=== PATIENT | male | born 1945 | race Caucasian/White ===

== ENCOUNTER → 2018-01-10 06:54 | Outpatient (CLI) | payer MEDICARE, SELFPAY ==
[2018-01-10 08:43] LABS: AST(SGOT) 45 U/L (15-37); Alanine Aminotransfer ALT/SGPT 68 U/L (16-61); Albumin, Serum 3.7 g/dL (3.2-5.0); Alkaline Phosphatase 125 U/L (45-117); Bilirubin, Direct 0.18 mg/dL (0.00-0.30); Cholesterol 152 mg/dL (200); Globulin 4.4 g/dL (2.2-4.2); High Density Lipoprotein 37 mg/dL; Protein, Total 8.1 g/dL (6.4-8.2); Triglycerides 171 mg/dL; Very Low Density Lipoprotein 34 mg/dL (5-40)
== END ==
PROVIDERS: Family Provider Preventive Medicine Occupational Medicine; PCP Preventive Medicine Occupational Medicine; Visit Provider Internal Medicine Cardiovascular Disease
DX: E78.5 Hyperlipidemia, unspecified (principal); Z79.899 Other long term (current) drug therapy
CPT/HCPCS: 36415; 80061; 80076

== ENCOUNTER 2018-06-14 10:11 | Emergency (ER) | payer MEDICARE, SELFPAY ==
[2018-06-14] VITALS (7 sets, daily range): BP systolic 100–110; BP diastolic 69–76; PULSE 70–84; RESP 14–23; TEMP 531.6–989; O2SAT 93–98; BMI 28.8
--- NOTE | 2018-06-14 10:26 | EKG12_ITS ---
Test Reason : SOB Blood Pressure : / mmHG Vent. Rate : 069 BPM Atrial Rate : 069 BPM P-R Int : 180 ms QRS Dur : 112 ms QT Int : 402 ms P-R-T Axes : 012 043 030 degrees QTc Int : 430 ms Normal sinus rhythm Normal ECG Confirmed by JANES GAMBLE, GARRISON ([id number]), assistant film editor SHOSHANA TORRES ([id number]) on 06/16/2018 12:49:08 PM Referred By: KEENA/MECCA Confirmed By:GARRISON MARRERO MD
--- NOTE | 2018-06-14 10:26 | RAD_ITS ---
STUDY: X-RAY CHEST REASON FOR EXAM: Male, 72 years old. 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 There is no dense focal infiltrate or consolidation, no effusion or pneumothorax, no apparent peribronchial cuffing or pulmonary vascular congestion. Normal cardiomediastinal silhouette, omar and pleural margins. No acute osseous or upper abdominal process. RAD/Chest PA and Lateral IMPRESSION: No acute cardiopulmonary process. Electronically Signed: Gunnar Rodriguez, at 11:45 EDT Tel , Service support ,
[2018-06-14] MEDS: Ipratropium/Albuterol Sulfate 3 ML AMPUL.NEB INHALATION (10:31)
[2018-06-14 10:48] LABS: Absolute Lymphocyte Count 2.23 X10^3/ul (0.83-4.51); Absolute Neutrophil Count 2.5 X10^3/uL (2.0-7.7); Basophil# 0.02 X10^3/uL; Basophil% 0.4 % (0-1); Eosinophil# 0.04 X10^3/uL; Eosinophils% 0.8 % (0-5); Hematocrit 42.6 % (40-54); Hemoglobin 14.1 g/dl (13.0-16.5); Lymphocyte # 2.23 X10^3/ul (4.0); Lymphocyte % 43.7 % (19-41); Mean Corp Hgb Conc 33.1 g/gl (32-36); Mean Corpuscular Hgb 34.3 pg (27.0-32.0); Mean Corpuscular Volume 103.6 fL (80-94); Monocyte# 0.33 X10^3/uL; Monocyte% 6.5 % (0-10); Neutrophil # 2.48 X10^3/uL (2.7-7.7); Neutrophil % 48.6 % (47-70); POSITIVE COUNT NO; POSITIVE DIFFERENTIAL NO; POSITIVE MORPHOLOGY NO; Platelet Count 178 K/mm3 (150-450); RBC Distribution Width CV 12.9 % (11.6-14.6); RBC Distribution Width SD 48.6 fl (35.1-43.9); Red Blood Count 4.11 M/mm3 (4.6-6.2); White Blood Count 5.1 K/mm3 (4.4-11.0)
[2018-06-14 11:03] LABS: Anion Gap 7 (5-15); BUN 16 mg/dL (7-18); BUN/Creat Ratio 15.5 RATIO (10-20); Chloride 105 mmol/L (98-107); Creatinine, Serum 1.03 mg/dL (0.70-1.30); EST Glomerular Filtration Rate 76 mL/min (>60); Est Glom Filt Rate - Afr Amer 92 mL/min (>60); Estimated Creatinine Clearance 71.08 ml/min; Glucose 119 mg/dL (74-106); Potassium 4.2 mmol/L (3.5-5.1); Sodium Level 138 mmol/L (136-145)
[2018-06-14] MEDS: Albuterol 2.5 MG/3 ML VIAL.NEB. INHALATION ×2 (11:12→11:42)
--- NOTE | 2018-06-14 13:30 | ED.DCSUM_ITS ---
- ER Visit Summary Date of Service: 06/14/18 Chief Complaint: Shortness of breath, wheezing and productive cough of yellow- green sputum since Friday. History of Present Illness: The patient is a 72 M who presents with respiratory symptoms started Friday. The productive sputum started . He states it is yellow-green. Per old records has history of COPD. He denies prior history. He denies fever, chills night sweats. He denies weight loss or weight gain. He denies any ocular, visual auditory symptoms. He denies rhinorrhea, postnasal drainage or sore throat. Denies any ear pain. He denies chest pain, palpitations or rapid heartbeat. He denies orthopnea or PND. He denies abdominal pain, nausea, vomiting or diarrhea. He denies dysuria, frequency urgency hematuria. Denies myalgias arthralgias. He does complain of weakness. He has no other complaints please read written note. Physical Examination: Vital signs are normal. Is not hypoxic nor is afebrile. Head is atraumatic normocephalic. Pupils are equal round reactive. Extraocular muscles are intact. TMs are pearly white with landmarks noted. Nares patent with no drainage. Posterior pharynx without erythema or exudate. Uvula is midline. There is no dysphonia or dysphasia. Trachea is midline. There is no stridor with auscultation of the neck. Heart is regular without murmur, gallop or rub. He does have rales right lower lobe posteriorly with increased vocal fremitus. There is wheezing bilaterally. The wheezing is more so on the right than left. There is increased x-ray phase. Test Results: Two-view chest x-ray reveals air bronchogram on the right. There is no discrete infiltrate. There is no effusion. Cardiac silhouette and mediastinum are normal. White count is normal. Electro panels normal. EKG was obtained and reveals a sinus rhythm rate of 69 and normal. Emergency Department Course and Treatment: Since patient's port score is less than 90 he will be discharged home with prescription for levofloxacin. He received his first dose in the emergency department. Patient is wheeze free after DuoNeb and albuterol treatment. Since he is wheeze free will not place on prednisone. Treatment Plan: Outpatient antibiotics and follow-up with PCP Disposition: Discharged home in stable and improved condition. Impression: 1. Clinical right lower lobe pneumonia 2. Bronchospasm secondary #1 This note was generated with [employer] dictation software. It may contain incorrect words, spelling, and punctuation that were not noted in review of the chart prior to signing ED Disposition - Plan for ED Patient: Disposition: Home or Assisted Living Chief Complaint: Shortness of Breath Instructions: ED Pneumonia Adult Prescriptions: levoFLOXacin tablet [Levaquin] 500 mg PO DAILY #7 tab Referrals: Keo Contreras DO [Primary Care Provider] - 3-5 Days
[2018-06-14] MEDS: levoFLOXacin 750 MG Tablet PO (13:37)
== END 2018-06-14 13:46 | disposition home or self-care (01) ==
PROVIDERS: Emergency Provider Emergency Medicine; Family Provider Preventive Medicine Occupational Medicine; PCP Preventive Medicine Occupational Medicine
DX: J44.0 Chronic obstructive pulmonary disease with (acute) lower respiratory infection (principal); J18.9 Pneumonia, unspecified organism; J98.01 Acute bronchospasm; I11.0 Hypertensive heart disease with heart failure; I50.9 Heart failure, unspecified; I25.10 Atherosclerotic heart disease of native coronary artery without angina pectoris; N40.0 Benign prostatic hyperplasia without lower urinary tract symptoms; Z79.02 Long term (current) use of antithrombotics/antiplatelets; Z79.82 Long term (current) use of aspirin; Z79.899 Other long term (current) drug therapy; Z87.891 Personal history of nicotine dependence; Z95.5 Presence of coronary angioplasty implant and graft
CPT/HCPCS: 71046; 80048; 84484; 85025; 93005; 94640; 99285; A4216

== ENCOUNTER 2018-09-02 19:25 | Emergency (ER) | payer MEDICARE, SELFPAY ==
[2018-09-02 19:26] VITALS: BP 118/77; PULSE 77; RESP 18; TEMP 37.2; O2SAT 97; BMI 29.5
[2018-09-02 20:10] LABS: Bacteria 0 SEEN /hpf (None Seen); Color, Urine Yellow (Yellow); Glucose, Dipstick Normal (Normal); Ketone-Dipstick Negative (Negative); Leukocyte Esterase-Dipstick 500 /ul (Negative); Mucous, Urine 0 SEEN /hpf (<or=2+); Nitrite-Dipstick Negative (Negative); Occult Blood-Urine 25 /ul (Negative); Protein-Dipstick Negative (Negative); Red Blood Cells-Urine 0 SEEN /hpf (0-5); Urine Bilirubin Dipstick Negative (Negative); Urine Clarity Clear (Clear); Urine Urobilinogen Normal (Normal)
--- NOTE | 2018-09-02 20:10 | CT_ITS ---
STUDY: CT ABDOMEN AND PELVIS WITHOUT CONTRAST REASON FOR EXAM: Male, 73 years old. Left flank pain and dysuria RADIATION DOSAGE (If Supplied By Facility): CTDIvol = ( ) mGy, DLP = ( 891.53 ) mGycm TECHNIQUE: Transaxial images were obtained from the dome of the diaphragm to the symphysis pubis without oral contrast, and without intravenous contrast. Sagittal and coronal images were reconstructed. Individualized dose optimization techniques were used for this CT. COMPARISON: None. FINDINGS: Diffuse interstitial thickening seen at both lung bases.. The visualized portions of the heart are within normal limits. Normal liver. Normal gallbladder and extrahepatic biliary system. Normal spleen. Normal pancreas. Normal bilateral adrenal glands. No evidence for renal obstruction or ureteral calculus. There are bilateral renal cysts Normal visualized stomach. Normal small intestine. Scattered diverticular changes of the colon without evidence for acute diverticulitis . No evidence for acute appendicitis Atherosclerotic changes of the aorta without evidence for aneurysm. Normal inferior vena cava. Normal retroperitoneum. Incompletely distended diffusely thick-walled bladder of uncertain significance but may be consistent with cystitis. Normal abdominal wall. Dorsal spine demonstrates spondylosis. Sclerotic density within the left hip of uncertain etiology most likely bone island however blastic metastasis is not entirely excluded CT/Abdomen/Pelvis without Cont IMPRESSION: No evidence for renal obstruction or ureteral calculus. There are simple cysts within both kidneys Incompletely distended thick-walled bladder which may be consistent with cystitis. However clinical correlation is recommended Scattered diverticular disease of colon without evidence for acute diverticulitis Electronically Signed: Cisco Orourke MD at 20:48 EDT , Service support ,
--- NOTE | 2018-09-02 20:16 | ED.DCSUM_ITS ---
- ER Visit Summary Date of Service: 09/02/18 Chief Complaint: Lower back and abdominal pain History of Present Illness: The patient is a 73 M who presents for bilateral flank, lower back and abdominal pain. Patient states he is 1 year ago he had surgery to remove kidney stones. Since then he has been having episodes of flank and low back pain that radiates around into the bilateral lower abdomen and groin. Pain is worse with standing and movement. Pain is usually brief, but he has had it constant since this morning today. He has not tried any medicine for the pain today. No fever, chest pain, shortness of breath, nausea or vomiting, diarrhea or constipation. Patient has occasional dysuria and frequency. History of kidney stones, coronary artery disease status post stents, and lung disease without a definitive diagnosis. Patient is a long-term smoker. Physical Examination: Vital signs: afebrile, hemodynamically stable, no hypoxia on room air General: well nourished, well developed, in no distress Skin: warm, dry, no rash, no pallor HEENT: normocephalic and atraumatic; PERRL, EOMI, moist mucous membranes Cardiovascular: regular rate and rhythm without murmurs, no peripheral edema, 2+ pulses all distal extremities Respiratory: No increased work of breathing, lungs are clear to auscultation bilaterally, no rales, rhonchi or wheezing Abdominal: Abdomen is soft, tender in the lower abdomen diffusely, positive ventral hernia with abdominal contracture that easily reduces with relaxation of the abdominal wall, no hernias noted in the groin, positive bilateral CVA tenderness and low back tenderness, nontender with normoactive bowel sounds, no guarding or rebound, no masses MSK: Moves all extremities, no deformities, normal strength Neuro: Awake and alert, oriented ?4. No facial droop, sensation and motor function intact and symmetric Test Results: Abnormal Lab Results 09/02/18 09/02/18 09/02/18 20:04 20:16 20:16 WBC 5.4 RBC 4.21 L Hgb 14.7 Hct 43.6 MCV 103.6 H MCH 34.9 H MCHC 33.7 RDW 12.5 RDW Differential 47.3 H Plt Count 183 MPV 10.1 Immature Gran % (Auto) 0.200 Neut % (Auto) 43.2 L Lymph % (Auto) 47.2 H [place] % (Auto) 8.1 Eos % (Auto) 1.1 Baso % (Auto) 0.2 Absolute Neuts (auto) 2.3 Absolute Lymphs (auto) 2.55 Total Counted Not Reportable Differential Comment SCANNED Sodium 137 Potassium 4.0 Chloride 103 Carbon Dioxide 29.0 Anion Gap 5 BUN 12 Creatinine 1.02 Estim Creat Clear Calc 70.75 Est GFR (MDRD) Af Amer 93 Est GFR (MDRD) Non-Af 77 BUN/Creatinine Ratio 11.8 Glucose 84 Calcium 9.1 Urine Color Yellow Urine Clarity Clear Urine pH 7.0 Ur Specific [place] 1.010 Urine Protein Negative Urine Glucose (UA) Normal Urine Ketones Negative Urine Occult Blood 25 H Urine Nitrite Negative Urine Bilirubin Negative Urine Urobilinogen Normal Ur Leukocyte Esterase 500 H Urine RBC 0 SEEN Urine WBC 10-25 SEEN Ur Squamous Epith Cells 0-5 SEEN Urine Bacteria 0 SEEN Urine Mucus 0 SEEN Clinical Impression(s) from Imaging Studies Abdomen/Pelvis CT 09/02/18 20:10 IMPRESSION: No evidence for renal obstruction or ureteral calculus. There are simple cysts within both kidneys Incompletely distended thick-walled bladder which may be consistent with cystitis. However clinical correlation is recommended Scattered diverticular disease of colon without evidence for acute diverticulitis Electronically Signed: Cisco Orourke MD at 20:48 EDT , Service support , Medications Given Discontinued Medications Hydrocodone Bitart/Acetaminophen ([place] 5mg-325mg) 0 tablet PO .TAKE HOME MED SEBASTIAN Last Admin: 09/02/18 23:30 Dose: 4 tablet Ciprofloxacin HCl (Cipro) 500 mg PO X1 ONE Stop: 09/02/18 23:03 Last Admin: 09/02/18 23:17 Dose: 500 mg Morphine Sulfate () 4 mg IV X1 ONE Stop: 09/02/18 20:11 Last Admin: 09/02/18 20:37 Dose: 4 mg Ondansetron HCl (Zofran) 4 mg IV X1 ONE Stop: 09/02/18 20:11 Last Admin: 09/02/18 20:38 Dose: 4 mg Emergency Department Course and Treatment: Patient was given morphine and Zofran as well as IV hydration. Urine and labs were checked. CT flank performed. Labs showed no leukocytosis, no electrolyte or renal derangements, and a urine consistent with infection. CT scan of the abdomen and pelvis showed no stones but did show thickening of the bladder wall consistent with acute cystitis. Urine culture is pending. Patient is clinically well-appearing, afebrile and normotensive. We discussed inpatient versus outpatient management of his pyelonephritis, and he was amenable to outpatient management. Patient was started on ciprofloxacin after reviewing his medications to make sure there were no contraindications to this antibiotic. Patient was also prescribed [place] for severe pain. He was given a home dose pack. First dose of antibiotic in the emergency department. Patient CT also showed a bone island in the left hip, however metastatic lesion could not be ruled out. Thus patient was advised to follow-up with his doctor for further evaluation. Discharged home in improved condition. Treatment Plan: [] Disposition: [] Impression: Acute uncomplicated pyelonephritis This note was generated with [employer] dictation software. It may contain incorrect words, spelling, and punctuation that were not noted in review of the chart prior to signing ED Disposition - Plan for ED Patient: Disposition: Home or Assisted Living Chief Complaint: Flank Pain Instructions: ED UTI Pyelonephritis Male Prescriptions: Hydrocodone Bitart/Apap 5-325 [[place] 5MG-325MG] 1 tab PO Q6H PRN PRN 3 Days #12 tab PRN Reason: Pain Ciprofloxacin [Cipro] 500 mg PO BID #14 tab Referrals: Keo Contreras DO [Primary Care Provider] - 3-5 Days if not improving Additional Instructions: Take the antibiotic as prescribed for the full 7 days, even if you feel better before it is done. Use [id number]-tobidnu pain medication as needed for mild pain and use [place] as needed for severe pain. Follow-up with your doctor in 3 days for another evaluation and make sure that you are improving. If at any point you develop a high fever, worsening back or abdominal pain, worsening urinary symptoms, or any other concerns, return immediately to the emergency department for another evaluation. The scan of your abdomen showed an incidental finding in your left hip bone. It is most likely what is called a bone island, but please follow-up with your doctor for further discussion and evaluation to make sure it is not something more serious. If you have any worsening of your condition or any new concerning symptoms, please return immediately to the emergency department for another evaluation.
[2018-09-02 20:27] LABS: Absolute Lymphocyte Count 2.55 X10^3/ul (0.83-4.51); Absolute Neutrophil Count 2.3 X10^3/uL (2.0-7.7); Basophil# 0.01 X10^3/uL; Basophil% 0.2 % (0-1); Eosinophil# 0.06 X10^3/uL; Eosinophils% 1.1 % (0-5); Hematocrit 43.6 % (40-54); Hemoglobin 14.7 g/dl (13.0-16.5); Lymphocyte # 2.55 X10^3/ul (4.0); Lymphocyte % 47.2 % (19-41); Mean Corp Hgb Conc 33.7 g/gl (32-36); Mean Corpuscular Hgb 34.9 pg (27.0-32.0); Mean Corpuscular Volume 103.6 fL (80-94); Mean Platelet Vol. 10.1 fl (6.2-12.0); Monocyte# 0.44 X10^3/uL; Monocyte% 8.1 % (0-10); Neutrophil # 2.33 X10^3/uL (2.7-7.7); Neutrophil % 43.2 % (47-70); Platelet Count 183 K/mm3 (150-450); RBC Distribution Width CV 12.5 % (11.6-14.6); RBC Distribution Width SD 47.3 fl (35.1-43.9); Red Blood Count 4.21 M/mm3 (4.6-6.2); White Blood Count 5.4 K/mm3 (4.4-11.0)
[2018-09-02 20:29] LABS: White Blood Cells 10-25 SEEN /hpf (0-5)
[2018-09-02 20:30] LABS: Squamous Epithelial Cells - UA 0-5 SEEN /hpf (0-5)
[2018-09-02] MEDS: Morphine 4 MG/ML Syringe IV (20:37)
[2018-09-02] MEDS: Ondansetron 4 MG/2 ML Vial IV (20:38)
[2018-09-02 20:45] LABS: Anion Gap 5 (5-15); BUN 12 mg/dL (7-18); BUN/Creat Ratio 11.8 RATIO (10-20); Calcium,Total 9.1 mg/dL (8.5-10.1); Chloride 103 mmol/L (98-107); Creatinine, Serum 1.02 mg/dL (0.70-1.30); EST Glomerular Filtration Rate 77 mL/min (>60); Est Glom Filt Rate - Afr Amer 93 mL/min (>60); Estimated Creatinine Clearance 70.75 ml/min; Glucose 84 mg/dL (74-106); Sodium Level 137 mmol/L (136-145)
[2018-09-02 20:51] LABS: Differential Indicated SCAN CRITERIA MET; POSITIVE COUNT NO; POSITIVE DIFFERENTIAL NO; POSITIVE MORPHOLOGY YES
[2018-09-02 20:52] LABS: Differential Comment SCANNED
[2018-09-02 22:13] VITALS: BP 115/71; PULSE 67; RESP 16; O2SAT 96
--- NOTE | 2018-09-02 23:05 | ED.DEP ---
ED Disposition - Plan for ED Patient: Disposition: Home or Assisted Living Chief Complaint: Flank Pain Instructions: ED UTI Pyelonephritis Male Prescriptions: Hydrocodone Bitart/Apap 5-325 [[place] 5MG-325MG] 1 tab PO Q6H PRN PRN 3 Days #12 tab PRN Reason: Pain Ciprofloxacin [Cipro] 500 mg PO BID #14 tab Referrals: Keo Contreras DO [Primary Care Provider] - 3-5 Days if not improving Additional Instructions: Take the antibiotic as prescribed for the full 7 days, even if you feel better before it is done. Use [id number]-tqpuhrp pain medication as needed for mild pain and use [place] as needed for severe pain. Follow-up with your doctor in 3 days for another evaluation and make sure that you are improving. If at any point you develop a high fever, worsening back or abdominal pain, worsening urinary symptoms, or any other concerns, return immediately to the emergency department for another evaluation. The scan of your abdomen showed an incidental finding in your left hip bone. It is most likely what is called a bone island, but please follow-up with your doctor for further discussion and evaluation to make sure it is not something more serious. If you have any worsening of your condition or any new concerning symptoms, please return immediately to the emergency department for another evaluation.
--- NOTE | 2018-09-02 23:08 | DCINST.ED_ITS ---
ED Disposition - Plan for ED Patient: Disposition: Home or Assisted Living Chief Complaint: Flank Pain Instructions: ED UTI Pyelonephritis Male Prescriptions: Hydrocodone Bitart/Apap 5-325 [[place] 5MG-325MG] 1 tab PO Q6H PRN PRN 3 Days #12 tab PRN Reason: Pain Ciprofloxacin [Cipro] 500 mg PO BID #14 tab Referrals: Keo Contreras DO [Primary Care Provider] - 3-5 Days if not improving Additional Instructions: Take the antibiotic as prescribed for the full 7 days, even if you feel better before it is done. Use okvn-yla-lslgody pain medication as needed for mild pain and use [place] as needed for severe pain. Follow-up with your doctor in 3 days for another evaluation and make sure that you are improving. If at any point you develop a high fever, worsening back or abdominal pain, worsening urinary symptoms, or any other concerns, return immediately to the emergency department for another evaluation. The scan of your abdomen showed an incidental finding in your left hip bone. It is most likely what is called a bone island, but please follow-up with your doctor for further discussion and evaluation to make sure it is not something more serious. If you have any worsening of your condition or any new concerning symptoms, please return immediately to the emergency department for another evaluation.
[2018-09-02] MEDS: Ciprofloxacin 500 MG Tablet PO (23:17)
[2018-09-02] MEDS: HYDROcodone Bitartrate/Apap 5/325 Tablet PO (23:30)
[2018-09-02 23:32] VITALS: BP 134/78; PULSE 76; RESP 20; O2SAT 97
--- NOTE | 2018-09-02 23:33 | ED.RN ---
THIS NURSE REVIEWED D/C INSTRUCTIONS WITH PT AND FAMILY. PT VERBALIZED UNDERSTANDING OF INSTRUCTIONS. IV D/C. IV CATHETER INTACT. PT TOLERATED WELL. PT DENIES FURTHER NEEDS OR QUESTIONS AT THIS TIME. PT AMBULATES FROM ROOM ON OWN WITHOUT ASSISTANCE FROM STAFF
== END 2018-09-02 23:35 | disposition home or self-care (01) ==
PROVIDERS: Emergency Provider Emergency Medicine; Family Provider Preventive Medicine Occupational Medicine; PCP Preventive Medicine Occupational Medicine
DX: N10 Acute pyelonephritis (principal); N28.1 Cyst of kidney, acquired; I25.10 Atherosclerotic heart disease of native coronary artery without angina pectoris; J98.4 Other disorders of lung; K43.9 Ventral hernia without obstruction or gangrene; I25.2 Old myocardial infarction; F17.200 Nicotine dependence, unspecified, uncomplicated; Z79.02 Long term (current) use of antithrombotics/antiplatelets; Z79.82 Long term (current) use of aspirin; Z79.899 Other long term (current) drug therapy; Z87.442 Personal history of urinary calculi; Z95.5 Presence of coronary angioplasty implant and graft
CPT/HCPCS: 74176; 80048; 81001; 85025; 96374; 96375; 99285; A4216; J2405

== ENCOUNTER → 2018-09-15 16:56 | Outpatient (CLI) | payer MEDICARE, SELFPAY ==
--- NOTE | 2018-09-15 15:30 | CYSPIN_PTH ---
PATIENT: KATHERINE MONK LOC: [facility] U#:[id number] AGE/SX: 80/M ROOM: RE09/15/[address]: Dr. Jeyson Mccarty MD : [id number] BED: DIS: SPEC #: [id number] RECD: 09/16/18 08:14 STATUS: ELVIRA SEE #: [id number] MELISSA: 09/15/18 15:[address]: Jeyson Mccarty DEPT: CYTOLOGY RECD BY: Gunnar Maddox ENTERED: 09/16/18 08:14 SP TYPE: CYSPIN FL OTHR DR: Dr. Keo Contreras, Tissues: Urine Procedures: Pap Stain (control) Special Stain Group II Cytospin Fluid HEADER OPERATION: Not noted PRE-OP DIAGNOSIS: Gross hematuria TISSUE SUBMITTED: Urine for cytology DIAGNOSIS CYTOLOGY Urine for cytology (cytospin): Numerous clusters of atypical urothelial cells noted. See comment. HALEY:elinor 09/17/18 COMMENT Differential diagnosis includes low-grade urothelial neoplasm, infection or calculus. Correlation with clinical findings and appropriate follow up are necessary. Case has been reviewed in consultation with Dr. Mayer who concurs with the above diagnosis. IDC:AM CYTOLOGY STUDY Slides are reviewed. CYTOLOGY GROSS Received is 75 ml of clear yellow fluid labeled with the patient's name and and designated per the requisition as urine. Submitted for cytology preparation. / 09/16/18 TC:5 CPT: 11453
[2018-09-15 17:41] LABS: Cytology, Body Fluid / CSF SEE PATHOLOGY REPORT
== END ==
PROVIDERS: Family Provider Preventive Medicine Occupational Medicine; PCP Preventive Medicine Occupational Medicine; Referring Provider Urology; Visit Provider Urology
DX: R31.0 Gross hematuria (principal)
CPT/HCPCS: 87086; 88108; 88313

== ENCOUNTER → 2018-09-29 08:50 | Outpatient (CLI) | payer MEDICARE, SELFPAY ==
[2018-09-29 10:57] LABS: PSA,Total - Annual Screen 0.39 ng/mL (0.00-4.00)
== END ==
PROVIDERS: Family Provider Preventive Medicine Occupational Medicine; PCP Preventive Medicine Occupational Medicine; Referring Provider Urology; Visit Provider Urology
DX: Z12.5 Encounter for screening for malignant neoplasm of prostate (principal)
CPT/HCPCS: 36415; 84153; G0103

== ENCOUNTER 2018-11-05 20:02 | Inpatient (IN) | payer MEDICARE, SELFPAY ==
[2018-11-05] VITALS (11 sets, daily range): BP systolic 94–132; BP diastolic 54–84; PULSE 80–105; RESP 18–30; TEMP 36.8–37.3; O2SAT 95–97; BMI 29.9; BMI 28.5; BMI 28.6
--- NOTE | 2018-11-05 20:08 | ED.RN ---
RN CALLED FOR EKG, PULLED OLD EKGS FOR
--- NOTE | 2018-11-05 20:15 | RAD_ITS ---
STUDY: X-RAY CHEST REASON FOR EXAM: Male, 73 years old. Chest pain TECHNIQUE: AP portable COMPARISON: June 14, 2018 FINDINGS: There are chronic interstitial changes in the lower lobes slightly greater on the left.. There is no demonstrated pleural abnormality. There is mild prominence of the cardiac silhouette.. Normal mediastinum and omar. Normal visualized pulmonary arteries. Normal visualized aortic arch and descending thoracic aorta. Dorsal spine demonstrates spondylosis. Normal visualized ribs, clavicles, and shoulders. There is no demonstrated abnormality of the visualized soft tissue structures of the upper abdomen. RAD/Chest 1 View (Portable) IMPRESSION: Mild chronic interstitial changes in the lower lobes slightly greater on the left Electronically Signed: Cisco Orourke MD at 21:09 EST , Service support ,
--- NOTE | 2018-11-05 20:15 | EKG12_ITS ---
Test Reason : CP Blood Pressure : / mmHG Vent. Rate : 096 BPM Atrial Rate : 096 BPM P-R Int : 160 ms QRS Dur : 094 ms QT Int : 328 ms P-R-T Axes : 041 073 032 degrees QTc Int : 414 ms Normal sinus rhythm Possible Left atrial enlargement Incomplete right bundle branch block Borderline ECG Confirmed by JANES GAMBLE, GARRISON ([id number]), clinical editor SHOSHANA TORRES ([id number]) on 11/09/2018 2:48:21 PM Referred By: KEENA Confirmed By:GARRISON MARRERO MD
--- NOTE | 2018-11-05 20:18 | ED.DCSUM_ITS ---
- ER Visit Summary Date of Service: 11/05/18 Chief Complaint: [] Harsh cough fever chest pain History of Present Illness: The patient is a 73 M [], history of cardiac stents COPD although the been stable, he indicates for about a week he has had a harsh cough and a fever, nonspecific chest pain. He has had decreased p.o. intake generalized fatigue, he is prone to pneumonia and UTI, indicates had a UTI about 2 months ago no recent UTI symptoms his COPD has also been stable he has 3 stents, he has no history of recent cardiovascular issues DVT or PE Physical Examination: [] 130/70 afebrile pulse ox 96% on room air General, no distress resting comfortably HEENT is generally unremarkable The neck is supple no adenopathy Cardiovascular, regular rate and rhythm Lungs, clear bilateral Abdomen, soft nontender Extremities, no clubbing cyanosis or edema Neurologic, awake alert answering questions appropriately moving all 4 extremities The patient's EKG shows a sinus with nothing acute All the above screening labs therapy The patient's labs are generally unremarkable please see those reports, chest x- ray shows basilar infiltrates left greater than right The patient his daughter we discussed inpatient versus outpatient management patient stated he simply too tired and fatigued to go home he lives alone at home given that we have start him IV antibiotics and we have asked the hospitalist team for further management and admission Test Results: [] Emergency Department Course and Treatment: [] Treatment Plan: [] Disposition admit Impression: [] Left lower lobe pneumonia, exacerbation of COPD, history of CAD This note was generated with [employer] dictation software. It may contain incorrect words, spelling, and punctuation that were not noted in review of the chart prior to signing ED Disposition - Plan for ED Patient: Chief Complaint: Chest Pain Referrals: Keo Contreras DO [Primary Care Provider] -
[2018-11-05] MEDS: Ipratropium/Albuterol Sulfate 3 ML AMPUL.NEB INHALATION ×3 (20:20→23:55)
[2018-11-05] MEDS: morphine 8 MG/ML Syringe IV (20:23)
[2018-11-05] MEDS: Ondansetron 4 MG/2 ML Vial IV (20:23)
[2018-11-05 20:24] LABS: Absolute Lymphocyte Count 1.46 X10^3/ul (0.83-4.51); Absolute Neutrophil Count 7.4 X10^3/uL (2.0-7.7); Basophil# 0.02 X10^3/uL; Basophil% 0.2 % (0-1); Eosinophil# 0.03 X10^3/uL; Eosinophils% 0.3 % (0-5); Hematocrit 39.9 % (40-54); Hemoglobin 13.3 g/dl (13.0-16.5); Lymphocyte # 1.46 X10^3/ul (4.0); Lymphocyte % 15.1 % (19-41); Mean Corp Hgb Conc 33.3 g/gl (32-36); Mean Corpuscular Hgb 34.5 pg (27.0-32.0); Mean Corpuscular Volume 103.4 fL (80-94); Mean Platelet Vol. 9.9 fl (6.2-12.0); Monocyte# 0.75 X10^3/uL; Monocyte% 7.7 % (0-10); Neutrophil # 7.41 X10^3/uL (2.7-7.7); Neutrophil % 76.6 % (47-70); POSITIVE COUNT NO; POSITIVE DIFFERENTIAL NO; POSITIVE MORPHOLOGY NO; Platelet Count 226 K/mm3 (150-450); RBC Distribution Width CV 12.5 % (11.6-14.6); RBC Distribution Width SD 47.2 fl (35.1-43.9); Red Blood Count 3.86 M/mm3 (4.6-6.2); White Blood Count 9.7 K/mm3 (4.4-11.0)
[2018-11-05] MEDS: 0.9% Normal Saline 1,000 ML 150 ML IV (20:24)
[2018-11-05] MEDS: Aspirin 81 MG TAB.CHEW 324 MG PO (20:24)
[2018-11-05 20:50] LABS: BNP,B-Type NATRIURETIC PEPTIDE 40.2 pg/mL (0-100)
[2018-11-05 20:55] LABS: Anion Gap 9 (5-15); BUN 16 mg/dL (7-18); BUN/Creat Ratio 13.1 RATIO (10-20); Calcium,Total 8.7 mg/dL (8.5-10.1); Chloride 101 mmol/L (98-107); Creatinine, Serum 1.22 mg/dL (0.70-1.30); EST Glomerular Filtration Rate 62 mL/min (>60); Est Glom Filt Rate - Afr Amer 75 mL/min (>60); Estimated Creatinine Clearance 57.34 ml/min; Glucose 165 mg/dL (74-106); Sodium Level 135 mmol/L (136-145)
[2018-11-05 21:02] LABS: Bacteria 0 SEEN /hpf (None Seen); Mucous, Urine 0 SEEN /hpf (<or=2+)
[2018-11-05 21:10] LABS: Color, Urine Yellow (Yellow); Glucose, Dipstick Normal (Normal); Ketone-Dipstick Negative (Negative); Leukocyte Esterase-Dipstick 500 /ul (Negative); Nitrite-Dipstick Negative (Negative); Occult Blood-Urine 50 /ul (Negative); Protein-Dipstick 15 mg/dl (Negative); Urine Bilirubin Dipstick Negative (Negative); Urine Clarity Sl. Cloudy (Clear); Urine Urobilinogen Normal (Normal)
[2018-11-05 21:24] LABS: Red Blood Cells-Urine 5-10 SEEN /hpf (0-5); Squamous Epithelial Cells - UA 0-5 SEEN /hpf (0-5); White Blood Cells 10-25 SEEN /hpf (0-5)
[2018-11-05] MEDS: Ceftriaxone 1 GM/50 ML BAG IV (21:41)
[2018-11-05] MEDS: Acetaminophen 500 MG Tablet 1000 MG PO (22:01)
--- NOTE | 2018-11-05 22:15 | PCM.HP.STD ---
Problem List (1) Chest pain Status: Acute (2) Hypercalcemia Status: Resolved (3) Atherosclerotic heart disease of [place] coronary artery without angina pectoris Status: Chronic Qualifiers: (4) Angina pectoris Status: Chronic (5) Abnormal cardiovascular function Status: Chronic (6) Abnormal myocardial perfusion study Status: Chronic (7) senior care use of drug Status: Chronic (8) Hypertension Status: Chronic Qualifiers: (9) Hyperlipidemia Status: Chronic Qualifiers: (10) Coronary artery disease Status: Chronic (11) S/P drug eluting coronary stent placement Status: Chronic (12) History of rheumatic fever Status: Chronic (13) Tobacco use Status: Chronic (14) COPD (chronic obstructive pulmonary disease) Status: Chronic Qualifiers: (15) BPH (benign prostatic hyperplasia) Status: Chronic (16) Unstable angina pectoris Status: Acute (17) S/P PTCA (percutaneous transluminal coronary angioplasty) Status: Chronic Comment: [facility] w/ PCI drug eluting stent to LAD 2009; PTCA mid LAD 12/14 History of Present Illness Date of Admission: 11/05/18 Chief Complaint: Presented to the ED c/o chest pain with radiation down left arm but, also c/o cough and not feeling well for the past week to the ER doctor The patient is a 73 year old M with a past medical history of COPD, BPH, coronary artery disease, history of PCI, hypertension, hyperlipidemia and tobacco dependence who presented to the emergency department at [facility] on 11/05/2018 complaining of substernal chest pain radiating down the left arm that had been present off and on all day. He did not take NTG and it went away if he rubbed his left chest. the pain came on while sitting. Last cath was in January of 2017 and at that time he had an 85% stenosis of a diagonal branch that was too small to intervene. He also told the ER physician that he has had a harsh cough and a fever for approximately 1 week. He has not taken his temperature but he felt hot and then cold once. The sputum has been clear at times and light yellow at other times. He denies nausea, vomiting, abdominal pain, diarrhea. He has had a mild sore throat at onset of the illness. He has no oxygen at home and does not use aerosol treatments. He saw a brick carrier several years ago and has not followed up since then. He uses only an albuterol metered-dose inhaler as needed at home. CXR in the ED shows heavy interstitial markings in both bases that is unchanged from prior XRAYS. Vital signs at presentation to the emergency room were temperature 99.1, pulse rate 95, pressure 132/71, respiratory rate 25 and he was 97% saturated on room air. White blood cell count was 9.7 with 76.6% neutrophils. Hemoglobin was normal and platelets were also normal. Sodium was mildly decreased at 135 but the remaining electrolytes were within normal limits. BUN is 16 with a creatinine of 1.22, up from 0.85 in January 2017. Troponin was normal. Random blood sugar was elevated at 165 and the patient has no documented history of diabetes mellitus. Past Medical History Past Medical History (Chronic Problems): Chronic Problems (Last Reviewed 11/05/18 @ 22:23 by Lola Baez DO) Atherosclerotic heart disease of [place] coronary artery without angina pectoris (Chronic) Angina pectoris (Chronic) Abnormal cardiovascular function (Chronic) Abnormal myocardial perfusion study (Chronic) senior care use of drug (Chronic) Hypertension (Chronic) Hyperlipidemia (Chronic) Coronary artery disease (Chronic) S/P drug eluting coronary stent placement (Chronic) History of rheumatic fever (Chronic) Tobacco use (Chronic) COPD (chronic obstructive pulmonary disease) (Chronic) BPH (benign prostatic hyperplasia) (Chronic) S/P PTCA (percutaneous transluminal coronary angioplasty) (Chronic) [facility] w/ PCI drug eluting stent to LAD 2009; PTCA mid LAD 12/14 Medical History: Medical History (Last Reviewed 11/05/18 @ 22:23 by Lola Baez DO) Hypercalcemia (Chronic) E83.52 Atherosclerotic heart disease of [place] coronary artery without angina pectoris (Chronic) I25.10 Hypertension (Chronic) I10 Hyperlipidemia (Chronic) E78.5 Coronary artery disease (Chronic) I25.10 Allergies No Known Allergies Allergy (Verified 09/02/18 19:26) Home Medications: Ambulatory Orders Medication Instructions Recorded Nitroglycerin [Nitrostat] 0.4 mg SUBLINGUAL Q5M PRN #1 bottle 02/05/17 metoprolol tartrate 25 mg tablet 12.5 mg PO BID #90 tab 07/14/18 Albuterol Sulfate [Ventolin Hfa] 1 - 2 puff INHALATION Q4H PRN PRN 09/02/18 Aspirin E.C. [Ecotrin] 81 mg PO DAILY 09/02/18 Clopidogrel Bisulfate [Clopidogrel] 75 mg PO QDAY 09/02/18 Cranberry Fruit Concentrate [Azo 500 mg PO DAILY 09/02/18 Cranberry] Pravastatin Sodium 80 mg PO QHS 09/02/18 Surgical History: Surgical History (Last Reviewed 11/05/18 @ 22:23 by Lola Baez DO) S/P drug eluting coronary stent placement (Chronic) Z95.5 S/P PTCA (percutaneous transluminal coronary angioplasty) (Chronic) Z98.61 [facility] w/ PCI drug eluting stent to LAD 2009; PTCA mid LAD 12/14 Surgical History: angioplasty, - - Cardiac catheterization, Transurethral ablation w/ history of BPH, T+A. Psychiatric History: No pertinent psych hx Lives: Alone Smoking Status: Current every day smoker Tobacco Use: Cigarettes Alcohol: Rare Drugs: None - *Family History Maternal Family History: Family History (Last Reviewed 11/05/18 @ 22:23 by Lola Baez DO) Father Myocardial infarction CVA (cerebral vascular accident) Brother Diabetes History Items: No pertinent history Paternal Family History: Family History (Last Reviewed 11/05/18 @ 22:23 by Lola Baez DO) Father Myocardial infarction CVA (cerebral vascular accident) Brother Diabetes History Items: Stroke Review of Systems Constitutional: Reports: Chills, Fever. Denies: Weight Change HEENT: Reports: Sore Throat. Denies: Difficulty Swallowing, Head Aches, Sinus Congestion, Sinus Drainage Cardiovascular: Reports: Chest Pain. Denies: Edema, Light Headedness, Orthopnea, Palpitations Respiratory: Reports: Cough, Shortness of Breath, Sputum production. Denies: Hemoptysis Gastrointestinal: Denies: Abdominal Pain, Diarrhea, Nausea, Vomiting Genitourinary: Denies: Dysuria Musculoskeletal: Denies: Joint Pain, Joint Tenderness Skin: Denies: Jaundice, Rash, Wounds Neurological: Denies: Numbness, Tingling, Focal weakness Psychiatric: Denies: Anxiety, Depression, Homicidal Ideations, Suicidal Ideations Hematologic/ Lymphatic: Denies: Easy Bruising, Easy Bleeding, Hx of blood clot VTE Information - Inpt Only VTE Present on Admission: No VTE Mechan Device Prophylaxis: SCD's VTE Pharm Prophylaxis ordered?: Yes Patient Problems: Active and Suspected Problems (Last Reviewed 11/05/18 @ 22:23 by Lola Baez DO) Chest pain (Acute) - Physical Exam General: Alert, Oriented x3, Cooperative HEENT: Atraumatic, PERRLA, EOMI, Normocephalic Oral: Moist Mucosa, - - halitosis Neck: Supple, No JVD, Negative Carotid Bruits Lungs: Clear to auscultation, No rhonchi, No wheeze, No rales, - - decreased inspiratory breath sounds. No accessory muscle use, not tachypneic. No conversational dyspnea. Cardiovascular: Regular rate, Regular Rhythm, Normal S1, Normal S2, No murmurs, No rub noted, No Gallop Abdomen: Bowel Sounds Present, Soft, Non Tender Extremities: No edema, Capillary Refill Less than 3 Seconds, Clubbing, Peripheral Pulses Normal Skin: No rashes, No breakdown Musculoskeletal: No Tenderness to Palpation of Joints or Extremities Neurological: Cranial nerves II-XII grossly intact, Neuro grossly intact Psych/Mental Status: Normal Affect, Appropriate Vital Signs Temp Pulse Resp BP Pulse Ox 99.1 F 105 H 20 H 123/75 H 95 11/05/18 20:05 11/05/18 21:34 11/05/18 21:34 11/05/18 21:34 11/05/18 21:34 Oxygen Flow Rate (L/min) 2 Oxygen Delivery Method Nasal Cannula Weight: 208 lb 12.444 oz Body Mass Index (BMI) 29.9 Laboratory Tests Past 24 Hrs 11/05/18 11/05/18 11/05/18 20:11 20:11 20:11 WBC 9.7 RBC 3.86 L Hgb 13.3 Hct 39.9 L MCV 103.4 H MCH 34.5 H MCHC 33.3 RDW 12.5 RDW Differential 47.2 H Plt Count 226 MPV 9.9 Immature Gran % (Auto) 0.100 Neut % (Auto) 76.6 H Lymph % (Auto) 15.1 L [place] % (Auto) 7.7 Eos % (Auto) 0.3 Baso % (Auto) 0.2 Absolute Neuts (auto) 7.4 Absolute Lymphs (auto) 1.46 Total Counted Not Reportable Sodium 135 L Potassium 4.0 Chloride 101 Carbon Dioxide 25.0 Anion Gap 9 BUN 16 Creatinine 1.22 Estim Creat Clear Calc 57.34 Est GFR (MDRD) Af Amer 75 Est GFR (MDRD) Non-Af 62 BUN/Creatinine Ratio 13.1 Glucose 165 H Calcium 8.7 Troponin I < 0.015 B-Natriuretic Peptide 40.2 Urine Color Urine Clarity Urine pH Ur Specific [place] Urine Protein Urine Glucose (UA) Urine Ketones Urine Occult Blood Urine Nitrite Urine Bilirubin Urine Urobilinogen Ur Leukocyte Esterase Urine RBC Urine WBC Ur Squamous Epith Cells Urine Bacteria Urine Mucus 11/05/18 20:50 WBC RBC Hgb Hct MCV MCH MCHC RDW RDW Differential Plt Count MPV Immature Gran % (Auto) Neut % (Auto) Lymph % (Auto) [place] % (Auto) Eos % (Auto) Baso % (Auto) Absolute Neuts (auto) Absolute Lymphs (auto) Total Counted Sodium Potassium Chloride Carbon Dioxide Anion Gap BUN Creatinine Estim Creat Clear Calc Est GFR (MDRD) Af Amer Est GFR (MDRD) Non-Af BUN/Creatinine Ratio Glucose Calcium Troponin I B-Natriuretic Peptide Urine Color Yellow Urine Clarity Sl. Cloudy Urine pH 6.0 Ur Specific [place] 1.020 Urine Protein 15 H Urine Glucose (UA) Normal Urine Ketones Negative Urine Occult Blood 50 H Urine Nitrite Negative Urine Bilirubin Negative Urine Urobilinogen Normal Ur Leukocyte Esterase 500 H Urine RBC 5-10 SEEN Urine WBC 10-25 SEEN Ur Squamous Epith Cells 0-5 SEEN Urine Bacteria 0 SEEN Urine Mucus 0 SEEN Assessment/Plan All Active Problems (Last Reviewed 11/05/18 @ 22:23 by Lola Baez DO) Chest pain (Acute) Unstable angina pectoris (Acute) Hypercalcemia (Resolved) Impressions 1. Atypical Chest pain - doubt cardiac. CE's X2 negative. 2. acute exacerbation COPD with no evidence focal infiltrates on the CXR - suspect he may have had a viral URI initially and this lead to an exacerbation of COPD 3. COPD 4. Tobacco dependence 5. CAD with hx of PTCA 6. persistent pyuria - etiology? culture negative at the last admission and he is asymptomatic 7. HTN 8. HLD 9. BPH 10. Hyperglycemia with no hx of DM 11. Macrocytosis Admit to a monitored bed on PCU ASA 81 mg PO daily SL NTG 0.4 mg PRN chest pain Serial Cardiac Enzymes Stat EKG PRN CP Chest XRAY chest pain is very atypical and the serial cardiac enzymes so far negative.......will hold off on a stress test and treat for exacerbation of COPD DVT prophylaxis ordered CXR - chronic interstitial changes - unchanged from last CXR with no new focal infiltrates observed Sputum for GM stain C&S Influenza swab Respiratory panel Legionella and Streptococcal antigens in the urine - negative Around the clock aerosol treatments and Q 2H ALbuterol aerosols for wheezing/SOB Mucinex Incentive spirometry Ambulatory pulse ox prior to DC Smoking cessation counselling given Consult with pulmonary requested by the patient's dtr - will consult Dr. Donahue Code Visit Inpatient E&M: 73428 Init Hosp L2
--- NOTE | 2018-11-05 22:23 | HP.PCM_ITS ---
Problem List (1) Chest pain Status: Acute (2) Hypercalcemia Status: Resolved (3) Atherosclerotic heart disease of [place] coronary artery without angina pectoris Status: Chronic Qualifiers: (4) Angina pectoris Status: Chronic (5) Abnormal cardiovascular function Status: Chronic (6) Abnormal myocardial perfusion study Status: Chronic (7) alf use of drug Status: Chronic (8) Hypertension Status: Chronic Qualifiers: (9) Hyperlipidemia Status: Chronic Qualifiers: (10) Coronary artery disease Status: Chronic (11) S/P drug eluting coronary stent placement Status: Chronic (12) History of rheumatic fever Status: Chronic (13) Tobacco use Status: Chronic (14) COPD (chronic obstructive pulmonary disease) Status: Chronic Qualifiers: (15) BPH (benign prostatic hyperplasia) Status: Chronic (16) Unstable angina pectoris Status: Acute (17) S/P PTCA (percutaneous transluminal coronary angioplasty) Status: Chronic Comment: [facility] w/ PCI drug eluting stent to LAD 2009; PTCA mid LAD 12/14 History of Present Illness Date of Admission: 11/05/18 Chief Complaint: Presented to the ED c/o chest pain with radiation down left arm but, also c/o cough and not feeling well for the past week to the ER doctor The patient is a 73 year old M with a past medical history of COPD, BPH, coronary artery disease, history of PCI, hypertension, hyperlipidemia and tobacco dependence who presented to the emergency department at [facility] on 11/05/2018 complaining of substernal chest pain radiating down the left arm that had been present off and on all day. He did not take NTG and it went away if he rubbed his left chest. the pain came on while sitting. Last cath was in January of 2017 and at that time he had an 85% stenosis of a diagonal branch that was too small to intervene. He also told the ER physician that he has had a harsh cough and a fever for approximately 1 week. He has not taken his temperature but he felt hot and then cold once. The sputum has been clear at times and light yellow at other times. He denies nausea, vomiting, abdominal pain, diarrhea. He has had a mild sore throat at onset of the illness. He has no oxygen at home and does not use aerosol treatments. He saw a language tutor several years ago and has not followed up since then. He uses only an albuterol metered-dose inhaler as needed at home. CXR in the ED shows heavy interstitial markings in both bases that is unchanged from prior XRAYS. Vital signs at presentation to the emergency room were temperature 99.1, pulse rate 95, pressure 132/71, respiratory rate 25 and he was 97% saturated on room air. White blood cell count was 9.7 with 76.6% neutrophils. Hemoglobin was normal and platelets were also normal. Sodium was mildly decreased at 135 but the remaining electrolytes were within normal limits. BUN is 16 with a creatinine of 1.22, up from 0.85 in January 2017. Troponin was normal. Random blood sugar was elevated at 165 and the patient has no documented history of diabetes mellitus. Past Medical History Past Medical History (Chronic Problems): Chronic Problems (Last Reviewed 11/05/18 @ 22:23 by Lola Baez DO) Atherosclerotic heart disease of [place] coronary artery without angina pectoris (Chronic) Angina pectoris (Chronic) Abnormal cardiovascular function (Chronic) Abnormal myocardial perfusion study (Chronic) alf use of drug (Chronic) Hypertension (Chronic) Hyperlipidemia (Chronic) Coronary artery disease (Chronic) S/P drug eluting coronary stent placement (Chronic) History of rheumatic fever (Chronic) Tobacco use (Chronic) COPD (chronic obstructive pulmonary disease) (Chronic) BPH (benign prostatic hyperplasia) (Chronic) S/P PTCA (percutaneous transluminal coronary angioplasty) (Chronic) [facility] w/ PCI drug eluting stent to LAD 2009; PTCA mid LAD 12/14 Medical History: Medical History (Last Reviewed 11/05/18 @ 22:23 by Lola Baez DO) Hypercalcemia (Chronic) E83.52 Atherosclerotic heart disease of [place] coronary artery without angina pectoris (Chronic) I25.10 Hypertension (Chronic) I10 Hyperlipidemia (Chronic) E78.5 Coronary artery disease (Chronic) I25.10 Allergies No Known Allergies Allergy (Verified 09/02/18 19:26) Home Medications: Ambulatory Orders Medication Instructions Recorded Nitroglycerin [Nitrostat] 0.4 mg SUBLINGUAL Q5M PRN #1 bottle 02/05/17 metoprolol tartrate 25 mg tablet 12.5 mg PO BID #90 tab 07/14/18 Albuterol Sulfate [Ventolin Hfa] 1 - 2 puff INHALATION Q4H PRN PRN 09/02/18 Aspirin E.C. [Ecotrin] 81 mg PO DAILY 09/02/18 Clopidogrel Bisulfate [Clopidogrel] 75 mg PO QDAY 09/02/18 Cranberry Fruit Concentrate [Azo 500 mg PO DAILY 09/02/18 Cranberry] Pravastatin Sodium 80 mg PO QHS 09/02/18 Surgical History: Surgical History (Last Reviewed 11/05/18 @ 22:23 by Lola Baez DO) S/P drug eluting coronary stent placement (Chronic) Z95.5 S/P PTCA (percutaneous transluminal coronary angioplasty) (Chronic) Z98.61 [facility] w/ PCI drug eluting stent to LAD 2009; PTCA mid LAD 12/14 Surgical History: angioplasty, - - Cardiac catheterization, Transurethral ablation w/ history of BPH, T+A. Psychiatric History: No pertinent psych hx Lives: Alone Smoking Status: Current every day smoker Tobacco Use: Cigarettes Alcohol: Rare Drugs: None - *Family History Maternal Family History: Family History (Last Reviewed 11/05/18 @ 22:23 by Lola Baez DO) Father Myocardial infarction CVA (cerebral vascular accident) Brother Diabetes History Items: No pertinent history Paternal Family History: Family History (Last Reviewed 11/05/18 @ 22:23 by Lola Baez DO) Father Myocardial infarction CVA (cerebral vascular accident) Brother Diabetes History Items: Stroke Review of Systems Constitutional: Reports: Chills, Fever. Denies: Weight Change HEENT: Reports: Sore Throat. Denies: Difficulty Swallowing, Head Aches, Sinus Congestion, Sinus Drainage Cardiovascular: Reports: Chest Pain. Denies: Edema, Light Headedness, Orthopnea, Palpitations Respiratory: Reports: Cough, Shortness of Breath, Sputum production. Denies: Hemoptysis Gastrointestinal: Denies: Abdominal Pain, Diarrhea, Nausea, Vomiting Genitourinary: Denies: Dysuria Musculoskeletal: Denies: Joint Pain, Joint Tenderness Skin: Denies: Jaundice, Rash, Wounds Neurological: Denies: Numbness, Tingling, Focal weakness Psychiatric: Denies: Anxiety, Depression, Homicidal Ideations, Suicidal Ideations Hematologic/ Lymphatic: Denies: Easy Bruising, Easy Bleeding, Hx of blood clot VTE Information - Inpt Only VTE Present on Admission: No VTE Mechan Device Prophylaxis: SCD's VTE Pharm Prophylaxis ordered?: Yes Patient Problems: Active and Suspected Problems (Last Reviewed 11/05/18 @ 22:23 by Lola Baez DO) Chest pain (Acute) - Physical Exam General: Alert, Oriented x3, Cooperative HEENT: Atraumatic, PERRLA, EOMI, Normocephalic Oral: Moist Mucosa, - - halitosis Neck: Supple, No JVD, Negative Carotid Bruits Lungs: Clear to auscultation, No rhonchi, No wheeze, No rales, - - decreased inspiratory breath sounds. No accessory muscle use, not tachypneic. No conversational dyspnea. Cardiovascular: Regular rate, Regular Rhythm, Normal S1, Normal S2, No murmurs, No rub noted, No Gallop Abdomen: Bowel Sounds Present, Soft, Non Tender Extremities: No edema, Capillary Refill Less than 3 Seconds, Clubbing, Peripheral Pulses Normal Skin: No rashes, No breakdown Musculoskeletal: No Tenderness to Palpation of Joints or Extremities Neurological: Cranial nerves II-XII grossly intact, Neuro grossly intact Psych/Mental Status: Normal Affect, Appropriate Vital Signs Temp Pulse Resp BP Pulse Ox 99.1 F 105 H 20 H 123/75 H 95 11/05/18 20:05 11/05/18 21:34 11/05/18 21:34 11/05/18 21:34 11/05/18 21:34 Oxygen Flow Rate (L/min) 2 Oxygen Delivery Method Nasal Cannula Weight: 208 lb 12.444 oz Body Mass Index (BMI) 29.9 Laboratory Tests Past 24 Hrs 11/05/18 11/05/18 11/05/18 20:11 20:11 20:11 WBC 9.7 RBC 3.86 L Hgb 13.3 Hct 39.9 L MCV 103.4 H MCH 34.5 H MCHC 33.3 RDW 12.5 RDW Differential 47.2 H Plt Count 226 MPV 9.9 Immature Gran % (Auto) 0.100 Neut % (Auto) 76.6 H Lymph % (Auto) 15.1 L [place] % (Auto) 7.7 Eos % (Auto) 0.3 Baso % (Auto) 0.2 Absolute Neuts (auto) 7.4 Absolute Lymphs (auto) 1.46 Total Counted Not Reportable Sodium 135 L Potassium 4.0 Chloride 101 Carbon Dioxide 25.0 Anion Gap 9 BUN 16 Creatinine 1.22 Estim Creat Clear Calc 57.34 Est GFR (MDRD) Af Amer 75 Est GFR (MDRD) Non-Af 62 BUN/Creatinine Ratio 13.1 Glucose 165 H Calcium 8.7 Troponin I < 0.015 B-Natriuretic Peptide 40.2 Urine Color Urine Clarity Urine pH Ur Specific [place] Urine Protein Urine Glucose (UA) Urine Ketones Urine Occult Blood Urine Nitrite Urine Bilirubin Urine Urobilinogen Ur Leukocyte Esterase Urine RBC Urine WBC Ur Squamous Epith Cells Urine Bacteria Urine Mucus 11/05/18 20:50 WBC RBC Hgb Hct MCV MCH MCHC RDW RDW Differential Plt Count MPV Immature Gran % (Auto) Neut % (Auto) Lymph % (Auto) [place] % (Auto) Eos % (Auto) Baso % (Auto) Absolute Neuts (auto) Absolute Lymphs (auto) Total Counted Sodium Potassium Chloride Carbon Dioxide Anion Gap BUN Creatinine Estim Creat Clear Calc Est GFR (MDRD) Af Amer Est GFR (MDRD) Non-Af BUN/Creatinine Ratio Glucose Calcium Troponin I B-Natriuretic Peptide Urine Color Yellow Urine Clarity Sl. Cloudy Urine pH 6.0 Ur Specific [place] 1.020 Urine Protein 15 H Urine Glucose (UA) Normal Urine Ketones Negative Urine Occult Blood 50 H Urine Nitrite Negative Urine Bilirubin Negative Urine Urobilinogen Normal Ur Leukocyte Esterase 500 H Urine RBC 5-10 SEEN Urine WBC 10-25 SEEN Ur Squamous Epith Cells 0-5 SEEN Urine Bacteria 0 SEEN Urine Mucus 0 SEEN Assessment/Plan All Active Problems (Last Reviewed 11/05/18 @ 22:23 by Lola Baez DO) Chest pain (Acute) Unstable angina pectoris (Acute) Hypercalcemia (Resolved) Impressions 1. Atypical Chest pain - doubt cardiac. CE's X2 negative. 2. acute exacerbation COPD with no evidence focal infiltrates on the CXR - suspect he may have had a viral URI initially and this lead to an exacerbation of COPD 3. COPD 4. Tobacco dependence 5. CAD with hx of PTCA 6. persistent pyuria - etiology? culture negative at the last admission and he is asymptomatic 7. HTN 8. HLD 9. BPH 10. Hyperglycemia with no hx of DM 11. Macrocytosis Admit to a monitored bed on PCU ASA 81 mg PO daily SL NTG 0.4 mg PRN chest pain Serial Cardiac Enzymes Stat EKG PRN CP Chest XRAY chest pain is very atypical and the serial cardiac enzymes so far negative.......will hold off on a stress test and treat for exacerbation of COPD DVT prophylaxis ordered CXR - chronic interstitial changes - unchanged from last CXR with no new focal infiltrates observed Sputum for GM stain C&S Influenza swab Respiratory panel Legionella and Streptococcal antigens in the urine - negative Around the clock aerosol treatments and Q 2H ALbuterol aerosols for wheezing/SOB Mucinex Incentive spirometry Ambulatory pulse ox prior to DC Smoking cessation counselling given Consult with pulmonary requested by the patient's dtr - will consult Dr. Donahue Code Visit Inpatient E&M: [id number] Init Hosp L2
--- NOTE | 2018-11-05 23:20 | EKG12_ITS ---
Test Reason : CP ADMIT Blood Pressure : / mmHG Vent. Rate : 083 BPM Atrial Rate : 083 BPM P-R Int : 168 ms QRS Dur : 096 ms QT Int : 372 ms P-R-T Axes : 041 049 016 degrees QTc Int : 437 ms Normal sinus rhythm Incomplete right bundle branch block Borderline ECG When compared with ECG of 14-JUN-2018 10:21, No significant change was found Confirmed by JANES GAMBLE, GARRISON ([id number]), order editor SHOSHANA TORRES ([id number] on 11/09/2018 2:54:31 PM Referred By: DR QUEEN Confirmed By:GARRISON MARRERO MD
[2018-11-05] MEDS: Metoprolol Tartrate 25 MG Tablet 12.5 MG PO (23:39)
[2018-11-05] MEDS: Pravastatin 80 MG Tablet PO (23:39)
[2018-11-06] VITALS (18 sets, daily range): BP systolic 92–110; BP diastolic 55–61; PULSE 60–93; RESP 16–21; TEMP 36.5–37; O2SAT 92–97
[2018-11-06 00:11] LABS: Vitamin B12 768 pg/mL (211-911)
[2018-11-06 00:15] LABS: Thyroid Stim Hormone (TSH) 1.37 uIU/mL (0.358-3.74)
[2018-11-06 03:04] LABS: Cholesterol 128 mg/dL (200); High Density Lipoprotein 33 mg/dL; Triglycerides 101 mg/dL; Very Low Density Lipoprotein 20 mg/dL (5-40)
[2018-11-06] MEDS: 0.9% Normal Saline 1,000 ML 75 ML IV ×2 (04:32→17:39)
[2018-11-06] MEDS: levoFLOXacin 500 MG Tablet PO (05:25)
--- NOTE | 2018-11-06 05:55 | EKG12_ITS ---
Test Reason : AM EKG Blood Pressure : / mmHG Vent. Rate : 059 BPM Atrial Rate : 059 BPM P-R Int : 190 ms QRS Dur : 098 ms QT Int : 396 ms P-R-T Axes : 038 044 031 degrees QTc Int : 392 ms Sinus bradycardia Low voltage QRS Borderline ECG When compared with ECG of 05-NOV-2018 23:31, MANUAL COMPARISON REQUIRED, DATA IS UNCONFIRMED Confirmed by JANES GAMBLE, GARRISON ([id number]), editor map SHOSHANA TORRES ([id number] on 11/09/2018 2:53:58 PM Referred By: DR QUEEN Confirmed By:GARRISON MARRERO MD
[2018-11-06] MEDS: Ipratropium/Albuterol Sulfate 3 ML AMPUL.NEB INHALATION ×4 (07:03→19:36)
[2018-11-06 07:32] LABS: Hemoglobin A1c 6.3 % (4.2-6.3)
--- NOTE | 2018-11-06 07:33 | PCM.CONS.GEN ---
Reason for Consult Date of Consultation: 11/06/18 Reason for Consultation: COPD exacerbation/establish care History of Present Illness: The patient is a 73-year-old male, with a history as outlined below, who presented to the emergency department on November 05 with complaints of a cough and fever, along with atypical chest pain. The patient reports a smoking history of 1.5 packs/day since the age of 15. However, he states that he quit smoking approximately 7 days ago. 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 Additionally, he has never undergone formal pulmonary function testing. He is currently only utilizing an albuterol rescue inhaler on an outpatient basis, but does report that it leads to symptom improvement with its use. On average, as he is utilizing the aforementioned medication 2 times per day. He reports the presence of shortness of breath with exertion, along with a chronic productive cough. The patient's cough is currently unchanged from what it is at its baseline. On presentation to the emergency department, the patient was noted to be afebrile and hemodynamically stable. He was maintaining appropriate oxygen saturations on room air. Initial laboratory evaluation revealed no evidence of a leukocytosis. Chemistry profile was largely unrevealing. Troponin and BNP were negative. Plain film chest x-ray revealed chronic findings of basilar interstitial changes, without an acute cardiopulmonary process. The patient received aerosol treatments and antibiotics. He was subsequently admitted to the progressive care unit. 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) Angina pectoris (Chronic) Abnormal cardiovascular function (Chronic) Abnormal myocardial perfusion study (Chronic) halfway use of drug (Chronic) Hypertension (Chronic) Hyperlipidemia (Chronic) Coronary artery disease (Chronic) S/P drug eluting coronary stent placement (Chronic) History of rheumatic fever (Chronic) Tobacco use (Chronic) COPD (chronic obstructive pulmonary disease) (Chronic) BPH (benign prostatic hyperplasia) (Chronic) S/P PTCA (percutaneous transluminal coronary angioplasty) (Chronic) [facility] w/ PCI drug eluting stent to LAD 2009; PTCA mid LAD 12/14 Medical History: Medical History (Last Reviewed 11/05/18 @ 22:23 by Lola Baez DO) 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 [Ecotrin] 81 mg PO DAILY 09/02/18 Clopidogrel Bisulfate [Clopidogrel] 75 mg PO QDAY 09/02/18 Cranberry Fruit Concentrate [Azo 500 mg PO DAILY 09/02/18 Cranberry] Pravastatin Sodium 80 mg PO QHS 09/02/18 Surgical History: Surgical History (Last Reviewed 11/05/18 @ 22:23 by Lola Baez DO) S/P drug eluting coronary stent placement (Chronic) Z95.5 S/P PTCA (percutaneous transluminal coronary angioplasty) (Chronic) Z98.61 [facility] w/ PCI drug eluting stent to LAD 2009; PTCA mid LAD 12/14 Surgical History: angioplasty, - - Cardiac catheterization, Transurethral ablation w/ history of BPH, T+A. Psychiatric History: No pertinent psych hx Lives: Alone Smoking Status: Current every day smoker Tobacco Use: Cigarettes Alcohol: Rare Drugs: None - *Family History Maternal Family History: Family History (Last Reviewed 11/05/18 @ 22:23 by Lola Baez DO) Father Myocardial infarction CVA (cerebral vascular accident) Brother Diabetes History Items: No pertinent history Paternal Family History: Family History (Last Reviewed 11/05/18 @ 22:23 by Lola Baez DO) Father Myocardial infarction CVA (cerebral vascular accident) Brother Diabetes History Items: Stroke Review of Systems Constitutional: Denies: Chills, Fever Eyes: Denies: Blurred vision, Double vision HEENT: Denies: Head Aches, Sinus Congestion, Sinus Drainage Cardiovascular: Reports: Chest Pain Respiratory: Reports: Cough, Shortness of Breath, Sputum production Gastrointestinal: Denies: Abdominal Pain, Nausea, Vomiting Genitourinary: Denies: Dysuria Musculoskeletal: Denies: Joint Pain, Joint Tenderness Skin: Denies: Rash, Wounds Neurological: Denies: Numbness, Tingling, Focal weakness Psychiatric: Denies: Anxiety, Depression, Homicidal Ideations, Suicidal Ideations Hematologic/ Lymphatic: Denies: Easy Bruising, Easy Bleeding Patient Problems: Active and Suspected Problems (Last Reviewed 11/05/18 @ 22:23 by Lola Baez DO) Chest pain (Acute) Objective: The patient's most recent lab work, culture data and imaging studies have all been personally reviewed. Expectorated sputum culture is pending. Respiratory viral panel was positive for the presence of rhinovirus. Strep and urine Legionella antigens were both negative. Blood cultures are currently pending. - Physical Exam General: Alert, Oriented x3, Cooperative, No apparent distress HEENT: Atraumatic, PERRLA, Normocephalic Oral: No Gingival or Mucosal Lesions/ Ulcerations Neck: Supple, No Nodes, Trachea Midline Lungs: No rhonchi, No wheeze, No rales, Diminished, - - Speaking in complete sentences. Cardiovascular: Regular rate, Regular Rhythm, Normal S1, Normal S2, No murmurs Abdomen: Bowel Sounds Present, Soft, Non Tender Extremities: No cyanosis, No edema, Clubbing Skin: No rashes, No breakdown Musculoskeletal: No Tenderness to Palpation of Joints or Extremities Lymphatic: No Cervical, Supraclavicular, or Inguinal Adenopathy Neurological: Cranial nerves II-XII grossly intact, Neuro grossly intact Psych/Mental Status: Alert and oriented to time, place, person, mood and affect Vital Signs Temp Pulse Resp BP Pulse Ox 36.5 C L 61 18 96/59 L 97 11/06/18 05:21 11/06/18 05:21 11/06/18 05:21 11/06/18 05:21 11/06/18 05:21 Oxygen Flow Rate (L/min) 2 Oxygen Delivery Method Room Air Weight: 204 lb 12.951 oz Body Mass Index (BMI) 28.5 Intake and Output for Last 24 Hours 11/04/18 11/05/18 11/06/18 23:59 23:59 23:59 Intake Total 417 / 417 623 / 623 Output Total 750 / 750 Balance 417 / 417 -127 / -127 Microbiology Past 72 Hours 11/05/18 20:50 Legionella Antigen - Final Urine, Clean Catch 11/05/18 20:50 Streptococcus pneumoniae Antigen (M - Final Urine, Clean Catch Laboratory Tests Past 24 Hrs 11/05/18 11/05/18 11/05/18 20:11 20:11 20:11 WBC 9.7 RBC 3.86 L Hgb 13.3 Hct 39.9 L MCV 103.4 H MCH 34.5 H MCHC 33.3 RDW 12.5 RDW Differential 47.2 H Plt Count 226 MPV 9.9 Immature Gran % (Auto) 0.100 Neut % (Auto) 76.6 H Lymph % (Auto) 15.1 L Marshall % (Auto) 7.7 Eos % (Auto) 0.3 Baso % (Auto) 0.2 Absolute Neuts (auto) 7.4 Absolute Lymphs (auto) 1.46 Total Counted Not Reportable Sodium 135 L Potassium 4.0 Chloride 101 Carbon Dioxide 25.0 Anion Gap 9 BUN 16 Creatinine 1.22 Estim Creat Clear Calc 57.34 Est GFR (MDRD) Af Amer 75 Est GFR (MDRD) Non-Af 62 BUN/Creatinine Ratio 13.1 Glucose 165 H Hemoglobin A1c Calcium 8.7 Troponin I < 0.015 B-Natriuretic Peptide 40.2 Triglycerides Cholesterol LDL Cholesterol VLDL Cholesterol HDL Cholesterol Vitamin B12 Folate TSH Urine Color Urine Clarity Urine pH Ur Specific [place] Urine Protein Urine Glucose (UA) Urine Ketones Urine Occult Blood Urine Nitrite Urine Bilirubin Urine Urobilinogen Ur Leukocyte Esterase Urine RBC Urine WBC Ur Squamous Epith Cells Urine Bacteria Urine Mucus 11/05/18 11/05/18 11/05/18 20:50 23:27 23:27 WBC RBC Hgb Hct MCV MCH MCHC RDW RDW Differential Plt Count MPV Immature Gran % (Auto) Neut % (Auto) Lymph % (Auto) Marshall % (Auto) Eos % (Auto) Baso % (Auto) Absolute Neuts (auto) Absolute Lymphs (auto) Total Counted Sodium Potassium Chloride Carbon Dioxide Anion Gap BUN Creatinine Estim Creat Clear Calc Est GFR (MDRD) Af Amer Est GFR (MDRD) Non-Af BUN/Creatinine Ratio Glucose Hemoglobin A1c Calcium Troponin I B-Natriuretic Peptide Triglycerides Cholesterol LDL Cholesterol VLDL Cholesterol HDL Cholesterol Vitamin B12 768 Folate 19.30 TSH 1.37 Urine Color Yellow Urine Clarity Sl. Cloudy Urine pH 6.0 Ur Specific [place] 1.020 Urine Protein 15 H Urine Glucose (UA) Normal Urine Ketones Negative Urine Occult Blood 50 H Urine Nitrite Negative Urine Bilirubin Negative Urine Urobilinogen Normal Ur Leukocyte Esterase 500 H Urine RBC 5-10 SEEN Urine WBC 10-25 SEEN Ur Squamous Epith Cells 0-5 SEEN Urine Bacteria 0 SEEN Urine Mucus 0 SEEN 11/05/18 11/06/18 11/06/18 23:27 02:20 02:20 WBC RBC Hgb Hct MCV MCH MCHC RDW RDW Differential Plt Count MPV Immature Gran % (Auto) Neut % (Auto) Lymph % (Auto) Marshall % (Auto) Eos % (Auto) Baso % (Auto) Absolute Neuts (auto) Absolute Lymphs (auto) Total Counted Sodium Potassium Chloride Carbon Dioxide Anion Gap BUN Creatinine Estim Creat Clear Calc Est GFR (MDRD) Af Amer Est GFR (MDRD) Non-Af BUN/Creatinine Ratio Glucose Hemoglobin A1c Calcium Troponin I < 0.015 < 0.015 B-Natriuretic Peptide Triglycerides 101 Cholesterol 128 LDL Cholesterol 75 VLDL Cholesterol 20 HDL Cholesterol 33 L Vitamin B12 Folate TSH Urine Color Urine Clarity Urine pH Ur Specific [place] Urine Protein Urine Glucose (UA) Urine Ketones Urine Occult Blood Urine Nitrite Urine Bilirubin Urine Urobilinogen Ur Leukocyte Esterase Urine RBC Urine WBC Ur Squamous Epith Cells Urine Bacteria Urine Mucus 11/06/18 02:20 WBC RBC Hgb Hct MCV MCH MCHC RDW RDW Differential Plt Count MPV Immature Gran % (Auto) Neut % (Auto) Lymph % (Auto) Marshall % (Auto) Eos % (Auto) Baso % (Auto) Absolute Neuts (auto) Absolute Lymphs (auto) Total Counted Sodium Potassium Chloride Carbon Dioxide Anion Gap BUN Creatinine Estim Creat Clear Calc Est GFR (MDRD) Af Amer Est GFR (MDRD) Non-Af BUN/Creatinine Ratio Glucose Hemoglobin A1c 6.3 Calcium Troponin I B-Natriuretic Peptide Triglycerides Cholesterol LDL Cholesterol VLDL Cholesterol HDL Cholesterol Vitamin B12 Folate TSH Urine Color Urine Clarity Urine pH Ur Specific [place] Urine Protein Urine Glucose (UA) Urine Ketones Urine Occult Blood Urine Nitrite Urine Bilirubin Urine Urobilinogen Ur Leukocyte Esterase Urine RBC Urine WBC Ur Squamous Epith Cells Urine Bacteria Urine Mucus Clinical Impression(s) from Imaging Studies Chest X-Ray 11/05/18 20:15 IMPRESSION: Mild chronic interstitial changes in the lower lobes slightly greater on the left Electronically Signed: Cisco Orourke MD at 21:09 EST , Service support , Assessment/Plan All Active Problems (Last Reviewed 11/05/18 @ 22:23 by Lola Baez DO) Chest pain (Acute) Unstable angina pectoris (Acute) Hypercalcemia (Resolved) RECOMMENDATIONS: 1. Discontinue antibiotics. 2. Continue scheduled bronchodilators. 3. Start prednisone 40 mg daily times 5 days. 4. Perform walking oximetry study prior to consideration for discharge from the hospital. 5. Smoking cessation is strongly advised. 6. The patient is to follow-up in the pulmonary medicine clinic within 2 weeks of his discharge from the hospital. Outpatient PFTs and optimization of his baseline inhaler regimen can be undertaken at that time. IMPRESSIONS: 1. Chronic cough and shortness of breath May be related to undiagnosed and undertreated COPD. The patient is without a fever or elevated white blood cell count. In addition, his chest imaging did not reveal an acute cardiopulmonary process. Therefore, I do not feel that antibiotics are warranted. He does have evidence of a rhinovirus upper respiratory infection, which may have precipitated the worsening in his breathing quality. At this time, I would recommend scheduled aerosol treatments. I am also going to place the patient on 40 mg of prednisone daily for 5 days. He is currently maintaining appropriate oxygen saturations on room air at rest. Would plan to perform a walking oximetry study prior to consideration for discharge from the hospital. The patient needs to follow-up in the pulmonary medicine clinic upon discharge, so that baseline pulmonary function testing can be obtained and a baseline inhaler regimen initiated. 2. Atypical chest pain/history of coronary artery disease Does not appear to be cardiac in nature given negative troponins. However, the patient does have a history of coronary disease for which he is status post PCI. Will defer additional workup to hospitalist. 3. Prolonged tobacco dependence with questionable remission The patient reports a history of 1.5 packs/day since the age of 15. He does report that he quit smoking approximately 7 days ago. However, I am not entirely convinced that he has quit smoking. Smoking cessation is strongly advised. Continue nicotine replacement therapy. This note was generated with [employer]so[employer] software. It may contain incorrect words, spelling, and punctuation that were not noted in checking the note before signing. Code Visit Inpatient E&M: 97144 Init Hosp L3
--- NOTE | 2018-11-06 07:38 | CON.PCM_ITS ---
Reason for Consult Date of Consultation: 11/06/18 Reason for Consultation: COPD exacerbation/establish care History of Present Illness: The patient is a 73-year-old male, with a history as outlined below, who presented to the emergency department on November 05 with complaints of a cough and fever, along with atypical chest pain. The patient reports a smoking history of 1.5 packs/day since the age of 15. However, he states that he quit smoking approximately 7 days ago. He has never been followed by a application development team lead previously. Additionally, he has never undergone formal pulmonary function testing. He is currently only utilizing an albuterol rescue inhaler on an outpatient basis, but does report that it leads to symptom improvement with its use. On average, as he is utilizing the aforementioned medication 2 times per day. He reports the presence of shortness of breath with exertion, along with a chronic productive cough. The patient's cough is currently unchanged from what it is at its baseline. On presentation to the emergency department, the patient was noted to be afeb rile and hemodynamically stable. He was maintaining appropriate oxygen saturations on room air. Initial laboratory evaluation revealed no evidence of a leukocytosis. Chemistry profile was largely unrevealing. Troponin and BNP were negative. Plain film chest x-ray revealed chronic findings of basilar interstitial changes, without an acute cardiopulmonary process. The patient received aerosol treatments and antibiotics. He was subsequently admitted to the progressive care unit. 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) Hypertension (Chronic) Hyperlipidemia (Chronic) Coronary artery disease (Chronic) S/P drug eluting coronary stent placement (Chronic) History of rheumatic fever (Chronic) Tobacco use (Chronic) COPD (chronic obstructive pulmonary disease) (Chronic) BPH (benign prostatic hyperplasia) (Chronic) S/P PTCA (percutaneous transluminal coronary angioplasty) (Chronic) [facility] w/ PCI drug eluting stent to LAD 2009; PTCA mid LAD 12/14 Medical History: Medical History (Last Reviewed 11/05/18 @ 22:23 by Lola Baez DO) Atherosclerotic heart disease of [place] coronary artery without angina pectoris (Chronic) I25.10 Hypertension (Chronic) I10 Hyperlipidemia (Chronic) E78.5 Coronary artery disease (Chronic) I25.10 Hypercalcemia (Resolved) E83.52 Allergies No Known Allergies Allergy (Verified 09/02/18 19:26) Home Medications: Ambulatory Orders Medication Instructions Recorded Nitroglycerin [Nitrostat] 0.4 mg SUBLINGUAL Q5M PRN #1 bottle 02/05/17 metoprolol tartrate 25 mg tablet 12.5 mg PO BID #90 tab 07/14/18 Albuterol Sulfate [Ventolin Hfa] 1 - 2 puff INHALATION Q4H PRN PRN 09/02/18 Aspirin E.C. [Ecotrin] 81 mg PO DAILY 09/02/18 Clopidogrel Bisulfate [Clopidogrel] 75 mg PO QDAY 09/02/18 Cranberry Fruit Concentrate [Azo 500 mg PO DAILY 09/02/18 Cranberry] Pravastatin Sodium 80 mg PO QHS 09/02/18 Surgical History: Surgical History (Last Reviewed 11/05/18 @ 22:23 by Lola Baez DO) S/P drug eluting coronary stent placement (Chronic) Z95.5 S/P PTCA (percutaneous transluminal coronary angioplasty) (Chronic) Z98.61 [facility] w/ PCI drug eluting stent to LAD 2009; PTCA mid LAD 12/14 Surgical History: angioplasty, - - Cardiac catheterization, Transurethral ablation w/ history of BPH, T+A. Psychiatric History: No pertinent psych hx Lives: Alone Smoking Status: Current every day smoker Tobacco Use: Cigarettes Alcohol: Rare Drugs: None - *Family History Maternal Family History: Family History (Last Reviewed 11/05/18 @ 22:23 by Lola Baez DO) Father Myocardial infarction CVA (cerebral vascular accident) Brother Diabetes History Items: No pertinent history Paternal Family History: Family History (Last Reviewed 11/05/18 @ 22:23 by Lola Baez DO) Father Myocardial infarction CVA (cerebral vascular accident) Brother Diabetes History Items: Stroke Review of Systems Constitutional: Denies: Chills, Fever Eyes: Denies: Blurred vision, Double vision HEENT: Denies: Head Aches, Sinus Congestion, Sinus Drainage Cardiovascular: Reports: Chest Pain Respiratory: Reports: Cough, Shortness of Breath, Sputum production Gastrointestinal: Denies: Abdominal Pain, Nausea, Vomiting Genitourinary: Denies: Dysuria Musculoskeletal: Denies: Joint Pain, Joint Tenderness Skin: Denies: Rash, Wounds Neurological: Denies: Numbness, Tingling, Focal weakness Psychiatric: Denies: Anxiety, Depression, Homicidal Ideations, Suicidal Ideations Hematologic/ Lymphatic: Denies: Easy Bruising, Easy Bleeding Patient Problems: Active and Suspected Problems (Last Reviewed 11/05/18 @ 22:23 by Lola Baez DO) Chest pain (Acute) Objective: The patient's most recent lab work, culture data and imaging studies have all been personally reviewed. Expectorated sputum culture is pending. Respiratory viral panel was positive for the presence of rhinovirus. Strep and urine Legionella antigens were both negative. Blood cultures are currently pending. - Physical Exam General: Alert, Oriented x3, Cooperative, No apparent distress HEENT: Atraumatic, PERRLA, Normocephalic Oral: No Gingival or Mucosal Lesions/ Ulcerations Neck: Supple, No Nodes, Trachea Midline Lungs: No rhonchi, No wheeze, No rales, Diminished, - - Speaking in complete sentences. Cardiovascular: Regular rate, Regular Rhythm, Normal S1, Normal S2, No murmurs Abdomen: Bowel Sounds Present, Soft, Non Tender Extremities: No cyanosis, No edema, Clubbing Skin: No rashes, No breakdown Musculoskeletal: No Tenderness to Palpation of Joints or Extremities Lymphatic: No Cervical, Supraclavicular, or Inguinal Adenopathy Neurological: Cranial nerves II-XII grossly intact, Neuro grossly intact Psych/Mental Status: Alert and oriented to time, place, person, mood and affect Vital Signs Temp Pulse Resp BP Pulse Ox 36.5 C L 61 18 96/59 L 97 11/06/18 05:21 11/06/18 05:21 11/06/18 05:21 11/06/18 05:21 11/06/18 05:21 Oxygen Flow Rate (L/min) 2 Oxygen Delivery Method Room Air Weight: 204 lb 12.951 oz Body Mass Index (BMI) 28.5 Intake and Output for Last 24 Hours 11/04/18 11/05/18 11/06/18 23:59 23:59 23:59 Intake Total 417 / 417 623 / 623 Output Total 750 / 750 Balance 417 / 417 -127 / -127 Microbiology Past 72 Hours 11/05/18 20:50 Legionella Antigen - Final Urine, Clean Catch 11/05/18 20:50 Streptococcus pneumoniae Antigen (M - Final Urine, Clean Catch Laboratory Tests Past 24 Hrs 11/05/18 11/05/18 11/05/18 20:11 20:11 20:11 WBC 9.7 RBC 3.86 L Hgb 13.3 Hct 39.9 L MCV 103.4 H MCH 34.5 H MCHC 33.3 RDW 12.5 RDW Differential 47.2 H Plt Count 226 MPV 9.9 Immature Gran % (Auto) 0.100 Neut % (Auto) 76.6 H Lymph % (Auto) 15.1 L [place] % (Auto) 7.7 Eos % (Auto) 0.3 Baso % (Auto) 0.2 Absolute Neuts (auto) 7.4 Absolute Lymphs (auto) 1.46 Total Counted Not Reportable Sodium 135 L Potassium 4.0 Chloride 101 Carbon Dioxide 25.0 Anion Gap 9 BUN 16 Creatinine 1.22 Estim Creat Clear Calc 57.34 Est GFR (MDRD) Af Amer 75 Est GFR (MDRD) Non-Af 62 BUN/Creatinine Ratio 13.1 Glucose 165 H Hemoglobin A1c Calcium 8.7 Troponin I < 0.015 B-Natriuretic Peptide 40.2 Triglycerides Cholesterol LDL Cholesterol VLDL Cholesterol HDL Cholesterol Vitamin B12 Folate TSH Urine Color Urine Clarity Urine pH Ur Specific [place] Urine Protein Urine Glucose (UA) Urine Ketones Urine Occult Blood Urine Nitrite Urine Bilirubin Urine Urobilinogen Ur Leukocyte Esterase Urine RBC Urine WBC Ur Squamous Epith Cells Urine Bacteria Urine Mucus 11/05/18 11/05/18 11/05/18 20:50 23:27 23:27 WBC RBC Hgb Hct MCV MCH MCHC RDW RDW Differential Plt Count MPV Immature Gran % (Auto) Neut % (Auto) Lymph % (Auto) [place] % (Auto) Eos % (Auto) Baso % (Auto) Absolute Neuts (auto) Absolute Lymphs (auto) Total Counted Sodium Potassium Chloride Carbon Dioxide Anion Gap BUN Creatinine Estim Creat Clear Calc Est GFR (MDRD) Af Amer Est GFR (MDRD) Non-Af BUN/Creatinine Ratio Glucose Hemoglobin A1c Calcium Troponin I B-Natriuretic Peptide Triglycerides Cholesterol LDL Cholesterol VLDL Cholesterol HDL Cholesterol Vitamin B12 768 Folate 19.30 TSH 1.37 Urine Color Yellow Urine Clarity Sl. Cloudy Urine pH 6.0 Ur Specific [place] 1.020 Urine Protein 15 H Urine Glucose (UA) Normal Urine Ketones Negative Urine Occult Blood 50 H Urine Nitrite Negative Urine Bilirubin Negative Urine Urobilinogen Normal Ur Leukocyte Esterase 500 H Urine RBC 5-10 SEEN Urine WBC 10-25 SEEN Ur Squamous Epith Cells 0-5 SEEN Urine Bacteria 0 SEEN Urine Mucus 0 SEEN 11/05/18 11/06/18 11/06/18 23:27 02:20 02:20 WBC RBC Hgb Hct MCV MCH MCHC RDW RDW Differential Plt Count MPV Immature Gran % (Auto) Neut % (Auto) Lymph % (Auto) [place] % (Auto) Eos % (Auto) Baso % (Auto) Absolute Neuts (auto) Absolute Lymphs (auto) Total Counted Sodium Potassium Chloride Carbon Dioxide Anion Gap BUN Creatinine Estim Creat Clear Calc Est GFR (MDRD) Af Amer Est GFR (MDRD) Non-Af BUN/Creatinine Ratio Glucose Hemoglobin A1c Calcium Troponin I < 0.015 < 0.015 B-Natriuretic Peptide Triglycerides 101 Cholesterol 128 LDL Cholesterol 75 VLDL Cholesterol 20 HDL Cholesterol 33 L Vitamin B12 Folate TSH Urine Color Urine Clarity Urine pH Ur Specific [place] Urine Protein Urine Glucose (UA) Urine Ketones Urine Occult Blood Urine Nitrite Urine Bilirubin Urine Urobilinogen Ur Leukocyte Esterase Urine RBC Urine WBC Ur Squamous Epith Cells Urine Bacteria Urine Mucus 11/06/18 02:20 WBC RBC Hgb Hct MCV MCH MCHC RDW RDW Differential Plt Count MPV Immature Gran % (Auto) Neut % (Auto) Lymph % (Auto) [place] % (Auto) Eos % (Auto) Baso % (Auto) Absolute Neuts (auto) Absolute Lymphs (auto) Total Counted Sodium Potassium Chloride Carbon Dioxide Anion Gap BUN Creatinine Estim Creat Clear Calc Est GFR (MDRD) Af Amer Est GFR (MDRD) Non-Af BUN/Creatinine Ratio Glucose Hemoglobin A1c 6.3 Calcium Troponin I B-Natriuretic Peptide Triglycerides Cholesterol LDL Cholesterol VLDL Cholesterol HDL Cholesterol Vitamin B12 Folate TSH Urine Color Urine Clarity Urine pH Ur Specific [place] Urine Protein Urine Glucose (UA) Urine Ketones Urine Occult Blood Urine Nitrite Urine Bilirubin Urine Urobilinogen Ur Leukocyte Esterase Urine RBC Urine WBC Ur Squamous Epith Cells Urine Bacteria Urine Mucus Clinical Impression(s) from Imaging Studies Chest X-Ray 11/05/18 20:15 IMPRESSION: Mild chronic interstitial changes in the lower lobes slightly greater on the left Electronically Signed: Cisco Orourke MD at 21:09 EST , Service support , Assessment/Plan All Active Problems (Last Reviewed 11/05/18 @ 22:23 by Lola Baez DO) Chest pain (Acute) Unstable angina pectoris (Acute) Hypercalcemia (Resolved) RECOMMENDATIONS: 1. Discontinue antibiotics. 2. Continue scheduled bronchodilators. 3. Start prednisone 40 mg daily times 5 days. 4. Perform walking oximetry study prior to consideration for discharge from the hospital. 5. Smoking cessation is strongly advised. 6. The patient is to follow-up in the pulmonary medicine clinic within 2 weeks of his discharge from the hospital. Outpatient PFTs and optimization of his baseline inhaler regimen can be undertaken at that time. IMPRESSIONS: 1. Chronic cough and shortness of breath May be related to undiagnosed and undertreated COPD. The patient is without a fever or elevated white blood cell count. In addition, his chest imaging did not reveal an acute cardiopulmonary process. Therefore, I do not feel that antibiotics are warranted. He does have evidence of a rhinovirus upper respiratory infection, which may have precipitated the worsening in his breathing quality. At this time, I would recommend scheduled aerosol treatments. I am also going to place the patient on 40 mg of prednisone daily for 5 days. He is currently maintaining appropriate oxygen saturations on room air at rest. Would plan to perform a walking oximetry study prior to consideration for discharge from the hospital. The patient needs to follow-up in the pulmonary medicine clinic upon discharge, so that baseline pulmonary function testing can be obtained and a baseline inhaler regimen initiated. 2. Atypical chest pain/history of coronary artery disease Does not appear to be cardiac in nature given negative troponins. However, the patient does have a history of coronary disease for which he is status post PCI. Will defer additional workup to hospitalist. 3. Prolonged tobacco dependence with questionable remission The patient reports a history of 1.5 packs/day since the age of 15. He does report that he quit smoking approximately 7 days ago. However, I am not entirely convinced that he has quit smoking. Smoking cessation is strongly advised. Continue nicotine replacement therapy. This note was generated with [employer] software. It may contain incorrect words, spelling, and punctuation that were not noted in checking the note before signing. Code Visit Inpatient E&M: 69557 Init Hosp L3
[2018-11-06] MEDS: Aspirin E.C. 81 MG Tablet PO (10:38)
[2018-11-06] MEDS: Metoprolol Tartrate 25 MG Tablet 12.5 MG PO ×2 (10:38→21:21)
[2018-11-06] MEDS: guaiFENesin 1,200 MG Tablet 1200 MG PO ×2 (10:39→21:21)
[2018-11-06] MEDS: Clopidogrel Bisulfate 75 MG Tablet PO (10:40)
[2018-11-06] MEDS: Enoxaparin 40 MG/0.4 ML Syringe SC (10:41)
[2018-11-06] MEDS: predniSONE 20 MG Tablet 40 MG PO (12:53)
--- NOTE | 2018-11-06 13:32 | CASEMGMT ---
DANIEL SWANSON assessment: Face to Face with patient for initial transition planning/care coordination assessment. DANIEL SWANSON introduced self and role at [facility], pt voices understanding and consents to assessment at this time. Pt is sitting up in bed in no distress at this time. Pt is A/Ox4 at this time and answers all questions appropriately at this time. Pt's family is at bedside during assessment. Care providers, pharmacy, and demographics verified at this time. PCP: Diane Specialists: Ayla, cardio Preferred Pharmacy: [facility] Insurance: [facility] Prescription Benefit: [facility] Living Will/HPOA: Pt states does not have LW/HPOA but is interested in info at this time. Referral to Berenice BALDWIN, voices understanding. LNOK: Suzanna Linares, daughter; Nacho/Lynette Guzman, son/daughter in law Living Arrangements: Pt states lives alone in mobile home with a couple steps in and states no concerns at home at this time. Transportation: Pt states drives self and states no transportation concerns at this time. DME/HHC: Pt states has a cane/crutches but does not use and states no need for any further DME at this time. Pt states no hx of HHC or SNF in the past. Pt states no concerns with going home at time of discharge. Pt is retired. Pt states quit smoking 5 days ago and does not drink ETOH. Pt states no further concerns/needs at this time. CM to follow for any further discharge planning/needs. Advised pt to ask for CM if any further questions/concerns/needs arise, voices understanding. Plan[place] DANIEL SWANSON
--- NOTE | 2018-11-06 15:07 | CASEMGMT ---
RN SKY said patient would like information on advance directives. SW spoke with patient and told him about the documents. SW told him if he would like to complete the documents just to ask for SW and we can also do it as an outpatient. Iris JAVIER MSW
--- NOTE | 2018-11-06 15:29 | PN_ITS ---
Patient Problems: Active and Suspected Problems (Last Reviewed 11/05/18 @ 22:23 by Lola Baez DO) Chest pain (Acute) Subjective: Patient is short of breath along with acute on chronic symptoms of cough. Further said is not able to bring up phlegm and feels like mucus stuck in the chest. Patient is cigarette smoker 1.5 packs/day since age of 15 and claims has quit about 7 days ago he also had bilateral pleuritic chest pain mainly on deep breathing and coughing. Vitals/I&O's: Vital Signs Temp Pulse Resp BP Pulse Ox 98.3 F 76 18 97/55 L 92 11/06/18 14:50 11/06/18 14:50 11/06/18 14:50 11/06/18 14:50 11/06/18 14:50 Oxygen Flow Rate (L/min) 2 Oxygen Delivery Method Nasal Cannula Weight: 204 lb 12.951 oz Body Mass Index (BMI) 28.5 Intake and Output for Last 24 Hours 11/04/18 11/05/18 11/06/18 23:59 23:59 23:59 Intake Total 417 / 417 1790 / 1790 Output Total 1225 / 1225 Balance 417 / 417 565 / 565 General: Alert, Oriented x3, Cooperative HEENT: Atraumatic, PERRLA, EOMI, Normocephalic Neck: Supple, No JVD, Negative Carotid Bruits Lungs: Diminished - Air entry diminished., Rhonchi, Short of Breath, - - Egophony present Cardiovascular: Regular rate, Regular Rhythm, Normal S1, Normal S2, No murmurs Abdomen: Bowel Sounds Present, Soft, Non Tender, Non-Distended Extremities: Capillary Refill Less than 3 Seconds, Edema Skin: No rashes, No breakdown Musculoskeletal: No Tenderness to Palpation of Joints or Extremities, Arthritic Changes, Muscle Wasting Neurological: Cranial nerves II-XII grossly intact, Deep Tendon Reflexes 2+/4 and Symmetrical, Neuro grossly intact Psych/Mental Status: Normal Affect, Appropriate Microbiology Past 72 Hours 11/06/18 05:10 Sputum, Expectorated/Coughed Gram Stain - Final 11/05/18 23:27 Mucosa - Nose Respiratory Panel (PCR) - Final Rhinovirus 11/05/18 20:50 Urine, Clean Catch Legionella Antigen - Final 11/05/18 20:50 Urine, Clean Catch Streptococcus pneumoniae Antigen (M - Final Laboratory Results 11/05/18 20:11: WBC 9.7, RBC 3.86 L, Hgb 13.3, Hct 39.9 L, MCV 103.4 H, MCH 34.5 H, MCHC 33.3, RDW 12.5, RDW Differential 47.2 H, Plt Count 226, MPV 9.9, Immature Gran % (Auto) 0.100, Neut % (Auto) 76.6 H, Lymph % (Auto) 15.1 L, [place] % (Auto) 7.7, Eos % (Auto) 0.3, Baso % (Auto) 0.2, Absolute Neuts (auto) 7.4, Absolute Lymphs (auto) 1.46, Total Counted Not Reportable 11/05/18 20:11: Sodium 135 L, Potassium 4.0, Chloride 101, Carbon Dioxide 25.0, Anion Gap 9, BUN 16, Creatinine 1.22, Estim Creat Clear Calc 57.34, Est GFR (MDRD) Af Amer 75, Est GFR (MDRD) Non-Af 62, BUN/Creatinine Ratio 13.1, Glucose 165 H, Calcium 8.7, Troponin I < 0.015 11/05/18 20:11: B-Natriuretic Peptide 40.2 11/05/18 20:50: Urine Color Yellow, Urine Clarity Sl. Cloudy, Urine pH 6.0, Ur Specific [place] 1.020, Urine Protein 15 H, Urine Glucose (UA) Normal, Urine Ketones Negative, Urine Occult Blood 50 H, Urine Nitrite Negative, Urine Bilirubin Negative, Urine Urobilinogen Normal, Ur Leukocyte Esterase 500 H, Urine RBC 5-10 SEEN, Urine WBC 10-25 SEEN, Ur Squamous Epith Cells 0-5 SEEN, Urine Bacteria 0 SEEN, Urine Mucus 0 SEEN 11/05/18 23:27: Vitamin B12 768 11/05/18 23:27: Folate 19.30, TSH 1.37 11/05/18 23:27: Troponin I < 0.015 11/06/18 02:20: Triglycerides 101, Cholesterol 128, LDL Cholesterol 75, VLDL Cholesterol 20, HDL Cholesterol 33 L 11/06/18 02:20: Troponin I < 0.015 11/06/18 02:20: Hemoglobin A1c 6.3 Current Medications Albuterol/Ipratropium (Duoneb) 3 ml INHALATION Q4HWA.RT [facility] Last Admin: 11/06/18 15:00 Dose: 3 ml Aspirin (Ecotrin) 81 mg PO DAILY [facility] Last Admin: 11/06/18 10:38 Dose: 81 mg Clopidogrel Bisulfate (Plavix) 75 mg PO DAILY [facility] Last Admin: 11/06/18 10:40 Dose: 75 mg Enoxaparin Sodium (Lovenox) 40 mg SC DAILY@1000 [facility] Last Admin: 11/06/18 10:41 Dose: 40 mg Guaifenesin (Mucinex) 1,200 mg PO BID [facility] Last Admin: 11/06/18 10:39 Dose: 1,200 mg Sodium Chloride () 1,000 mls @ 75 mls/hr IV .[id number] [facility] Last Admin: 11/06/18 04:32 Dose: 75 mls/hr Magnesium Hydroxide (Milk Of Magnesia) 30 ml PO DAILY PRN PRN Reason: Constipation Metoprolol Tartrate (Lopressor (Beta Venkatesh)) 12.5 mg PO BID [facility] Last Admin: 11/06/18 10:38 Dose: 12.5 mg Nicotine (Nicoderm Cq (Pbkc)) 14 mg TRANSDERM. DAILY [facility] Last Admin: 11/06/18 10:41 Dose: 14 mg Nitroglycerin (Nitrostat) 0.4 mg SUBLINGUAL Q5M PRN PRN Reason: Chest Pain Nutritional Formula (Lactose Free) (Ensure Enlive) 120 ml PO 4X/DAY [facility] Last Admin: 11/06/18 12:59 Dose: Not Given Pravastatin Sodium (Pravachol) 80 mg PO QHS [facility] Last Admin: 11/05/18 23:39 Dose: 80 mg Prednisone () 40 mg PO DAILY@0800 [facility] Sodium Chloride () 5 - 15 ml IV UD PRN PRN Reason: SALINE FLUSH Medical Necessity - Tobacco Use Smoking Status: Current every day smoker Tobacco Use: Cigarettes Assessment/Plan All Active Problems (Last Reviewed 11/05/18 @ 22:23 by Lola Baez DO) Chest pain (Acute) Unstable angina pectoris (Acute) Hypercalcemia (Resolved) The patient is a 73 year old M with a past medical history of COPD, BPH, coronary artery disease, history of PCI, hypertension, hyperlipidemia and tobacco dependence who was admitted in PCU from ER with shortness of breath, chronic cough bilateral pleuritic chest pain without radiation. Patient serial troponins were negative. He had mild numbing sensation in the left hand. Patient has chronic cough but it got worse for last 1 week. 1. COPD exacerbation: Patient was encouraged to maintain smoking cessation. On bronchodilator, prednisone, Mucinex, incentive spirometry and chest physiotherapy on nicotine patch. Patient was seen by electrical line mechanic. Chest x- ray does not show acute infiltrate. Respiratory panel is positive for rhinovirus. urinary antigens are negative. Initial Gram stain of the sputum shows 2+ gram-positive cocci and rods. No fever. No indication for antibiotic. Antibiotic discontinued. 2. Atypical chest pain, pleuritic in nature: Serial troponin enzymes are negative. Patient has history of coronary artery disease status post PCI. Continue baseline cardiac medications aspirin, Plavix, metoprolol and pravastatin. 3. Hypertension, dyslipidemia, BPH 4. Hyperglycemia suggestive of prediabetes: A1c 6.3. Glucose 165 in BMP 5. Pyuria in urine: UA shows WBC 10-25 cells, RBC 5-10 cells no bacteria, negative nitrite. Patient does not have lower urinary tract symptoms. Previous urine culture was negative. Continue Rocephin until urine culture is negative. Patient had ceftriaxone on 11/05 and Levaquin on 11/06. DVT prophylaxis: Lovenox Microbiology Past 72 Hours 11/06/18 05:10 Sputum, Expectorated/Coughed Gram Stain - Final 11/05/18 23:27 Mucosa - Nose Respiratory Panel (PCR) - Final Rhinovirus 11/05/18 20:50 Urine, Clean Catch Legionella Antigen - Final 11/05/18 20:50 Urine, Clean Catch Streptococcus pneumoniae Antigen (M - Final Laboratory Results 11/05/18 20:11: WBC 9.7, RBC 3.86 L, Hgb 13.3, Hct 39.9 L, MCV 103.4 H, MCH 34.5 H, MCHC 33.3, RDW 12.5, RDW Differential 47.2 H, Plt Count 226, MPV 9.9, Im mature Gran % (Auto) 0.100, Neut % (Auto) 76.6 H, Lymph % (Auto) 15.1 L, [place] % (Auto) 7.7, Eos % (Auto) 0.3, Baso % (Auto) 0.2, Absolute Neuts (auto) 7.4, Absolute Lymphs (auto) 1.46, Total Counted Not Reportable 11/05/18 20:11: Sodium 135 L, Potassium 4.0, Chloride 101, Carbon Dioxide 25.0, Anion Gap 9, BUN 16, Creatinine 1.22, Estim Creat Clear Calc 57.34, Est GFR (MDRD) Af Amer 75, Est GFR (MDRD) Non-Af 62, BUN/Creatinine Ratio 13.1, Glucose 165 H, Calcium 8.7, Troponin I < 0.015 11/05/18 20:11: B-Natriuretic Peptide 40.2 11/05/18 20:50: Urine Color Yellow, Urine Clarity Sl. Cloudy, Urine pH 6.0, Ur Specific [place] 1.020, Urine Protein 15 H, Urine Glucose (UA) Normal, Urine Ketones Negative, Urine Occult Blood 50 H, Urine Nitrite Negative, Urine Bilirubin Negative, Urine Urobilinogen Normal, Ur Leukocyte Esterase 500 H, Urine RBC 5-10 SEEN, Urine WBC 10-25 SEEN, Ur Squamous Epith Cells 0-5 SEEN, Urine Bacteria 0 SEEN, Urine Mucus 0 SEEN 11/05/18 23:27: Vitamin B12 768 11/05/18 23:27: Folate 19.30, TSH 1.37 11/05/18 23:27: Troponin I < 0.015 11/06/18 02:20: Triglycerides 101, Cholesterol 128, LDL Cholesterol 75, VLDL Cholesterol 20, HDL Cholesterol 33 L 11/06/18 02:20: Troponin I < 0.015 11/06/18 02:20: Hemoglobin A1c 6.3 Clinical Impression(s) from Imaging Studies Chest X-Ray 11/05/18 20:15 IMPRESSION: Mild chronic interstitial changes in the lower lobes slightly greater on the left Active Medications Albuterol/Ipratropium (Duoneb) 3 ml INHALATION Q4HWA.RT [facility] Last Admin: 11/06/18 15:00 Dose: 3 ml Aspirin (Ecotrin) 81 mg PO DAILY [facility] Last Admin: 11/06/18 10:38 Dose: 81 mg Clopidogrel Bisulfate (Plavix) 75 mg PO DAILY [facility] Last Admin: 11/06/18 10:40 Dose: 75 mg Enoxaparin Sodium (Lovenox) 40 mg SC DAILY@1000 [facility] Last Admin: 11/06/18 10:41 Dose: 40 mg Guaifenesin (Mucinex) 1,200 mg PO BID [facility] Last Admin: 11/06/18 10:39 Dose: 1,200 mg Sodium Chloride () 1,000 mls @ 75 mls/hr IV .[id number] [facility] Last Admin: 11/06/18 04:32 Dose: 75 mls/hr Magnesium Hydroxide (Milk Of Magnesia) 30 ml PO DAILY PRN PRN Reason: Constipation Metoprolol Tartrate (Lopressor (Beta Venkatesh)) 12.5 mg PO BID [facility] Last Admin: 11/06/18 10:38 Dose: 12.5 mg Nicotine (Nicoderm Cq (Pbkc)) 14 mg TRANSDERM. DAILY [facility] Last Admin: 11/06/18 10:41 Dose: 14 mg Nitroglycerin (Nitrostat) 0.4 mg SUBLINGUAL Q5M PRN PRN Reason: Chest Pain Nutritional Formula (Lactose Free) (Ensure Enlive) 120 ml PO 4X/DAY [facility] Last Admin: 11/06/18 12:59 Dose: Not Given Pravastatin Sodium (Pravachol) 80 mg PO QHS [facility] Last Admin: 11/05/18 23:39 Dose: 80 mg Prednisone () 40 mg PO DAILY@0800 [facility] Sodium Chloride () 5 - 15 ml IV UD PRN PRN Reason: SALINE FLUSH Code Visit Inpatient E&M: 30424 Subs Hosp L3
[2018-11-06] MEDS: Pravastatin 80 MG Tablet PO (21:21)
[2018-11-06] MEDS: Magnesium Hydroxide 30 ML UDC PO (21:27)
[2018-11-07] VITALS (18 sets, daily range): BP systolic 97–117; BP diastolic 58–79; PULSE 59–90; RESP 16–22; TEMP 36.2–37.1; O2SAT 94–98
[2018-11-07] MEDS: 0.9% Normal Saline 1,000 ML 75 ML IV ×2 (06:33→20:20)
[2018-11-07] MEDS: Ipratropium/Albuterol Sulfate 3 ML AMPUL.NEB INHALATION ×4 (07:47→19:19)
--- NOTE | 2018-11-07 07:58 | PCM.PROGNOTE ---
Patient Problems: Active and Suspected Problems (Last Reviewed 11/05/18 @ 22:23 by Lola Baez DO) Chest pain (Acute) Subjective: The patient was seen and examined at the bedside this morning. Events from the last 24 hours have been reviewed. The patient is currently afebrile, hemodynamically stable and maintaining appropriate oxygen saturations on 2 L/min via nasal cannula. He does report some interval improvement in his breathing quality since yesterday. He states that he is agreeable to following up in the pulmonary medicine clinic following discharge. Objective: The patient's most recent lab work, culture data and imaging studies have all been personally reviewed. The patient's respiratory viral panel was positive for rhinovirus. Sputum Gram stain revealed 2+ gram-positive cocci and 2+ gram-positive rods. - Physical Exam General: Alert, Oriented x3, Cooperative, No apparent distress HEENT: Atraumatic, PERRLA, Normocephalic Oral: No Gingival or Mucosal Lesions/ Ulcerations Neck: Supple, No Nodes, Trachea Midline Lungs: No rhonchi, No wheeze, No rales, Diminished Cardiovascular: Regular rate, Regular Rhythm, Normal S1, Normal S2, No murmurs Abdomen: Bowel Sounds Present, Soft, Non Tender, Non-Distended Extremities: No cyanosis, No edema, Clubbing Skin: No breakdown Musculoskeletal: No Tenderness to Palpation of Joints or Extremities, No Muscle Wasting Lymphatic: No Cervical, Supraclavicular, or Inguinal Adenopathy Neurological: Cranial nerves II-XII grossly intact, Neuro grossly intact Psych/Mental Status: Alert and oriented to time, place, person, mood and affect Vital Signs Temp Pulse Resp BP Pulse Ox 36.4 C L 69 20 H 114/66 97 11/07/18 04:50 11/07/18 07:22 11/07/18 04:50 11/07/18 04:50 11/07/18 04:50 Oxygen Flow Rate (L/min) 2 Oxygen Delivery Method Nasal Cannula Weight: 204 lb 12.951 oz Body Mass Index (BMI) 28.5 Intake and Output for Last 24 Hours 11/05/18 11/06/18 11/07/18 23:59 23:59 23:59 Intake Total 417 / 417 2865 / 2865 1281 / 1281 Output Total 1675 / 1675 1475 / 1475 Balance 417 / 417 1190 / 1190 -194 / -194 Microbiology Past 72 Hours 11/06/18 05:10 Gram Stain - Final Sputum, Expectorated/Coughed 11/05/18 23:27 Respiratory Panel (PCR) - Final Mucosa - Nose Rhinovirus 11/05/18 20:50 Legionella Antigen - Final Urine, Clean Catch 11/05/18 20:50 Streptococcus pneumoniae Antigen (M - Final Urine, Clean Catch Labs (Last 48 Hours) 11/05/18 11/05/18 11/05/18 20:11 20:11 20:11 WBC 9.7 RBC 3.86 L Hgb 13.3 Hct 39.9 L MCV 103.4 H MCH 34.5 H MCHC 33.3 RDW 12.5 RDW Differential 47.2 H Plt Count 226 MPV 9.9 Immature Gran % (Auto) 0.100 Neut % (Auto) 76.6 H Lymph % (Auto) 15.1 L [place] % (Auto) 7.7 Eos % (Auto) 0.3 Baso % (Auto) 0.2 Absolute Neuts (auto) 7.4 Absolute Lymphs (auto) 1.46 Total Counted Not Reportable Sodium 135 L Potassium 4.0 Chloride 101 Carbon Dioxide 25.0 Anion Gap 9 BUN 16 Creatinine 1.22 Estim Creat Clear Calc 57.34 Est GFR (MDRD) Af Amer 75 Est GFR (MDRD) Non-Af 62 BUN/Creatinine Ratio 13.1 Glucose 165 H Hemoglobin A1c Calcium 8.7 Troponin I < 0.015 B-Natriuretic Peptide 40.2 Triglycerides Cholesterol LDL Cholesterol VLDL Cholesterol HDL Cholesterol Vitamin B12 Folate TSH Urine Color Urine Clarity Urine pH Ur Specific [place] Urine Protein Urine Glucose (UA) Urine Ketones Urine Occult Blood Urine Nitrite Urine Bilirubin Urine Urobilinogen Ur Leukocyte Esterase Urine RBC Urine WBC Ur Squamous Epith Cells Urine Bacteria Urine Mucus 11/05/18 11/05/18 11/05/18 20:50 23:27 23:27 WBC RBC Hgb Hct MCV MCH MCHC RDW RDW Differential Plt Count MPV Immature Gran % (Auto) Neut % (Auto) Lymph % (Auto) [place] % (Auto) Eos % (Auto) Baso % (Auto) Absolute Neuts (auto) Absolute Lymphs (auto) Total Counted Sodium Potassium Chloride Carbon Dioxide Anion Gap BUN Creatinine Estim Creat Clear Calc Est GFR (MDRD) Af Amer Est GFR (MDRD) Non-Af BUN/Creatinine Ratio Glucose Hemoglobin A1c Calcium Troponin I B-Natriuretic Peptide Triglycerides Cholesterol LDL Cholesterol VLDL Cholesterol HDL Cholesterol Vitamin B12 768 Folate 19.30 TSH 1.37 Urine Color Yellow Urine Clarity Sl. Cloudy Urine pH 6.0 Ur Specific [place] 1.020 Urine Protein 15 H Urine Glucose (UA) Normal Urine Ketones Negative Urine Occult Blood 50 H Urine Nitrite Negative Urine Bilirubin Negative Urine Urobilinogen Normal Ur Leukocyte Esterase 500 H Urine RBC 5-10 SEEN Urine WBC 10-25 SEEN Ur Squamous Epith Cells 0-5 SEEN Urine Bacteria 0 SEEN Urine Mucus 0 SEEN 11/05/18 11/06/18 11/06/18 23:27 02:20 02:20 WBC RBC Hgb Hct MCV MCH MCHC RDW RDW Differential Plt Count MPV Immature Gran % (Auto) Neut % (Auto) Lymph % (Auto) [place] % (Auto) Eos % (Auto) Baso % (Auto) Absolute Neuts (auto) Absolute Lymphs (auto) Total Counted Sodium Potassium Chloride Carbon Dioxide Anion Gap BUN Creatinine Estim Creat Clear Calc Est GFR (MDRD) Af Amer Est GFR (MDRD) Non-Af BUN/Creatinine Ratio Glucose Hemoglobin A1c Calcium Troponin I < 0.015 < 0.015 B-Natriuretic Peptide Triglycerides 101 Cholesterol 128 LDL Cholesterol 75 VLDL Cholesterol 20 HDL Cholesterol 33 L Vitamin B12 Folate TSH Urine Color Urine Clarity Urine pH Ur Specific [place] Urine Protein Urine Glucose (UA) Urine Ketones Urine Occult Blood Urine Nitrite Urine Bilirubin Urine Urobilinogen Ur Leukocyte Esterase Urine RBC Urine WBC Ur Squamous Epith Cells Urine Bacteria Urine Mucus 11/06/18 02:20 WBC RBC Hgb Hct MCV MCH MCHC RDW RDW Differential Plt Count MPV Immature Gran % (Auto) Neut % (Auto) Lymph % (Auto) [place] % (Auto) Eos % (Auto) Baso % (Auto) Absolute Neuts (auto) Absolute Lymphs (auto) Total Counted Sodium Potassium Chloride Carbon Dioxide Anion Gap BUN Creatinine Estim Creat Clear Calc Est GFR (MDRD) Af Amer Est GFR (MDRD) Non-Af BUN/Creatinine Ratio Glucose Hemoglobin A1c 6.3 Calcium Troponin I B-Natriuretic Peptide Triglycerides Cholesterol LDL Cholesterol VLDL Cholesterol HDL Cholesterol Vitamin B12 Folate TSH Urine Color Urine Clarity Urine pH Ur Specific [place] Urine Protein Urine Glucose (UA) Urine Ketones Urine Occult Blood Urine Nitrite Urine Bilirubin Urine Urobilinogen Ur Leukocyte Esterase Urine RBC Urine WBC Ur Squamous Epith Cells Urine Bacteria Urine Mucus Microbiology 11/06/18 05:10 Sputum, Expectorated/Coughed Gram Stain - Final 11/05/18 23:27 Mucosa - Nose Respiratory Panel (PCR) - Final Rhinovirus 11/05/18 20:50 Urine, Clean Catch Legionella Antigen - Final 11/05/18 20:50 Urine, Clean Catch Streptococcus pneumoniae Antigen (M - Final Clinical Impression(s) from Imaging Studies Chest X-Ray 11/05/18 20:15 IMPRESSION: Mild chronic interstitial changes in the lower lobes slightly greater on the left Electronically Signed: Cisco Orourke MD at 21:09 EST , Service support , Medical Necessity - Tobacco Use Smoking Status: Current every day smoker Tobacco Use: Cigarettes Assessment/Plan All Active Problems (Last Reviewed 11/05/18 @ 22:23 by Lola Baez DO) Chest pain (Acute) Unstable angina pectoris (Acute) Hypercalcemia (Resolved) RECOMMENDATIONS: 1. Discontinue antibiotics. 2. Continue scheduled bronchodilators. 3. Continue prednisone 40 mg daily x 5 days. 4. Perform walking oximetry study prior to consideration for discharge from the hospital. 5. Smoking cessation is strongly advised. 6. The patient is to follow-up in the pulmonary medicine clinic within 2 weeks of his discharge from the hospital. Outpatient PFTs and optimization of his baseline inhaler regimen can be undertaken at that time. IMPRESSIONS: 1. Chronic cough and shortness of breath May be related to undiagnosed and undertreated COPD. The patient is without a fever or elevated white blood cell count. In addition, his chest imaging did not reveal an acute cardiopulmonary process. Therefore, I do not feel that antibiotics are warranted. He does have evidence of a rhinovirus upper respiratory infection, which may have precipitated the worsening in his breathing quality. At this time, I would recommend scheduled aerosol treatments. I am also going to place the patient on 40 mg of prednisone daily for 5 days. Would plan to perform a walking oximetry study prior to consideration for discharge from the hospital. The patient needs to follow-up in the pulmonary medicine clinic upon discharge, so that baseline pulmonary function testing can be obtained and a baseline inhaler regimen initiated. 2. Atypical chest pain/history of coronary artery disease Does not appear to be cardiac in nature given negative troponins. However, the patient does have a history of coronary disease for which he is status post PCI. Will defer additional workup to hospitalist. 3. Prolonged tobacco dependence with questionable remission The patient reports a history of 1.5 packs/day since the age of 15. He does report that he quit smoking approximately 7 days ago. However, I am not entirely convinced that he has quit smoking. Smoking cessation is strongly advised. Continue nicotine replacement therapy. This note was generated with [employer] dictation software. It may contain incorrect words, spelling, and punctuation that were not noted in checking the note before signing. Code Visit Inpatient E&M: 94274 Subs Hosp L2
[2018-11-07] MEDS: Enoxaparin 40 MG/0.4 ML Syringe SC (09:51)
[2018-11-07] MEDS: Metoprolol Tartrate 25 MG Tablet 12.5 MG PO ×2 (09:52→21:32)
[2018-11-07] MEDS: guaiFENesin 1,200 MG Tablet 1200 MG PO ×2 (09:52→21:32)
[2018-11-07] MEDS: Aspirin E.C. 81 MG Tablet PO (09:52)
[2018-11-07] MEDS: predniSONE 20 MG Tablet 40 MG PO (09:52)
[2018-11-07] MEDS: Clopidogrel Bisulfate 75 MG Tablet PO (09:52)
[2018-11-07] MEDS: Ceftriaxone 1 GM/50 ML BAG IV (09:53)
--- NOTE | 2018-11-07 14:24 | PCM.PN.HOSP ---
Patient Problems: Active and Suspected Problems (Last Reviewed 11/05/18 @ 22:23 by Lola Baez DO) Chest pain (Acute) Subjective: Patient shortness of breath is better. Pulse ox 95% on 2 L of oxygen. Patient is able to cough and bring up sputum. No chest pain Vitals/I&O's: Vital Signs Temp Pulse Resp BP Pulse Ox 98.7 F 87 20 H 102/59 L 94 11/07/18 10:45 11/07/18 11:51 11/07/18 11:10 11/07/18 10:45 11/07/18 10:45 Oxygen Flow Rate (L/min) 2 Oxygen Delivery Method Nasal Cannula Weight: 204 lb 12.951 oz Body Mass Index (BMI) 28.5 Intake and Output for Last 24 Hours 11/05/18 11/06/18 11/07/18 23:59 23:59 23:59 Intake Total 417 / 417 2865 / 2865 1915 / 1915 Output Total 1675 / 1675 1475 / 1475 Balance 417 / 417 1190 / 1190 440 / 440 General: Alert, Oriented x3, Cooperative HEENT: Atraumatic, PERRLA, EOMI, Normocephalic Neck: Supple, No JVD, Negative Carotid Bruits Lungs: Diminished - Air entry diminished bilaterally, Rhonchi, Wheezes Cardiovascular: Regular rate, Regular Rhythm, Normal S1, Normal S2, No murmurs Abdomen: Bowel Sounds Present, Soft, Non Tender, Non-Distended Extremities: No edema, Capillary Refill Less than 3 Seconds Skin: No rashes, No breakdown Musculoskeletal: No Tenderness to Palpation of Joints or Extremities Neurological: Cranial nerves II-XII grossly intact Psych/Mental Status: Normal Affect, Appropriate Microbiology Past 72 Hours 11/06/18 05:10 Sputum, Expectorated/Coughed Gram Stain - Final 11/06/18 05:10 Sputum, Expectorated/Coughed Respiratory Culture - Preliminary Appears to be normal respiratory ana. Further studies to follow. 11/05/18 23:27 Mucosa - Nose Respiratory Panel (PCR) - Final Rhinovirus 11/05/18 20:50 Urine, Clean Catch Legionella Antigen - Final 11/05/18 20:50 Urine, Clean Catch Streptococcus pneumoniae Antigen (M - Final Current Medications Albuterol/Ipratropium (Duoneb) 3 ml INHALATION Q4HWA.RT [facility] Last Admin: 11/07/18 11:10 Dose: 3 ml Aspirin (Ecotrin) 81 mg PO DAILY [facility] Last Admin: 11/07/18 09:52 Dose: 81 mg Clopidogrel Bisulfate (Plavix) 75 mg PO DAILY [facility] Last Admin: 11/07/18 09:52 Dose: 75 mg Enoxaparin Sodium (Lovenox) 40 mg SC DAILY@1000 [facility] Last Admin: 11/07/18 09:51 Dose: 40 mg Guaifenesin (Mucinex) 1,200 mg PO BID [facility] Last Admin: 11/07/18 09:52 Dose: 1,200 mg Sodium Chloride () 1,000 mls @ 75 mls/hr IV .[id number] [facility] Last Admin: 11/07/18 06:33 Dose: 75 mls/hr Ceftriaxone Sodium (Rocephin) 1 gm in 50 mls @ 100 mls/hr IV Q24 [facility] Last Admin: 11/07/18 09:53 Dose: 100 mls/hr Magnesium Hydroxide (Milk Of Magnesia) 30 ml PO DAILY PRN PRN Reason: Constipation Last Admin: 11/06/18 21:27 Dose: 30 ml Metoprolol Tartrate (Lopressor (Beta Venkatesh)) 12.5 mg PO BID [facility] Last Admin: 11/07/18 09:52 Dose: 12.5 mg Nicotine (Nicoderm Cq (Pbkc)) 14 mg TRANSDERM. DAILY [facility] Last Admin: 11/07/18 09:52 Dose: 14 mg Nitroglycerin (Nitrostat) 0.4 mg SUBLINGUAL Q5M PRN PRN Reason: Chest Pain Nutritional Formula (Lactose Free) (Ensure Enlive) 120 ml PO 4X/DAY [facility] Last Admin: 11/07/18 12:45 Dose: Not Given Pravastatin Sodium (Pravachol) 80 mg PO QHS [facility] Last Admin: 11/06/18 21:21 Dose: 80 mg Prednisone () 40 mg PO DAILY@0800 [facility] Last Admin: 11/07/18 09:52 Dose: 40 mg Sodium Chloride () 5 - 15 ml IV UD PRN PRN Reason: SALINE FLUSH Medical Necessity - Tobacco Use Smoking Status: Current every day smoker Tobacco Use: Cigarettes Assessment/Plan All Active Problems (Last Reviewed 11/05/18 @ 22:23 by Lola Baez DO) Chest pain (Acute) Unstable angina pectoris (Acute) Hypercalcemia (Resolved) The patient is a 73 year old M with a past medical history of COPD, BPH, coronary artery disease, history of PCI, hypertension, hyperlipidemia and tobacco dependence who was admitted in PCU from ER with shortness of breath, chronic cough bilateral pleuritic chest pain without radiation. Patient serial troponins were negative. He had mild numbing sensation in the left hand. Patient has chronic cough but it got worse for last 1 week. 1. COPD exacerbation: Patient was encouraged to maintain smoking cessation. On bronchodilator, prednisone, Mucinex, incentive spirometry and chest physiotherapy on nicotine patch. Patient was seen by glove parts inspector. Chest x-ray does not show acute infiltrate. Respiratory panel is positive for rhinovirus. urinary antigens are negative. Initial Gram stain of the sputum shows 2+ gram-positive cocci and rods. No fever. No indication for antibiotic. Antibiotic discontinued. 2. Atypical chest pain, pleuritic in nature: Serial troponin enzymes are negative. Patient has history of coronary artery disease status post PCI. Continue baseline cardiac medications aspirin, Plavix, metoprolol and pravastatin. 3. Hypertension, dyslipidemia, BPH 4. Hyperglycemia suggestive of prediabetes: A1c 6.3. Glucose 165 in BMP 5. Pyuria in urine: UA shows WBC 10-25 cells, RBC 5-10 cells no bacteria, negative nitrite. Patient does not have lower urinary tract symptoms. Previous urine culture was negative. Continue Rocephin until urine culture is negative. Patient had ceftriaxone on 11/05 and Levaquin on 11/06. Ceftriaxone continued. DVT prophylaxis: Lovenox Microbiology Past 72 Hours 11/06/18 05:10 Sputum, Expectorated/Coughed Gram Stain - Final 11/06/18 05:10 Sputum, Expectorated/Coughed Respiratory Culture - Preliminary Appears to be normal respiratory ana. Further studies to follow. 11/05/18 23:27 Mucosa - Nose Respiratory Panel (PCR) - Final Rhinovirus 11/05/18 20:50 Urine, Clean Catch Legionella Antigen - Final 11/05/18 20:50 Urine, Clean Catch Streptococcus pneumoniae Antigen (M - Final Laboratory Results 11/05/18 20:11: WBC 9.7, RBC 3.86 L, Hgb 13.3, Hct 39.9 L, MCV 103.4 H, MCH 34.5 H, MCHC 33.3, RDW 12.5, RDW Differential 47.2 H, Plt Count 226, MPV 9.9, Immature Gran % (Auto) 0.100, Neut % (Auto) 76.6 H, Lymph % (Auto) 15.1 L, [place] % (Auto) 7.7, Eos % (Auto) 0.3, Baso % (Auto) 0.2, Absolute Neuts (auto) 7.4, Absolute Lymphs (auto) 1.46, Total Counted Not Reportable 11/05/18 20:11: Sodium 135 L, Potassium 4.0, Chloride 101, Carbon Dioxide 25.0, Anion Gap 9, BUN 16, Creatinine 1.22, Estim Creat Clear Calc 57.34, Est GFR (MDRD) Af Amer 75, Est GFR (MDRD) Non-Af 62, BUN/Creatinine Ratio 13.1, Glucose 165 H, Calcium 8.7, Troponin I < 0.015 11/05/18 20:11: B-Natriuretic Peptide 40.2 11/05/18 20:50: Urine Color Yellow, Urine Clarity Sl. Cloudy, Urine pH 6.0, Ur Specific [place] 1.020, Urine Protein 15 H, Urine Glucose (UA) Normal, Urine Ketones Negative, Urine Occult Blood 50 H, Urine Nitrite Negative, Urine Bilirubin Negative, Urine Urobilinogen Normal, Ur Leukocyte Esterase 500 H, Urine RBC 5-10 SEEN, Urine WBC 10-25 SEEN, Ur Squamous Epith Cells 0-5 SEEN, Urine Bacteria 0 SEEN, Urine Mucus 0 SEEN 11/05/18 23:27: Vitamin B12 768 11/05/18 23:27: Folate 19.30, TSH 1.37 11/05/18 23:27: Troponin I < 0.015 11/06/18 02:20: Triglycerides 101, Cholesterol 128, LDL Cholesterol 75, VLDL Cholesterol 20, HDL Cholesterol 33 L 11/06/18 02:20: Troponin I < 0.015 11/06/18 02:20: Hemoglobin A1c 6.3 Clinical Impression(s) from Imaging Studies Chest X-Ray 11/05/18 20:15 IMPRESSION: Mild chronic interstitial changes in the lower lobes slightly greater on the left Active Medications Albuterol/Ipratropium (Duoneb) 3 ml INHALATION Q4HWA.RT [facility] Last Admin: 11/06/18 15:00 Dose: 3 ml Aspirin (Ecotrin) 81 mg PO DAILY [facility] Last Admin: 11/06/18 10:38 Dose: 81 mg Clopidogrel Bisulfate (Plavix) 75 mg PO DAILY [facility] Last Admin: 11/06/18 10:40 Dose: 75 mg Enoxaparin Sodium (Lovenox) 40 mg SC DAILY@1000 [facility] Last Admin: 11/06/18 10:41 Dose: 40 mg Guaifenesin (Mucinex) 1,200 mg PO BID [facility] Last Admin: 11/06/18 10:39 Dose: 1,200 mg Sodium Chloride () 1,000 mls @ 75 mls/hr IV .[id number] [facility] Last Admin: 11/06/18 04:32 Dose: 75 mls/hr Magnesium Hydroxide (Milk Of Magnesia) 30 ml PO DAILY PRN PRN Reason: Constipation Metoprolol Tartrate (Lopressor (Beta Venkatesh)) 12.5 mg PO BID [facility] Last Admin: 11/06/18 10:38 Dose: 12.5 mg Nicotine (Nicoderm Cq (Pbkc)) 14 mg TRANSDERM. DAILY [facility] Last Admin: 11/06/18 10:41 Dose: 14 mg Nitroglycerin (Nitrostat) 0.4 mg SUBLINGUAL Q5M PRN PRN Reason: Chest Pain Nutritional Formula (Lactose Free) (Ensure Enlive) 120 ml PO 4X/DAY [facility] Last Admin: 11/06/18 12:59 Dose: Not Given Pravastatin Sodium (Pravachol) 80 mg PO QHS [facility] Last Admin: 11/05/18 23:39 Dose: 80 mg Prednisone () 40 mg PO DAILY@0800 [facility] Sodium Chloride () 5 - 15 ml IV UD PRN PRN Reason: SALINE FLUSH Code Visit Inpatient E&M: 03411 Subs Hosp L3
--- NOTE | 2018-11-07 14:28 | PN_ITS ---
Patient Problems: Active and Suspected Problems (Last Reviewed 11/05/18 @ 22:23 by Lola Baez DO) Chest pain (Acute) Subjective: Patient shortness of breath is better. Pulse ox 95% on 2 L of oxygen. Patient is able to cough and bring up sputum. No chest pain Vitals/I&O's: Vital Signs Temp Pulse Resp BP Pulse Ox 98.7 F 87 20 H 102/59 L 94 11/07/18 10:45 11/07/18 11:51 11/07/18 11:10 11/07/18 10:45 11/07/18 10:45 Oxygen Flow Rate (L/min) 2 Oxygen Delivery Method Nasal Cannula Weight: 204 lb 12.951 oz Body Mass Index (BMI) 28.5 Intake and Output for Last 24 Hours 11/05/18 11/06/18 11/07/18 23:59 23:59 23:59 Intake Total 417 / 417 2865 / 2865 1915 / 1915 Output Total 1675 / 1675 1475 / 1475 Balance 417 / 417 1190 / 1190 440 / 440 General: Alert, Oriented x3, Cooperative HEENT: Atraumatic, PERRLA, EOMI, Normocephalic Neck: Supple, No JVD, Negative Carotid Bruits Lungs: Diminished - Air entry diminished bilaterally, Rhonchi, Wheezes Cardiovascular: Regular rate, Regular Rhythm, Normal S1, Normal S2, No murmurs Abdomen: Bowel Sounds Present, Soft, Non Tender, Non-Distended Extremities: No edema, Capillary Refill Less than 3 Seconds Skin: No rashes, No breakdown Musculoskeletal: No Tenderness to Palpation of Joints or Extremities Neurological: Cranial nerves II-XII grossly intact Psych/Mental Status: Normal Affect, Appropriate Microbiology Past 72 Hours 11/06/18 05:10 Sputum, Expectorated/Coughed Gram Stain - Final 11/06/18 05:10 Sputum, Expectorated/Coughed Respiratory Culture - Preliminary Appears to be normal respiratory ana. Further studies to follow. 11/05/18 23:27 Mucosa - Nose Respiratory Panel (PCR) - Final Rhinovirus 11/05/18 20:50 Urine, Clean Catch Legionella Antigen - Final 11/05/18 20:50 Urine, Clean Catch Streptococcus pneumoniae Antigen (M - Final Current Medications Albuterol/Ipratropium (Duoneb) 3 ml INHALATION Q4HWA.RT [facility] Last Admin: 11/07/18 11:10 Dose: 3 ml Aspirin (Ecotrin) 81 mg PO DAILY [facility] Last Admin: 11/07/18 09:52 Dose: 81 mg Clopidogrel Bisulfate (Plavix) 75 mg PO DAILY [facility] Last Admin: 11/07/18 09:52 Dose: 75 mg Enoxaparin Sodium (Lovenox) 40 mg SC DAILY@1000 [facility] Last Admin: 11/07/18 09:51 Dose: 40 mg Guaifenesin (Mucinex) 1,200 mg PO BID [facility] Last Admin: 11/07/18 09:52 Dose: 1,200 mg Sodium Chloride () 1,000 mls @ 75 mls/hr IV .[id number] [facility] Last Admin: 11/07/18 06:33 Dose: 75 mls/hr Ceftriaxone Sodium (Rocephin) 1 gm in 50 mls @ 100 mls/hr IV Q24 [facility] Last Admin: 11/07/18 09:53 Dose: 100 mls/hr Magnesium Hydroxide (Milk Of Magnesia) 30 ml PO DAILY PRN PRN Reason: Constipation Last Admin: 11/06/18 21:27 Dose: 30 ml Metoprolol Tartrate (Lopressor (Beta Venkatesh)) 12.5 mg PO BID [facility] Last Admin: 11/07/18 09:52 Dose: 12.5 mg Nicotine (Nicoderm Cq (Pbkc)) 14 mg TRANSDERM. DAILY [facility] Last Admin: 11/07/18 09:52 Dose: 14 mg Nitroglycerin (Nitrostat) 0.4 mg SUBLINGUAL Q5M PRN PRN Reason: Chest Pain Nutritional Formula (Lactose Free) (Ensure Enlive) 120 ml PO 4X/DAY [facility] Last Admin: 11/07/18 12:45 Dose: Not Given Pravastatin Sodium (Pravachol) 80 mg PO QHS [facility] Last Admin: 11/06/18 21:21 Dose: 80 mg Prednisone () 40 mg PO DAILY@0800 [facility] Last Admin: 11/07/18 09:52 Dose: 40 mg Sodium Chloride () 5 - 15 ml IV UD PRN PRN Reason: SALINE FLUSH Medical Necessity - Tobacco Use Smoking Status: Current every day smoker Tobacco Use: Cigarettes Assessment/Plan All Active Problems (Last Reviewed 11/05/18 @ 22:23 by Lola Baez DO) Chest pain (Acute) Unstable angina pectoris (Acute) Hypercalcemia (Resolved) The patient is a 73 year old M with a past medical history of COPD, BPH, coronary artery disease, history of PCI, hypertension, hyperlipidemia and tobacco dependence who was admitted in PCU from ER with shortness of breath, chronic cough bilateral pleuritic chest pain without radiation. Patient serial troponins were negative. He had mild numbing sensation in the left hand. Patient has chronic cough but it got worse for last 1 week. 1. COPD exacerbation: Patient was encouraged to maintain smoking cessation. On bronchodilator, prednisone, Mucinex, incentive spirometry and chest physiotherapy on nicotine patch. Patient was seen by trumpet player. Chest x- ray does not show acute infiltrate. Respiratory panel is positive for rhinovirus. urinary antigens are negative. Initial Gram stain of the sputum shows 2+ gram-positive cocci and rods. No fever. No indication for antibiotic. Antibiotic discontinued. 2. Atypical chest pain, pleuritic in nature: Serial troponin enzymes are negative. Patient has history of coronary artery disease status post PCI. Continue baseline cardiac medications aspirin, Plavix, metoprolol and pravastatin. 3. Hypertension, dyslipidemia, BPH 4. Hyperglycemia suggestive of prediabetes: A1c 6.3. Glucose 165 in BMP 5. Pyuria in urine: UA shows WBC 10-25 cells, RBC 5-10 cells no bacteria, negative nitrite. Patient does not have lower urinary tract symptoms. Previous urine culture was negative. Continue Rocephin until urine culture is negative. Patient had ceftriaxone on 11/05 and Levaquin on 11/06. Ceftriaxone continued. DVT prophylaxis: Lovenox Microbiology Past 72 Hours 11/06/18 05:10 Sputum, Expectorated/Coughed Gram Stain - Final 11/06/18 05:10 Sputum, Expectorated/Coughed Respiratory Culture - Preliminary Appears to be normal respiratory ana. Further studies to follow. 11/05/18 23:27 Mucosa - Nose Respiratory Panel (PCR) - Final Rhinovirus 11/05/18 20:50 Urine, Clean Catch Legionella Antigen - Final 11/05/18 20:50 Urine, Clean Catch Streptococcus pneumoniae Antigen (M - Final Laboratory Results 11/05/18 20:11: WBC 9.7, RBC 3.86 L, Hgb 13.3, Hct 39.9 L, MCV 103.4 H, MCH 34.5 H, MCHC 33.3, RDW 12.5, RDW Differential 47.2 H, Plt Count 226, MPV 9.9, [place] Gran % (Auto) 0.100, Neut % (Auto) 76.6 H, Lymph % (Auto) 15.1 L, [place] % (Auto) 7.7, Eos % (Auto) 0.3, Baso % (Auto) 0.2, Absolute Neuts (auto) 7.4, Absolute Lymphs (auto) 1.46, Total Counted Not Reportable 11/05/18 20:11: Sodium 135 L, Potassium 4.0, Chloride 101, Carbon Dioxide 25.0, Anion Gap 9, BUN 16, Creatinine 1.22, Estim Creat Clear Calc 57.34, Est GFR (MDRD) Af Amer 75, Est GFR (MDRD) Non-Af 62, BUN/Creatinine Ratio 13.1, Glucose 165 H, Calcium 8.7, Troponin I < 0.015 11/05/18 20:11: B-Natriuretic Peptide 40.2 11/05/18 20:50: Urine Color Yellow, Urine Clarity Sl. Cloudy, Urine pH 6.0, Ur Specific [place] 1.020, Urine Protein 15 H, Urine Glucose (UA) Normal, Urine Ketones Negative, Urine Occult Blood 50 H, Urine Nitrite Negative, Urine Bilirubin Negative, Urine Urobilinogen Normal, Ur Leukocyte Esterase 500 H, Urine RBC 5-10 SEEN, Urine WBC 10-25 SEEN, Ur Squamous Epith Cells 0-5 SEEN, Urine Bacteria 0 SEEN, Urine Mucus 0 SEEN 11/05/18 23:27: Vitamin B12 768 11/05/18 23:27: Folate 19.30, TSH 1.37 11/05/18 23:27: Troponin I < 0.015 11/06/18 02:20: Triglycerides 101, Cholesterol 128, LDL Cholesterol 75, VLDL Cholesterol 20, HDL Cholesterol 33 L 11/06/18 02:20: Troponin I < 0.015 11/06/18 02:20: Hemoglobin A1c 6.3 Clinical Impression(s) from Imaging Studies Chest X-Ray 11/05/18 20:15 IMPRESSION: Mild chronic interstitial changes in the lower lobes slightly greater on the left Active Medications Albuterol/Ipratropium (Duoneb) 3 ml INHALATION Q4HWA.RT [facility] Last Admin: 11/06/18 15:00 Dose: 3 ml Aspirin (Ecotrin) 81 mg PO DAILY [facility] Last Admin: 11/06/18 10:38 Dose: 81 mg Clopidogrel Bisulfate (Plavix) 75 mg PO DAILY [facility] Last Admin: 11/06/18 10:40 Dose: 75 mg Enoxaparin Sodium (Lovenox) 40 mg SC DAILY@1000 [facility] Last Admin: 11/06/18 10:41 Dose: 40 mg Guaifenesin (Mucinex) 1,200 mg PO BID [facility] Last Admin: 11/06/18 10:39 Dose: 1,200 mg Sodium Chloride () 1,000 mls @ 75 mls/hr IV .[id number] [facility] Last Admin: 11/06/18 04:32 Dose: 75 mls/hr Magnesium Hydroxide (Milk Of Magnesia) 30 ml PO DAILY PRN PRN Reason: Constipation Metoprolol Tartrate (Lopressor (Beta Venkatesh)) 12.5 mg PO BID [facility] Last Admin: 11/06/18 10:38 Dose: 12.5 mg Nicotine (Nicoderm Cq (Pbkc)) 14 mg TRANSDERM. DAILY [facility] Last Admin: 11/06/18 10:41 Dose: 14 mg Nitroglycerin (Nitrostat) 0.4 mg SUBLINGUAL Q5M PRN PRN Reason: Chest Pain Nutritional Formula (Lactose Free) (Ensure Enlive) 120 ml PO 4X/DAY [facility] Last Admin: 11/06/18 12:59 Dose: Not Given Pravastatin Sodium (Pravachol) 80 mg PO QHS [facility] Last Admin: 11/05/18 23:39 Dose: 80 mg Prednisone () 40 mg PO DAILY@0800 [facility] Sodium Chloride () 5 - 15 ml IV UD PRN PRN Reason: SALINE FLUSH Code Visit Inpatient E&M: 97674 Subs Hosp L3
[2018-11-07] MEDS: Pravastatin 80 MG Tablet PO (21:33)
[2018-11-08] VITALS (12 sets, daily range): BP systolic 103–132; BP diastolic 59–76; PULSE 67–93; RESP 16–20; TEMP 35.6–36.9; O2SAT 93–96
[2018-11-08 06:26] LABS: Anion Gap 8 (5-15); BUN 16 mg/dL (7-18); BUN/Creat Ratio 20.9 RATIO (10-20); Calcium,Total 8.6 mg/dL (8.5-10.1); Chloride 108 mmol/L (98-107); Creatinine, Serum 0.76 mg/dL (0.70-1.30); EST Glomerular Filtration Rate 107 mL/min (>60); Est Glom Filt Rate - Afr Amer 129 mL/min (>60); Estimated Creatinine Clearance 72.16 ml/min; Glucose 93 mg/dL (74-106); Potassium 3.9 mmol/L (3.5-5.1); Sodium Level 141 mmol/L (136-145)
[2018-11-08] MEDS: Ipratropium/Albuterol Sulfate 3 ML AMPUL.NEB INHALATION ×2 (07:21→10:45)
[2018-11-08] MEDS: Aspirin E.C. 81 MG Tablet PO (09:08)
[2018-11-08] MEDS: predniSONE 20 MG Tablet 40 MG PO (09:08)
[2018-11-08] MEDS: Metoprolol Tartrate 25 MG Tablet 12.5 MG PO (09:09)
[2018-11-08] MEDS: guaiFENesin 1,200 MG Tablet 1200 MG PO (09:10)
[2018-11-08] MEDS: Clopidogrel Bisulfate 75 MG Tablet PO (09:10)
[2018-11-08] MEDS: Enoxaparin 40 MG/0.4 ML Syringe SC (09:10)
[2018-11-08] MEDS: Ceftriaxone 1 GM/50 ML BAG IV (09:11)
--- NOTE | 2018-11-08 10:04 | DCINST_ITS ---
- Discharge Diagnoses Current Active Problems: Current Active and Chronic Problems (Last Reviewed 11/05/18 @ 22:23 by oLla Baez DO) Chest pain (Acute) You will use the following diet at home:: Cardiac Your food should be the consistency of: Regular Discharge Activity: Return to Normal Activity Weight Bearing Status: Weight bearing as tolerated Call your doctor if you observe: Fever of 101 or Higher, Shortness of breath, Dizziness, Fainting spells, Swelling in the ankles, Chest pain, Increased palpitations (irregular heartbeat), Uncontrolled pain Instructions: Discharge Instructions: COPD Allergies/Adverse Reactions: Allergies No Known Allergies Allergy (Verified 09/02/18 19:26) Medications to take at Discharge Nitroglycerin [Nitrostat] 0.4 mg SUBLINGUAL Q5M PRN #1 bottle 02/05/17 metoprolol tartrate 25 mg tablet 12.5 mg PO BID #90 tab 07/14/18 Albuterol Sulfate [Ventolin Hfa] 1 - 2 puff INHALATION Q4H PRN PRN 09/02/18 Aspirin E.C. [Ecotrin] 81 mg PO DAILY 09/02/18 Clopidogrel Bisulfate [Clopidogrel] 75 mg PO QDAY 09/02/18 Cranberry Fruit Concentrate [Azo Cranberry] 500 mg PO DAILY 09/02/18 Pravastatin Sodium 80 mg PO QHS 09/02/18 predniSONE tablet 10 mg PO DAILY #30 tab 11/08/18 The following prescriptions were given: predniSONE tablet 10 mg PO DAILY #30 tab Primary Care Physician: Keo Contreras DO [Primary Care Provider] - Please follow up with your Primary Care Physician in: 1 week. Test Results: Test results from this visit will be discussed in further detail at your follow- up appointment, if applicable.
--- NOTE | 2018-11-08 11:48 | PCM.DC.SUM ---
Discharge Date and Diagnosis - Problem List Patient Problems: Active and Suspected Problems (Last Reviewed 11/05/18 @ 22:23 by Lola Baez DO) Chest pain (Acute) Date of Admission: 11/05/18 Date of Discharge: 11/08/18 - Primary Discharge Diagnosis Active and Suspected Problems (Last Reviewed 11/05/18 @ 22:23 by Lloa Baez DO) #1 acute COPD exacerbation. #2 asymptomatic pyuria. #3 atypical chest pain, ACS ruled out. - Secondary Discharge Diagnosis Chronic Problems (Last Reviewed 11/05/18 @ 22:23 by Lola Baez DO) Atherosclerotic heart disease of [place] coronary artery without angina pectoris (Chronic) Angina pectoris (Chronic) Abnormal cardiovascular function (Chronic) Abnormal myocardial perfusion study (Chronic) alf use of drug (Chronic) Hypertension (Chronic) Hyperlipidemia (Chronic) Coronary artery disease (Chronic) S/P drug eluting coronary stent placement (Chronic) History of rheumatic fever (Chronic) Tobacco use (Chronic) COPD (chronic obstructive pulmonary disease) (Chronic) BPH (benign prostatic hyperplasia) (Chronic) S/P PTCA (percutaneous transluminal coronary angioplasty) (Chronic) [facility] w/ PCI drug eluting stent to LAD 2009; PTCA mid LAD 12/14 Hospital Course and Treatment Imaging Results: Clinical Impression(s) from Imaging Studies Chest X-Ray 11/05/18 20:15 IMPRESSION: Mild chronic interstitial changes in the lower lobes slightly greater on the left Electronically Signed: Cisco Orourke MD at 21:09 EST , Service support , Dr. Donahue, pulmonology. Operations: None Procedures: None Summary of Care Provided: Patient seen and examined on the day of discharge and appeared to be stable to be discharged home. He stated that his breathing is better. He complains of dry cough without sputum production. Walking pulse oximeter performed and his pulse ox came down to 93% on room air with ambulation and he denies any worsening shortness of breath upon ambulation. The patient is a 73 year old M presented to the ED because of atypical chest pain with worsening shortness of breath and cough and was found to have acute COPD exacerbation treated by rhinovirus. Regarding his atypical chest pain, his EKG revealed no evidence of ischemic changes. His troponin was negative x3. Chest x-ray showed no acute findings. This atypical chest pain attributed to probable musculoskeletal pain. Patient was treated for acute COPD exacerbation with IV steroids and IV antibiotics as well as bronchodilators. Pneumonia ruled out. His pneumococcal and Legionella antigen were negative. Sputum culture revealed mixed normal respiratory ana. Respiratory panel for viruses was positive for rhinovirus. His blood culture showed no growth in 48 hours. His routine blood work was unremarkable. Urinalysis revealed cloudy urine, negative for nitrite, there was 10-25 WBCs and 0 bacteria seen. Patient was treated empirically with IV Rocephin. Urine culture revealed no growth. Patient remain asymptomatic and he remained afebrile throughout admission. With above-mentioned treatment, patient improved, shortness of breath and cough improved. On the day of discharge, walking pulse oximeter performed and his pulse ox was 92% on room air with ambulation and he did not, complaining of worsening shortness of breath. He did not qualify for home oxygen. Patient discharged home in a stable medical condition, no antibiotic given upon discharge because he received 4 days of IV Rocephin, discharged on tapering course of prednisone, continueD on his chronic home medications without any changes, recommended follow-up with PCP in 1 week and follow-up with pulmonology in 2 weeks. Patient Problems: Active and Suspected Problems (Last Reviewed 11/05/18 @ 22:23 by Lola Baez DO) Chest pain (Acute) - Physical Exam General: Alert, Oriented x3, Cooperative, No apparent distress HEENT: Atraumatic, PERRLA, EOMI, Normocephalic Oral: Moist Mucosa, No Gingival or Mucosal Lesions/ Ulcerations Neck: Supple, No JVD, Negative Carotid Bruits, Trachea Midline, Thyroid Normal Size and Texture Lungs: Clear to auscultation, No rhonchi, No wheeze, No rales, Diminished Cardiovascular: Regular rate, Regular Rhythm, Normal S1, Normal S2, PMI Normal Abdomen: Bowel Sounds Present, Soft, Non Tender, Non-Distended, No Hepato-splenomegaly Extremities: No clubbing, No cyanosis, No edema Skin: No rashes, No breakdown Lymphatic: No Cervical, Supraclavicular, or Inguinal Adenopathy Neurological: Cranial nerves II-XII grossly intact, Neuro grossly intact Psych/Mental Status: Normal Affect, Appropriate Vital Signs Temp Pulse Resp BP Pulse Ox 98.4 F 93 18 103/59 L 95 11/08/18 08:44 11/08/18 10:45 11/08/18 10:45 11/08/18 08:44 11/08/18 09:15 Oxygen Flow Rate (L/min) 1 Oxygen Delivery Method Room Air Weight: 204 lb 12.951 oz Body Mass Index (BMI) 28.5 Intake and Output for Last 24 Hours 11/06/18 11/07/18 11/08/18 23:59 23:59 23:59 Intake Total 2865 / 2865 3309.3 / 3309.3 513 / 513 Output Total 1675 / 1675 1475 / 1475 1400 / 1400 Balance 1190 / 1190 1834.3 / 1834.3 -887 / -887 Microbiology Past 72 Hours 11/05/18 23:18 Blood Culture - Preliminary Blood Culture (Wb) - Left Hand No growth in 48 hours. 11/05/18 23:27 Blood Culture - Preliminary Blood Culture (Wb) - Right Hand No growth in 48 hours. 11/05/18 20:50 Urine Culture - Preliminary Urine, Clean Catch Culture exhibits no growth. 11/06/18 05:10 Gram Stain - Final Sputum, Expectorated/Coughed Respiratory Culture - Final 11/05/18 23:27 Respiratory Panel (PCR) - Final Mucosa - Nose Rhinovirus 11/05/18 20:50 Legionella Antigen - Final Urine, Clean Catch 11/05/18 20:50 Streptococcus pneumoniae Antigen (M - Final Urine, Clean Catch Laboratory Tests Past 24 Hrs 11/08/18 05:25 Sodium 141 Potassium 3.9 Chloride 108 H Carbon Dioxide 25.0 Anion Gap 8 BUN 16 Creatinine 0.76 Estim Creat Clear Calc 72.16 Est GFR (MDRD) Af Amer 129 Est GFR (MDRD) Non-Af 107 BUN/Creatinine Ratio 20.9 H Glucose 93 Calcium 8.6 Discharge Activity: Return to Normal Activity Weight Bearing Status: Weight bearing as tolerated Call your doctor if you observe: Fever of 101 or Higher, Shortness of breath, Dizziness, Fainting spells, Swelling in the ankles, Chest pain, Increased palpitations (irregular heartbeat), Uncontrolled pain Home Medications: Medications to take at Discharge Nitroglycerin [Nitrostat] 0.4 mg SUBLINGUAL Q5M PRN #1 bottle 02/05/17 metoprolol tartrate 25 mg tablet 12.5 mg PO BID #90 tab 07/14/18 Albuterol Sulfate [Ventolin Hfa] 1 - 2 puff INHALATION Q4H PRN PRN 09/02/18 Aspirin E.C. [Ecotrin] 81 mg PO DAILY 09/02/18 Clopidogrel Bisulfate [Clopidogrel] 75 mg PO QDAY 09/02/18 Cranberry Fruit Concentrate [Azo Cranberry] 500 mg PO DAILY 09/02/18 Pravastatin Sodium 80 mg PO QHS 09/02/18 predniSONE tablet 10 mg PO DAILY #30 tab 11/08/18 Following Prescrptions Were Given to Patient: predniSONE tablet 10 mg PO DAILY #30 tab Primary Care Physician: Keo Contreras DO [Primary Care Provider] - Please follow up with your Primary Care Physician in: 1 week. Patient Instructions: Discharge Instructions: COPD Disposition: Home Minutes spent on discharge:: 32 Patient Condition:: Stable Medical Necessity - Tobacco Use Smoking Status: Current every day smoker Tobacco Use: Cigarettes Meaningful Use Info Meaningful Use Diagnoses (Choose all that apply): None applicable Code Visit Inpatient E&M: 99319 Disch Hosp
--- NOTE | 2018-11-08 11:53 | DS.PCM_ITS ---
Discharge Date and Diagnosis - Problem List Patient Problems: Active and Suspected Problems (Last Reviewed 11/05/18 @ 22:23 by Lola Baez DO) Chest pain (Acute) Date of Admission: 11/05/18 Date of Discharge: 11/08/18 - Primary Discharge Diagnosis Active and Suspected Problems (Last Reviewed 11/05/18 @ 22:23 by Lola Baez DO) #1 acute COPD exacerbation. #2 asymptomatic pyuria. #3 atypical chest pain, ACS ruled out. - Secondary Discharge Diagnosis Chronic Problems (Last Reviewed 11/05/18 @ 22:23 by Lola Baez DO) Atherosclerotic heart disease of [place] coronary artery without angina pectoris (Chronic) Angina pectoris (Chronic) Abnormal cardiovascular function (Chronic) Abnormal myocardial perfusion study (Chronic) [facility] use of drug (Chronic) Hypertension (Chronic) Hyperlipidemia (Chronic) Coronary artery disease (Chronic) S/P drug eluting coronary stent placement (Chronic) History of rheumatic fever (Chronic) Tobacco use (Chronic) COPD (chronic obstructive pulmonary disease) (Chronic) BPH (benign prostatic hyperplasia) (Chronic) S/P PTCA (percutaneous transluminal coronary angioplasty) (Chronic) [facility] w/ PCI drug eluting stent to LAD 2009; PTCA mid LAD 12/14 Hospital Course and Treatment Imaging Results: Clinical Impression(s) from Imaging Studies Chest X-Ray 11/05/18 20:15 IMPRESSION: Mild chronic interstitial changes in the lower lobes slightly greater on the left Electronically Signed: Cisco Orourke MD at 21:09 EST , Service support , Dr. Donahue, pulmonology. Operations: None Procedures: None Summary of Care Provided: Patient seen and examined on the day of discharge and appeared to be stable to be discharged home. He stated that his breathing is better. He complains of dry cough without sputum production. Walking pulse oximeter performed and his pulse ox came down to 93% on room air with ambulation and he denies any worsening shortness of breath upon ambulation. The patient is a 73 year old M presented to the ED because of atypical chest pain with worsening shortness of breath and cough and was found to have acute COPD exacerbation treated by rhinovirus. Regarding his atypical chest pain, his EKG revealed no evidence of ischemic changes. His troponin was negative x3. Chest x-ray showed no acute findings. This atypical chest pain attributed to probable musculoskeletal pain. Patient was treated for acute COPD exacerbation with IV steroids and IV antibiotics as well as bronchodilators. Pneumonia ruled out. His pneumococcal and Legionella antigen were negative. Sputum culture revealed mixed normal respiratory ana. Respiratory panel for viruses was positive for rhinovirus. His blood culture showed no growth in 48 hours. His routine blood work was unremarkable. Urinalysis revealed cloudy urine, negative for nitrite, there was 10-25 WBCs and 0 bacteria seen. Patient was treated empirically with IV Rocephin. Urine culture revealed no growth. Patient remain asymptomatic and he remained afebrile throughout admission. With above- mentioned treatment, patient improved, shortness of breath and cough improved. On the day of discharge, walking pulse oximeter performed and his pulse ox was 92% on room air with ambulation and he did not, complaining of worsening shortness of breath. He did not qualify for home oxygen. Patient discharged home in a stable medical condition, no antibiotic given upon discharge because he received 4 days of IV Rocephin, discharged on tapering course of prednisone, continueD on his chronic home medications without any changes, recommended follow-up with PCP in 1 week and follow-up with pulmonology in 2 weeks. Patient Problems: Active and Suspected Problems (Last Reviewed 11/05/18 @ 22:23 by Lola mcneal DO) Chest pain (Acute) - Physical Exam General: Alert, Oriented x3, Cooperative, No apparent distress HEENT: Atraumatic, PERRLA, EOMI, Normocephalic Oral: Moist Mucosa, No Gingival or Mucosal Lesions/ Ulcerations Neck: Supple, No JVD, Negative Carotid Bruits, Trachea Midline, Thyroid Normal Size and Texture Lungs: Clear to auscultation, No rhonchi, No wheeze, No rales, Diminished Cardiovascular: Regular rate, Regular Rhythm, Normal S1, Normal S2, PMI Normal Abdomen: Bowel Sounds Present, Soft, Non Tender, Non-Distended, No Hepato- splenomegaly Extremities: No clubbing, No cyanosis, No edema Skin: No rashes, No breakdown Lymphatic: No Cervical, Supraclavicular, or Inguinal Adenopathy Neurological: Cranial nerves II-XII grossly intact, Neuro grossly intact Psych/Mental Status: Normal Affect, Appropriate Vital Signs Temp Pulse Resp BP Pulse Ox 98.4 F 93 18 103/59 L 95 11/08/18 08:44 11/08/18 10:45 11/08/18 10:45 11/08/18 08:44 11/08/18 09:15 Oxygen Flow Rate (L/min) 1 Oxygen Delivery Method Room Air Weight: 204 lb 12.951 oz Body Mass Index (BMI) 28.5 Intake and Output for Last 24 Hours 11/06/18 11/07/18 11/08/18 23:59 23:59 23:59 Intake Total 2865 / 2865 3309.3 / 3309.3 513 / 513 Output Total 1675 / 1675 1475 / 1475 1400 / 1400 Balance 1190 / 1190 1834.3 / 1834.3 -887 / -887 Microbiology Past 72 Hours 11/05/18 23:18 Blood Culture - Preliminary Blood Culture (Wb) - Left Hand No growth in 48 hours. 11/05/18 23:27 Blood Culture - Preliminary Blood Culture (Wb) - Right Hand No growth in 48 hours. 11/05/18 20:50 Urine Culture - Preliminary Urine, Clean Catch Culture exhibits no growth. 11/06/18 05:10 Gram Stain - Final Sputum, Expectorated/Coughed Respiratory Culture - Final 11/05/18 23:27 Respiratory Panel (PCR) - Final Mucosa - Nose Rhinovirus 11/05/18 20:50 Legionella Antigen - Final Urine, Clean Catch 11/05/18 20:50 Streptococcus pneumoniae Antigen (M - Final Urine, Clean Catch Laboratory Tests Past 24 Hrs 11/08/18 05:25 Sodium 141 Potassium 3.9 Chloride 108 H Carbon Dioxide 25.0 Anion Gap 8 BUN 16 Creatinine 0.76 Estim Creat Clear Calc 72.16 Est GFR (MDRD) Af Amer 129 Est GFR (MDRD) Non-Af 107 BUN/Creatinine Ratio 20.9 H Glucose 93 Calcium 8.6 Discharge Activity: Return to Normal Activity Weight Bearing Status: Weight bearing as tolerated Call your doctor if you observe: Fever of 101 or Higher, Shortness of breath, Dizziness, Fainting spells, Swelling in the ankles, Chest pain, Increased palpitations (irregular heartbeat), Uncontrolled pain Home Medications: Medications to take at Discharge Nitroglycerin [Nitrostat] 0.4 mg SUBLINGUAL Q5M PRN #1 bottle 02/05/17 metoprolol tartrate 25 mg tablet 12.5 mg PO BID #90 tab 07/14/18 Albuterol Sulfate [Ventolin Hfa] 1 - 2 puff INHALATION Q4H PRN PRN 09/02/18 Aspirin E.C. [Ecotrin] 81 mg PO DAILY 09/02/18 Clopidogrel Bisulfate [Clopidogrel] 75 mg PO QDAY 09/02/18 Cranberry Fruit Concentrate [Azo Cranberry] 500 mg PO DAILY 09/02/18 Pravastatin Sodium 80 mg PO QHS 09/02/18 predniSONE tablet 10 mg PO DAILY #30 tab 11/08/18 Following Prescrptions Were Given to Patient: predniSONE tablet 10 mg PO DAILY #30 tab Primary Care Physician: Keo Contreras DO [Primary Care Provider] - Please follow up with your Primary Care Physician in: 1 week. Patient Instructions: Discharge Instructions: COPD Disposition: Home Minutes spent on discharge:: 32 Patient Condition:: Stable Medical Necessity - Tobacco Use Smoking Status: Current every day smoker Tobacco Use: Cigarettes Meaningful Use Info Meaningful Use Diagnoses (Choose all that apply): None applicable Code Visit Inpatient E&M: 85929 Disch Hosp
--- NOTE | 2018-11-09 16:05 | CASEMGMT ---
DANIEL SWANSON Discharge F/U Phone Call LACE: 13 Strata: 4 Discharge date: 11/08/18 Call date: 11/09/18 Call time: 1605 Duration: 2 minutes Admission dx: Unstable angina Pt states 'I guess I am doing ok' since discharge. Pt states no questions regarding discharge instructions or medications at this time. Pt states has f/u appt's scheduled and plans on keeping those. Pt states no suggestions for [facility] at this time. Pt voices no further questions/concerns/needs at this time. [place] DANIEL SWANSON
== END 2018-11-08 12:38 | disposition home or self-care (01) | DRG 192 ==
LOC: ED 20:35 → PCU 21:56
PROVIDERS: Internal Medicine; Admitting Provider Internal Medicine; Emergency Provider Emergency Medicine; Family Provider Preventive Medicine Occupational Medicine; PCP Preventive Medicine Occupational Medicine; Visit Provider Hospitalist
DX: J44.1 Chronic obstructive pulmonary disease with (acute) exacerbation (principal); R07.89 Other chest pain; I25.10 Atherosclerotic heart disease of native coronary artery without angina pectoris; E78.5 Hyperlipidemia, unspecified; I10 Essential (primary) hypertension; J06.9 Acute upper respiratory infection, unspecified; N40.0 Benign prostatic hyperplasia without lower urinary tract symptoms; B97.89 Other viral agents as the cause of diseases classified elsewhere; F17.210 Nicotine dependence, cigarettes, uncomplicated; Z87.440 Personal history of urinary (tract) infections; Z60.2 Problems related to living alone; Z95.5 Presence of coronary angioplasty implant and graft; Z79.02 Long term (current) use of antithrombotics/antiplatelets; Z79.899 Other long term (current) drug therapy; Z79.82 Long term (current) use of aspirin
CPT/HCPCS: 36415; 71045; 80048; 80061; 81001; 82607; 82746; 83036; 83880; 84443; 84484; 85025; 87040; 87070; 87086; 87205; 87449; 87633; 93005; 94640; 97110; 97116; 97161; 97165; 97802; 99283; J7030; A4216; J2405

== ENCOUNTER → 2018-11-30 14:49 | Outpatient (CLI) | payer MEDICARE, SELFPAY ==
[2018-11-20 09:58] VITALS: BMI 28.4
--- NOTE | 2018-11-30 14:51 | CT_ITS ---
STUDY: LOW DOSE CT LUNG CANCER SCREENING REASON FOR EXAM: Male, 73 years old. 56 pack year smoking history. RADIATION DOSAGE (If Supplied By Facility): CTDIvol = ( 2.55 ) mGy, DLP = ( 81.69 ) mGycm TECHNIQUE: No contrast was administered. Low dose technique was utilized (average mAS-38 and kVp 120). 1.25 mm axial source images with a slice interval of 1.25-mm were reconstructed in lung windows. 2.5 mm axial source images with a slice interval of 2.5-mm were reconstructed in lung windows. 5.0 mm axial source images with a slice interval of 5.0-mm were reconstructed in soft tissue windows. Nodule measured using lung windows on PACS and/or independent workstation with automated measurement of minimum and maximum diameter. Nodule measurement reported as average diameter rounded to the nearest whole number. Growth is defined as an increase ins size of greater than 1.5 mm. COMPARISON: Chest, November 05, 2018. NODULES: Total lung nodules (excluding granulomas): 0 Emphysema: There is emphysematous changes with diffuse subpleural pulmonary fibrosis most marked in right middle lobe and the lung bases. Endobronchial lesion: No Aorta: There is minimal atherosclerotic changes of the thoracic aorta. Coronary arteries: There are coronary artery calcifications. Heart: Heart is normal in size. Pulmonary artery: Normal Mediastinal nodes: There is subcentimeter mediastinal lymph nodes. Other chest and abdominal findings: There are degenerative changes of the thoracic spine. CT/Low Dose CT Lung Screening IMPRESSION: 1. Emphysematous changes of the lungs without mass or infiltrate. 2. Atherosclerotic changes of coronary artery disease and thoracic aorta. Lung-RADS category 1 - Continue annual screening with LDCT in 12 months. IMPORTANT NOTES FOR USE: ACR Lung-RADS Version 1.0 Assessment Categories Release Date: March 28, 2014 Category: Coded 0-4 bases on nodule(s) with highest degree of suspicion. Negative screen is defined as categories 1 and 2; a positive screen is defined as categories 3 and 4. Category 3 and 4A nodules that are unchanged on interval CT should be coded as category 2, and individuals returned to screening in 12 months. Category 4X: Category 3 or 4 nodules with additional imaging findings that increase the suspicion of lung cancer, such as spiculation, GGN that doubles in size in 1 year, enlarged lymph notes, etc. Category Modifiers: S (significant finding unrelated to lung cancer) and C (prior history of treated lung cancer) may be added to the 0-4 Lung-RADS Electronically Signed: Rj Godinez DO at 23:18 EST Tel [phone], Service support ,
== END ==
PROVIDERS: Family Provider Preventive Medicine Occupational Medicine; PCP Preventive Medicine Occupational Medicine; Referring Provider Nurse Practitioner Acute Care; Visit Provider Nurse Practitioner Acute Care
DX: Z87.891 Personal history of nicotine dependence (principal)
CPT/HCPCS: G0297

== ENCOUNTER → 2018-12-15 08:58 | Outpatient (CLI) | payer MEDICARE, SELFPAY ==
[2018-11-20 09:58] VITALS: BMI 28.4
--- NOTE | 2018-12-15 14:13 | PFT ---
INTRODUCTION: The patient is a 73-year-old male that presents for pulmonary function studies secondary to a diagnosis of COPD. Respiratory therapy reports good patient effort. Bronchodilators were used during testing. INTERPRETATION: Forced expiration spirometry demonstrates the presence of a mild large airways obstructive ventilatory defect. There was no significant response to aerosolized bronchodilators. Spirograms are of good quality do not plateau indicating slow emptying of the lungs. Body plethysmography was performed and reveals a decreased TLC to 4.7 L, 70% of predicted, indicative of a mild restrictive ventilatory defect. The remainder of the lung volumes are symmetrically reduced. Diffusing capacity by single breath CO is mildly reduced at 64% of predicted. IMPRESSION: These pulmonary function studies demonstrate the presence of an irreversible mild mixed ventilatory defect with a symmetric reduction in diffusing capacity. There are no previous pulmonary function studies available for comparison.
== END ==
PROVIDERS: Family Provider Preventive Medicine Occupational Medicine; PCP Preventive Medicine Occupational Medicine; Referring Provider Nurse Practitioner Acute Care; Visit Provider Nurse Practitioner Acute Care
DX: J44.9 Chronic obstructive pulmonary disease, unspecified (principal)
CPT/HCPCS: 94060; 94726; 94729

== ENCOUNTER → 2018-12-16 08:42 | Outpatient (CLI) | payer MEDICARE, SELFPAY ==
[2018-11-20 09:58] VITALS: BMI 28.4
[2018-12-16 08:50] VITALS: PULSE 102; PULSE 104; PULSE 107; PULSE 110; PULSE 111; PULSE 113; PULSE 84; PULSE 85; O2SAT 93; O2SAT 94; O2SAT 95; O2SAT 96; O2SAT 97; O2SAT 98
--- NOTE | 2018-12-17 09:46 | WT_ITS ---
PSN 6 Minute Walk Test - 6 Minute Walk Test 6 Minute Walk Test: 6 Minute Walk Test PSN:6-Minute Walk Test Start: 12/16/18 09:23 Freq: Status: Active Protocol: [id number] Document 12/16/18 08:50 [facility] (Rec: 12/16/18 09:26 [facility] [id number]) 6 Minute Walk Test Date Performed 12/16/18 Time Performed 08:50 Height 5 ft 11 in Weight: 202 lb Weight in Pounds 202.[address]: Tiffanie Michelle Assistive device used: None Pre-test Oxygen Delivery Method Room Air Pulse Ox (%) 98 Pulse Rate (60-100 beats/min) 84 Dyspnea Tiffany Scale (0-10) 0 Exertion Tiffany Scale (6-20) 6 1st minute Oxygen Delivery Method Room Air Pulse Ox (%) 97 Pulse Rate (60-100 beats/min) 102 H Number of Rests Taken 0 2nd minute Oxygen Delivery Method Room Air Pulse Ox (%) 94 Pulse Rate (60-100 beats/min) 107 H Number of Rests Taken 0 3rd minute Oxygen Delivery Method Room Air Pulse Ox (%) 96 Pulse Rate (60-100 beats/min) 111 H Number of Rests Taken 0 4th minute Oxygen Delivery Method Room Air Pulse Ox (%) 95 Pulse Rate (60-100 beats/min) 104 H Number of Rests Taken 0 5th minute Oxygen Delivery Method Room Air Pulse Ox (%) 98 Pulse Rate (60-100 beats/min) 110 H Number of Rests Taken 0 6th minute Oxygen Delivery Method Room Air Pulse Ox (%) 93 Pulse Rate (60-100 beats/min) 113 H Number of Rests Taken 0 Post-test Oxygen Delivery Method Room Air Pulse Ox (%) 97 Pulse Rate (60-100 beats/min) 85 Dyspnea Tiffany Scale (0-10) 1 Exertion Tiffany Scale (6-20) 12 Full Laps Walked 20 Partial Lap, Number of Tiles Walked 32 Total Distance Walked (ft) 1212 - Interpretation Interpretation: The patient ambulated 1212 feet over the course of 6 minutes beginning on room air without assistive devices or breaks. Pretesting oxygen saturation was noted to be 98% on room air. With ambulation, the [place] oxygen saturation was 93%. The patient did develop physiologic tachycardia with exertion. This testing indicates the presence of a significant exertional oxygen desaturation. - Recommendations Recommendations: There is no indication for the use of supplemental oxygen at this time. However, close interval follow-up is recommended, given the degree of oxygen desaturation noted during this study.
--- OUTSIDE RECORDS SUMMARY | 2019-02-19 23:27 | XMS RPT_ITS ---
:1945 Author Organization [facility] Support Name Relationship Address Phone R Unavailable Unavailable Unavailable RABIA, YOLANDE Unavailable [address] + [place] [address] SHELLHORN, BILL/KRYSTLE Unavailable [address] + [place] [address] R Unavailable Unavailable Unavailable RABIA, YOLANDE Unavailable [address] + [place] [address] SHELLHORN, BILL/KRYSTLE Unavailable [address] + [place] [address] R Unavailable Unavailable Unavailable RABIA, YOLANDE Unavailable [address] + [place] [address] SHELLHORN, BILL/KRYSTLE Unavailable [address] + [place] [address] R Unavailable Unavailable Unavailable RABIA, YOLANDE Unavailable [address] + [place] [address] SHELLHORN, BILL/KRYSTLE Unavailable [address] + [place] [address] R Unavailable Unavailable Unavailable RABIA, YOLANDE Unavailable [address] + [place] [address] SHELLHORN, BILL/KRYSTLE Unavailable [address] + [place] [address] R Unavailable Unavailable Unavailable RABIA, YOLANDE Unavailable [address] + [place] [address] SHELLHORN, BILL/KRYSTLE Unavailable [address] + [place] [address] R Unavailable Unavailable Unavailable RABIA, YOLANDE Unavailable [address] + [place] [address] SHELLHORN, BILL/KRYSTLE Unavailable [address] + [place] [address] R Unavailable Unavailable Unavailable RABIA, YOLANDE Unavailable [address] + [place] [address] SHELLHORN, BILL/KRYSTLE Unavailable [address] + [place] [address] R Unavailable Unavailable Unavailable RABIA, YOLANDE Unavailable [address] + [place] [address] SHELLHORN, BILL/KRYSTLE Unavailable [address] + [place] [address] R Unavailable Unavailable Unavailable RABIA, YOLANDE Unavailable [address] + [place] [address] SHELLHORN, BILL/KRYSTLE Unavailable [address] + [place] [address] R Unavailable Unavailable Unavailable RABIA, YOLANDE Unavailable [address] + [place] [address] SHELLHORN, BILL/KRYSTLE Unavailable [address] + [place] [address] R Unavailable Unavailable Unavailable RABIA, YOLANDE Unavailable [address] + [place] [address] SHELLHORN, BILL/KRYSTLE Unavailable [address] + [place] [address] R Unavailable Unavailable Unavailable RABIA, YOLANDE Unavailable [address] + [place] [address] SHELLHORN, BILL/KRYSTLE Unavailable [address] + [place] [address] R Unavailable Unavailable Unavailable RABIA, YOLANDE Unavailable [address] + [place] [address] SHELLHORN, BILL/KRYSTLE Unavailable [address] + [place] [address] DECLINED Unavailable Unavailable Unavailable DECLINED Unavailable Unavailable Unavailable R Unavailable Unavailable Unavailable RABIA, YOLANDE Unavailable [address] + [place] [address] SHELLHORN, BILL/KRYSTLE Unavailable [address] + [place] [address] R Unavailable Unavailable Unavailable RABIA, YOLANDE Unavailable [address] + [place] [address] R Unavailable Unavailable Unavailable RABIA, YOLANDE Unavailable [address] + [place] [address] R Unavailable Unavailable Unavailable RABIA, YOLANDE Unavailable [address] + [place] [address] R Unavailable Unavailable Unavailable RABIA, YOLANDE Unavailable [address] [phone] [place] [address] R Unavailable Unavailable Unavailable RABIA, MERRITT Unavailable [address] [phone] [place] [address] R Unavailable Unavailable Unavailable RABIA, MERRITT Unavailable [address] [phone] [place] [address] Care Team Providers Name Role Phone COLUMBA ALBERT Attending Unavailable NADEGE, LORENA Primary Care Unavailable Tiffanie Michelle Attending Unavailable Nadege Lorena Referring Unavailable Tiffanie Michelle Attending Unavailable Tiffanie Michelle Referring Unavailable Nadege, Lorena Primary Care Unavailable Tiffanie Michelle Attending Unavailable Tiffanie Michelle Referring Unavailable Nadege, Lorena Primary Care Unavailable Tiffanie Michelle Attending Unavailable Miguel Angel Tiffanie Referring Unavailable Nadege, Lorena Primary Care Unavailable Alon Reyez Attending Unavailable Niharika Queen Referring Unavailable Mansoor Donahue D.O. Attending Unavailable Tiffanie Michelle Referring Unavailable Karl Aguila Attending Unavailable Karl Aguila Referring Unavailable Nadege Lorena Primary Care Unavailable Terrie Padilla Attending Unavailable Emilee Alarcon Attending Unavailable Nadege Lorena Referring Unavailable [facility] Primary Care Unavailable [facility] Primary Care Unavailable Elmer Saldivar Attending Unavailable [facility] Primary Care Unavailable Daphne Verma Attending Unavailable BibianaJeyson Attending Unavailable Bibiana, Jeyson Baltazar Referring Unavailable Nadege, Lorena Primary Care Unavailable Bibiana, Jeyson Baltazar Attending Unavailable Bibiana, Ham Referring Unavailable Nadege, Lorena Primary Care Unavailable Barry HaleO. Attending Unavailable Michelle, Tiffanie Referring Unavailable [facility] Primary Care Unavailable Sementi, Niharika Admitting Unavailable González Hale.O. Consulting Unavailable Ashelfah, Ghasem Attending Unavailable Sementi, Niharika Admitting Unavailable Sementi, Niharika Attending Unavailable [facility] Primary Care Unavailable Sementi, Niharika Consulting Unavailable Sementi, Niharika Admitting Unavailable González Hale.O. Attending Unavailable [facility] Primary Care Unavailable González Hale.O. Consulting Unavailable David, Michel Consulting Unavailable Sementi, Niharika Admitting Unavailable David, Michel Attending Unavailable [facility] Primary Care Unavailable González Hale.O. Consulting Unavailable David, Michel Consulting Unavailable Sementi, Niharika Admitting Unavailable González Hale.O. Attending Unavailable [facility] Primary Care Unavailable González Hale.O. Consulting Unavailable David, Michel Consulting Unavailable Sementi, Niharika Admitting Unavailable David, Michel Attending Unavailable [facility] Primary Care Unavailable González Hale.O. Consulting Unavailable David, Michel Consulting Unavailable Sementi, Niharika Admitting Unavailable Ashelfah, Ghasem Attending Unavailable [facility] Primary Care Unavailable González Hale.O. Consulting Unavailable Ashelfah, Ghasem Consulting Unavailable PROBLEMS PROBLEMS DATE TYPE CONDITION / CODE ATTENDING STATUS SOURCE 12/25/2018 Unknown J44.9 - Chronic Mansoor Donahue, Active [place] obstructive pulmonary D.O. Community disease, unspecified Hospital / J44.9(ICD-10) Repository 11/20/2018 Unknown F17.200 - Nicotine Miguel Angel, Active [place] dependence, Tiffanie [facility] unspecified, Hospital uncomplicated / Repository F17.200(ICD-10) 11/20/2018 Unknown Z72.0 - Tobacco use / Michelle Michelle Z72.0(ICD-10) [facility] Repository 12/09/2018 Unknown R00.1 - Bradycardia, Dereje, Alon Active [place] unspecified / Community R00.1(ICD-10) Hospital Repository 12/09/2018 Unknown R07.89 - Other chest Dereje, Alon Active [facility] pain / R07.89(ICD-10) [facility] Hospital Repository 12/09/2018 Unknown I25.10 - Dereje, Crescent Active [facility] Atherosclerotic heart Community disease of [facility] coronary artery Repository without angina pectoris / I25.10(ICD-10) 12/09/2018 Unknown I10 - Essential Dereje, Alon Active [place] (primary) Community hypertension / Hospital I10(ICD-10) Repository 09/29/2018 Unknown Z12.5 - Encounter for Jeyson Mccarty Active [place] screening for [facility] malignant neoplasm of [facility] prostate / Repository Z12.5(ICD-10) 09/02/2018 Unknown N12 - BayronRasheeda gautama Active [facility] Tubulo-interstitial Community nephritis, not Hospital specified as acute or Repository chronic / N12(ICD-10) 09/02/2018 Unknown R10.9 - Unspecified BayronDaphne gautam Active [facility] abdominal pain / Community R10.9(ICD-10) Hospital Repository 01/10/2018 Unknown Z79.899 - Other long MoodispaKarl blaek Active [facility] term (current) drug Community therapy / Hospital Z79.899(ICD-10) Repository 01/10/2018 Unknown E78.5 - MoodispaKarl blake Active [place] Hyperlipidemia, Community unspecified / Hospital E78.5(ICD-10) Repository PROCEDURES PROCEDURES No Procedure Records FoundRESULTS RESULTS 6 MINUTE WALK TEST Observed: 12/17/2018 Status: F Source: [place] 9:46 AM [facility] HOSPITAL REPOSITORY [facility] Pulmonary Services/Neurology [address] [place] [address] MR#: [id number] Acct: [id number] Name: COLLINS MONK Rep #: [id number] : 1945 73 From: Mansoor Donahue DO Referring Dr: Tiffanie Michelle [employer] BUSINESS ANALYST Date: Ordering Dr: Sex: M C Location: PSN PSN 6 Minute Walk Test - 6 Minute Walk Test 6 Minute Walk Test: 6 Minute Walk Test PSN:6-Minute Walk Test Start: 12/16/18 09:23 Freq: Status: Active Protocol: RESP.6MINW Document 12/16/18 08:50 [facility] (Rec: 12/16/18 09:26 [facility] [id number]) 6 Minute Walk Test Date Performed 12/16/18 Time Performed 08:50 Height 5 ft 11 in Weight: 202 lb Weight in Pounds 202.[address]: Tiffanie Michelle Assistive device used: None Pre-test Oxygen Delivery Method Room Air Pulse Ox (%) 98 Pulse Rate (60-100 beats/min) 84 Dyspnea Tiffany Scale (0-10) 0 Exertion Tiffany Scale (6-20) 6 1st minute Oxygen Delivery Method Room Air Pulse Ox (%) 97 Pulse Rate (60-100 beats/min) 102 H Number of Rests Taken 0 2nd minute Oxygen Delivery Method Room Air Pulse Ox (%) 94 Pulse Rate (60-100 beats/min) 107 H Number of Rests Taken 0 3rd minute Oxygen Delivery Method Room Air Pulse Ox (%) 96 Pulse Rate (60-100 beats/min) 111 H Number of Rests Taken 0 4th minute Oxygen Delivery Method Room Air Pulse Ox (%) 95 Pulse Rate (60-100 beats/min) 104 H Number of Rests Taken 0 5th minute Oxygen Delivery Method Room Air Pulse Ox (%) 98 Pulse Rate (60-100 beats/min) 110 H Number of Rests Taken 0 6th minute Oxygen Delivery Method Room Air Pulse Ox (%) 93 Pulse Rate (60-100 beats/min) 113 H Number of Rests Taken 0 Post-test Oxygen Delivery Method Room Air Pulse Ox (%) 97 Pulse Rate (60-100 beats/min) 85 Dyspnea Tiffany Scale (0-10) 1 Exertion Tiffany Scale (6-20) 12 Full Laps Walked 20 Partial Lap, Number of Tiles Walked 32 Total Distance Walked (ft) 1212 - Interpretation Interpretation: The patient ambulated 1212 feet over the course of 6 minutes beginning on room air without assistive devices or breaks. Pretesting oxygen saturation was noted to be 98% on room air. With ambulation, the bismark oxygen saturation was 93%. The patient did develop physiologic tachycardia with exertion. This testing indicates the presence of a significant exertional oxygen desaturation. - Recommendations Recommendations: There is no indication for the use of supplemental oxygen at this time. However, close interval follow-up is recommended, given the degree of oxygen desaturation noted during this study. 12/17/18 0946 <Electronically signed by Mansoor Donahue DO> Date Mansoor Donahue DO CC: Date Dictated: 12/17/18944 Date Transcribed: 12/17/18944 Rn Maternity: Mansoor Donahue DO Signed PULMONARY FUNCTION Observed: 12/15/2018 Status: F Source: [place] TEST 2:16 PM [facility] REPOSITORY [facility] Pulmonary Services/Neurology [address] [place] [address] MR#: [id number] Acct: [id number] Name: COLLINS MONK Carole Rep #: [id number] : 1945 73 From: Mansoor Donahue DO Referring Dr: Tiffanie Michelle [employer] BUSINESS ANALYST Status: REG CLI Ordering Dr: Date: Location: [facility] Sex: M C INTRODUCTION: The patient is a 73-year-old male that presents for pulmonary function studies secondary to a diagnosis of COPD. Respiratory therapy reports good patient effort. Bronchodilators were used during testing. INTERPRETATION: Forced expiration spirometry demonstrates the presence of a mild large airways obstructive ventilatory defect. There was no significant response to aerosolized bronchodilators. Spirograms are of good quality do not plateau indicating slow emptying of the lungs. Body plethysmography was performed and reveals a decreased TLC to 4.7 L, 70% of predicted, indicative of a mild restrictive ventilatory defect. The remainder of the lung volumes are symmetrically reduced. Diffusing capacity by single breath CO is mildly reduced at 64% of predicted. IMPRESSION: These pulmonary function studies demonstrate the presence of an irreversible mild mixed ventilatory defect with a symmetric reduction in diffusing capacity. There are no previous pulmonary function studies available for comparison. 12/15/18 1416 <Electronically signed by Mnasoor Donahue DO> Date Mansoor Donahue DO CC: Tiffanie Contreras DO Date Dictated: 12/15/181412 Date Transcribed: 12/15/181412 Rn Maternity: TAWNYA Signed LOW DOSE CT LUNG Observed: 11/30/2018 Status: F Source: [place] SCREENING 2:52 PM [facility] REPOSITORY [facility] Imaging Services [address] [place] [address] Lung Screening MR#: [id number] Acct: [id number] Name: COLLINS MONK Rep #: [id number] : 1945 M 73 From: Rj Godinez DO PCP: Lorena Contreras DO Status: REG CLI Study: Low Dose CT Lung Screening Date of Exam: 11/30/18 Exam# [id number] Ordering Dr: Tiffanie Michelle NP-Michael STUDY: LOW DOSE CT LUNG CANCER SCREENING REASON FOR EXAM: Male, 73 years old. 56 pack year smoking history. RADIATION DOSAGE (If Supplied By Facility): CTDIvol = ( 2.55 ) mGy, DLP = ( 81.69 ) mGycm TECHNIQUE: No contrast was administered. Low dose technique was utilized (average mAS-38 and kVp 120). 1.25 mm axial source images with a slice interval of 1.25- mm were reconstructed in lung windows. 2.5 mm axial source images with a slice interval of 2.5-mm were reconstructed in lung windows. 5.0 mm axial source images with a slice interval of 5.0-mm were reconstructed in soft tissue windows. Nodule measured using lung windows on PACS and/or independent workstation with automated measurement of minimum and maximum diameter. Nodule measurement reported as average diameter rounded to the nearest whole number. Growth is defined as an increase ins size of greater than 1.5 mm. COMPARISON: Chest, November 05, 2018. NODULES: Total lung nodules (excluding granulomas): 0 Emphysema: There is emphysematous changes with diffuse subpleural pulmonary fibrosis most marked in right middle lobe and the lung bases. Endobronchial lesion: No Aorta: There is minimal atherosclerotic changes of the thoracic aorta. Coronary arteries: There are coronary artery calcifications. Heart: Heart is normal in size. Pulmonary artery: Normal Mediastinal nodes: There is subcentimeter mediastinal lymph nodes. Other chest and abdominal findings: There are degenerative changes of the thoracic spine. CT/Low Dose CT Lung Screening IMPRESSION: 1. Emphysematous changes of the lungs without mass or infiltrate. 2. Atherosclerotic changes of coronary artery disease and thoracic aorta. Lung-RADS category 1 - Continue annual screening with LDCT in 12 months. IMPORTANT NOTES FOR USE: ACR Lung-RADS Version 1.0 Assessment Categories Release Date: March 28, 2014 Category: Coded 0-4 bases on nodule(s) with highest degree of suspicion. Negative screen is defined as categories 1 and 2; a positive screen is defined as categories 3 and 4. Category 3 and 4A nodules that are unchanged on interval CT should be coded as category 2, and individuals returned to screening in 12 months. Category 4X: Category 3 or 4 nodules with additional imaging findings that increase the suspicion of lung cancer, such as spiculation, GGN that doubles in size in 1 year, enlarged lymph notes, etc. Category Modifiers: S (significant finding unrelated to lung cancer) and C (prior history of treated lung cancer) may be added to the 0-4 Lung-RADS Electronically Signed: Rj Godinez DO at 23:18 EST Tel [phone], Service support , CC: Tiffanie Michelle; Lorena Contreras DO Rn Maternity: Signed PULMONARY VISIT REPORT Observed: 11/20/2018 Status: F Source: [place] 10:53 AM [facility] REPOSITORY [facility] Pulmonary Medicine of [address] [place] [address] OFFICE VISIT Date of Service: 11/20/18 MR#: [id number] Acct: [id number] Name: MARVINSANGEETATeresoCOLLINS Carole Rep #: [id number] : 1945 Provider: Tiffanie Michelle Age/Sex: 73/M Location[place] [facility] [place] Status: Signed Assessment AND Plan 1. Chronic obstructive pulmonary disease, unspecified COPD type J44.9 Plan Stable. He does not appear to be in a continued exacerbation. No repeat in antibiotic's or prednisone today. No change in maintenance medications until PFTs can be obtained to both clarify and quantify COPD. Lengthy discussion about COPD and medications that may be indicated once test results are available for review. Follow-up with Dr. Donahue in 6 weeks, at which time they can review test results and determine appropriate maintenance medications. Orders Orders: 2. Tobacco use Z72.0 Plan A 12 minute, face to face discussion occurred with the patient regarding smoking cessation. Risks of continued tobacco abuse was covered such as heart disease, stroke, cancer, and emphysema, among others. The many health benefits quitting, was discussed and the patient was educated on the fact that smokers lose an average of 10 minutes of life for every cigarette smoked. We discussed the pathophysiology of smoking addiction and its dual addictive components of nicotine addiction and psychological addiction. Nicotine replacement was discussed. We also talked about medications that may be helpful such as Bupropion (Wellbutrin) or Varenicline (Chantix). Advise was also offered on preoccupying the mind during trigger times with activities such as chewing gum, sucking on hard candy or utilizing their hands with an activity such as drawing. Currently the patient is smoking <1 ppd. At this time, COLLINS elects to quit cold turkey. We will continue to monitor the tobacco abuse and encourage cessation. You may call the [employer] hotline 7-658-KQLCNOW. People who use this line are THREE times more likely to remain smoke free. Orders Orders: Plan Detail Other Orders Orders: Follow Up 6 Weeks (DMB) [facility] Hospital FU: Chief Complaint: Shortness of breath HPI Comments Details: This is a 73 year old M, currently under the care of Lorena Contreras DO, here to follow up after a recent hospitalization at [facility], from November 05 - November 08, 2018 for acute exacerbation of COPD. The hospital stay was non-complicated. 18 pages of hospital documentation was reviewed, and found to be significant for chest x-ray completed on November 05 showing mild chronic interstitial changes in the lower lobes slightly greater on the left, urine negative for Legionella, urine negative for Streptococcus, sputum culture negative, blood cultures negative positive for rhinovirus. Upon discharge, the patient completed a 12 day course of prednisone. That he presents to the office ambulatory and currently on room air. He continues to experience shortness of breath and fatigue. He also reports a decrease in appetite. He has a cough that is productive of white sputum, denies any hemoptysis. He has occasional wheezing and chest tightness. He denies any chest pain or palpitations. He denies any fever, chills or body aches. He is using his albuterol rescue inhaler 3-4 times daily. Intake Vital Signs11/20/18 Height 5 ft 11 in 11/20/18 Weight: 204 lb 11/20/18 Body Mass Index (BMI) 28.4 Intake Visit Reasons: Hospital FU Accompanied by: Allergies No Known Allergies Allergy (Verified 11/20/18 07:57) Medications Nitroglycerin [Nitrostat] 0.4 mg SUBLINGUAL Q5M PRN #1 bottle 02/05/17 [Rx Confirmed 11/20/18] metoprolol tartrate 25 mg tablet 12.5 mg PO BID #90 tab 07/14/18 [Rx Confirmed 11/20/18] Albuterol Sulfate [Ventolin Hfa] 1 - 2 puff INHALATION Q4H PRN PRN 09/02/18 [History Confirmed 11/20/18] Aspirin E.C. [Ecotrin] 81 mg PO DAILY 09/02/18 [History Confirmed 11/20/18] Clopidogrel Bisulfate [Clopidogrel] 75 mg PO QDAY 09/02/18 [History Confirmed 11/20/18] Cranberry Fruit Concentrate [Azo Cranberry] 500 mg PO DAILY 09/02/18 [History Confirmed 11/20/18] Pravastatin Sodium 80 mg PO QHS 09/02/18 [History Confirmed 11/20/18] [facility] Medical History Atherosclerotic heart disease of [place] coronary artery without angina pectoris (Chronic) Hypertension (Chronic) Hyperlipidemia (Chronic) Coronary artery disease (Chronic) Hypercalcemia (Resolved) Surgical History S/P drug eluting coronary stent placement (Chronic) S/P PTCA (percutaneous transluminal coronary angioplasty) (Chronic) Family History Father Myocardial infarction CVA (cerebral vascular accident) Brother Diabetes Social History Smoking Status: Current every day smoker alcohol intake: never substance use type: does not use caffeine: Yes Type: coffee Number of servings: 5 what type of physical activity do you participate in: none seatbelt use: always do you feel safe at home: Yes Review of Systems Const CONSTITUTIONAL: Positive fatigue; negative anorexia, body ache, chills, daytime sleepiness, fever(s), night sweats, oral thrush, stops breathing during sleep, weight loss, sleeping in chair, weight loss, weight gain, frequent colds, seasonal allergies, other, headache(s) or orthopnea EETM Ear Nose Throat Mouth: Positive hearing normal and dry mouth in morning; negative hard of hearing, hoarseness, change in vision, itchy eyes, eye pain, swallowing Difficulty, ear pain, nose bleed, headache(s), mouth pain, nasal congestion, nasal discharge, post nasal drip, sinus pain, sinus pressure, sore throat or other Cardio Cardiovascular: Negative chest pain, chest pain at rest, chest pain with activity, irregular heart rhythm, edema, shortness of breath when lying down, palpitations, murmur or other Resp Respiratory: Positive as per HPI, shortness of breath, cough cough: Positive productive color: Positive thick and white and chest tightness; negative pain with cough, wheezing, chest congestion, pain on inspiration, inhalers, increase use of rescue inhalers, snoring, apnea or other Gastro Gastrointestional: Positive change in appetite; negative bloody stools, difficulty swallowing, reflux, hematemesis, melena stool, loose stool, constipation or other Genitourinary: Positive nocturia (2-3X/night ); negative blood in urine, pain with urination or other Musc Musculoskeletal: Negative body pain, back pain, neck pain or other Skin/Breast Skin/Breast: Negative dry skin, itching, rash, unusual bruising, breast lump or other Neuro Neurological: Negative restless legs, confusion, weakness or other Psych Psychocological: Positive abnormal sleep pattern; negative anxiety, thoughts of hurting self/others, hopelessness or other Lymph Lymphatic: Negative easy bleeding, easy bruising, swollen lymph nodes or other Exam Const Constitutional: Positive conversant, cooperative, in no acute respiratory distress, healthy appearing, well developed, well nourished and good hygiene Head Head: Positive normocephalic and atraumatic; negative cyanosis of lips/distal nose Eyes Eye: Positive clear conjunctiva; negative nystagmus or scleral abnormality Ears Ear: Positive hearing normal and external ears normal; negative hard of hearing Nose Nose: Positive external nose normal and no nasal discharge; negative epistaxis Mouth Mouth: Positive oral mucosae normal, no lesions, dentures and crowded posterior oropharynx; negative post nasal drip, malodorous breath or oral thrush present Mallampati Score: III: Mallampati Score Neck Neck: Positive normal visual inspection, full ROM and trachea midline; negative lymphadenopathy, JVD or tender Chest Wall Chest: Positive symmetric chest movement and increased A/P diameter Resp lung sounds: Positive clear to auscultation, diminished, normal respiratory effort and prolonged expiratory time; negative wheezes, rhonchi, rales, dullness to percussion or wheeze present on forced exhalation Cardio Cardiac: Positive regular rate, regular rhythm, S1 normal and S2 normal; negative murmur GI GI: Positive normal to inspection; negative distended Genitourinary: Positive deferred Musc Musculoskeletal: Positive steady gait and ROM normal; negative kyphosis or scoliosis Skin Pulmonary Skin Exam: Positive intact; negative rash Pulses Pulse: Yes pulses normal x4 extremities Extremities Extremities: Yes capillary refill normal, Yes clubbing, No cyanosis, No edema Neuro Neurologic: Yes conversant, Yes normal concentration, Yes understands questions, Yes no focal neuro deficits, Yes cooperative, Yes normal cognition, Yes normal coordination, No tremor Lymph Lymphatic: No lymphadenopathy, No tenderness, No cervical adenopathy Psych Appearance: Positive grossly normal, eye contact and well kempt Mental Status: Positive mental status grossly normal Mood: Positive congruent mood Affect: Positive normal affect Office Procedures Smoking Cessation Time Spent greater than 10 minutes: Yes Coding Level of Care Code Off vis,est,level 4 Diagnoses Chronic obstructive pulmonary disease, unspecified COPD type J44.9 COPD type: unspecified COPD Tobacco use Z72.0 Additional Codes Time Spent - greater than 10 minutes: Yes (35635) 11/20/18 1053 <Electronically signed by Tiffanie MARINELLI> Date Tiffanie MARINELLI Cosigner Signature: Date (if applicable) CC: Lorena Contreras DO 12 LEAD ELECTROCARDIOGRAM Observed: 11/09/2018 Status: F Source: [place] 2:55 PM [facility] HOSPITAL REPOSITORY [facility] Cardiovascular Services [address] [place] [address] 12 Lead EKG 11/05/18 2331 MR#: [id number] Acct: [id number] Name: COLLINS MONK Rep #: [id number] : 1945 73 From: Alon Reyez MD Attending Dr: Torri Wetzel Status: DIS IN Ordering Dr: Lola Queen DO Date: 11/05/18 Location: [facility] Sex: M C Admitted: 11/05/18 Test Reason : CP ADMIT Blood Pressure : / mmHG Vent. Rate : 083 BPM Atrial Rate : 083 BPM P-R Int : 168 ms QRS Dur : 096 ms QT Int : 372 ms P-R-T Axes : 041 049 016 degrees QTc Int : 437 ms Normal sinus rhythm Incomplete right bundle branch block Borderline ECG When compared with ECG of 14-JUN-2018 10:21, No significant change was found Confirmed by ALON REYEZ MD ([id number]), video editor SHOSHANA TORRES ([id number]) on 11/09/2018 2:54:31 PM Referred By: DR QUEEN Confirmed By:ALON REYEZ MD 11/09/18 1454 Date Alon Reyez MD CC: Niharika Queen; Torri Wetzel; Lorena Contreras DO Signed 12 LEAD ELECTROCARDIOGRAM Observed: 11/09/2018 Status: F Source: [place] 2:54 PM [facility] HOSPITAL REPOSITORY [facility] Cardiovascular Services [address] [facility] [address] 12 Lead EKG 11/06/18 0538 MR#: [id number] Acct: [id number] Name: COLLINS MONK Rep #: [id number] : 1945 73 From: Alon Reyez MD Attending Dr: Torri Wetzel Status: DIS IN Ordering Dr: Lola Queen DO Date: 11/06/18 Location: [facility] Sex: M C Admitted: 11/05/18 Test Reason : AM EKG Blood Pressure : / mmHG Vent. Rate : 059 BPM Atrial Rate : 059 BPM P-R Int : 190 ms QRS Dur : 098 ms QT Int : 396 ms P-R-T Axes : 038 044 031 degrees QTc Int : 392 ms Sinus bradycardia Low voltage QRS Borderline ECG When compared with ECG of 05-NOV-2018 23:31, MANUAL COMPARISON REQUIRED, DATA IS UNCONFIRMED Confirmed by DEREJE GAMBLE, ALON ([id number]), video editor SHOSHANA TORRES ([id number]) on 11/09/2018 2:53:58 PM Referred By: DR QUEEN Confirmed By:ALON REYEZ MD 11/09/18 1454 Date Alon Reyez MD CC: Niharika Queen; Torri Wetzel; Lorena Contreras DO Signed 12 LEAD ELECTROCARDIOGRAM Observed: 11/09/2018 Status: F Source: [place] 2:48 PM [facility] REPOSITORY [facility] Cardiovascular Services [address] [place] [address] 12 Lead EKG 11/05/182008 MR#: [id number] Acct: [id number] Name: COLLINS MONK Rep #: [id number] : 1945 73 From: Alon Reyez MD Attending Dr: Torri Wetzel Status: DIS IN Ordering Dr: Marcial Mir MD Date: 11/05/18 Location: [facility] Sex: M C Admitted: 11/05/18 Test Reason : CP Blood Pressure : / mmHG Vent. Rate : 096 BPM Atrial Rate : 096 BPM P-R Int : 160 ms QRS Dur : 094 ms QT Int : 328 ms P-R-T Axes : 041 073 032 degrees QTc Int : 414 ms Normal sinus rhythm Possible Left atrial enlargement Incomplete right bundle branch block Borderline ECG Confirmed by ALON REYEZ MD ([id number]), video editor SHOSHANA TORRES ([id number]) on 11/09/2018 2:48:21 PM Referred By: KEENA Confirmed By:ALON REYEZ MD 11/09/18 1448 Date Alon Reyez MD CC: MD Paris Mir; Torri Wetzel; Lorena Contreras DO Signed DISCHARGE SUMMARY Observed: 11/08/2018 Status: F Source: [place] 11:54 AM [facility] REPOSITORY [facility] Medical Records Department [address] [place] [address] Discharge Summary 11/08/18 1148 MR#: [id number] Acct: [id number] Name: COLLINS MONK Rep #: [id number] : 1945 73 From: Torri Wetzel MD PCP: Lorena Contreras DO Status: ADM IN Y Location: [place] [address] Discharge Date and Diagnosis - Problem List Patient Problems: Active and Suspected Problems (Last Reviewed 11/05/18 @ 22:23 by Lola Queen DO) Chest pain (Acute) Date of Admission: 11/05/18 Date of Discharge: 11/08/18 - Primary Discharge Diagnosis Active and Suspected Problems (Last Reviewed 11/05/18 @ 22:23 by Lola Queen DO) #1 acute COPD exacerbation. #2 asymptomatic pyuria. #3 atypical chest pain, ACS ruled out. 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) Hypertension (Chronic) Hyperlipidemia (Chronic) Coronary artery disease (Chronic) S/P drug eluting coronary stent placement (Chronic) History of rheumatic fever (Chronic) Tobacco use (Chronic) COPD (chronic obstructive pulmonary disease) (Chronic) BPH (benign prostatic hyperplasia) (Chronic) S/P PTCA (percutaneous transluminal coronary angioplasty) (Chronic) [facility] w/ PCI drug eluting stent to LAD 2009; PTCA mid LAD 12/14 Hospital Course and Treatment Imaging Results: Clinical Impression(s) from Imaging Studies Chest X-Ray 11/05/18 20:15 IMPRESSION: Mild chronic interstitial changes in the lower lobes slightly greater on the left Electronically Signed: Cisco Orourke MD at 21:09 EST , Service support , Dr. Donahue, pulmonology. Operations: None Procedures: None Summary of Care Provided: Patient seen and examined on the day of discharge and appeared to be stable to be discharged home. He stated that his breathing is better. He complains of dry cough without sputum production. Walking pulse oximeter performed and his pulse ox came down to 93% on room air with ambulation and he denies any worsening shortness of breath upon ambulation. The patient is a 73 year old M presented to the ED because of atypical chest pain with worsening shortness of breath and cough and was found to have acute COPD exacerbation treated by rhinovirus. Regarding his atypical chest pain, his EKG revealed no evidence of ischemic changes. His troponin was negative x3. Chest x-ray showed no acute findings. This atypical chest pain attributed to probable musculoskeletal pain. Patient was treated for acute COPD exacerbation with IV steroids and IV antibiotics as well as bronchodilators. Pneumonia ruled out. His pneumococcal and Legionella antigen were negative. Sputum culture revealed mixed normal respiratory ana. Respiratory panel for viruses was positive for rhinovirus. His blood culture showed no growth in 48 hours. His routine blood work was unremarkable. Urinalysis revealed cloudy urine, negative for nitrite, there was 10-25 WBCs and 0 bacteria seen. Patient was treated empirically with IV Rocephin. Urine culture revealed no growth. Patient remain asymptomatic and he remained afebrile throughout admission. With above-mentioned treatment, patient improved, shortness of breath and cough improved. On the day of discharge, walking pulse oximeter performed and his pulse ox was 92% on room air with ambulation and he did not, complaining of worsening shortness of breath. He did not qualify for home oxygen. Patient discharged home in a stable medical condition, no antibiotic given upon discharge because he received 4 days of IV Rocephin, discharged on tapering course of prednisone, continueD on his chronic home medications without any changes, recommended follow-up with PCP in 1 week and follow-up with pulmonology in 2 weeks. Patient Problems: Active and Suspected Problems (Last Reviewed 11/05/18 @ 22:23 by Lola Queen DO) Chest pain (Acute) - Physical Exam General: Alert, Oriented x3, Cooperative, No apparent distress HEENT: Atraumatic, PERRLA, EOMI, Normocephalic Oral: Moist Mucosa, No Gingival or Mucosal Lesions/ Ulcerations Neck: Supple, No JVD, Negative Carotid Bruits, Trachea Midline, Thyroid Normal Size and Texture Lungs: Clear to auscultation, No rhonchi, No wheeze, No rales, Diminished Cardiovascular: Regular rate, Regular Rhythm, Normal S1, Normal S2, PMI Normal Abdomen: Bowel Sounds Present, Soft, Non Tender, Non-Distended, No Hepato-splenomegaly Extremities: No clubbing, No cyanosis, No edema Skin: No rashes, No breakdown Lymphatic: No Cervical, Supraclavicular, or Inguinal Adenopathy Neurological: Cranial nerves II-XII grossly intact, Neuro grossly intact Psych/Mental Status: Normal Affect, Appropriate Vital Signs Temp Pulse Resp BP Pulse Ox 98.4 F 93 18 103/59 L 95 11/08/18 08:44 11/08/18 10:45 11/08/18 10:45 11/08/18 08:44 11/08/18 09:15 Oxygen Flow Rate (L/min) 1 Oxygen Delivery Method Room Air Weight: 204 lb 12.951 oz Body Mass Index (BMI) 28.5 Intake and Output for Last 24 Hours Microbiology Past 72 Hours 11/05/18 23:18 Blood Culture - Preliminary Laboratory Tests Past 24 Hrs Sodium 141 Potassium 3.9 Chloride 108 H Carbon Dioxide 25.0 Discharge Activity: Return to Normal Activity Weight Bearing Status: Weight bearing as tolerated Call your doctor if you observe: Fever of 101 or Higher, Shortness of breath, Dizziness, Fainting spells, Swelling in the ankles, Chest pain, Increased palpitations (irregular heartbeat), Uncontrolled pain Home Medications: Medications to take at Discharge Nitroglycerin [Nitrostat] 0.4 mg SUBLINGUAL Q5M PRN #1 bottle 02/05/17 metoprolol tartrate 25 mg tablet 12.5 mg PO BID #90 tab 07/14/18 Albuterol Sulfate [Ventolin Hfa] 1 - 2 puff INHALATION Q4H PRN PRN 09/02/18 Aspirin E.C. [Ecotrin] 81 mg PO DAILY 09/02/18 Clopidogrel Bisulfate [Clopidogrel] 75 mg PO QDAY 09/02/18 Cranberry Fruit Concentrate [Azo Cranberry] 500 mg PO DAILY 09/02/18 Pravastatin Sodium 80 mg PO QHS 09/02/18 predniSONE tablet 10 mg PO DAILY #30 tab 11/08/18 Following Prescrptions Were Given to Patient: predniSONE tablet 10 mg PO DAILY #30 tab Primary Care Physician: Lorena Contreras DO [Primary Care Provider] - Please follow up with your Primary Care Physician in: 1 week. Patient Instructions: Discharge Instructions: COPD Disposition: Home Minutes spent on discharge:: 32 Patient Condition:: Stable Medical Necessity - Tobacco Use Smoking Status: Current every day smoker Tobacco Use: Cigarettes Meaningful Use Info Meaningful Use Diagnoses (Choose all that apply): None applicable Code Visit Inpatient E AND M: 44905 Disch Hosp 11/08/18 1154 <Electronically signed by Torri Wetzel MD> Date Torri Wetzel MD Cosigner Signature (if applicable): Date CC: Mansoor Donahue D.O.; Torri Wetzel; Lorena Contreras DO Signed DISCHARGE INSTRUCTION Observed: 11/08/2018 Status: F Source: [place] 10:04 AM [facility] REPOSITORY [facility] Medical Records Department [address] [place] [address] Instructions for Home/Discharge Instructions 11/08/18 1003 MR#: [id number] Acct: [id number] Name: COLLINS MONK Rep #: [id number] : 1945 73 From: Torri Wetzel MD PCP: Lorena Contreras DO Status: ADM IN - Discharge Diagnoses Current Active Problems: Current Active and Chronic Problems (Last Reviewed 11/05/18 @ 22:23 by Lola Queen DO) Chest pain (Acute) You will use the following diet at home:: Cardiac Your food should be the consistency of: Regular Discharge Activity: Return to Normal Activity Weight Bearing Status: Weight bearing as tolerated Call your doctor if you observe: Fever of 101 or Higher, Shortness of breath, Dizziness, Fainting spells, Swelling in the ankles, Chest pain, Increased palpitations (irregular heartbeat), Uncontrolled pain Instructions: Discharge Instructions: COPD Allergies/Adverse Reactions: Allergies No Known Allergies Allergy (Verified 09/02/18 19:26) Medications to take at Discharge Nitroglycerin [Nitrostat] 0.4 mg SUBLINGUAL Q5M PRN #1 bottle 02/05/17 metoprolol tartrate 25 mg tablet 12.5 mg PO BID #90 tab 07/14/18 Albuterol Sulfate [Ventolin Hfa] 1 - 2 puff INHALATION Q4H PRN PRN 09/02/18 Aspirin E.C. [Ecotrin] 81 mg PO DAILY 09/02/18 Clopidogrel Bisulfate [Clopidogrel] 75 mg PO QDAY 09/02/18 Cranberry Fruit Concentrate [Azo Cranberry] 500 mg PO DAILY 09/02/18 Pravastatin Sodium 80 mg PO QHS 09/02/18 predniSONE tablet 10 mg PO DAILY #30 tab 11/08/18 The following prescriptions were given: predniSONE tablet 10 mg PO DAILY #30 tab Primary Care Physician: Lorena Contreras DO [Primary Care Provider] - Please follow up with your Primary Care Physician in: 1 week. Test Results: Test results from this visit will be discussed in further detail at your follow-up appointment, if applicable. 11/08/18 1004 <Electronically signed by Torri Wetzel MD> Date Torri Wetzel MD CC: Mansoor Donahue D.O.; Lorena Contreras DO BASIC METABOLIC Collected: 11/08/2018 Status: F Source: [place] PROFILE (BMP) 5:25 AM [facility] REPOSITORY TYPE CODE TESTS RESULT OUT OF RANGE REFERENCE UNITS LAB L501.0100 74-106 mg/dL Normal GLU 93 Result Comment: Please note revised GLUCOSE reference range effective 2018. LAB L501.1000 7-18 mg/dL Normal BUN 16 LAB L501.1100 0.70-1.30 mg/dL Normal CREAT,SERUM 0.76 Result Comment: The validity of the calculated GFR AND GFRAA in patients over 70 years has not been determined. Clinical correlation is essential. LAB L501.1110 >60 mL/min Normal EST GFR 107 Result Comment: Non- GFR Calc LAB L501.1115 >60 mL/min Normal EST GFR - AA 129 Result Comment: GFR Calc LAB L501.1255 ml/min Normal Estimated CRCL 72.16 LAB L501.1300 10-20 RATIO High BUN/CRE 20.9 LAB L501.2200 8.5-10 mg/dL Normal .1 CA 8.6 LAB L501.5300 136-14 mmol/L Normal 5 NA 141 LAB L501.5600 3.5-5. mmol/L Normal 1 K 3.9 LAB L501.5900 98-107 mmol/L High CL 108 LAB L501.6100 21.0-3 mmol/L Normal 2.0 CO2 25.0 LAB L501.6200 5-15 Normal GAP 8 Performed By: #### L500.2500 #### [facility] [address] [place], [address] CONSULTATION Observed: 11/06/2018 Status: F Source: [place] 10:47 AM [facility] REPOSITORY [facility] Medical Records Department [address] [place] [address] Consultation 11/06/18 0733 MR#: [id number] Acct: [id number] Name: COLLINS MONK Rep #: [id number] : 1945 73 From: Mansoor Donahue DO PCP: Lorena Contreras DO Status: ADM IN Y Location: [place] [id number] Reason for Consult Date of Consultation: 11/06/18 Reason for Consultation: COPD exacerbation/establish care History of Present Illness: The patient is a 73-year-old male, with a history as outlined below, who presented to the emergency department on November 05 with complaints of a cough and fever, along with atypical chest pain. The patient reports a smoking history of 1.5 packs/day since the age of 15. However, he states that he quit smoking approximately 7 days ago. 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 Additionally, he has never undergone formal pulmonary function testing. He is currently only utilizing an albuterol rescue inhaler on an outpatient basis, but does report that it leads to symptom improvement with its use. On average, as he is utilizing the aforementioned medication 2 times per day. He reports the presence of shortness of breath with exertion, along with a chronic productive cough. The patient's cough is currently unchanged from what it is at its baseline. On presentation to the emergency department, the patient was noted to be afebrile and hemodynamically stable. He was maintaining appropriate oxygen saturations on room air. Initial laboratory evaluation revealed no evidence of a leukocytosis. Chemistry profile was largely unrevealing. Troponin and BNP were negative. Plain film chest x-ray revealed chronic findings of basilar interstitial changes, without an acute cardiopulmonary process. The patient received aerosol treatments and antibiotics. He was subsequently admitted to the progressive care unit. 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) Hypertension (Chronic) Hyperlipidemia (Chronic) Coronary artery disease (Chronic) S/P drug eluting coronary stent placement (Chronic) History of rheumatic fever (Chronic) Tobacco use (Chronic) COPD (chronic obstructive pulmonary disease) (Chronic) BPH (benign prostatic hyperplasia) (Chronic) S/P PTCA (percutaneous transluminal coronary angioplasty) (Chronic) [facility] w/ PCI drug eluting stent to LAD 2009; PTCA mid LAD 12/14 Medical History: Medical History (Last Reviewed 11/05/18 @ 22:23 by Lola Queen DO) Atherosclerotic heart disease of [place] coronary artery without angina pectoris (Chronic) I25.10 Hypertension (Chronic) I10 Hyperlipidemia (Chronic) E78.5 Coronary artery disease (Chronic) I25.10 Hypercalcemia (Resolved) E83.52 Allergies No Known Allergies Allergy (Verified 09/02/18 19:26) Home Medications: Ambulatory Orders Medication Instructions Recorded Nitroglycerin [Nitrostat] 0.4 mg SUBLINGUAL Q5M PRN #1 bottle 02/05/17 Surgical History: Surgical History (Last Reviewed 11/05/18 @ 22:23 by Lola Queen DO) S/P drug eluting coronary stent placement (Chronic) Z95.5 S/P PTCA (percutaneous transluminal coronary angioplasty) (Chronic) Z98.61 [facility] w/ PCI drug eluting stent to LAD 2009; PTCA mid LAD 12/14 Surgical History: angioplasty, - - Cardiac catheterization, Transurethral ablation w/ history of BPH, T+A. Psychiatric History: No pertinent psych hx Lives: Alone Smoking Status: Current every day smoker Tobacco Use: Cigarettes Alcohol: Rare Drugs: None - *Family History Maternal Family History: Family History (Last Reviewed 11/05/18 @ 22:23 by Lola Queen DO) Father Myocardial infarction CVA (cerebral vascular accident) Brother Diabetes History Items: No pertinent history Paternal Family History: Family History (Last Reviewed 11/05/18 @ 22:23 by Lola Queen DO) Father Myocardial infarction CVA (cerebral vascular accident) Brother Diabetes History Items: Stroke Review of Systems Constitutional: Denies: Chills, Fever Eyes: Denies: Blurred vision, Double vision HEENT: Denies: Head Aches, Sinus Congestion, Sinus Drainage Cardiovascular: Reports: Chest Pain Respiratory: Reports: Cough, Shortness of Breath, Sputum production Gastrointestinal: Denies: Abdominal Pain, Nausea, Vomiting Genitourinary: Denies: Dysuria Musculoskeletal: Denies: Joint Pain, Joint Tenderness Skin: Denies: Rash, Wounds Neurological: Denies: Numbness, Tingling, Focal weakness Psychiatric: Denies: Anxiety, Depression, Homicidal Ideations, Suicidal Ideations Hematologic/ Lymphatic: Denies: Easy Bruising, Easy Bleeding Patient Problems: Active and Suspected Problems (Last Reviewed 11/05/18 @ 22:23 by Lola Queen DO) Chest pain (Acute) Objective: The patient's most recent lab work, culture data and imaging studies have all been personally reviewed. Expectorated sputum culture is pending. Respiratory viral panel was positive for the presence of rhinovirus. Strep and urine Legionella antigens were both negative. Blood cultures are currently pending. - Physical Exam General: Alert, Oriented x3, Cooperative, No apparent distress HEENT: Atraumatic, PERRLA, Normocephalic Oral: No Gingival or Mucosal Lesions/ Ulcerations Neck: Supple, No Nodes, Trachea Midline Lungs: No rhonchi, No wheeze, No rales, Diminished, - - Speaking in complete sentences. Cardiovascular: Regular rate, Regular Rhythm, Normal S1, Normal S2, No murmurs Abdomen: Bowel Sounds Present, Soft, Non Tender Extremities: No cyanosis, No edema, Clubbing Skin: No rashes, No breakdown Musculoskeletal: No Tenderness to Palpation of Joints or Extremities Lymphatic: No Cervical, Supraclavicular, or Inguinal Adenopathy Neurological: Cranial nerves II-XII grossly intact, Neuro grossly intact Psych/Mental Status: Alert and oriented to time, place, person, mood and affect Vital Signs Temp Pulse Resp BP Pulse Ox 36.5 C L 61 18 96/59 L 97 11/06/18 05:21 11/06/18 05:21 11/06/18 05:21 11/06/18 05:21 11/06/18 05:21 Oxygen Flow Rate (L/min) 2 Oxygen Delivery Method Room Air Weight: 204 lb 12.951 oz Body Mass Index (BMI) 28.5 Intake and Output for Last 24 Hours Intake Total 417 / 417 623 / 623 Output Total 750 / 750 Balance 417 / 417 -127 / -127 Microbiology Past 72 Hours 11/05/18 20:50 Legionella Antigen - Final Urine, Clean Catch 11/05/18 20:50 Streptococcus pneumoniae Antigen (M - Final Urine, Clean Catch Laboratory Tests Past 24 Hrs WBC 9.7 RBC 3.86 L Hgb 13.3 Hct 39.9 L MCV 103.4 H MCH 34.5 H WBC RBC Hgb Hct MCV WBC RBC Hgb Hct MCV MCH MCHC RDW RDW Differential Plt Count MPV Immature Gran % (Auto) Clinical Impression(s) from Imaging Studies Chest X-Ray 11/05/18 20:15 IMPRESSION: Mild chronic interstitial changes in the lower lobes slightly greater on the left Electronically Signed: Cisco Orourke MD at 21:09 EST , Service support , Assessment/Plan All Active Problems (Last Reviewed 11/05/18 @ 22:23 by Lola Queen DO) Chest pain (Acute) Unstable angina pectoris (Acute) Hypercalcemia (Resolved) RECOMMENDATIONS: 1. Discontinue antibiotics. 2. Continue scheduled bronchodilators. 3. Start prednisone 40 mg daily times 5 days. 4. Perform walking oximetry study prior to consideration for discharge from the hospital. 5. Smoking cessation is strongly advised. 6. The patient is to follow-up in the pulmonary medicine clinic within 2 weeks of his discharge from the hospital. Outpatient PFTs and optimization of his baseline inhaler regimen can be undertaken at that time. IMPRESSIONS: 1. Chronic cough and shortness of breath May be related to undiagnosed and undertreated COPD. The patient is without a fever or elevated white blood cell count. In addition, his chest imaging did not reveal an acute cardiopulmonary process. Therefore, I do not feel that antibiotics are warranted. He does have evidence of a rhinovirus upper respiratory infection, which may have precipitated the worsening in his breathing quality. At this time, I would recommend scheduled aerosol treatments. I am also going to place the patient on 40 mg of prednisone daily for 5 days. He is currently maintaining appropriate oxygen saturations on room air at rest. Would plan to perform a walking oximetry study prior to consideration for discharge from the hospital. The patient needs to follow-up in the pulmonary medicine clinic upon discharge, so that baseline pulmonary function testing can be obtained and a baseline inhaler regimen initiated. 2. Atypical chest pain/history of coronary artery disease Does not appear to be cardiac in nature given negative troponins. However, the patient does have a history of coronary disease for which he is status post PCI. Will defer additional workup to hospitalist. 3. Prolonged tobacco dependence with questionable remission The patient reports a history of 1.5 packs/day since the age of 15. He does report that he quit smoking approximately 7 days ago. However, I am not entirely convinced that he has quit smoking. Smoking cessation is strongly advised. Continue nicotine replacement therapy. This note was generated with LYCEEMation software. It may contain incorrect words, spelling, and punctuation that were not noted in checking the note before signing. Code Visit Inpatient E AND M: [id number] Init Hosp L3 11/06/18 1047 <Electronically signed by Mansoor Donahue DO> Date Mansoor Donahue DO Cosigner Signature (if applicable): Date CC: Mansoor Donahue D.O.; Lorena Contreras DO Signed HISTORY AND PHYSICAL Observed: 11/06/2018 Status: F Source: [place] EXAM 6:36 AM [facility] REPOSITORY [facility] Medical Records Department [address] [place] [id number] History and Physical 11/05/18 3755 MR#: [id number] Acct: [id number] Name: COLLINS MONK Rep #: [id number] : 1945 73 From: Lola Queen DO PCP: Lorena Contreras DO Status: ADM IN Y Location: [place] [address] Problem List (1) Chest pain Status: Acute (2) Hypercalcemia Status: Resolved (3) Atherosclerotic heart disease of [place] coronary artery without angina pectoris Status: Chronic Qualifiers: (4) Angina pectoris Status: Chronic (5) Abnormal cardiovascular function Status: Chronic (6) Abnormal myocardial perfusion study Status: Chronic (7) 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: Chronic (8) Hypertension Status: Chronic Qualifiers: (9) Hyperlipidemia Status: Chronic Qualifiers: (10) Coronary artery disease Status: Chronic (11) S/P drug eluting coronary stent placement Status: Chronic (12) History of rheumatic fever Status: Chronic (13) Tobacco use Status: Chronic (14) COPD (chronic obstructive pulmonary disease) Status: Chronic Qualifiers: (15) BPH (benign prostatic hyperplasia) Status: Chronic (16) Unstable angina pectoris Status: Acute (17) S/P PTCA (percutaneous transluminal coronary angioplasty) Status: Chronic Comment: [facility] w/ PCI drug eluting stent to LAD 2009; PTCA mid LAD 12/14 History of Present Illness Date of Admission: 11/05/18 Chief Complaint: Presented to the ED c/o chest pain with radiation down left arm but, also c/o cough and not feeling well for the past week to the ER doctor The patient is a 73 year old M with a past medical history of COPD, BPH, coronary artery disease, history of PCI, hypertension, hyperlipidemia and tobacco dependence who presented to the emergency department at [facility] on 11/05/2018 complaining of substernal chest pain radiating down the left arm that had been present off and on all day. He did not take NTG and it went away if he rubbed his left chest. the pain came on while sitting. Last cath was in January of 2017 and at that time he had an 85% stenosis of a diagonal branch that was too small to intervene. He also told the ER physician that he has had a harsh cough and a fever for approximately 1 week. He has not taken his temperature but he felt hot and then cold once. The sputum has been clear at times and light yellow at other times. He denies nausea, vomiting, abdominal pain, diarrhea. He has had a mild sore throat at onset of the illness. He has no oxygen at home and does not use aerosol treatments. He saw a asphalt coater several years ago and has not followed up since then. He uses only an albuterol metered-dose inhaler as needed at home. CXR in the ED shows heavy interstitial markings in both bases that is unchanged from prior XRAYS. Vital signs at presentation to the emergency room were temperature 99.1, pulse rate 95, pressure 132/71, respiratory rate 25 and he was 97% saturated on room air. White blood cell count was 9.7 with 76.6% neutrophils. Hemoglobin was normal and platelets were also normal. Sodium was mildly decreased at 135 but the remaining electrolytes were within normal limits. BUN is 16 with a creatinine of 1.22, up from 0.85 in January 2017. Troponin was normal. Random blood sugar was elevated at 165 and the patient has no documented history of diabetes mellitus. Past Medical History Past Medical History (Chronic Problems): Chronic Problems (Last Reviewed 11/05/18 @ 22:23 by Lola Queen DO) Atherosclerotic heart disease of [place] coronary artery without angina pectoris (Chronic) Angina pectoris (Chronic) Abnormal cardiovascular function (Chronic) Abnormal myocardial perfusion study (Chronic) longterm use of drug (Chronic) Hypertension (Chronic) Hyperlipidemia (Chronic) Coronary artery disease (Chronic) S/P drug eluting coronary stent placement (Chronic) History of rheumatic fever (Chronic) Tobacco use (Chronic) COPD (chronic obstructive pulmonary disease) (Chronic) BPH (benign prostatic hyperplasia) (Chronic) S/P PTCA (percutaneous transluminal coronary angioplasty) (Chronic) [facility] w/ PCI drug eluting stent to LAD 2009; PTCA mid LAD 12/14 Medical History: Medical History (Last Reviewed 11/05/18 @ 22:23 by Lola Queen DO) Hypercalcemia (Chronic) E83.52 Atherosclerotic heart disease of [place] coronary artery without angina pectoris (Chronic) I25.10 Hypertension (Chronic) I10 Hyperlipidemia (Chronic) E78.5 Coronary artery disease (Chronic) I25.10 Allergies No Known Allergies Allergy (Verified 09/02/18 19:26) Home Medications: Ambulatory Orders Medication Instructions Recorded Nitroglycerin [Nitrostat] 0.4 mg SUBLINGUAL Q5M PRN #1 bottle 02/05/17 Surgical History: Surgical History (Last Reviewed 11/05/18 @ 22:23 by Lola Queen DO) S/P drug eluting coronary stent placement (Chronic) Z95.5 S/P PTCA (percutaneous transluminal coronary angioplasty) (Chronic) Z98.61 [facility] w/ PCI drug eluting stent to LAD 2009; PTCA mid LAD 12/14 Surgical History: angioplasty, - - Cardiac catheterization, Transurethral ablation w/ history of BPH, T+A. Psychiatric History: No pertinent psych hx Lives: Alone Smoking Status: Current every day smoker Tobacco Use: Cigarettes Alcohol: Rare Drugs: None - *Family History Maternal Family History: Family History (Last Reviewed 11/05/18 @ 22:23 by Lola Queen DO) Father Myocardial infarction CVA (cerebral vascular accident) Brother Diabetes History Items: No pertinent history Paternal Family History: Family History (Last Reviewed 11/05/18 @ 22:23 by Lola Queen DO) Father Myocardial infarction CVA (cerebral vascular accident) Brother Diabetes History Items: Stroke Review of Systems Constitutional: Reports: Chills, Fever. Denies: Weight Change HEENT: Reports: Sore Throat. Denies: Difficulty Swallowing, Head Aches, Sinus Congestion, Sinus Drainage Cardiovascular: Reports: Chest Pain. Denies: Edema, Light Headedness, Orthopnea, Palpitations Respiratory: Reports: Cough, Shortness of Breath, Sputum production. Denies: Hemoptysis Gastrointestinal: Denies: Abdominal Pain, Diarrhea, Nausea, Vomiting Genitourinary: Denies: Dysuria Musculoskeletal: Denies: Joint Pain, Joint Tenderness Skin: Denies: Jaundice, Rash, Wounds Neurological: Denies: Numbness, Tingling, Focal weakness Psychiatric: Denies: Anxiety, Depression, Homicidal Ideations, Suicidal Ideations Hematologic/ Lymphatic: Denies: Easy Bruising, Easy Bleeding, Hx of blood clot VTE Information - Inpt Only VTE Present on Admission: No VTE Mechan Device Prophylaxis: SCD's VTE Pharm Prophylaxis ordered?: Yes Patient Problems: Active and Suspected Problems (Last Reviewed 11/05/18 @ 22:23 by Lola Queen DO) Chest pain (Acute) - Physical Exam General: Alert, Oriented x3, Cooperative HEENT: Atraumatic, PERRLA, EOMI, Normocephalic Oral: Moist Mucosa, - - halitosis Neck: Supple, No JVD, Negative Carotid Bruits Lungs: Clear to auscultation, No rhonchi, No wheeze, No rales, - - decreased inspiratory breath sounds. No accessory muscle use, not tachypneic. No conversational dyspnea. Cardiovascular: Regular rate, Regular Rhythm, Normal S1, Normal S2, No murmurs, No rub noted, No Gallop Abdomen: Bowel Sounds Present, Soft, Non Tender Extremities: No edema, Capillary Refill Less than 3 Seconds, Clubbing, Peripheral Pulses Normal Skin: No rashes, No breakdown Musculoskeletal: No Tenderness to Palpation of Joints or Extremities Neurological: Cranial nerves II-XII grossly intact, Neuro grossly intact Psych/Mental Status: Normal Affect, Appropriate Vital Signs Temp Pulse Resp BP Pulse Ox 99.1 F 105 H 20 H 123/75 H 95 11/05/18 20:05 11/05/18 21:34 11/05/18 21:34 11/05/18 21:34 11/05/18 21:34 Oxygen Flow Rate (L/min) 2 Oxygen Delivery Method Nasal Cannula Weight: 208 lb 12.444 oz Body Mass Index (BMI) 29.9 Laboratory Tests Past 24 Hrs WBC 9.7 RBC 3.86 L Hgb 13.3 Hct 39.9 L MCV 103.4 H MCH 34.5 H MCHC 33.3 RDW 12.5 RDW Differential 47.2 H WBC RBC Hgb Hct MCV MCH MCHC RDW RDW Differential Plt Count MPV Immature Gran % (Auto) Neut % (Auto) Lymph % (Auto) [facility] % (Auto) Assessment/Plan All Active Problems (Last Reviewed 11/05/18 @ 22:23 by Lola Queen DO) Chest pain (Acute) Unstable angina pectoris (Acute) Hypercalcemia (Resolved) Impressions 1. Atypical Chest pain - doubt cardiac. CE's X2 negative. 2. acute exacerbation COPD with no evidence focal infiltrates on the CXR - suspect he may have had a viral URI initially and this lead to an exacerbation of COPD 3. COPD 4. Tobacco dependence 5. CAD with hx of PTCA 6. persistent pyuria - etiology? culture negative at the last admission and he is asymptomatic 7. HTN 8. HLD 9. BPH 10. Hyperglycemia with no hx of DM 11. Macrocytosis Admit to a monitored bed on PCU ASA 81 mg PO daily SL NTG 0.4 mg PRN chest pain Serial Cardiac Enzymes Stat EKG PRN CP Chest XRAY chest pain is very atypical and the serial cardiac enzymes so far negative.......will hold off on a stress test and treat for exacerbation of COPD DVT prophylaxis ordered CXR - chronic interstitial changes - unchanged from last CXR with no new focal infiltrates observed Sputum for GM stain C AND S Influenza swab Respiratory panel Legionella and Streptococcal antigens in the urine - negative Around the clock aerosol treatments and Q 2H ALbuterol aerosols for wheezing/SOB Mucinex Incentive spirometry Ambulatory pulse ox prior to DC Smoking cessation counselling given Consult with pulmonary requested by the patient's dtr - will consult Dr. Donahue Code Visit Inpatient E AND M: [id number] Init Hosp L2 11/06/18 0636 <Electronically signed by Lola Queen DO> Date M C. Sementi DO Cosigner Signature: Date (if applicable) CC: Niharika Eugenefannie; Lorena Contreras DO Signed Observed: 11/06/2018 Status: F Source: [place] CULTURE, SPUTUM 5:10 AM [facility] REPOSITORY Gram Stain Acceptable Specimen? Yes (<25 Epithelial cells per/lpf) Gram Stain 2+ Gram positive cocci 2+ Gram positive rods Rare Epithelial cells Resp. Culture Mixed normal respiratory ana. No Haemophilus, Streptococcus pneumoniae, beta-hemolytic Streptococcus or Staphylococcus aureus isolated. Performed By: #### M100.0800 #### [facility] [address] [place], [place], [address] LIPID PROFILE Collected: 11/06/2018 Status: F Source: GOLIAD 2:20 AM [facility] REPOSITORY TYPE CODE TESTS RESULT OUT OF RANGE REFERENCE UNITS LAB L501.4900 200 mg/dL Normal CHOL 128 Result Comment: <200 mg/dL Desirable 200-240 mg/dL Borderline >240 mg/dL High Risk LAB L501.5000 mg/dL Normal TRIG 101 Result Comment: The drugs N-Acetylcysteine and Metamizole may falsely depress this assay. Serum Triglycerides Reference Interval Normal <150 mg/dL Borderline high 150 - 199 mg/dL High 200 - 499 mg/dL Very High > or = 500 mg/dL LAB L501.6400 mg/dL Low HDL 33 Result Comment: The drugs N-Acetylcysteine and Metamizole may falsely depress this assay. Reference Range HDL <40 mg/dL Low HDL Cholesterol HDL >or= 60 mg/dL High HDL Cholesterol LAB L501.6500 0-130 mg/dL Normal LDL 75 LAB L501.6600 5-40 mg/dL Normal VLDL 20 Performed By: #### L500.4100 #### [facility] [address] [place], [address] TROPONIN-I Collected: 11/06/2018 Status: F Source: [place] 2:20 AM [facility] REPOSITORY Order Comment: 'TROP' Serial specimen #1, #2 or #3: 3 TYPE CODE TESTS RESULT OUT OF RANGE REFERENCE UNITS LAB L501.4010 <0.045 ng/mL Normal < 0.015 TROPONIN-I Result Comment: TROPONIN-I EXPECTED VALUES <0.045 Negative 0.045 - 0.590 Consistent with Cardiac Damage > OR = 0.600 Critical Value Not every elevated troponin is indicative of AK. These values should be used with clinical judgement in examining the patient's clinical picture for diagnosis. To establish a diagnosis of AK versus myocardial injury, there must be a demonstrated rise and/or fall in the troponin values, in addition to ischemic symptoms, EKG changes, new regional wall motion abnormality, and/or angiographical evidence. PLEASE NOTE: REFERENCE RANGES EDITED 18 Performed By: #### L501.4010 #### [facility] [address] [place], [address] HEMOGLOBIN A1C Collected: 11/06/2018 Status: F Source: GOLIAD 2:20 AM [facility] REPOSITORY TYPE CODE TESTS RESULT OUT OF RANGE REFERENCE UNITS LAB L501.9985 4.2-6.3 % Normal HGB A1C 6.3 Performed By: #### L501.9985 #### [facility] [address] [place], [address] VITAMIN B12 Collected: 11/05/2018 Status: F Source: SONIA 11:27 PM [facility] REPOSITORY TYPE CODE TESTS RESULT OUT OF RANGE REFERENCE UNITS LAB L503.0105 211-911 pg/mL Normal Vitamin B12 768 Performed By: #### L503.0105 #### [facility] [address] [place], [address] TROPONIN-I Collected: 11/05/2018 Status: F Source: GOLIAD 11:27 PM [facility] REPOSITORY Order Comment: 'TROP' Serial specimen #1, #2 or #3: 2 TYPE CODE TESTS RESULT OUT OF RANGE REFERENCE UNITS LAB L501.4010 <0.045 ng/mL Normal < 0.015 TROPONIN-I Result Comment: TROPONIN-I EXPECTED VALUES <0.045 Negative 0.045 - 0.590 Consistent with Cardiac Damage > OR = 0.600 Critical Value Not every elevated troponin is indicative of AK. These values should be used with clinical judgement in examining the patient's clinical picture for diagnosis. To establish a diagnosis of AK versus myocardial injury, there must be a demonstrated rise and/or fall in the troponin values, in addition to ischemic symptoms, EKG changes, new regional wall motion abnormality, and/or angiographical evidence. PLEASE NOTE: REFERENCE RANGES EDITED 18 Performed By: #### L501.4010 #### [facility] [address], [address] THYROID STIM HORMONE Collected: 11/05/2018 Status: F Source: SONIA (TSH) 11:27 PM [facility] REPOSITORY TYPE CODE TESTS RESULT OUT OF RANGE REFERENCE UNITS LAB L501.9520 0.358-3.74 uIU/mL Normal TSH 1.37 Performed By: #### L501.9520, L506.0250 #### [facility] [address] [place], [address] FOLATES, (FOLIC ACID) Collected: 11/05/2018 Status: F Source: SONIA 11:27 PM [facility] REPOSITORY TYPE CODE TESTS RESULT OUT OF RANGE REFERENCE UNITS LAB L506.0250 3.1-55.4 ng/mL Normal FOLATES 19.30 Performed By: #### L501.9520, L506.0250 #### [facility] [address] [place], [address] Observed: 11/05/2018 Status: F Source: GOLIAD RESPIRATORY PANEL 11:27 PM [facility] MOLECULAR REPOSITORY Order Date: 11/05/18 Has pt arrived? Y RP PANEL Normal Reference Range = Not Detected RESULTS CALLED TO DANIEL HOUSTON 11/06/18 0953 Pam Haywood. REPORT READ BACK BY SAME. Copy of report sent to Infection Control Printer [id number] 11/06/18 Daysi ARRIETA. ADENOVIRUS Not Detected HUMAN METAPHNEUMO Not Detected INFLUENZA A Not Detected INFLUENZA A (SUBTYPE H1) Not Detected INFLUENZA A (SUBTYPE H3) Not Detected INFLUENZA B Not Detected PARAINFLUENZA 1 Not Detected PARAINFLUENZA 2 Not Detected PARAINFLUENZA 3 Not Detected PARAINFLUENZA 4 Not Detected RHINOVIRUS Positive for RHINOVIRUS by NAAT technology RSV A Not Detected RSV B Not Detected NAAT METHOD Testing was performed using nucleic acid amplification ORGANISM 1: RHINOVIRUS Performed By: #### M100.638 #### [facility] [address] [place], [address] Observed: 11/05/2018 Status: F Source: GOLI[place] CULTURE, BLOOD (WB) 11:27 PM [facility] REPOSITORY Has pt arrived? Y BC No growth in 5 days. Performed By: #### M200.1000 #### [facility] [address] [place], [address] EMERGENCY DEPARTMENT Observed: 11/05/2018 Status: F Source: GOLIAD SUMMARY 11:25 PM [facility] REPOSITORY [facility] Medical Records Department [address] [place] [address] [place] [address] Emergency Department Summary 11/05/182015 MR#: [id number] Acct: [id number] Name: COLLINS MONK Rep #: [id number] : 1945 73 From: Marcial Mir MD PCP: Lorena Contreras DO Status: ADM IN - ER Visit Summary Date of Service: 11/05/18 Chief Complaint: [] Harsh cough fever chest pain History of Present Illness: The patient is a 73 M [], history of cardiac stents COPD although the been stable, he indicates for about a week he has had a harsh cough and a fever, nonspecific chest pain. He has had decreased p.o. intake generalized fatigue, he is prone to pneumonia and UTI, indicates had a UTI about 2 months ago no recent UTI symptoms his COPD has also been stable he has 3 stents, he has no history of recent cardiovascular issues DVT or PE Physical Examination: [] 130/70 afebrile pulse ox 96% on room air General, no distress resting comfortably HEENT is generally unremarkable The neck is supple no adenopathy Cardiovascular, regular rate and rhythm Lungs, clear bilateral Abdomen, soft nontender Extremities, no clubbing cyanosis or edema Neurologic, awake alert answering questions appropriately moving all 4 extremities The patient's EKG shows a sinus with nothing acute All the above screening labs therapy The patient's labs are generally unremarkable please see those reports, chest x-ray shows basilar infiltrates left greater than right The patient his daughter we discussed inpatient versus outpatient management patient stated he simply too tired and fatigued to go home he lives alone at home given that we have start him IV antibiotics and we have asked the hospitalist team for further management and admission Test Results: [] Emergency Department Course and Treatment: [] Treatment Plan: [] Disposition admit Impression: [] Left lower lobe pneumonia, exacerbation of COPD, history of CAD This note was generated with LYCEEMation software. It may contain incorrect words, spelling, and punctuation that were not noted in review of the chart prior to signing ED Disposition - Plan for ED Patient: Chief Complaint: Chest Pain Referrals: Lorena Contreras DO [Primary Care Provider] - What to do if you have Problems For any increased pain, shortness of breath, bleeding, nausea or vomiting, chest pain, or any unexpected problems, contact your Primary Care Provider. Call [facility] ([phone]) or report to the closest Emergency Room. Call 911 if necessary. 11/05/18 2325 <Electronically signed by Marcial Mir MD> Date Marcial Mir MD Cosigner Signature (If Indicated): Date CC: Lorena Contreras DO Observed: 11/05/2018 Status: F Source: SON[place] CULTURE, BLOOD (WB) 11:18 PM [facility] REPOSITORY Has pt arrived? Y BC No growth in 5 days. Performed By: #### M200.1000 #### [facility] [address] [place], [address] URINALYSIS, COMPLETE Collected: 11/05/2018 Status: F Source: SONIA 8:50 PM [facility] REPOSITORY Order Comment: How was Urine Obtained? CLEAN CATCH TYPE CODE TESTS RESULT OUT OF RANGE REFERENCE UNITS LAB L400.3000 Yellow COLOR Normal Yellow LAB L400.3050 Clear Normal CLARITY Sl. Cloudy LAB L400.3200 Normal mg/dl Normal GLUCOSE, UR Normal LAB L400.3300 Negative mg/dL Normal BILIRUBIN URINE Negative LAB L400.3400 Negative mg/dl Normal KETONE UR Negative LAB L400.3465 1.002-1.030 Normal SP.GR. DIPSTX 1.020 LAB L400.3550 5.0 - 8.0 pH UR Normal 6.0 LAB L400.3600 Negative mg/dl High PROT 15 DIPSTX LAB L400.3700 Normal mg/dl Normal UROBILI Normal LAB L400.3750 Negative Normal NITRITE UR Negative LAB L400.3780 Negative /ul High 50 OCCULT BLOOD-UR LAB L400.3800 Negative /ul High LEUK ESTERASE 500 LAB L400.4050 0-5 /hpf WBC Normal 10-25 SEEN LAB L400.4100 0-5 /hpf Normal RBC-UA 5-10 SEEN LAB L400.4150 0-5 /hpf SQUAM Normal EPI 0-5 SEEN LAB L400.4300 None Seen /hpf 0 Normal BACTERIA SEEN LAB L400.4350 <or=2+ /hpf 0 Normal MUCUS, URINE SEEN Performed By: #### L400.0001 #### [facility] [address] [place], [place], [address] Observed: 11/05/2018 Status: F Source: GOLIAD LEGIONELLA ANTIGEN 8:50 PM [facility] URINE REPOSITORY Legionella, UR Legionella Antigen result interpretation: Negative Presumptive negative for Legionella pneumophila serogroup 1 antigen in urine, suggesting no recent or current infection. Legionella Ag, Urine Negative (See interpretation below) Performed By: #### M300.4500 #### [facility] [address] [place], [address] STREP Observed: 11/05/2018 Status: F Source: [place] PNEUMONIAE ANTIG(UR,CSF) 8:50 PM [facility] REPOSITORY S pneumo Ag URINE INTERPRETATION Negative Urine Presumptive negative for pneumococcal pneumonia, suggesting no current or recent pneumococcal infection. Infection due to S pneumoniae cannot be ruled out since the antigen present in the sample may be below the detection limit of the test. Strep pneumo Test Negative URINE (See interpretation below) Performed By: #### M300.4600 #### [facility] [address] [place], [address] Observed: 11/05/2018 Status: F Source: SONIA CULTURE, URINE 8:50 PM [facility] REPOSITORY Comments: If possible on previous U/A sample of 11/05 Urine Culture Culture exhibits no growth. Performed By: #### M100.0650 #### [facility] [address] [place], [address] CHEST 1 VIEW Observed: 11/05/2018 Status: F Source: SONIA (PORTABLE) 8:16 PM [facility] REPOSITORY [facility] Imaging Services [address] [place] [address] Chest 1 View (Portable) MR#: [id number] Acct: [id number] Name: COLLINS MONK Rep #: [id number] : 1945 M 73 From: Cisco Orourke MD PCP: Lorena Contreras DO Status: REG ER Study: Chest 1 View (Portable) Date of Exam: 11/05/18 Exam# [id number] Ordering Dr: Marcial Mir MD STUDY: X-RAY CHEST REASON FOR EXAM: Male, 73 years old. Chest pain TECHNIQUE: AP portable COMPARISON: June 14, 2018 FINDINGS: There are chronic interstitial changes in the lower lobes slightly greater on the left.. There is no demonstrated pleural abnormality. There is mild prominence of the cardiac silhouette.. Normal mediastinum and omar. Normal visualized pulmonary arteries. Normal visualized aortic arch and descending thoracic aorta. Dorsal spine demonstrates spondylosis. Normal visualized ribs, clavicles, and shoulders. There is no demonstrated abnormality of the visualized soft tissue structures of the upper abdomen. RAD/Chest 1 View (Portable) IMPRESSION: Mild chronic interstitial changes in the lower lobes slightly greater on the left Electronically Signed: Cisco Orourke MD at 21:09 EST , Service support , CC: MD Paris Mir; Lorena Contreras DO Rn Maternity: Signed CBC W/DIFF, AUTOMATED Collected: 11/05/2018 Status: F Source: GOLIAD 8:11 PM [facility] REPOSITORY TYPE CODE TESTS RESULT OUT OF RANGE REFERENCE UNITS LAB L100.1000 4.4-11.0 K/mm3 Normal WBC 9.7 LAB L100.1200 4.6-6.2 M/mm3 Low RBC 3.86 LAB L100.1300 13.0-16.5 g/dl Normal HGB 13.3 LAB L100.1400 40-54 % Low HCT 39.9 LAB L100.1500 80-94 fL High MCV 103.4 LAB L100.1600 27.0-32.0 pg High MCH 34.5 LAB L100.1700 32-36 g/gl Normal MCHC 33.3 LAB L100.1810 11.6-14.6 % Normal RDW CV 12.5 LAB L100.1820 35.1-43.9 fl High RDW SD 47.2 LAB L100.1900 150-450 K/mm3 Normal PLT 226 LAB L100.2000 6.2-12.0 fl Normal MPV 9.9 LAB L100.2100 47-70 % High NEUT% 76.6 LAB L100.2200 19-41 % Low LY% 15.1 LAB L100.2300 0-10 % Normal MONO% 7.7 LAB L100.2400 0-5 % Normal EO% 0.3 LAB L100.2500 0-1 % Normal BASO% 0.2 LAB L100.2550 0.0-0.9 % Normal IM GRAN % 0.100 Result Comment: IG% - Immature Granulocytes (promyelocytes, myelocytes and metamyelocytes) > 1% indicates that a LEFT SHIFT is Present. LAB L100.2620 2.0-7.7 X10 3/uL Normal Absolute Neut 7.4 LAB L100.2720 0.83-4.51 X10 3/ul Normal Absolute Lymph 1.46 Performed By: #### L100.0100 #### [facility] [address] [place], [address] BNP,B-TYPE NATRIURETIC Collected: 11/05/2018 Status: F Source: SONIA PEPTIDE 8:11 PM [facility] REPOSITORY TYPE CODE TESTS RESULT OUT OF RANGE REFERENCE UNITS LAB L503.6620 0-100 pg/mL Normal B-TYPE 40.2 SHEA PEP Performed By: #### L503.6620 #### [facility] [address] [place], [address] BASIC METABOLIC Collected: 11/05/2018 Status: F Source: SONIA PROFILE (BMP) 8:11 PM [facility] REPOSITORY TYPE CODE TESTS RESULT OUT OF RANGE REFERENCE UNITS LAB L501.0100 74-106 mg/dL High GLU 165 Result Comment: Fasting Glucose result greater than or equal to 126 mg/dL suggests DIABETES MELLITUS per A.D.A. criteria. Please note revised GLUCOSE reference range effective 2018. LAB L501.1000 7-18 mg/dL Normal BUN 16 LAB L501.1100 0.70-1.30 mg/dL Normal CREAT,SERUM 1.22 Result Comment: The validity of the calculated GFR AND GFRAA in patients over 70 years has not been determined. Clinical correlation is essential. LAB L501.1110 >60 mL/min Normal EST GFR 62 Result Comment: Non- GFR Calc LAB L501.1115 >60 mL/min Normal EST GFR - AA 75 Result Comment: GFR Calc LAB L501.1255 ml/min Normal Estimated CRCL 57.34 LAB L501.1300 10-20 RATIO Normal BUN/CRE 13.1 LAB L501.2200 8.5-10 mg/dL Normal .1 CA 8.7 LAB L501.5300 136-14 mmol/L Low 5 NA 135 LAB L501.5600 3.5-5. mmol/L Normal 1 K 4.0 LAB L501.5900 98-107 mmol/L Normal CL 101 LAB L501.6100 21.0-3 mmol/L Normal 2.0 CO2 25.0 LAB L501.6200 5-15 Normal GAP 9 Performed By: #### L500.2500, L501.4010 #### [facility] [address] [place], [address] TROPONIN-I Collected: 11/05/2018 Status: F Source: SONIA 8:11 PM [facility] REPOSITORY TYPE CODE TESTS RESULT OUT OF RANGE REFERENCE UNITS LAB L501.4010 <0.045 ng/mL Normal < 0.015 TROPONIN-I Result Comment: TROPONIN-I EXPECTED VALUES <0.045 Negative 0.045 - 0.590 Consistent with Cardiac Damage > OR = 0.600 Critical Value Not every elevated troponin is indicative of AK. These values should be used with clinical judgement in examining the patient's clinical picture for diagnosis. To establish a diagnosis of AK versus myocardial injury, there must be a demonstrated rise and/or fall in the troponin values, in addition to ischemic symptoms, EKG changes, new regional wall motion abnormality, and/or angiographical evidence. PLEASE NOTE: REFERENCE RANGES EDITED 18 Performed By: #### L500.2500, L501.4010 #### [facility] [address] [place], [address] XR HIP MINIMUM 2 Observed: 10/08/2018 Status: F Source: [employer] VIEWS LEFT 8:02 AM [facility] REPOSITORY ORIGINAL XR HIP MINIMUM 2 VIEWS LEFT CLINICAL STATEMENT: pain. COMPARISON: X-ray pelvis 10/23/2007 FINDINGS: There is no acute fracture or dislocation. Minimal spurring is seen of the femoral head and superior acetabulum. A sclerotic lesion in the intertrochanteric region may relate to an enchondroma or bone infarct, it appears unchanged from 2006. IMPRESSION: Mild degenerative changes. Interpreted By: Nita Rios MD Preliminary Report By: Nita Rios MD Electronically Signed By: Nita Rios MD Dictated Date: 10/08/2018 9:06:30 AM Prelim Date: 10/08/2018 9:06:30 AM Sign Date: 10/08/2018 9:12:15 AM PSA,TOTAL - ANNUAL Collected: 09/29/2018 Status: F Source: SONIA SCREEN 8:54 AM [facility] REPOSITORY TYPE CODE TESTS RESULT OUT OF RANGE REFERENCE UNITS LAB L501.9910 0.00-4.00 ng/mL Normal PSA,TOT 0.39 SCREEN Result Comment: This test was performed using the TPSA assay method for the [employer] system. Values obtained with different assay methods cannot be used interchangably. When changing PSA assays in the course of monitoring a patient, additional sequential testing should be carried out to confirm baseline values. Performed By: #### L501.9910 #### [facility] [address] [place], [place], [address] Observed: 09/15/2018 Status: F Source: SONIA CULTURE, URINE 3:30 PM [facility] REPOSITORY Urine Culture Culture exhibits no growth. Performed By: #### M100.0650 #### [facility] [address] [place], [place], [address] CYTOSPIN ON FLUID Observed: 09/15/2018 Status: F Source: SONIA 3:30 PM [facility] REPOSITORY Patient: COLLINS MONK : 1945 (73/M) Acct Num: [id number] Phys: Bibiana GAMBLE,Ham Unit Num: [id number] Loc: LABSPEC Specimen: [id number] Received: 09/16/18813 Spec Type: CYSPIN FL TISSUES 1 TISSUES: Urine COMMENT Differential diagnosis includes low-grade urothelial neoplasm, infection or calculus. Correlation with clinical findings and appropriate follow up are necessary. Case has been reviewed in consultation with Dr. Mayer who concurs with the above diagnosis. IDC:AM CYTOLOGY GROSS Received is 75 ml of clear yellow fluid labeled with the patient's name and and designated per the requisition as urine. Submitted for cytology preparation. / 09/16/18 TC:5 CPT: 81159 CYTOLOGY STUDY Slides are reviewed. DIAGNOSIS CYTOLOGY Urine for cytology (cytospin): Numerous clusters of atypical urothelial cells noted. See comment. SJ:elinor 09/17/18 HEADER OPERATION: Not noted PRE-OP DIAGNOSIS: Gross hematuria TISSUE SUBMITTED: Urine for cytology Signed Hugo Singleton 09/17/18 <signature on file> Performed By: #### PCYSPIN #### [facility] [address] [place], [address] CYTOLOGY, BODY FLUID / Collected: 09/15/2018 Status: F Source: SONIA CSF 3:30 PM [facility] REPOSITORY Order Comment: Specimen Source: URINE TYPE CODE TESTS RESULT OUT OF RANGE REFERENCE UNITS LAB L350.1000 SEE Normal PATHOLOGY CYTOLOGY,BF REPORT /CSF Result Comment: Specimen submitted to Anatomical Pathology Department for testing. Performed By: #### L350.1000 #### [facility] [address] [place], [address] EMERGENCY DEPARTMENT Observed: 09/03/2018 Status: F Source: SONIA SUMMARY 12:12 AM [facility] REPOSITORY [facility] Medical Records Department [address] [place] [address] Emergency Department Summary 09/02/182014 MR#: [id number] Acct: [id number] Name: COLLINS MONK Rep #: [id number] : 1945 73 From: Daphne Verma MD PCP: Lorena Contreras DO Status: DEP ER - ER Visit Summary Date of Service: 09/02/18 Chief Complaint: Lower back and abdominal pain History of Present Illness: The patient is a 73 M who presents for bilateral flank, lower back and abdominal pain. Patient states he is 1 year ago he had surgery to remove kidney stones. Since then he has been having episodes of flank and low back pain that radiates around into the bilateral lower abdomen and groin. Pain is worse with standing and movement. Pain is usually brief, but he has had it constant since this morning today. He has not tried any medicine for the pain today. No fever, chest pain, shortness of breath, nausea or vomiting, diarrhea or constipation. Patient has occasional dysuria and frequency. History of kidney stones, coronary artery disease status post stents, and lung disease without a definitive diagnosis. Patient is a long-term smoker. Physical Examination: Vital signs: afebrile, hemodynamically stable, no hypoxia on room air General: well nourished, well developed, in no distress Skin: warm, dry, no rash, no pallor HEENT: normocephalic and atraumatic; PERRL, EOMI, moist mucous membranes Cardiovascular: regular rate and rhythm without murmurs, no peripheral edema, 2+ pulses all distal extremities Respiratory: No increased work of breathing, lungs are clear to auscultation bilaterally, no rales, rhonchi or wheezing Abdominal: Abdomen is soft, tender in the lower abdomen diffusely, positive ventral hernia with abdominal contracture that easily reduces with relaxation of the abdominal wall, no hernias noted in the groin, positive bilateral CVA tenderness and low back tenderness, nontender with normoactive bowel sounds, no guarding or rebound, no masses MSK: Moves all extremities, no deformities, normal strength Neuro: Awake and alert, oriented 4. No facial droop, sensation and motor function intact and symmetric Test Results: Abnormal Lab Results WBC 5.4 RBC 4.21 L Clinical Impression(s) from Imaging Studies Abdomen/Pelvis CT 09/02/18 20:10 IMPRESSION: No evidence for renal obstruction or ureteral calculus. There are simple cysts within both kidneys Incompletely distended thick-walled bladder which may be consistent with cystitis. However clinical correlation is recommended Scattered diverticular disease of colon without evidence for acute diverticulitis Electronically Signed: Cisco Orourke MD at 20:48 EDT , Service support , Medications Given Discontinued Medications Hydrocodone Bitart/Acetaminophen ([place] 5mg-325mg) 0 tablet PO .TAKE HOME MED SEBASTIAN Last Admin: 09/02/18 23:30 Dose: 4 tablet Ciprofloxacin HCl (Cipro) 500 mg PO X1 ONE Stop: 09/02/18 23:03 Last Admin: 09/02/18 23:17 Dose: 500 mg Morphine Sulfate () 4 mg IV X1 ONE Stop: 09/02/18 20:11 Last Admin: 09/02/18 20:37 Dose: 4 mg Ondansetron HCl (Zofran) 4 mg IV X1 ONE Stop: 09/02/18 20:11 Last Admin: 09/02/18 20:38 Dose: 4 mg Emergency Department Course and Treatment: Patient was given morphine and Zofran as well as IV hydration. Urine and labs were checked. CT flank performed. Labs showed no leukocytosis, no electrolyte or renal derangements, and a urine consistent with infection. CT scan of the abdomen and pelvis showed no stones but did show thickening of the bladder wall consistent with acute cystitis. Urine culture is pending. Patient is clinically well-appearing, afebrile and normotensive. We discussed inpatient versus outpatient management of his pyelonephritis, and he was amenable to outpatient management. Patient was started on ciprofloxacin after reviewing his medications to make sure there were no contraindications to this antibiotic. Patient was also prescribed [place] for severe pain. He was given a home dose pack. First dose of antibiotic in the emergency department. Patient CT also showed a bone island in the left hip, however metastatic lesion could not be ruled out. Thus patient was advised to follow-up with his doctor for further evaluation. Discharged home in improved condition. Treatment Plan: [] Disposition: [] Impression: Acute uncomplicated pyelonephritis This note was generated with [employer] dictation software. It may contain incorrect words, spelling, and punctuation that were not noted in review of the chart prior to signing ED Disposition - Plan for ED Patient: Disposition: Home or Assisted Living Chief Complaint: Flank Pain Instructions: ED UTI Pyelonephritis Male Prescriptions: Hydrocodone Bitart/Apap 5-325 [[place] 5MG-325MG] 1 tab PO Q6H PRN PRN 3 Days #12 tab PRN Reason: Pain Ciprofloxacin [Cipro] 500 mg PO BID #14 tab Referrals: Lorena Contreras DO [Primary Care Provider] - 3-5 Days if not improving Additional Instructions: Take the antibiotic as prescribed for the full 7 days, even if you feel better before it is done. Use [id number] pain medication as needed for mild pain and use [place] as needed for severe pain. Follow-up with your doctor in 3 days for another evaluation and make sure that you are improving. If at any point you develop a high fever, worsening back or abdominal pain, worsening urinary symptoms, or any other concerns, return immediately to the emergency department for another evaluation. The scan of your abdomen showed an incidental finding in your left hip bone. It is most likely what is called a bone island, but please follow-up with your doctor for further discussion and evaluation to make sure it is not something more serious. If you have any worsening of your condition or any new concerning symptoms, please return immediately to the emergency department for another evaluation. What to do if you have Problems For any increased pain, shortness of breath, bleeding, nausea or vomiting, chest pain, or any unexpected problems, contact your Primary Care Provider. Call [employer] Registry ([phone]) or report to the closest Emergency Room. Call 911 if necessary. 09/03/18 0012 <Electronically signed by Daphne Verma MD> Date Daphne Verma MD Cosigner Signature (If Indicated): Date CC: Lorena Contreras DO DISCHARGE INSTRUCTION Observed: 09/02/2018 Status: F Source: GOLIAD 11:25 PM [facility] REPOSITORY [facility] Medical Records Department [address] [place] [address] Discharge Instruction 09/02/18 2305 MR#: [id number] Acct: [id number] Name: LACHOCOLLINS Carole Rep #: [id number] : 1945 73 From: Daphne Verma MD PCP: Lorena Contreras DO Status: REG ER ED Disposition - Plan for ED Patient: Disposition: Home or Assisted Living Chief Complaint: Flank Pain Instructions: ED UTI Pyelonephritis Male Prescriptions: Hydrocodone Bitart/Apap 5-325 [[place] 5MG-325MG] 1 tab PO Q6H PRN PRN 3 Days #12 tab PRN Reason: Pain Ciprofloxacin [Cipro] 500 mg PO BID #14 tab Referrals: Lorena Contreras DO [Primary Care Provider] - 3-5 Days if not improving Additional Instructions: Take the antibiotic as prescribed for the full 7 days, even if you feel better before it is done. Use [id number] pain medication as needed for mild pain and use [place] as needed for severe pain. Follow-up with your doctor in 3 days for another evaluation and make sure that you are improving. If at any point you develop a high fever, worsening back or abdominal pain, worsening urinary symptoms, or any other concerns, return immediately to the emergency department for another evaluation. The scan of your abdomen showed an incidental finding in your left hip bone. It is most likely what is called a bone island, but please follow-up with your doctor for further discussion and evaluation to make sure it is not something more serious. If you have any worsening of your condition or any new concerning symptoms, please return immediately to the emergency department for another evaluation. What to do if you have Problems For any increased pain, shortness of breath, bleeding, nausea or vomiting, chest pain, or any unexpected problems, contact your Primary Care Provider. Call [facility] ([phone]) or report to the closest Emergency Room. Call 911 if necessary. 09/02/18 8856 <Electronically signed by Daphne Verma MD> Date Daphne Verma MD Cosigner Signature (If Indicated): Date CC: Lorena Contreras DO BASIC METABOLIC Collected: 09/02/2018 Status: F Source: SONIA PROFILE (BMP) 8:16 PM [facility] REPOSITORY TYPE CODE TESTS RESULT OUT OF RANGE REFERENCE UNITS LAB L501.0100 74-106 mg/dL Normal GLU 84 Result Comment: Please note revised GLUCOSE reference range effective 2018. LAB L501.1000 7-18 mg/dL Normal BUN 12 LAB L501.1100 0.70-1.30 mg/dL Normal CREAT,SERUM 1.02 Result Comment: The validity of the calculated GFR AND GFRAA in patients over 70 years has not been determined. Clinical correlation is essential. LAB L501.1110 >60 mL/min Normal EST GFR 77 Result Comment: Non- GFR Calc LAB L501.1115 >60 mL/min Normal EST GFR - AA 93 Result Comment: GFR Calc LAB L501.1255 ml/min Normal Estimated CRCL 70.75 LAB L501.1300 10-20 RATIO Normal BUN/CRE 11.8 LAB L501.2200 8.5-10 mg/dL Normal .1 CA 9.1 LAB L501.5300 136-14 mmol/L Normal 5 NA 137 LAB L501.5600 3.5-5. mmol/L Normal 1 K 4.0 LAB L501.5900 98-107 mmol/L Normal CL 103 LAB L501.6100 21.0-3 mmol/L Normal 2.0 CO2 29.0 LAB L501.6200 5-15 Normal GAP 5 Performed By: #### L500.2500 #### [facility] [address] [place], [address] CBC W/DIFF, AUTOMATED Collected: 09/02/2018 Status: F Source: SONIA 8:16 PM [facility] REPOSITORY TYPE CODE TESTS RESULT OUT OF RANGE REFERENCE UNITS LAB L100.1000 4.4-11.0 K/mm3 Normal WBC 5.4 LAB L100.1200 4.6-6.2 M/mm3 Low RBC 4.21 LAB L100.1300 13.0-16.5 g/dl Normal HGB 14.7 LAB L100.1400 40-54 % Normal HCT 43.6 LAB L100.1500 80-94 fL High MCV 103.6 LAB L100.1600 27.0-32.0 pg High MCH 34.9 LAB L100.1700 32-36 g/gl Normal MCHC 33.7 LAB L100.1810 11.6-14.6 % Normal RDW CV 12.5 LAB L100.1820 35.1-43.9 fl High RDW SD 47.3 LAB L100.1900 150-450 K/mm3 Normal PLT 183 LAB L100.2000 6.2-12.0 fl Normal MPV 10.1 LAB L100.2100 47-70 % Low NEUT% 43.2 LAB L100.2200 19-41 % High LY% 47.2 LAB L100.2300 0-10 % Normal MONO% 8.1 LAB L100.2400 0-5 % Normal EO% 1.1 LAB L100.2500 0-1 % Normal BASO% 0.2 LAB L100.2550 0.0-0.9 % Normal IM GRAN % 0.200 Result Comment: IG% - Immature Granulocytes (promyelocytes, myelocytes and metamyelocytes) > 1% indicates that a LEFT SHIFT is Present. LAB L100.2620 2.0-7.7 X10 3/uL Normal Absolute Neut 2.3 LAB L100.2720 0.83-4.51 X10 3/ul Normal Absolute Lymph 2.55 LAB L100.4500 Normal SMEAR COMMENT SCANNED Performed By: #### L100.0100 #### [facility] [address] [place], [address] ABDOMEN/PELVIS WITHOUT Observed: 09/02/2018 Status: F Source: SONIA CONT 8:11 PM [facility] REPOSITORY [facility] Imaging Services [address] [place] [address] Abdomen/Pelvis without Cont MR#: [id number] Acct: [id number] Name: COLLINS MONK Rep #: [id number] : 1945 M 73 From: Cisco Orourke MD PCP: Lorena Contreras DO Status: REG ER Study: Abdomen/Pelvis without Cont Date of Exam: 09/02/18 Exam# [id number] Ordering Dr: Daphne Verma MD STUDY: CT ABDOMEN AND PELVIS WITHOUT CONTRAST REASON FOR EXAM: Male, 73 years old. Left flank pain and dysuria RADIATION DOSAGE (If Supplied By Facility): CTDIvol = ( ) mGy, DLP = ( 891.53 ) mGycm TECHNIQUE: Transaxial images were obtained from the dome of the diaphragm to the symphysis pubis without oral contrast, and without intravenous contrast. Sagittal and coronal images were reconstructed. Individualized dose optimization techniques were used for this CT. COMPARISON: None. FINDINGS: Diffuse interstitial thickening seen at both lung bases.. The visualized portions of the heart are within normal limits. Normal liver. Normal gallbladder and extrahepatic biliary system. Normal spleen. Normal pancreas. Normal bilateral adrenal glands. No evidence for renal obstruction or ureteral calculus. There are bilateral renal cysts Normal visualized stomach. Normal small intestine. Scattered diverticular changes of the colon without evidence for acute diverticulitis . No evidence for acute appendicitis Atherosclerotic changes of the aorta without evidence for aneurysm. Normal inferior vena cava. Normal retroperitoneum. Incompletely distended diffusely thick-walled bladder of uncertain significance but may be consistent with cystitis. Normal abdominal wall. Dorsal spine demonstrates spondylosis. Sclerotic density within the left hip of uncertain etiology most likely bone island however blastic metastasis is not entirely excluded CT/Abdomen/Pelvis without Cont IMPRESSION: No evidence for renal obstruction or ureteral calculus. There are simple cysts within both kidneys Incompletely distended thick-walled bladder which may be consistent with cystitis. However clinical correlation is recommended Scattered diverticular disease of colon without evidence for acute diverticulitis Electronically Signed: Cisco Orourke MD at 20:48 EDT , Service support , CC: Daphne Verma MD; Lorena Contreras DO Rn Maternity: Signed URINALYSIS, COMPLETE Collected: 09/02/2018 Status: F Source: GOLIAD 8:04 PM [facility] REPOSITORY Order Comment: Order Date: 09/02/18 How was Urine Obtained? 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 DIPSTX 1.010 LAB L400.3550 5.0 - 8.0 pH UR Normal 7.0 LAB L400.3600 Negative mg/dl PROT Normal DIPSTX Negative LAB L400.3700 Normal mg/dl Normal UROBILI Normal LAB L400.3750 Negative Normal NITRITE UR Negative LAB L400.3780 Negative /ul High 25 OCCULT BLOOD-UR LAB L400.3800 Negative /ul High LEUK ESTERASE 500 LAB L400.4050 0-5 /hpf WBC Normal 10-25 SEEN LAB L400.4100 0-5 /hpf 0 Normal RBC-UA SEEN LAB L400.4150 0-5 /hpf SQUAM Normal EPI 0-5 SEEN LAB L400.4300 None Seen /hpf 0 Normal BACTERIA SEEN LAB L400.4350 <or=2+ /hpf 0 Normal MUCUS, URINE SEEN Performed By: #### L400.0001 #### [facility] [address] [place], [address] 12 LEAD ELECTROCARDIOGRAM Observed: 06/16/2018 Status: F Source: GOLIAD 12:49 PM [facility] REPOSITORY [facility] Cardiovascular Services [address] [place] [address] 12 Lead EKG 06/14/18 1021 MR#: [id number] Acct: [id number] Name: COLLINS MONK Rep #: [id number] : 1945 72 From: Alon Reyez MD Attending Dr: Status: DEP ER Ordering Dr: Elmer Saldivar MD Date: 06/14/18 Location: ED Sex: M C Admitted: Test Reason : SOB Blood Pressure : / mmHG Vent. Rate : 069 BPM Atrial Rate : 069 BPM P-R Int : 180 ms QRS Dur : 112 ms QT Int : 402 ms P-R-T Axes : 012 043 030 degrees QTc Int : 430 ms Normal sinus rhythm Normal ECG Confirmed by ALON REYEZ MD ([id number]), video editor SHOSHANA TORRES ([id number]) on 06/16/2018 12:49:08 PM Referred By: KEENA/MECCA Confirmed By:ALON REYEZ MD 06/16/18 1249 Date Alon Reyez MD CC: Lorena Contreras DO; Elmer Saldivar MD Signed EMERGENCY DEPARTMENT Observed: 06/14/2018 Status: F Source: GOLIAD SUMMARY 1:30 PM [facility] REPOSITORY [facility] Medical Records Department [address] [place] [address] Emergency Department Summary 06/14/18 1325 MR#: [id number] Acct: [id number] Name: HERBERTHDANIELCOLLINS Carole Rep #: [id number] : 1945 72 From: Elmer Saldivar MD PCP: Lorena Contreras DO Status: REG ER - ER Visit Summary Date of Service: 06/14/18 Chief Complaint: Shortness of breath, wheezing and productive cough of yellow-green sputum since Friday. History of Present Illness: The patient is a 72 M who presents with respiratory symptoms started Friday. The productive sputum started . He states it is yellow-green. Per old records has history of COPD. He denies prior history. He denies fever, chills night sweats. He denies weight loss or weight gain. He denies any ocular, visual auditory symptoms. He denies rhinorrhea, postnasal drainage or sore throat. Denies any ear pain. He denies chest pain, palpitations or rapid heartbeat. He denies orthopnea or PND. He denies abdominal pain, nausea, vomiting or diarrhea. He denies dysuria, frequency urgency hematuria. Denies myalgias arthralgias. He does complain of weakness. He has no other complaints please read written note. Physical Examination: Vital signs are normal. Is not hypoxic nor is afebrile. Head is atraumatic normocephalic. Pupils are equal round reactive. Extraocular muscles are intact. TMs are pearly white with landmarks noted. Nares patent with no drainage. Posterior pharynx without erythema or exudate. Uvula is midline. There is no dysphonia or dysphasia. Trachea is midline. There is no stridor with auscultation of the neck. Heart is regular without murmur, gallop or rub. He does have rales right lower lobe posteriorly with increased vocal fremitus. There is wheezing bilaterally. The wheezing is more so on the right than left. There is increased x-ray phase. Test Results: Two-view chest x-ray reveals air bronchogram on the right. There is no discrete infiltrate. There is no effusion. Cardiac silhouette and mediastinum are normal. White count is normal. Electro panels normal. EKG was obtained and reveals a sinus rhythm rate of 69 and normal. Emergency Department Course and Treatment: Since patient's port score is less than 90 he will be discharged home with prescription for levofloxacin. He received his first dose in the emergency department. Patient is wheeze free after DuoNeb and albuterol treatment. Since he is wheeze free will not place on prednisone. Treatment Plan: Outpatient antibiotics and follow-up with PCP Disposition: Discharged home in stable and improved condition. Impression: 1. Clinical right lower lobe pneumonia 2. Bronchospasm secondary #1 This note was generated with Dragon dictation software. It may contain incorrect words, spelling, and punctuation that were not noted in review of the chart prior to signing ED Disposition - Plan for ED Patient: Disposition: Home or Assisted Living Chief Complaint: Shortness of Breath Instructions: ED Pneumonia Adult Prescriptions: levoFLOXacin tablet [Levaquin] 500 mg PO DAILY #7 tab Referrals: Lorena Contreras DO [Primary Care Provider] - 3-5 Days What to do if you have Problems For any increased pain, shortness of breath, bleeding, nausea or vomiting, chest pain, or any unexpected problems, contact your Primary Care Provider. Call [facility] ([phone]) or report to the closest Emergency Room. Call 911 if necessary. 06/14/18 1330 <Electronically signed by Elmer Saldivar MD> Date Elmer Saldivar MD Cosigner Signature (If Indicated): Date CC: Lorena Contreras DO CBC W/DIFF, AUTOMATED Collected: 06/14/2018 Status: F Source: SONIA 10:36 AM [facility] REPOSITORY TYPE CODE TESTS RESULT OUT OF RANGE REFERENCE UNITS LAB L100.1000 4.4-11.0 K/mm3 Normal WBC 5.1 LAB L100.1200 4.6-6.2 M/mm3 Low RBC 4.11 LAB L100.1300 13.0-16.5 g/dl Normal HGB 14.1 LAB L100.1400 40-54 % Normal HCT 42.6 LAB L100.1500 80-94 fL High MCV 103.6 LAB L100.1600 27.0-32.0 pg High MCH 34.3 LAB L100.1700 32-36 g/gl Normal MCHC 33.1 LAB L100.1810 11.6-14.6 % Normal RDW CV 12.9 LAB L100.1820 35.1-43.9 fl High RDW SD 48.6 LAB L100.1900 150-450 K/mm3 Normal PLT 178 LAB L100.2000 6.2-12.0 fl Normal MPV 10.0 LAB L100.2100 47-70 % Normal NEUT% 48.6 LAB L100.2200 19-41 % High LY% 43.7 LAB L100.2300 0-10 % Normal MONO% 6.5 LAB L100.2400 0-5 % Normal EO% 0.8 LAB L100.2500 0-1 % Normal BASO% 0.4 LAB L100.2550 0.0-0.9 % Normal IM GRAN % 0.000 Result Comment: IG% - Immature Granulocytes (promyelocytes, myelocytes and metamyelocytes) > 1% indicates that a LEFT SHIFT is Present. LAB L100.2620 2.0-7.7 X10 3/uL Normal Absolute Neut 2.5 LAB L100.2720 0.83-4.51 X10 3/ul Normal Absolute Lymph 2.23 Performed By: #### L100.0100 #### [facility] [address] [place], [address] BASIC METABOLIC Collected: 06/14/2018 Status: F Source: GOLIAD PROFILE ([facility]) 10:36 AM [facility] REPOSITORY TYPE CODE TESTS RESULT OUT OF RANGE REFERENCE UNITS LAB L501.0100 74-106 mg/dL High GLU 119 Result Comment: Fasting Glucose result from 100 to 125 mg/dL suggests IMPAIRED HOMEOSTASIS per A.D.A. criteria. Please note revised GLUCOSE reference range effective 2018. LAB L501.1000 7-18 mg/dL Normal BUN 16 LAB L501.1100 0.70-1.30 mg/dL Normal CREAT,SERUM 1.03 Result Comment: The validity of the calculated GFR AND GFRAA in patients over 70 years has not been determined. Clinical correlation is essential. LAB L501.1110 >60 mL/min Normal EST GFR 76 Result Comment: Non- GFR Calc LAB L501.1115 >60 mL/min Normal EST GFR - AA 92 Result Comment: GFR Calc LAB L501.1255 ml/min Normal Estimated CRCL 71.08 LAB L501.1300 10-20 RATIO Normal BUN/CRE 15.5 LAB L501.2200 8.5-10 mg/dL Normal .1 CA 9.0 LAB L501.5300 136-14 mmol/L Normal 5 NA 138 LAB L501.5600 3.5-5. mmol/L Normal 1 K 4.2 LAB L501.5900 98-107 mmol/L Normal CL 105 LAB L501.6100 21.0-3 mmol/L Normal 2.0 CO2 26.0 LAB L501.6200 5-15 Normal GAP 7 Performed By: #### L500.2500, L501.4010 #### [facility] [address] [place], [address] TROPONIN-I Collected: 06/14/2018 Status: F Source: GOLIAD 10:36 AM [facility] REPOSITORY TYPE CODE TESTS RESULT OUT OF RANGE REFERENCE UNITS LAB L501.4010 <0.045 ng/mL Normal < 0.015 TROPONIN-I Result Comment: TROPONIN-I EXPECTED VALUES <0.045 Negative 0.045 - 0.590 Consistent with Cardiac Damage > OR = 0.600 Critical Value Not every elevated troponin is indicative of AK. These values should be used with clinical judgement in examining the patient's clinical picture for diagnosis. To establish a diagnosis of AK versus myocardial injury, there must be a demonstrated rise and/or fall in the troponin values, in addition to ischemic symptoms, EKG changes, new regional wall motion abnormality, and/or angiographical evidence. PLEASE NOTE: REFERENCE RANGES EDITED 18 Performed By: #### L500.2500, L501.4010 #### [facility] [address] [place], [address] CHEST PA AND LATERAL Observed: 06/14/2018 Status: F Source: GOLIAD 10:27 AM [facility] REPOSITORY [facility] [address] [place] [address] Chest PA and Lateral MR#: [id number] Acct: [id number] Name: COLLINS MONK Carole Rep #: [id number] : 1945 M 72 From: Gunnar Rodriguez MD PCP: Lorena Contreras DO Status: REG ER Study: Chest PA and Lateral Date of Exam: 06/14/18 Exam# [id number] Ordering Dr: Elmer Saldivar MD STUDY: X-RAY CHEST REASON FOR EXAM: Male, 72 years old. 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 There is no dense focal infiltrate or consolidation, no effusion or pneumothorax, no apparent peribronchial cuffing or pulmonary vascular congestion. Normal cardiomediastinal silhouette, omar and pleural margins. No acute osseous or upper abdominal process. RAD/Chest PA and Lateral IMPRESSION: No acute cardiopulmonary process. Electronically Signed: Gunnar Rodriguez, at 11:45 EDT Tel , Service support , CC: Lorena Contreras DO; Elmer Saldivar MD Rn Maternity: Signed CARDIOLOGY VISIT Observed: 02/25/2018 Status: F Source: GOLIAD REPORT 12:14 PM [facility] REPOSITORY [facility] [address] [place] [address] OFFICE VISIT Date of Service: 02/25/18 MR#: [id number] Acct: [id number] Name: COLLINS MONK Rep #: [id number] : 1945 Provider: Emilee Alarcon Age/Sex: 72/M Location: [facility] Status: Signed HPI HPI Details: COLLINS MONK, is a 72 M who presents to the office today for a cardiovascular follow-up. He has a history of coronary artery disease with stenting to his LAD in 2009 and 2013, hypertension and hyperlipidemia. From a cardiac standpoint, patient is doing well. He does not have any chest discomfort/heaviness/tightness. His exercise tolerance is stable for his age. He does not have any worsening symptoms of shortness of breath. He denies any PND. He does not have any orthopnea. He does not have any symptoms of congestive heart failure. He does not have any palpitations that he is aware of. He does occasionally have positional lightheadedness. He does not have any near-syncope or syncope. He does not have any lower extremity edema. He does not have any symptoms of claudication. Intake Vital Signs02/25/18 Height 5 ft 11 in 02/25/18 Weight: 216 lb 02/25/18 Body Mass Index (BMI) 30.1 02/25/18 Blood Pressure 110/78 02/25/18 Blood Pressure Location Lt brachial Intake Visit Reasons: 6 M FU Contract Mail Carrier Required: No Accompanied by: None Is patient in pain?: No Allergies No Known Allergies Allergy (Verified 02/25/18 11:09) Medications Aspirin [Ecotrin] 81 mg PO DAILY 12/20/13 [History Confirmed 02/25/18] Metoprolol Tartrate [Lopressor (beta hollie)] 12.5 mg PO BID #60 tab 04/19/14 [Rx Confirmed 02/25/18] Nitroglycerin [Nitrostat] 0.4 mg SUBLINGUAL Q5M PRN #1 bottle 02/05/17 [Rx Confirmed 02/25/18] clopidogrel 75 mg tablet 75 mg PO QDAY tab 02/23/18 [History Confirmed 02/25/18] pravastatin 80 mg tablet 80 mg PO QHS #90 tab 02/25/18 [Rx Confirmed 02/25/18] Ejection fraction %: 60 to 64 PFSH Medical History Hypercalcemia (Chronic) Atherosclerotic heart disease of [place] coronary artery without angina pectoris (Chronic) Hypertension (Chronic) Hyperlipidemia (Chronic) Coronary artery disease (Chronic) S/P drug eluting coronary stent placement (Chronic) Surgical History S/P PTCA (percutaneous transluminal coronary angioplasty) (Chronic) Family History Father Myocardial infarction CVA (cerebral vascular accident) Brother Diabetes Social History Smoking Status: Current some day smoker alcohol intake: never substance use type: does not use caffeine: Yes Type: coffee Number of servings: 5 what type of physical activity do you participate in: none seatbelt use: always do you feel safe at home: Yes ROS Const Const: Negative for weakness, fatigue, fever(s) or headache(s) Eyes Eyes: Negative for blind spots, loss of peripheral vision or transient loss of vision ENT ENT: Negative for headache(s), dizziness, tinnitus or Nosebleed/epistaxis Cardio Chest Pain: No Palpitations: No Edema: None Muscle aches with walking: None Resp Respiratory: Negative for SOB with activity, SOB at rest, SOB orthopnea\SOB lying down or Cough GI GI: Negative nausea, vomiting, heartburn or vomiting blood/hematemesis : Negative for hematuria Musc Musc: Negative for muscle aches/ myalgia Neuro Neuro: Positive for lightheadedness and orthostatic symptoms; negative for weakness, headache(s), dizziness, near syncope or syncope Jerome Hematologic/Lymphatic: Negative for easy bleeding Endo Endo: Negative for fatigue Cardiology Exam Const Appearance: cooperative, no acute distress and well developed Orientation: alert, awake and oriented x3 Head Head: normocephalic and atraumatic Mouth: moist mucous membranes Eyes General: appearance normal, both eyes and all related structures Conjunctivae: conjunctivae normal Pupils: PERRL EOM: EOM intact bilaterally Neck Neck: normal visual inspection, no lymphadenopathy and no JVD Carotids: Negative bruit Neck Mass: Negative Neck mass Chest Chest inspection: normal inspection of the chest and symmetric chest movement Auscultation: Bilateral: Clear to Auscultation Cardio Palpation: normal PMI Rate: regular rate Rhythm: regular rhythm Heart sounds: S1 normal and S2 normal; negative rub, gallop or murmur GI GI: normal to inspection, soft, no hepatosplenomegaly and bowel sounds present; negative tender Neuro General: alert, awake, oriented x3, CN's II-XI intact bilaterally and moves all extremities Extremities Pulses: Normal: Right Posterior Tibial Pulse, Left Posterior Tibial Pulse, Right Radial Pulse, Left Radial Pulse Lower Extremity Edema: None: Bilateral Psych Psychological: normal affect Supplemental Info Heart catheterization in January 2017 demonstrated normal LV function with an ejection fraction of 60%. LAD proximal calcification, proximal to mid stent patent with minimal luminal irregularities. Diagonal branch #1 small caliber with proximal to mid 85% hazy eccentric appearing stenosis followed by diffuse 25% appearing stenosis followed by the bifurcation which is 2 bifurcating branches. It was felt that this was too small of areas to be stented. Circumflex large dominant with minimal luminal irregularities. Intermediate ramus moderate sized long vessel with proximal minimal luminal irregularities. RCA small nondominant angiographically normal vessel. Assessment AND Plan 1. Atherosclerosis of diomede coronary artery of [place] heart without angina pectoris I25.10 Plan - CHRIS Becerril Stable, from a cardiac standpoint patient does not have any symptoms of angina. We recommend that they continue with current aggressive medical management and risk factor modification. 2. Pure hypercholesterolemia E78.00; E78.0 Plan - CHRIS Becerril Recent lipid profile demonstrates total cholesterol 152, HDL 37, LDL 81. Will continue with current medical management. We will continue to monitor through routine labs Plan Detail Other Medications Changed: Additional Comments - CHRIS Becerril The above patient was discussed with Dr. Reyez in Dr. Aguila's absence, he agrees with plan of care. Thank you for allowing us to participate in patient's plan of care, if you have any questions please do not hesitate to call. This note was generated using a voice recognition system and there may be incorrect words, spelling or punctuation errors that were not noted when reviewing the office note prior to saving. Follow Up 9 Months (PFM) Coding Level of Care Code Off vis,est,level 3 Diagnoses Atherosclerosis of diomede coronary artery of [place] heart without angina pectoris I25.10 [place] vs. transplanted heart: [place] heart Pure hypercholesterolemia E78.00; E78.0 Hyperlipidemia type: pure hypercholesterolemia Coding Level of Care Code Off vis,est,level 3 Diagnoses Atherosclerosis of [place] coronary artery of [place] heart without angina pectoris I25.10 [place] vs. transplanted heart: [place] heart Pure hypercholesterolemia E78.00; E78.0 Hyperlipidemia type: pure hypercholesterolemia 02/25/18 1204 <Electronically signed by Emilee PEREZ> Date Emilee PEREZ 02/25/18 1214<Electronically signed by Alon Reyez MD> Cosigner Signature: Date (if applicable) Alon Reyez MD CC: Lorena Contreras DO LIVER PROFILE Collected: 01/10/2018 Status: F Source: GOLIAD 7:00 AM [facility] REPOSITORY Order Comment: Order Date: 07/10/17 Order Info: 0788-1 - *Hepatic Function Panel Order Info: [id number] - *Lipid Profile CC PCP Comments: 12 hours fasting, may have water. TYPE CODE TESTS RESULT OUT OF RANGE REFERENCE UNITS LAB L501.1500 6.4-8.2 g/dL Normal T PROT 8.1 LAB L501.1800 3.2-5.0 g/dL Normal ALB 3.7 LAB L501.1950 2.2-4.2 g/dL High GLOB 4.4 LAB L501.4100 15-37 U/L High AST 45 LAB L501.4305 45-117 U/L High ALK P 125 LAB L501.4405 16-61 U/L High ALT 68 Result Comment: Please note revised ALT reference range effective 2017. LAB L501.4600 0.20-1.00 mg/dL Normal T BILI 1.00 LAB L501.4700 0.00-0.30 mg/dL Normal D BILI 0.18 Performed By: #### L500.3400 #### [facility] [address] [place], [place], [address] LIPID PROFILE Collected: 01/10/2018 Status: F Source: GOLIAD 7:00 AM [facility] REPOSITORY Order Comment: Order Date: 07/10/17 Order Info: 0788-1 - *Hepatic Function Panel Order Info: [id number] - *Lipid Profile CC PCP Comments: 12 hours fasting, may have water. TYPE CODE TESTS RESULT OUT OF RANGE REFERENCE UNITS LAB L501.4900 200 mg/dL Normal CHOL 152 Result Comment: <200 mg/dL Desirable 200-240 mg/dL Borderline >240 mg/dL High Risk LAB L501.5000 mg/dL Normal TRIG 171 Result Comment: The drugs N-Acetylcysteine and Metamizole may falsely depress this assay. Serum Triglycerides Reference Interval Normal <150 mg/dL Borderline high 150 - 199 mg/dL High 200 - 499 mg/dL Very High > or = 500 mg/dL LAB L501.6400 mg/dL Low HDL 37 Result Comment: The drugs N-Acetylcysteine and Metamizole may falsely depress this assay. Reference Range HDL <40 mg/dL Low HDL Cholesterol HDL >or= 60 mg/dL High HDL Cholesterol LAB L501.6500 0-130 mg/dL Normal LDL 81 LAB L501.6600 5-40 mg/dL Normal VLDL 34 Performed By: #### L500.4100 #### [facility] [address] [place], [address] ALLERGIES ALLERGIES DATE TYPE / CODE NAME / CODE REACTION SEVERITY SOURCE 11/20/2018 Drug No Known Unknown [facility] Allergy/4160 Allergies/F00 Hospital 46207(SNOMED 0878991(RXNOR Repository CT) M) ENCOUNTERS ENCOUNTERS ADMIT/DISCHARGE ACCOUNT NUMBER ADMITTING ENCOUNTER LOCATION SOURCE CLASS 12/17/2018 [id number] Ambulatory [facility]: [facility] Repository 12/16/2018 [id number] Ambulatory [facility] ding:PSN Repository 12/15/2018 [id number] Ambulatory [facility] ding:PSN Repository 12/15/2018 [id number] Ambulatory BMSBuilding: [facility] Repository 11/30/2018 [id number] Ambulatory [facility] ding:CT Repository 11/20/2018/11/20/20 [id number] Ambulatory BMSBuilding: [place] 18 BMS.[facility] Repository 11/05/2018 [id number] Ambulatory BMSBuilding: [facility] Repository 11/05/2018/11/08/20 [id number] Sementi, Inpatient [facility] 18 Niharika [facility] ding:PCURoom Repository : TAN824Gmi: 1 11/05/2018 [id number] Sementi, Ambulatory BMSBuilding: [place] Niharika BMS.[facility] Repository 11/05/2018 [id number] Sementi, Ambulatory BMSBuilding: [place] Niharika BMS.CF.[facility] Repository 11/05/2018 [id number] Sementi, Ambulatory BMSBuilding: [place] Niharika BMS.[facility] Repository 11/05/2018 [id number] Sementi, Ambulatory BMSBuilding: [place] Niharika BMS.CF.[facility] Repository 11/05/2018 [id number] Sementi, Ambulatory BMSBuilding: [place] Niharika BMS.[facility] Repository 11/05/2018 [id number] Sementi, Ambulatory BMSBuilding: [place] Niharika BMS.[facility] Repository 10/08/2018/10/08/20 [id number] Ambulatory [address] ding:[facility] Foundation Repository 09/29/2018 [id number] Ambulatory [facility] ding:LAB Repository 09/15/2018 [id number] Ambulatory [facility] ding:LABSPEC Repository 09/02/2018/09/02/20 [id number] Emergency [address] ding:ED Repository 06/14/2018/06/14/20 [id number] Emergency [address] ding:ED Repository 02/25/2018/02/26/20 [id number] Ambulatory BMSBuilding: [place] 18 BMS.[facility] Repository 02/25/2018 [id number] Ambulatory BMSBuilding: [place] BMS.[facility] Repository 01/10/2018 [id number] Ambulatory [facility] ding:LAB Repository PAYERS PAYERS ENCOUNTER GUARANTOR PAYER SUBSCRIBER SOURCE 12/17/2018 COLLINS L Primary COLLINS L [place] [id number] Insurance:HUMANA DANISH SHELLHORNDOB: Community [address] MEDICAREPolicy [id number] Number: Repository [address], [place] [id number] [id number]: 330) Date:0655-57-31GZ [phone] ([facility] [place], [place] [address]KR: 12/17/2018 Secondary NOT GIVENUNK [place] Insurance:SELF PAY [facility] Number: Effective Repository Date:2018-12-17 12/16/2018 COLLINS L Primary COLLINS L [place] [id number] Insurance:HUMANA Solaiemes SHELLHORNDOB: Community [address] MEDICAREPolicy [id number] Hospital LOT4PO BOX Number: Repository [place], [place] [id number] [address]Gkl: (330) Date:0383-66-58HK [phone] () [address] [place] [address]WP: 12/16/2018 Secondary NOT GIVENUNK [place] Insurance:SELF PAY [facility] Number: Effective Repository Date:2018-11-20 12/15/2018 COLLINS L Primary COLLINS L [place] [id number] Insurance:HUMANA GOLD SHELLHORNDOB: Community [address] MEDICAREPolicy [id number] Number: Repository [place] [id number] [address]Bvm: (330) Date:6970-51-32YT [phone] () [address] [place], [place] [id number]: 12/15/2018 Secondary NOT GIVENUNK [place] Insurance:SELF PAY [facility] Number: Effective Repository Date:2018-11-20 12/15/2018 COLLINS L Primary COLLINS L [place] [id number] Insurance:HUMANA GOLD SHELLHORNDOB: Community [address] MEDICAREPolicy [id number] Number: [place] [id number]: (330) Date:5559-68-28WM [phone] () [address] [place] [address]WP: 12/15/2018 Secondary NOT GIVENUNK [place] Insurance:SELF PAY [facility] Number: Effective Repository Date:2018-12-15 11/30/2018 COLLINS L Primary COLLINS L [place] [address] Insurance:HUMANA GOLD SHELLHORNDOB: [facility] [id number] [address] MEDICAREPolicy [id number] [id number], Number: Repository [place] [address]Moa: [id number] Date:2068-26-35ZS BOX () [address] [place] [phone]: 11/30/2018 Secondary NOT GIVENUNK [place] Insurance:SELF PAY [facility] Number: Effective Repository Date:2018-11-27 11/20/2018 COLLINS L Primary COLLINS L [place] [address] Insurance:HUMANA GOLD SHELLHORNDOB: [facility] [place] MEDICAREPolicy [id number] Hospital [address]Pzw: (330) Number: Repository [phone] () [id number] Date:1265-12-68YT [address] [place] [phone]: 11/20/2018 Secondary NOT GIVENUNK [place] Insurance:SELF PAY [facility] Number: Effective Repository Date:2018-11-12 11/05/2018 COLLINS L Primary COLLINS L [place] [id number] Insurance:HUMANA GOLD SHELLHORNDOB: Community [address] MEDICAREPolicy [id number] Number: Repository [address], [place] [id number]: (330) Date:8465-72-20TD [phone] () [address] [place] [address]WP: 11/05/2018 Secondary NOT GIVENUNK [place] Insurance:SELF PAY [facility] Number: Effective Repository Date:2018-11-05 11/05/2018 COLLINS L Primary COLLINS L [place] [address] Insurance:HUMANA GOLD SHELLHORNDOB: [facility] [place] MEDICAREPolicy [id number] Hospital [address]Omy: (330) Number: Repository [phone] () [id number] Date:9438-55-90IY [address] [place] [phone]: 11/05/2018 Secondary NOT GIVENUNK [place] Insurance:SELF PAY [facility] Number: Effective Repository Date:2018-11-05 11/05/2018 COLLINS L Primary COLLINS L [place] [address] Insurance:HUMANA GOLD SHELLHORNDOB: Community [place] MEDICAREPolicy [id number] [facility] [address]Ujy: (330) Number: Repository [phone] () [id number] Date:8356-82-99PI [place] [address]WP: 11/05/2018 Secondary NOT GIVENUNK [place] Insurance:SELF PAY [facility] Number: Effective Repository Date:2018-11-05 11/05/2018 COLLINS L Primary COLLINS L [place] [address] Insurance:HUMANA GOLD SHELLHORNDOB: Community [place] MEDICAREPolicy [id number] Hospital [address]Fjv: (330) Number: Repository [phone] () [id number] Date:1321-75-16[place] [address]WP: 11/05/2018 Secondary NOT GIVENUNK [place] Insurance:SELF PAY [facility] Number: Effective Repository Date:2018-11-05 11/05/2018 COLLINS L Primary COLLINS L [place] [address] Insurance:HUMANA GOLD SHELLHORNDOB: [place] MEDICAREPolicy [id number] Hospital [address]Jwa: (330) Number: Repository [phone] () [id number] Date:2725-81-73GQ [place] [phone]: 11/05/2018 Secondary NOT GIVENUNK [place] Insurance:SELF PAY [facility] Number: Effective Repository Date:2018-11-05 11/05/2018 COLLINS L Primary COLLINS L [place] [address] Insurance:HUMANA GOLD SHELLHORNDOB: Community [place] MEDICAREPolicy [id number] Hospital [address]Eyw: (330) Number: Repository [phone] () [id number] Date:0621-43-19DU [address] [place] [phone]: 11/05/2018 Secondary NOT GIVENUNK [place] Insurance:SELF PAY [facility] Number: Effective Repository Date:2018-11-05 11/05/2018 COLLINS L Primary COLLINS L [place] [address] Insurance:HUMANA GOLD SHELLHORNDOB: [facility] [place] MEDICAREPolicy [id number] Hospital [address]Cjl: (330) Number: Repository [phone] () [id number] Date:5044-21-67QX[address] [address]PP: 11/05/2018 Secondary NOT GIVENUNK [place] Insurance:SELF PAY [facility] Number: Effective Repository Date:2018-11-05 11/05/2018 COLLINS L Primary COLLINS L [place] [address] Insurance:HUMANA GOLD SHELLHORNDOB: [facility] [place] MEDICAREPolicy [id number] Hospital [address]Ary: (330) Number: Repository [phone] () [id number] Date:5140-17-14XU[address] [phone]: 11/05/2018 Secondary NOT GIVENUNK [place] Insurance:SELF PAY [facility] Number: Effective Repository Date:2018-11-05 10/08/2018 [facility]INS L [facility] Insurance:HUMANA SHELLHORNDOB: [facility] 1945 [address] INSCOPolicy Number: [id number] O Repository [place], [place] [id number] [address] [place] [address]Ugd: (330) Date:2018-10-08 [place] [address]Hmi: [phone] (HP)Tel: [phone] Name:NPO Box ()Tel: [phone]) (WP) [address] [place] [address] [phone] () [address]: 09/29/2018 COLLINS L Primary COLLINS L [place] [address] [address] Insurance:HUMANA GOLD [place]: [place] MEDICAREPolicy [id number] [address]Bwo: (330) Number: Repository [phone] () [id number] Date:[id number] [address] [address]DK: 09/29/2018 Secondary NOT GIVENUNK [place] Insurance:SELF PAY [facility] Number: Effective Repository Date:2018-09-29 09/15/2018 COLLINS L Primary COLLINS L [place] [address] [address] Insurance:HUMANA GOLD [place]: [place] [address] MEDICAREPolicy [id number] Hospital [address]Ltt: (330) Number: Repository [phone] () [id number] Date:7568-34-38KN [address] [address]LB: 09/15/2018 Secondary [place] GIVENUNK [place] Insurance:SELF PAY [facility] Number: Effective Repository Date:2018-09-15 09/02/2018 COLLINS L Primary COLLINS L [place] [address] Insurance:HUMANA GOLD [place]: [place] [address] MEDICAREPolicy [id number] Hospital [address]Chq: (330) Number: Repository [phone] () [id number] Date:7924-10-74XF [address] [address]RV: 09/02/2018 Secondary NOT GIVENUNK [place] Insurance:SELF PAY [facility] Number: Effective Repository Date:2018-09-02 06/14/2018 COLLINS L Primary COLLINS L [place] [address] Insurance:HUMANA GOLD [place]: [place] [address] MEDICAREPolicy [id number] Hospital [address]Amd: (330) Number: Repository [phone] () [id number] Date:5697-82-21[place] [address]WP: 06/14/2018 Secondary NOT GIVENUNK [place] Insurance:SELF PAY [facility] Number: Effective Repository Date:2018-06-14 02/25/2018 COLLINS L Primary COLLINS L [place] [address] Insurance:HUMANA GOLD SHELLHORNDOB: [facility] [address] MEDICAREPolicy [id number] Hospital [address]Nmj: (330) Number: Repository [phone] () [id number] Date:5095-03-47MH [address]WP: 02/25/2018 Secondary [place] GIVENUNK [place] Insurance:SELF PAY [facility] Number: Effective Repository Date:2017-11-10 02/25/2018 Collins L Primary Collins L [place] [address] Insurance:HUMANA GOLD [place]OB: [place] [address] MEDICAREPolicy [id number] [address]Jbu: (330) Number: Repository [phone] () [id number] Date:9700-15-28CL [place] [id number]: 02/25/2018 Secondary NOT GIVENUNK [place] Insurance:SELF PAY [facility] Number: Effective Repository Date:2018-02-25 01/10/2018 Collins L Primary Collins L [place] [address] Insurance:HUMANA GOLD ShellhornDOB: [facility] [address] MEDICAREPolicy [id number] Hospital [address]Fpw: (330) Number: Repository [phone] () [id number] Date:9086-21-01NL [place] [id number]: 01/10/2018 Secondary NOT GIVENUNK [place] Insurance:SELF PAY [facility] Effective Repository Date:2018-01-10
== END ==
PROVIDERS: Family Provider Preventive Medicine Occupational Medicine; PCP Preventive Medicine Occupational Medicine; Referring Provider Nurse Practitioner Acute Care; Visit Provider Nurse Practitioner Acute Care
DX: J44.9 Chronic obstructive pulmonary disease, unspecified (principal)
CPT/HCPCS: 94618

== ENCOUNTER → 2019-01-25 07:22 | Outpatient (CLI) | payer MEDICARE, SELFPAY ==
[2019-01-05 10:12] VITALS: BMI 29.0
--- NOTE | 2019-01-25 07:24 | ECHOD_ITS ---
Reason For Study: Dyspnea/SOB Procedure This was a 2D Doppler, Color Flow transthoracic echocardiogram. The exam was of adequate technical quality. Exam performed in department. Left Ventricle Normal LV size. Apical false tendon noted. Left ventricular systolic function is normal. The estimated ejection fraction is 65 %. No evidence for diastolic dysfunction. Right Ventricle Normal RV size. Normal systolic function. Atria Normal left atrium. Normal right atrium. No doppler evidence for ASD. Mitral Valve There is no mitral annular calcification. Normal mitral valve. Trivial mitral valve insufficiency. Tricuspid Valve Normal tricuspid valve. Trivial tricuspid valve insufficiency. Right ventricular systolic pressure estimated to be 22 mmHg. Aortic Valve Trisinus/trileaflet aortic valve. Mild diffuse aortic valve thickening. Mild focal aortic valve calcification. Aortic sclerosis, no stenosis. Pulmonic Valve The pulmonic valve is not well visualized. Trivial pulmonic valve insufficiency. Great Vessels Normal sized aortic root. Pericardium/Pleural No pericardial effusion. MMode/2D Measurements & Calculations LVIDd: 3.7 cm IVSd: 0.99 cm Ao root diam: 3.8 cm LVIDs: 2.0 cm LVPWd: 0.87 cm LA dimension: 3.4 cm FS: 44.9 % LAV(MOD-bp): 38.4 ml LA A4 area: 16.3 cm2 RA A4 area: 16.3 cm2 LAV(MOD-bp) Indexed: 17.7 ml/m2 LAV(MOD-sp2): 32.7 ml LAV(MOD-sp4): 40.7 ml Time Measurements MV dec time: 0.30 sec Doppler Measurements & Calculations MV E max xavier: 72.3 cm/sec Lat Peak E' Xavier: 9.3 cm/sec Med Peak E' Xavier: 6.0 cm/sec MV A max xavier: 90.1 cm/sec E/E' lat: 7.8 E/E' med: 12.0 MV E/A: 0.80 MV V2 max: 90.6 cm/sec MV P1/2t max xavier: 79.4 cm/sec Ao V2 max: 104.9 cm/sec MV max P.3 mmHg MV P1/2t: 135.3 msec Ao max P.4 mmHg MV V2 mean: 55.1 cm/sec MV dec slope: 171.9 cm/sec2 Ao V2 mean: 63.3 cm/sec MV mean P.4 mmHg MVA(P1/2t): 1.6 cm2 Ao mean P.9 mmHg MV V2 VTI: 27.7 cm Ao V2 VTI: 19.1 cm LV V1 max: 95.9 cm/sec PA V2 max: 90.6 cm/sec TR max xavier: 216.8 cm/sec LV V1 max P.7 mmHg TR max P.8 mmHg LV V1 mean P.8 mmHg LV V1 mean: 61.7 cm/sec LV V1 VTI: 19.7 cm Interpretation Summary Left ventricular systolic function is normal. The estimated ejection fraction is 65 %. Apical false tendon noted. Trivial mitral valve insufficiency. Trivial tricuspid valve insufficiency. Aortic sclerosis, no stenosis. Trivial pulmonic valve insufficiency. Right ventricular systolic pressure estimated to be 22 mmHg. No evidence for diastolic dysfunction. Ordering Physician: Balaji Nichols Referring Physician: Balaji Nichols Performed By: Fernando Estevez RCS
== END ==
PROVIDERS: Family Provider Preventive Medicine Occupational Medicine; PCP Preventive Medicine Occupational Medicine; Referring Provider Nurse Practitioner Family; Visit Provider Nurse Practitioner Family
DX: R06.09 Other forms of dyspnea (principal); I25.10 Atherosclerotic heart disease of native coronary artery without angina pectoris; I10 Essential (primary) hypertension; E78.5 Hyperlipidemia, unspecified; Z72.0 Tobacco use; Z98.61 Coronary angioplasty status
CPT/HCPCS: 93306

== ENCOUNTER → 2019-05-08 06:59 | Outpatient (CLI) | payer MEDICARE, SELFPAY ==
[2019-04-02 08:59] VITALS: BMI 29.0
[2019-05-08 08:42] LABS: AST(SGOT) 33 U/L (15-37); Alanine Aminotransfer ALT/SGPT 51 U/L (16-61); Albumin, Serum 3.8 g/dL (3.2-5.0); Alkaline Phosphatase 127 U/L (45-117); Bilirubin, Direct 0.12 mg/dL (0.00-0.30); Cholesterol 164 mg/dL (200); Globulin 4.3 g/dL (2.2-4.2); High Density Lipoprotein 37 mg/dL; Protein, Total 8.1 g/dL (6.4-8.2); Triglycerides 179 mg/dL; Very Low Density Lipoprotein 36 mg/dL (5-40)
== END ==
PROVIDERS: Family Provider Preventive Medicine Occupational Medicine; PCP Preventive Medicine Occupational Medicine; Referring Provider Nurse Practitioner Family; Visit Provider Nurse Practitioner Family
DX: E78.5 Hyperlipidemia, unspecified (principal); Z79.899 Other long term (current) drug therapy
CPT/HCPCS: 36415; 80061; 80076

== ENCOUNTER → 2019-12-04 07:27 | Outpatient (CLI) | payer MEDICARE, SELFPAY ==
[2019-04-02 08:59] VITALS: BMI 29.0
[2019-12-04 08:35] LABS: AST(SGOT) 37 U/L (15-37); Alanine Aminotransfer ALT/SGPT 52 U/L (16-61); Albumin, Serum 3.6 g/dL (3.2-5.0); Alkaline Phosphatase 105 U/L (45-117); Bilirubin, Direct 0.21 mg/dL (0.00-0.30); Cholesterol 162 mg/dL (200); High Density Lipoprotein 44 mg/dL; PSA,Total - Annual Screen 0.37 ng/mL (0.00-4.00); Protein, Total 7.6 g/dL (6.4-8.2); Triglycerides 152 mg/dL; Very Low Density Lipoprotein 30 mg/dL (5-40)
== END ==
PROVIDERS: Internal Medicine Cardiovascular Disease; Family Provider Preventive Medicine Occupational Medicine; PCP Preventive Medicine Occupational Medicine; Referring Provider Urology; Visit Provider Urology
DX: E78.5 Hyperlipidemia, unspecified (principal); N40.1 Benign prostatic hyperplasia with lower urinary tract symptoms
CPT/HCPCS: 80061; 80076; 84153; G0103

== ENCOUNTER 2020-01-17 17:55 | Emergency (ER) | payer MEDICARE, SELFPAY ==
[2020-01-03 08:35] VITALS: BMI 28.7
[2020-01-17 17:56] VITALS: BP 127/64; PULSE 102; RESP 18; TEMP 36.6; O2SAT 96; BMI 29.2
[2020-01-17 18:27] VITALS: TEMP 36.6
--- NOTE | 2020-01-17 18:38 | ED.VIS.GEN ---
History of Present Illness Chief Complaint: Rash Informant: Patient, Family Onset: Weeks - 2 weeks Context: Gradual Onset Current Severity: Moderate Maximum Severity: Moderate Narrative: Patient presents with a 2-week history of rash. He has dry patches scattered diffusely over his body. He states it started out as raised blisters that then broke open. It is now dry and scaly. He describes a slight burning sensation. Rashes scattered over the extremities as well as the trunk. It is not distributed in a single dermatomal distribution. Patient was previously seen at the hospital in [place]. He was given Claritin to help with itching and Keflex to prevent secondary infection. - Past Medical History (1) Borderline diabetes Status: Chronic (2) Essential hypertension Status: Chronic (3) Presence of stent in coronary artery Status: Chronic Comment: [facility] w/ PCI/JUANY to mid LAD 09/19/10; PCI/JUANY mid LAD 12/21/13 (4) Atherosclerotic heart disease of [place] coronary artery without angina pectoris Status: Chronic (5) Hyperlipidemia Status: Chronic (6) COPD (chronic obstructive pulmonary disease) Status: Chronic Past Medical History - Allergies and Home Meds Allergies/Adverse Reactions: Allergies No Known Allergies Allergy (Verified 01/17/20 17:58) Primary Care Physician: Betsey Garcia [NON-STAFF] - Keo Contreras DO [Primary Care Provider] - Rogers Brand MD [STAFF PHYSICIAN] - Surgical History: angioplasty, - - Cardiac catheterization, Transurethral ablation w/ history of BPH, T+A. Lives: Spouse/ Significant Other Smoking Status: Never smoker - Family History Maternal Family History: Family History (Last Reviewed 01/04/20 @ 07:23 by Pam Will) Father Myocardial infarction CVA (cerebral vascular accident) Brother Diabetes Family History: Reports: No pertinent history Paternal Family History: Family History (Last Reviewed 01/04/20 @ 07:23 by Pam Will) Father Myocardial infarction CVA (cerebral vascular accident) Brother Diabetes Family History: Reports: Stroke Review of Systems General: Denies: Chills, Fever Eyes: Denies: Visual changes - bilaterally ENT: Denies: Bilateral ear pain Cardiovascular: Denies: Chest pain Respiratory: Denies: Dyspnea, Cough Gastrointestinal: Denies: Abdominal pain, Vomiting Skin: Reports: Rash. Denies: Wounds Neurological: Denies: Headache Allergy: Denies: Uticaria, Swelling of the mouth, Swelling of the tongue Physical Exam Vital Signs/Narrative: Vital Signs Temp Pulse Resp BP Pulse Ox 01/17/20 18:27 97.9 F 01/17/20 17:56 97.9 F 102 H 18 127/64 H 96 Inital Vital Signs reviewed: Yes General: Well nourished, Well developed Head: Normocephalic ENT: Moist mucous membranes Neck: Supple Cardiovascular: Regular rate, Regular rhythm Respiratory: No distress, CTA bilaterally Abdomen: Soft, Nontender Skin: - - Scattered areas of erythematous scaly rash over the trunk as well as extremities. No open lesions at this time. No sign of secondary infection. Neurological: Alert, Oriented x3 Psychological: Normal affect Diagnostic/Tx/Re-eval - Medical Decision Making Patient denies any new exposures prior to onset of the rash. Rash almost appears to be eczema-like. In light of this he will be treated with parenteral steroids as he has multiple different areas of his body involved. He is given information for follow-up with dermatology as well. ED Disposition - Plan for ED Patient: Disposition: Home or Assisted Living Diagnosis: Rash Instructions: DERMATITIS, Non-Specific Prescriptions: Prednisone 10 mg PO UD #33 tab Prescription Printed Referrals: Keo Contreras DO [Primary Care Provider] - Rogers Brand MD [STAFF PHYSICIAN] - Betsey Garcia [NON-STAFF] -
[2020-01-17] MEDS: predniSONE 20 MG Tablet 60 MG PO (19:10)
== END 2020-01-17 19:12 | disposition home or self-care (01) ==
LOC: ED 18:44
PROVIDERS: Emergency Provider Emergency Medicine; PCP Preventive Medicine Occupational Medicine
DX: R21 Rash and other nonspecific skin eruption (principal); I25.10 Atherosclerotic heart disease of native coronary artery without angina pectoris; J44.9 Chronic obstructive pulmonary disease, unspecified; I10 Essential (primary) hypertension; E78.5 Hyperlipidemia, unspecified; R73.03 Prediabetes; Z79.02 Long term (current) use of antithrombotics/antiplatelets; Z79.82 Long term (current) use of aspirin; Z79.899 Other long term (current) drug therapy; Z95.5 Presence of coronary angioplasty implant and graft
CPT/HCPCS: 99283

== ENCOUNTER 2020-05-26 17:51 | Emergency (ER) | payer MEDICARE, SELFPAY ==
[2020-01-24 08:31] VITALS: BMI 28.3
[2020-05-26 17:52] VITALS: BP 137/88; PULSE 78; RESP 16; TEMP 36.8; O2SAT 95; BMI 29.8
[2020-05-26 18:14] VITALS: O2SAT 95
--- NOTE | 2020-05-26 18:26 | CT_ITS ---
STUDY: CT CERVICAL SPINE WITHOUT CONTRAST REASON FOR EXAM: Male, 74 years old. Trauma RADIATION DOSAGE (If Supplied By Facility): CTDIvol = ( 19.64 ) mGy, DLP = ( 393.07 ) mGycm TECHNIQUE: High resolution transaxial imaging was performed without contrast material. Sagittal and coronal images were reconstructed. Individualized dose optimization techniques were used for this CT. COMPARISON: None FINDINGS: Craniocervical junction and cervical spine are intact and aligned. Mineralization is decreased. Paraspinous soft tissues are normal. Spinal canal is patent at all levels. CT/Spine Cervical without Contras IMPRESSION: 1. No acute osseous injury. 2. Osteoporosis. Endocrinology referral is advised. Electronically Signed: Sly Samson, at 19:27 EDT Tel , Service support ,
--- NOTE | 2020-05-26 18:26 | CT_ITS ---
STUDY: CT BRAIN WITHOUT CONTRAST REASON FOR EXAM: Male, 74 years old. Trauma RADIATION DOSAGE (If Supplied By Facility): CTDIvol = ( 44.99 ) mGy, DLP = ( 829.85 ) mGycm TECHNIQUE: Transaxial CT imaging of the brain was performed without administration of intravenous contrast material. Individualized dose optimization techniques were used for this CT. COMPARISON: 02 September 2015 FINDINGS: There is no acute intracranial hemorrhage, extra parenchymal fluid collections, hydrocephalus or herniation. There is stable remote ischemic change in the left anterior external capsule and carter white matter. The skull is intact. Appearance is stable since 2014. CT/Brain/Head without Contrast IMPRESSION: 1. No acute findings, no acute intracranial trauma. 2. Remote left carter white matter ischemia. Electronically Signed: Sly Samson, at 19:14 EDT Tel , Service support ,
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
[2020-05-26 20:06] VITALS: BP 125/86; PULSE 76; RESP 18; O2SAT 97
[2020-05-26] MEDS: Ibuprofen 600 MG Tablet PO (20:24)
--- NOTE | 2020-05-26 20:27 | ED.RN ---
C-COLLAR REMOVED, PATIENT REMOVED FROM BACK BOARD PER DR. SANCHEZ'S REQUEST.
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
[2020-05-26 21:31] VITALS: BP 125/75; PULSE 71; RESP 16; O2SAT 97
== END 2020-05-26 21:31 | disposition home or self-care (01) ==
PROVIDERS: Emergency Provider Emergency Medicine; PCP Preventive Medicine Occupational Medicine
DX: S39.012A Strain of muscle, fascia and tendon of lower back, initial encounter (principal); S16.1XXA Strain of muscle, fascia and tendon at neck level, initial encounter; S09.90XA Unspecified injury of head, initial encounter; V49.40XA Driver injured in collision with unspecified motor vehicles in traffic accident, initial encounter; Y93.9 Activity, unspecified; Y92.9 Unspecified place or not applicable; Y99.9 Unspecified external cause status; I25.10 Atherosclerotic heart disease of native coronary artery without angina pectoris; E11.9 Type 2 diabetes mellitus without complications; I10 Essential (primary) hypertension; Z95.5 Presence of coronary angioplasty implant and graft; Z79.84 Long term (current) use of oral hypoglycemic drugs; Z79.02 Long term (current) use of antithrombotics/antiplatelets; Z79.82 Long term (current) use of aspirin; Z79.899 Other long term (current) drug therapy
CPT/HCPCS: 70450; 72100; 72125; 72170; 99285

== ENCOUNTER → 2020-07-08 07:20 | Outpatient (CLI) | payer MEDICARE, SELFPAY ==
[2020-07-08 08:35] LABS: AST(SGOT) 42 U/L (15-37); Alanine Aminotransfer ALT/SGPT 59 U/L (16-61); Albumin, Serum 3.7 g/dL (3.2-5.0); Alkaline Phosphatase 130 U/L (45-117); Bilirubin, Direct 0.22 mg/dL (0.00-0.30); Cholesterol 159 mg/dL (200); Globulin 4.4 g/dL (2.2-4.2); High Density Lipoprotein 40 mg/dL; Protein, Total 8.1 g/dL (6.4-8.2); Triglycerides 146 mg/dL; Very Low Density Lipoprotein 29 mg/dL (5-40)
== END ==
PROVIDERS: PCP Preventive Medicine Occupational Medicine; Referring Provider Internal Medicine Cardiovascular Disease; Visit Provider Internal Medicine Cardiovascular Disease
DX: E78.00 Pure hypercholesterolemia, unspecified (principal)
CPT/HCPCS: 36415; 80061; 80076

== ENCOUNTER → 2020-07-28 06:05 | Outpatient (CLI) | payer MEDICARE, SELFPAY ==
[2020-07-10 08:37] VITALS: BMI 29.2
--- NOTE | 2020-07-28 08:40 | STRESSREP_ITS ---
Stress Test Report Date: 07-28-2020 Procedure: Pharmacologic stress nuclear imaging study Indications: Chest pain; CAD; PCI Consent: Per the patient Procedure: The patient underwent pharmacologic (Regadenoson) evaluation with a peak heart rate of 96 beats per minute (64 %predicted maximal heart rate) and a peak blood pressure of 118/70 mmHg. The baseline ECG demonstrated sinus rhythm; right IVCD pattern. The peak pharmacologic ECG demonstrated no obvious ECG changes. [There were no cardiac dysrhythmias pretest, during pharmacologic infusion, or recovery]. [There was no complaint of chest discomfort during pharmacologic infusion or recovery]. The examination was discontinued secondary to completion of protocol. Impression: 1. Pharmacologic (Regadenoson) evaluation 2. Peak pharmacologic ECG with no obvious ECG changes. 3. [There were no cardiac dysrhythmias pretest, during pharmacologic infusion, or recovery]. 4. Nuclear images pending Myocardial perfusion imaging study: Technique: The patient was injected with 14.2 millicuries of technetium 99m Cardiolite and subsequently rest SPECT Cardiolite nuclear imaging was obtained in the horizontal long, vertical long, and short axis views. The patient underwent pharmacologic (Regadenoson) evaluation with a peak heart rate of 96 beats per minute (64 % percent predicted maximal heart rate) and a peak blood pressure of 118/70 mmHg. The patient was injected with 44.8 millicuries of technetium 99m Cardiolite and subsequently stress SPECT Cardiolite nuclear imaging was obtained in the horizontal long, vertical long, and short axis views. A gated Cardiolite study at peak stress was obtained. Interpretation: Rest and stress SPECT Cardiolite nuclear imaging status post realignment and normalization correction the appearance at rest of relative uniform tracer uptake. Status post stress there is an area of diminished tracer uptake in portions of the mid towards distal inferior segments. [There is end systolic thickening and brightening]. [The gated Cardiolite study demonstrates myocardial thickening and inward wall motion]. The reported LVEF is 82 %. Impression: 1. Rest and stress SPECT Cardiolite nuclear imaging demonstrate myocardial perfusion changes concerning for an area of stress-induced myocardial ischemia in portions of the mid to distal inferior segments. 2. The gated Cardiolite study reports an LVEF of 82 %. This note was generated with [employer] software. It may contain incorrect words, spelling, and punctuation that were not noted in checking the note before signing.
== END ==
PROVIDERS: PCP Preventive Medicine Occupational Medicine; Referring Provider Nurse Practitioner Family; Visit Provider Nurse Practitioner Family
DX: R07.9 Chest pain, unspecified (principal); I25.10 Atherosclerotic heart disease of native coronary artery without angina pectoris; Z95.5 Presence of coronary angioplasty implant and graft; I10 Essential (primary) hypertension; E78.5 Hyperlipidemia, unspecified
CPT/HCPCS: 78452; 93017; A9500; A4216; J2785

== ENCOUNTER 2020-08-15 07:26 | Day surgery (SDC) | payer MEDICARE, SELFPAY ==
[2020-07-10 08:37] VITALS: BMI 29.2
--- NOTE | 2020-08-05 07:27 | RAD_ITS ---
STUDY: X-RAY CHEST REASON FOR EXAM: Male, 74 years old. CAD, abn stress test, chest pain TECHNIQUE: PA and lateral views of the chest. COMPARISON: 11/05/2018 FINDINGS: There are interstitial fibrotic changes of the lung bases, worse since the prior study. There is no demonstrated pleural abnormality. Normal size heart. Normal mediastinum and omar. Normal visualized pulmonary arteries. Normal visualized aortic arch and descending thoracic aorta. There is demineralization of the osseous structures. Normal visualized ribs, clavicles, and shoulders. There is no demonstrated abnormality of the visualized soft tissue structures of the upper abdomen. RAD/Chest PA and Lateral IMPRESSION: Worsening bibasilar dominant interstitial fibrosis. No airspace consolidation. Electronically Signed: Danis Corey MD ([place]) at 15:27 EDT , Service support ,
[2020-08-05 08:25] LABS: Hematocrit 40.4 % (40-54); Hemoglobin 13.2 g/dL (13.0-16.5); Mean Corp Hgb Conc 32.7 g/dL (32-36); Mean Corpuscular Hgb 34.5 pg (27.0-32.0); Mean Corpuscular Volume 105.5 fL (80-94); Mean Platelet Vol. 10.6 fl (6.2-12.0); Platelet Count 222 K/mm3 (150-450); RBC Distribution Width CV 12.6 % (11.6-14.6); RBC Distribution Width SD 49.6 fl (35.1-43.9); Red Blood Count 3.83 M/mm3 (4.6-6.2); White Blood Count 4.9 K/mm3 (4.4-11.0)
[2020-08-05 08:31] LABS: Anion Gap 5 (5-15); BUN 17 mg/dL (7-18); BUN/Creat Ratio 16.3 RATIO (10-20); Calcium,Total 9.1 mg/dL (8.5-10.1); Chloride 105 mmol/L (98-107); Creatinine, Serum 1.04 mg/dL (0.70-1.30); EST Glomerular Filtration Rate 74 mL/min (>60); Est Glom Filt Rate - Afr Amer 90 mL/min (>60); Glucose 134 mg/dL (74-106); Potassium 4.9 mmol/L (3.5-5.1); Sodium Level 139 mmol/L (136-145)
[2020-08-05 08:41] LABS: Prothrombin Time (Protime)PT. 12.4 SECONDS (11.7-14.9)
[2020-08-05 08:42] LABS: Partial Thromboplast Time 29.8 Seconds (24.1-36.2)
[2020-08-14 07:28] VITALS: BMI 29.2
--- NOTE | 2020-08-15 07:30 | PCM.HP.BLA ---
<Balaji Nichols NP - Last Filed: 08/15/20 07:30> History and Physical Date of Admission: 08/15/20 KATHERINE MONK, is a 75 year old white male who presents to the [facility] today for a left heart catheterization post abnormal stress test. He has a history of coronary artery disease with stenting to his LAD in 2009 and 2013, hypertension, hyperlipidemia, COPD, and tobacco abuse. He expressed concerning symptoms during office appointment on 07/10/2020. He proceeded with stress test on 07/28/2020 that showed changes concerning for an area of stress-induced myocardial ischemia in portions of the mid to distal inferior segments. Because of his abnormal stress test and history of coronary arteries, he will proceed with heart catheterization. He denies arm, jaw, or neck discomfort. His exercise tolerance is stable. He denies symptoms of CHF, palpitations, dizziness, near syncope, or syncopal episodes. He denies edema or claudication issues. He denies PND, fever, chills, blood in urine, blood in stool, myalgia, or unexplainable fatigue. He states having lightheadedness with position changes. He states noting orthopnea with improved SOB at a higher incline. He states PND intermittently. He notes a productive cough. He states noting both GERD and increase SOB. He state his GERD symptom can occur with activity. He denies this after eating. He states this can occur when lying flat. He describes this as burning and hot water. He does acknowledge acid taste. He does acknowledge this discomfort on the left side of his chest. He states his SOB occurs with walking that improves with rest. He notes chest pain that appears to be worse since office visit on 07/10/2020. 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: No Accompanied by: None Is patient in pain?: No Allergies No Known Allergies Allergy (Verified 07/10/20 08:37) Medications See EMR [facility] Social History (Updated 07/10/20 @ 11:12 by DAVID DuarteC) Smoking Status: Never smoker how long ago did patient quit smokin-5 months ago second hand exposure: Yes alcohol intake: never substance use type: does not use caffeine: Yes Type: coffee Number of servings: 2 what type of physical activity do you participate in: none seatbelt use: always do you feel safe at home: Yes ROS Const Const: Negative for fatigue, weakness, body ache, fever(s) or chills ENT ENT: Negative for dizziness Cardio Chest Pain: Yes Palpitations: No Edema: None Muscle aches with walking: None Resp Respiratory: Positive for SOB with activity, SOB orthopnea\SOB lying down, Cough and paroxysmal nocturnal dyspnea; negative for SOB at rest GI GI: Positive for heartburn; negative nausea, vomiting blood/hematemesis, bright, red blood in stools or black,tarry stools : Negative for hematuria or frequent nighttime urination/ nocturia Musc Musc: Negative for muscle aches/ myalgia Skin Skin: Negative non-healing lesions or rash Neuro Neuro: Positive for lightheadedness; negative for dizziness, near syncope, syncope, orthostatic symptoms or weakness Endo Endo: Negative for fatigue Allergy Allergy/Immunology: Negative for rash Cardiology Exam Const Appearance: cooperative, healthy appearing, comfortable and no acute distress Nutritional Appearance: well nourished and overweight Orientation: alert, awake and oriented x3 Head Head: normal to inspection Ears: hearing grossly normal bilaterally Nose: external nose normal Face and Sinus: face symmetric Mouth: oral mucosae normal Eyes General: appearance normal, both eyes and all related structures Eyelids: eyelids normal EOM: EOM intact bilaterally Neck Neck: normal visual inspection and no JVD Carotids: normal carotid upstroke Chest Chest inspection: normal inspection of the chest, symmetric chest movement and normal respiratory effort; negative cough Auscultation: Bilateral: Clear to Auscultation Cardio Palpation: normal PMI Rate: regular rate Rhythm: regular rhythm Heart sounds: S1 normal and S2 normal; negative rub, gallop or murmur Murmur: Grade 1/6, soft, mid systolic and LLSB GI GI: normal to inspection Neuro General: alert, awake, oriented x3 and CN's II-XI intact bilaterally Skin Skin: no rashes or lesions noted Extremities Pulses: Normal: Right Posterior Tibial Pulse, Left Posterior Tibial Pulse, Right Radial Pulse, Left Radial Pulse Lower Extremity Edema: None: Bilateral Psych Psychological: normal affect Assessment & Plan 1. Atherosclerosis of [place] coronary artery of [place] heart without angina pectoris I25.10 Plan His last heart catheterization in January 2017 showed ejection fraction of 60% patent proximal to mid LAD stent, diagonal branch #1 with 85% stenosis followed by 25% stenosis which was thought to be too small to be stented, LCx with minimal luminal irregularities, intermediate ramus with minimal luminal irregularities, and RCA that was angiographically normal. His echocardiogram from January 2019 showed ejection fraction of 65%. Patient describes chest discomfort that he believes is GERD related. However, given that this tends to worsen with activity in conjunction with dyspnea on exertion and history of coronary disease, it was recommend he undergo a stress test to discern if chest discomfort is coronary artery disease related. Patient proceeded with a stress test on 07/28/2020 that was considered to be abnormal. He will proceed with heart catheterization. Based on results, further recommendation will be made. 2. Presence of stent in coronary artery Z95.5 [facility] w/ PCI/JUANY to mid LAD 09/19/10; PCI/JUANY mid LAD 12/21/13 Plan He will continue current medical therapy. He will continue risk factor and lifestyle modification. 3. Essential (primary) hypertension I10 Plan Patient's blood pressure is well-controlled. We will continue to monitor. We will not make any medication regimen changes. 4. Hyperlipidemia, unspecified hyperlipidemia type E78.5 Plan Lipid panel from 07/08/2020 showed cholesterol: 159, HDL: 40, LDL: 90, and triglycerides: 146. He will continue current high-dose statin medication. Thank you for allowing us to participate in the patients plan of care, if you have any questions please do not hesitate to call. This note was generated using a voice recognition system and there may be incorrect words, spelling or punctuation that were not noted when reviewing the office note prior to saving. Supplemental Information Heart catheterization from 02/04/2017: Final impression: 1. Mild elevation of the left ventricular end-diastolic pressure compatible decreased diastolic compliance 2. Left ventricle: A. Normal left ventricular size, wall motion, and systolic function B. Estimated LVEF of 60% 3. Left anterior descending coronary artery: A. Proximal calcification B. Proximal to mid stent patent with minimal luminal irregularities 4. Diagonal branch #1: A. Small caliber vessel with proximal to mid 85% hazy eccentric appearing stenosis followed by diffuse 25% appearing stenosis followed by bifurcation into 2 small bifurcating branches 5. Left circumflex coronary artery: A. Large dominant vessel B. Minimal luminal irregularities 6. Intermediate ramus coronary artery: A. Moderate sized long vessel B. Proximal minimal luminal irregularities 7. Right coronary artery A. Small nondominant vessel B. Angiographically normal Echocardiogram from 01/25/2019: Interpretation Summary Left ventricular systolic function is normal. The estimated ejection fraction is 65 %. Apical false tendon noted. Trivial mitral valve insufficiency. Trivial tricuspid valve insufficiency. Aortic sclerosis, no stenosis. Trivial pulmonic valve insufficiency. Right ventricular systolic pressure estimated to be 22 mmHg. No evidence for diastolic dysfunction. Stress Test Report Date: 07-28-2020 Procedure: Pharmacologic stress nuclear imaging study Indications: Chest pain; CAD; PCI Consent: Per the patient Procedure: The patient underwent pharmacologic (Regadenoson) evaluation with a peak heart rate of 96 beats per minute (64 %predicted maximal heart rate) and a peak blood pressure of 118/70 mmHg. The baseline ECG demonstrated sinus rhythm; right IVCD pattern. The peak pharmacologic ECG demonstrated no obvious ECG changes. [There were no cardiac dysrhythmias pretest, during pharmacologic infusion, or recovery]. [There was no complaint of chest discomfort during pharmacologic infusion or recovery]. The examination was discontinued secondary to completion of protocol. Impression: 1. Pharmacologic (Regadenoson) evaluation 2. Peak pharmacologic ECG with no obvious ECG changes. 3. [There were no cardiac dysrhythmias pretest, during pharmacologic infusion, or recovery]. 4. Nuclear images pending Myocardial perfusion imaging study: Technique: The patient was injected with 14.2 millicuries of technetium 99m Cardiolite and subsequently rest SPECT Cardiolite nuclear imaging was obtained in the horizontal long, vertical long, and short axis views. The patient underwent pharmacologic (Regadenoson) evaluation with a peak heart rate of 96 beats per minute (64 % percent predicted maximal heart rate) and a peak blood pressure of 118/70 mmHg. The patient was injected with 44.8 millicuries of technetium 99m Cardiolite and subsequently stress SPECT Cardiolite nuclear imaging was obtained in the horizontal long, vertical long, and short axis views. A gated Cardiolite study at peak stress was obtained. Interpretation: Rest and stress SPECT Cardiolite nuclear imaging status post realignment and normalization correction the appearance at rest of relative uniform tracer uptake. Status post stress there is an area of diminished tracer uptake in portions of the mid towards distal inferior segments. [There is end systolic thickening and brightening]. [The gated Cardiolite study demonstrates myocardial thickening and inward wall motion]. The reported LVEF is 82 %. Impression: 1. Rest and stress SPECT Cardiolite nuclear imaging demonstrate myocardial perfusion changes concerning for an area of stress-induced myocardial ischemia in portions of the mid to distal inferior segments. 2. The gated Cardiolite study reports an LVEF of 82 %. Procedure Criteria Procedure Type: Elective COVID Risk Discussion: The surgeon/proceduralist and patient have discussed in detail the risk of exposure to and/or potential harm posed by the COVID-19 virus with having a surgery/procedure at this time versus the risk of delaying the surgery/procedure. It is not possible to know either the risk of delaying the surgery or procedure or chance of getting an infection with perfect accuracy, but a joint decision was made between the patient and the surgeon/proceduralist to proceed at this time with the scheduled surgery/procedure as indicated on the consent form. <Karl Aguila - Last Filed: 08/15/20 08:27> History and Physical Addendum: I have re-examined the patient. There are no clinical changes since date of exam.
--- NOTE | 2020-08-15 11:02 | CL.D_ITS ---
Patient Name: KATHERINE MONK Study Date: 08/15/2020 Performing: Karl Aguila MD Ht: 70.86 inches 180 cm : 1945 Wt: 209.44 lbs 95 kg Age: 75 Gender: male BSA: 2.15 PROCEDURE(S) PERFORMED GR32-CJA/COR/LV CLINICAL PROFILE AND INDICATIONS Indications: Suspected CAD Heart Failure: None Stress/Imaging Date: 07/28/2020 Angina Classification Anginal Classification w/in 2 Weeks: CCS II CAD Presentations: Stable angina. CONCLUSIONS Elevated Left Ventricular End Diastolic Pressure Normal LV size, wall motion,and systolic function LVEF: by LV gram 65 % [place] Multivessel CAD LAD: stent: patent RECOMMENDATIONS Risk factor modification Medical therapy Case discussed / reviewed with Ann Marie Snyder MD of Interventional Cardiology DESCRIPTION OF PROCEDURE The patient arrived to the procedure lab. The risks and benefits of the procedure as well as a full d escription of our services here and current unavailability of surgical backup were fully explained to the patient and/or their significant other prior to the catheterization. The Timeout was completed, verifying the correct patient and procedure. The patient's procedural site was prepped and draped in the usual fashion. Local anesthetic was given subcutaneously to right radial region with Lidocaine 2% . Using a modified Seldinger technique, arterial access was obtained via the right radial artery, a 6 Fr sheath was inserted. Left Coronary Artery selective angiography was performed in multiple views u sing a 5 Fr. 4.0 [place] catheter. Right Coronary Artery selective angiography was then performed in mu ltiple views using a 5 Fr. 4.0 [place] catheter. Left Ventriculography was performed in [place] projection using a 5 Fr. Pig[place] catheter. LV to AO pullback pressures were then recorded.The arterial sheath was pulled and a TR Band was applied for hemostasis CORONARY ANGIOGRAPHY DOMINANCE: Left Dominant LEFT HEART ASSESSMENT Left Ventricular Ejection Fraction: by LV Gram 65 % Normal LV wall motion Elevated Left Ventricular End Diastolic Pressure LVEDP: 26 mmHg LEFT MAIN: Mild calcification, Angiographically normal LEFT ANTERIOR DESCENDING ARTERY: OSTIAL LAD: Mild calcification PROX LAD: Mild luminal irregularities MID LAD: Previously placed stent is patent with mild luminal irregularities DISTAL LAD: / apical: 85 % Stenosis DIAGONAL 1: Proximal - small caliber vessel: diffuse: 85 % Stenosis CIRCUMFLEX ARTERY: Mild luminal irregularities RAMUS: Mild luminal irregularities RIGHT CORONARY ARTERY: Angiographically normal AORTIC ROOT: Angiographically normal COMPLICATIONS No Complications PROCEDURE MEDICATIONS Fentanyl 50 mcg IV Versed 1 mg IV Oxygen: 2 L/min via nasal cannula Heparin diluted in 23cc Heparinized saline. Patient given 10cc IA of this solution. 08/15/2020 09:53: 29 Verapamil 2.5mg, Ntg 100mcgs, 2000 units of Heparin diluted in 23cc Heparinized saline. Patient give n 10cc IA of this solution. 08/15/2020 09:53:29 SUMMARY OF HEMODYNAMIC DATA Time AIR REST ECG 07:45:59 AO 114/67 (82) SA 09:52:31 LV 136/0, 26 10:05:43 LV 139/0, 26 10:05:49 LV 138/0, 30 10:06:41 LV 137/0, 28 10:06:47 LVp 136/-1, 27 10:06:51 AOp 125/73 (96) 10:06:56 Signed By Karl Aguila MD On 08/15/2020 11:01:00 Karl Aguila MD
== END 2020-08-15 12:05 | disposition home or self-care (01) ==
LOC: CLSP 07:26
PROVIDERS: PCP Preventive Medicine Occupational Medicine; Referring Provider Internal Medicine Cardiovascular Disease; Visit Provider Internal Medicine Cardiovascular Disease
DX: I25.118 Atherosclerotic heart disease of native coronary artery with other forms of angina pectoris (principal); I10 Essential (primary) hypertension; E78.5 Hyperlipidemia, unspecified; J44.9 Chronic obstructive pulmonary disease, unspecified; R06.02 Shortness of breath; K21.9 Gastro-esophageal reflux disease without esophagitis; R94.39 Abnormal result of other cardiovascular function study; Z79.84 Long term (current) use of oral hypoglycemic drugs; Z79.02 Long term (current) use of antithrombotics/antiplatelets; Z79.82 Long term (current) use of aspirin; Z79.899 Other long term (current) drug therapy; Z95.5 Presence of coronary angioplasty implant and graft; Z87.891 Personal history of nicotine dependence
CPT/HCPCS: 36415; 71046; 80048; 85027; 85610; 85730; 93458; 99152; 99153; J7040; Q9967; C1769; C1894

== ENCOUNTER → 2020-08-17 08:11 | Outpatient (CLI) | payer MEDICARE, SELFPAY ==
[2020-08-14 07:28] VITALS: BMI 29.2
[2020-08-17 09:26] LABS: Anion Gap 3 (5-15); BUN 11 mg/dL (7-18); BUN/Creat Ratio 10.8 RATIO (10-20); Calcium,Total 8.9 mg/dL (8.5-10.1); Chloride 105 mmol/L (98-107); Creatinine, Serum 1.02 mg/dL (0.70-1.30); EST Glomerular Filtration Rate 76 mL/min (>60); Est Glom Filt Rate - Afr Amer 92 mL/min (>60); Glucose 131 mg/dL (74-106); Potassium 4.4 mmol/L (3.5-5.1); Sodium Level 137 mmol/L (136-145)
== END ==
PROVIDERS: PCP Preventive Medicine Occupational Medicine; Referring Provider Internal Medicine Cardiovascular Disease; Visit Provider Internal Medicine Cardiovascular Disease
DX: R73.03 Prediabetes (principal)
CPT/HCPCS: 36415; 80048

== ENCOUNTER 2020-10-06 10:30 | Emergency (ER) | payer MEDICARE, SELFPAY ==
[2020-08-14 07:28] VITALS: BMI 29.2
[2020-10-06 10:31] VITALS: BP 126/76; PULSE 78; RESP 19; TEMP 36.3; O2SAT 98; BMI 29.5
--- NOTE | 2020-10-06 11:28 | EKG12_ITS ---
Test Reason : SOB Blood Pressure : / mmHG Vent. Rate : 074 BPM Atrial Rate : 074 BPM P-R Int : 176 ms QRS Dur : 102 ms QT Int : 390 ms P-R-T Axes : 034 032 020 degrees QTc Int : 432 ms Normal sinus rhythm Incomplete right bundle branch block Borderline ECG Confirmed by LADONNA GAMBLE, MAGO ([id number]), editorial clerk ZEE RANKIN ([id number]) on 10/09/2020 2:31:48 PM Referred By: MR Confirmed By:MAGO DOUGHERTY MD
--- NOTE | 2020-10-06 11:28 | RAD_ITS ---
STUDY: X-RAY CHEST REASON FOR EXAM: Male, 75 years old. SOB -- BODY ACHES -- COUGH TECHNIQUE: Single AP portable view of the chest. COMPARISON: 08/05/2020 FINDINGS: Alveolar opacity in the lower left lung which silhouettes left heart border consistent with lingular pneumonia. There is no demonstrated pleural abnormality. Normal size heart. Normal mediastinum and omar. Normal visualized pulmonary arteries. Normal visualized aortic arch and descending thoracic aorta. Normal visualized thoracic spine. Normal visualized ribs, clavicles, and shoulders. There is no demonstrated abnormality of the visualized soft tissue structures of the upper abdomen. RAD/Chest 1 View (Portable) IMPRESSION: Lingular pneumonia. Electronically Signed: Gunnar Marie MD at 12:13 EST Tel , Service support ,
[2020-10-06 11:36] VITALS: O2SAT 97
[2020-10-06 11:39] VITALS: BP 112/91; PULSE 72; RESP 22; O2SAT 97
[2020-10-06 11:50] LABS: Absolute Lymphocyte Count 1.19 X10^3/uL (0.83-4.51); Absolute Neutrophil Count 4.7 X10^3/uL (2.0-7.7); Basophil# 0.03 X10^3/uL; Basophil% 0.5 % (0-1); Eosinophil# 0.06 X10^3/uL; Hematocrit 41.8 % (40-54); Hemoglobin 13.5 g/dL (13.0-16.5); Lymphocyte # 1.19 X10^3/ul (4.0); Lymphocyte % 18.9 % (19-41); Mean Corp Hgb Conc 32.3 g/dL (32-36); Mean Corpuscular Hgb 33.8 pg (27.0-32.0); Mean Corpuscular Volume 104.5 fL (80-94); Mean Platelet Vol. 10.5 fl (6.2-12.0); Monocyte% 4.8 % (0-10); NRBC Flagged by Analyzer 0 % (0-5); Neutrophil # 4.67 X10^3/uL (2.7-7.7); Neutrophil % 74.3 % (47-70); Platelet Count 220 K/mm3 (150-450); RBC Distribution Width CV 12.9 % (11.6-14.6); RBC Distribution Width SD 49.2 fl (35.1-43.9); White Blood Count 6.3 K/mm3 (4.4-11.0)
[2020-10-06 12:00] LABS: ALB/GLOB Ratio 0.7 RATIO (0.9-2.4); AST(SGOT) 48 U/L (15-37); Alanine Aminotransfer ALT/SGPT 113 U/L (16-61); Albumin, Serum 3.4 g/dL (3.2-5.0); Alkaline Phosphatase 169 U/L (45-117); Anion Gap 3 (5-15); BUN 14 mg/dL (7-18); BUN/Creat Ratio 12.2 RATIO (10-20); Calcium,Total 9.2 mg/dL (8.5-10.1); Chloride 105 mmol/L (98-107); Creatinine, Serum 1.15 mg/dL (0.70-1.30); EST Glomerular Filtration Rate 66 mL/min (>60); Est Glom Filt Rate - Afr Amer 80 mL/min (>60); Estimated Creatinine Clearance 60.93 ml/min; Globulin 4.7 g/dL (2.2-4.2); Glucose 152 mg/dL (74-106); Partial Thromboplast Time 29.9 Seconds (24.1-36.2); Potassium 4.5 mmol/L (3.5-5.1); Protein, Total 8.1 g/dL (6.4-8.2); Prothrombin Time (Protime)PT. 12.5 SECONDS (11.7-14.9); Sodium Level 138 mmol/L (136-145)
[2020-10-06 12:11] LABS: Lactic Acid 1.5 mmol/L (0.4-1.9)
--- NOTE | 2020-10-06 12:29 | ED.VIS.URI ---
History of Present Illness Chief Complaint: Shortness of Breath Narrative: Patient presenting for evaluation secondary to cough body aches and nausea and vomiting. Patient reports that he tested positive for coronavirus 2 weeks ago. Since then he has been dealing with generalized illness, shortness of breath, cough and body aches. Over the course of the last 2 days however he feels that he is gotten somewhat worse and now it is associated with nausea and vomiting. Vomiting is nonbloody nonbilious. Shortness of breath is worse with ambulation and exertion. Denies any chest pain. Patient denies any productive sputum or hemoptysis associated with this. Review of systems otherwise negative. Past Medical History - Allergies and Home Meds Allergies/Adverse Reactions: Allergies No Known Allergies Allergy (Verified 10/06/20 10:31) Primary Care Physician: Keo Contrears DO [Primary Care Provider] - Prior records reviewed: Yes Past Medical History: - - Coronary artery disease, hypertension, hyperlipidemia, COPD Surgical History: angioplasty, - - Cardiac catheterization, Transurethral ablation w/ history of BPH, T+A. Smoking Status: Never smoker Alcohol: None Drugs: None - Family History Maternal Family History: Family History (Last Reviewed 01/24/20 @ 08:34 by Emilee Blanco) Father Myocardial infarction CVA (cerebral vascular accident) Brother Diabetes Family History: Reports: No pertinent history Paternal Family History: Family History (Last Reviewed 01/24/20 @ 08:34 by Emilee Blanco) Father Myocardial infarction CVA (cerebral vascular accident) Brother Diabetes Family History: Reports: Stroke Review of Systems All systems negative except as indicated General: Reports: Fever, Malaise, Sweats Eyes: Denies: Visual changes - bilaterally, Diplopia ENT: Denies: Rhinorrhea, Sore throat Cardiovascular: Denies: Chest pain, Palpitations Respiratory: Reports: Dyspnea, Cough Gastrointestinal: Reports: Nausea, Vomiting Genitourinary: Denies: Dysuria, Hematuria, Frequency Musculoskeletal: Denies: Back pain, Extremity Pain Skin: Denies: Rash, Wounds Neurological: Denies: Headache, Weakness, Numbness Physical Exam Vital Signs/Narrative: Vital Signs Temp Pulse Resp BP Pulse Ox 10/06/20 11:39 72 22 H 112/91 H 97 10/06/20 10:31 97.4 F L 78 19 H 126/76 H 98 Inital Vital Signs reviewed: Yes General: Well nourished, Well developed Head: Normocephalic, Atraumatic Eyes: Perrl, EOMI Ears: Normal external canal, TM's clear Nose: Normal Inspection, No Rhinorrhea Mouth/Throat: No Posterior Erythema, - - Mildly dry mucous membranes Neck: Supple, Nontender Cardiovascular: Regular rate, Regular rhythm, No murmurs Respiratory: No distress, CTA bilaterally, Chest nontender Abdomen: Soft, Nontender, Nondistended, Normal bowel sounds Back: Nontender, Normal Inspection Extremities: Nontender, No edema Skin: Normal color, No rash Neurological: Alert, Oriented x3, Cranial nerves II-XII grossly intact, Normal Strength, Normal Sensation Psychological: Normal affect Diagnostic/Tx/Re-eval Clinical Impression(s) from Imaging Studies Chest X-Ray 10/06/20 11:28 IMPRESSION: Lingular pneumonia. Electronically Signed: Gunnar Marie MD at 12:13 EST Tel , Service support , Laboratory Data 10/06/20 10/06/20 10/06/20 11:25 11:25 11:25 WBC 6.3 RBC 4.00 L Hgb 13.5 Hct 41.8 MCV 104.5 H MCH 33.8 H MCHC 32.3 RDW Std Deviation 49.2 H RDW Coeff of Rachel 12.9 Plt Count 220 MPV 10.5 Immature Gran % (Auto) 0.500 Neut % (Auto) 74.3 H Lymph % (Auto) 18.9 L [place] % (Auto) 4.8 Eos % (Auto) 1.0 Baso % (Auto) 0.5 Absolute Neuts (auto) 4.7 Absolute Lymphs (auto) 1.19 Nucleated RBC % 0 PT 12.5 INR 1.0 APTT 29.9 Sodium 138 Potassium 4.5 Chloride 105 Carbon Dioxide 30.0 Anion Gap 3 L BUN 14 Creatinine 1.15 Estim Creat Clear Calc 60.93 Est GFR (MDRD) Af Amer 80 Est GFR (MDRD) Non-Af 66 BUN/Creatinine Ratio 12.2 Glucose 152 H Lactic Acid Calcium 9.2 Total Bilirubin 0.90 AST 48 H ALT 113 H Alkaline Phosphatase 169 H Total Protein 8.1 Albumin 3.4 Globulin 4.7 H Albumin/Globulin Ratio 0.7 L 10/06/20 11:25 WBC RBC Hgb Hct MCV MCH MCHC RDW Std Deviation RDW Coeff of Rachel Plt Count MPV Immature Gran % (Auto) Neut % (Auto) Lymph % (Auto) [place] % (Auto) Eos % (Auto) Baso % (Auto) Absolute Neuts (auto) Absolute Lymphs (auto) Nucleated RBC % PT INR APTT Sodium Potassium Chloride Carbon Dioxide Anion Gap BUN Creatinine Estim Creat Clear Calc Est GFR (MDRD) Af Amer Est GFR (MDRD) Non-Af BUN/Creatinine Ratio Glucose Lactic Acid 1.5 Calcium Total Bilirubin AST ALT Alkaline Phosphatase Total Protein Albumin Globulin Albumin/Globulin Ratio - EKG Initial EKG Interpretation: - - Sinus rhythm at 74 with an incomplete right bundle branch block, isoelectric ST segments normal T waves normal CT and QTc intervals no evidence of acute ischemia or arrhythmia - Medical Decision Making Patient presented secondary to a worsening of his symptoms with coronavirus after 2 weeks. He is benign appearing, is not requiring supplemental oxygen. IV was established patient has no significant evidence of dehydration or electrolyte derangement. Chest x-ray by my personal review as well as radiology shows a lingular infiltrate. Patient was given Zofran and had improvement of his symptoms. I do not believe that the patient requires inpatient management at this point. Patient will be started on a course of azithromycin as an outpatient for his pneumonia. Patient will follow-up with primary care. ED Disposition - Plan for ED Patient: Disposition: Home or Assisted Living Diagnosis: Lingular pneumonia Instructions: Pneumonia Prescriptions: Azithromycin [Zithromax Z-Osmani] 250 mg PO UD #1 box Prescription Printed Ondansetron [Zofran Odt] 4 mg PO Q8H PRN PRN #10 tab PRN Reason: Nausea Prescription Printed Referrals: Keo Contreras DO [Primary Care Provider] - 3-5 Days
[2020-10-06 12:53] VITALS: BP 125/83; PULSE 74; RESP 18; O2SAT 99
--- NOTE | 2020-10-06 12:54 | ED.RN ---
THIS NURSE REVIEWED D/C INSTRUCTIONS WITH PT. PT VERBALIZED UNDERSTANDING OF INSTRUCTIONS. IV D/C. IV CATHETER INTACT. PT TOLERATED WELL. PT DENIES FURTHER NEEDS OR QUESTIONS AT THIS TIME
== END 2020-10-06 12:55 | disposition home or self-care (01) ==
PROVIDERS: Emergency Provider Emergency Medicine; PCP Preventive Medicine Occupational Medicine
DX: J44.0 Chronic obstructive pulmonary disease with (acute) lower respiratory infection (principal); J18.9 Pneumonia, unspecified organism; J44.9 Chronic obstructive pulmonary disease, unspecified; I25.10 Atherosclerotic heart disease of native coronary artery without angina pectoris; I10 Essential (primary) hypertension; E78.5 Hyperlipidemia, unspecified; Z79.02 Long term (current) use of antithrombotics/antiplatelets; Z79.82 Long term (current) use of aspirin; Z79.899 Other long term (current) drug therapy; Z87.01 Personal history of pneumonia (recurrent)
CPT/HCPCS: 71045; 80053; 83605; 85025; 85610; 85730; 87040; 93005; 99285; A4216

== ENCOUNTER → 2020-12-05 15:23 | Outpatient (CLI) | payer MEDICARE, SELFPAY ==
--- NOTE | 2020-12-05 15:00 | PET_ITS ---
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 COMPARISON EXAMINATION: CT of the chest, abdomen and pelvis report dated 11/09/20 INDEX LESION SIZE SUV INTERPRETATION Gastroesophageal junction-gastric cardia 38.6-mm (frame 178) 3.9 Fulfills quantitative criteria for viable neoplasm TECHNIQUE: Following the intravenous administration of 12.14 mCi of F-18 deoxyglucose, multiplanar image acquisitions of the neck, chest, abdomen and pelvis to level of mid thigh, obtained at one hour post radiopharmaceutical administration contemporaneously interpreted with the current CT of the neck, chest, abdomen and pelvis to level of mid thigh, dated 12/05/[address] of the chest, abdomen and pelvis report dated 11/09/20 reveal: SERUM GLUCOSE LEVEL: 120 mg/dl. HEIGHT: 71 inches. WEIGHT: 218 lbs. FINDINGS: 1. Increased glucose metabolism is defined at the level of the gastroesophageal junction-gastric cardia generating a calculated maximal standard uptake value of 3.9. The maximal axial diameter of the corresponding metabolic, morphologic abnormality on review of CT of the chest dated 12/05/19 is 38.6-mm (AP). 2. Normal physiologic distribution of the radiopharmaceutical is apparent in the hepatic (3.5) and splenic parenchyma, both renal units, bladder and visualized intestinal tract. The visualized portion of the cerebral cortex demonstrate symmetric and preserved glucose metabolism. Diffuse radiopharmaceutical concentration is noted in all four quadrants of the abdomen and pelvis. Prominent radiopharmaceutical concentration is observed in the lower pelvis which appears to represent pooling of the radiopharmaceutical within the prostatic urethra. Pertinent CT findings are as follows: CHEST: Che-cath placement is noted. There is atherosclerotic calcification defined in the thoracic aorta without evidence of dilatation-aneurysm formation. Coronary arterial calcification is observed. Bilateral axillary and scattered mediastinal soft tissue with fatty hilus is ametabolic. Interstitial changes defined in the bilateral mid-lower lung zones demonstrate no evidence of quantitatively significant increased FDG uptake. Emphysematous changes are manifest in the bilateral upper lung ac. ABDOMEN AND PELVIS: Colonic diverticulosis is encountered without evidence of diverticulitis. Intra-abdominal catheter placement is defined in the left anterior abdomen. There is atherosclerotic calcification defined in the abdominal aorta without evidence of dilatation-aneurysm formation. Pelvic arterial calcification is observed. Cortical cyst formation is demonstrated in the bilateral kidneys. Fat containing right and left inguinal hernias are observed. Bilateral inguinal soft tissue is ametabolic. SKELETAL: Degenerative changes are noted in the cervical, thoracic and lumbar spine. PET/PET/CT Tumor Base -Thigh Init IMPRESSION: 1. ABNORMAL EXAMINATION INDICATIVE OF MALIGNANT VIABLE NEOPLASM. 2. Increased FDG distribution observed in the distal esophagus, gastric cardia fulfills quantitative criteria for viable neoplasm. 3. No other quantitatively significant hypermetabolic abnormalities are noted. There is no definitive scintigraphic evidence of distant metastatic disease. Electronic Signature Gunnar Melo D.O. Accurate Quantification of SUVs for this report are calculated using the exclusive [employer]? Technology.??Exclusive [place]. Patent [employer]? Technology ([place].S. Patent No. [id number]). Electronically Signed: Gunnar Melo DO at 23:25 EST Tel , Service support ,
== END ==
PROVIDERS: PCP Preventive Medicine Occupational Medicine
DX: C16.0 Malignant neoplasm of cardia (principal); C15.8 Malignant neoplasm of overlapping sites of esophagus
CPT/HCPCS: 78815; A9552

== ENCOUNTER 2020-12-29 16:07 | Inpatient (IN) | payer MEDICARE, SELFPAY ==
[2020-12-29] VITALS (7 sets, daily range): BP systolic 103–131; BP diastolic 64–76; PULSE 87–103; RESP 16–25; TEMP 36.6–37.1; O2SAT 93–96; BMI 30.2
--- NOTE | 2020-12-29 16:11 | ED.RN ---
[facility] [phone]
--- NOTE | 2020-12-29 16:41 | EKG12_ITS ---
Test Reason : Blood Pressure : / mmHG Vent. Rate : 098 BPM Atrial Rate : 098 BPM P-R Int : 162 ms QRS Dur : 090 ms QT Int : 354 ms P-R-T Axes : 023 041 019 degrees QTc Int : 451 ms Normal sinus rhythm Normal ECG Confirmed by JOSE ALFREDO GAMBLE, SNOW ([id number]), senior technical editor OLEKSANDR CARMONA ([id number]) on 01/01/2021 12:17:16 PM Referred By: NALLELY Confirmed By:JUAN J VELIZ MD
--- NOTE | 2020-12-29 16:42 | CT_ITS ---
STUDY: CT ABDOMEN AND PELVIS WITH CONTRAST REASON FOR EXAM: Male, 75 years old. R/O PE. COUGH SOB X 3 WEEKS.. ESOPHAGEAL CA ON CHEMO RADIATION DOSAGE (If Supplied By Facility): CTDIvol = ( 16.88 ) mGy, DLP = ( 1924.76 ) mGycm TECHNIQUE: Transaxial images were obtained from the dome of the diaphragm to the symphysis pubis without oral contrast. IV 100mL Isovue-370 was administered. Sagittal and coronal images were reconstructed. Individualized dose optimization techniques were used for this CT. COMPARISON: 09/02/2018, PET scan 12/05/2020. FINDINGS: Limited views through the lung bases show fibrotic changes. Small right pleural effusion. Markedly abnormal appearance of the distal esophagus which is heterogeneously thickened. The liver appears to have a nodular surface pattern and there is enlargement of the left lobe. These findings suggest the possibility of cirrhosis. No focal liver mass. Grossly normal gallbladder, spleen and adrenal glands. Atrophy of the pancreas. No acute abnormalities of the kidneys. No definite stones. No hydronephrosis. Bilateral simple renal cysts, stable. Evaluation of the GI tract is limited by absence of oral contrast. Cannot exclude stomach wall thickening. No dilated loops of bowel or evidence for obstruction. Cannot exclude segmental thickening of the milligan of the small or large bowel. Cannot exclude enteritis or colitis. There is a left lower quadrant enterostomy tube terminating in the jejunum. Moderate diffuse fecal retention. Diverticulosis without definite diverticulitis. Appendix is not seen. There is diffuse atherosclerotic calcification of the abdominal aorta, without a demonstrated aneurysm. Normal inferior vena cava. Normal retroperitoneum. Normal urinary bladder. Normal abdominal wall. There are diffuse degenerative changes of the visualized lumbar spine. CT/Abdomen/Pelvis W IV Cont ONLY IMPRESSION: Heterogeneous thickening of the distal esophagus consistent with the stated history of esophageal cancer. Question of cirrhosis. No gross acute abnormality in the abdomen or pelvis. Electronically Signed: Benson Hopson MD at 18:59 EST , Service support ,
--- NOTE | 2020-12-29 16:43 | CT_ITS ---
STUDY: CTA CHEST REASON FOR EXAM: Male, 75 years old. COUGH,DYSPNEA. Although not indicated on this requisition, this patient is apparently known to have esophageal cancer based on review of multiple previous exams. Since this is not reported on the current history, please ensure close correlation history and previous studies. RADIATION DOSAGE (If Supplied By Facility): CTDIvol = ( 16.88 ) mGy, DLP = ( 1924.76 ) mGycm TECHNIQUE: The examination was performed with the intravenous administration of IV 100mL Isovue-370. Post-processing of the angiographic images was performed, with multiplanar reformation and 3D reconstruction. Individualized dose optimization techniques were used for this CT. COMPARISON: None. FINDINGS: Portable lateral Normal enhancement of the main pulmonary artery and right and left pulmonary arteries. Normal enhancement of the bilateral peripheral pulmonary arteries. There is no demonstrated pulmonary embolism. Normal thoracic aorta and visualized great vessels. There is no demonstrated aortic dissection. Normal heart and pericardium. Moderate diffuse mediastinal adenopathy. Normal visualized trachea and bronchi. The lungs are under expanded. There is evidence for centrilobular emphysema with numerous microcystic changes throughout the lungs widespread interstitial prominence is seen most consistent with fibrosis. Findings especially prominent in both mid and lower lung ac. Small right pleural effusion. Normal osseous structures. See separate report for CT of the abdomen and pelvis. CT/CTA Chest W/WO Contrast IMPRESSION: Normal CTA chest examination, without a demonstrated pulmonary embolism or arterial dissection. Severe chronic pulmonary disease with fibrosis. Small right pleural effusion. Adenopathy. Diffuse thickening of the esophageal wall consistent with a history of esophageal cancer. Electronically Signed: Benson Hopson MD at 19:07 EST , Service support ,
--- NOTE | 2020-12-29 16:45 | ED.DCSUM_ITS ---
- ER Visit Summary Date of Service: 12/29/20 Chief Complaint: Shortness of breath, abdominal pain History of Present Illness: The patient is a 75 M presenting with shortness of breath, abdominal pain. Patient has a history of localized gastric cancer. He was just discharged from [facility] on Friday. During that admission he was neutropenic. He has a J-tube that was changed during his recent admission. He was seen by his oncologist Dr. Coyne today. He was short of breath in the office. His pulse ox with ambulation is 86% with walking. He states he developed diarrhea yesterday. Dr. Coyne was concerned about volume overload. He has had shortness of breath with dry cough. He denies chest pain. Denies fever. He has had nausea without vomiting. Physical Examination: Vitals are stable. Patient is afebrile. Alert no acute distress. HEENT exam is unremarkable. Neck is supple. Lungs are clear and equal bilaterally. Heart is regular rate and rhythm. Abdomen is soft distended, diffuse tenderness, erythema around J-tube site Extremities are unremarkable. Skin is warm and dry. No focal neurologic deficit. Remainder of exam is unremarkable. Emergency Department Course and Treatment: EKG is sinus rhythm rate of 98 with no acute ischemic changes. CBC shows white count 16.5, hemoglobin 10.3. Chemistries show glucose 142. Alk phos 509, ALT 102, AST 102, lipase is normal. Troponin is negative. Lactic acid normal. Covid is negative. CTA chest shows Normal CTA chest examination, without a demonstrated pulmonary embolism or arterial dissection. Severe chronic pulmonary disease with fibrosis. Small right pleural effusion. Adenopathy. Diffuse thickening of the esophageal wall consistent with a history of esophageal cancer. CT abdomen shows heterogeneous thickening of the distal esophagus consistent with the stated history of esophageal cancer. Question of cirrhosis. No gross acute abnormality in the abdomen or pelvis. Discussed with hospitalist. Patient was given Rocephin and Lasix IV. J-tube was flushed without difficulty. Patient will be admitted. Disposition: Admission Impression: Abdominal wall cellulitis, fluid overload This note was generated with [employer] dictation software. It may contain incorrect words, spelling, and punctuation that were not noted in review of the chart prior to signing ED Disposition - Plan for ED Patient: Referrals: Keo Contreras DO [Primary Care Provider] -
[2020-12-29 17:37] LABS: Absolute Lymphocyte Count 1.81 X10^3/uL (0.83-4.51); Absolute Neutrophil Count 12.9 X10^3/uL (2.0-7.7); Basophil# 0.05 X10^3/uL; Basophil% 0.3 % (0-1); Eosinophil# 0.01 X10^3/uL; Eosinophils% 0.1 % (0-5); Hematocrit 32.7 % (40-54); Hemoglobin 10.3 g/dL (13.0-16.5); Lymphocyte # 1.81 X10^3/ul (4.0); Mean Corp Hgb Conc 31.5 g/dL (32-36); Mean Corpuscular Hgb 31.5 pg (27.0-32.0); Monocyte# 1.26 X10^3/uL; Monocyte% 7.6 % (0-10); NRBC Flagged by Analyzer 0.1 % (0-5); Neutrophil # 12.85 X10^3/uL (2.7-7.7); Neutrophil % 77.9 % (47-70); Platelet Count 162 K/mm3 (150-450); RBC Distribution Width CV 15.7 % (11.6-14.6); RBC Distribution Width SD 57.3 fl (35.1-43.9); Red Blood Count 3.27 M/mm3 (4.6-6.2); White Blood Count 16.5 K/mm3 (4.4-11.0)
[2020-12-29 17:45] LABS: Lactic Acid 1.6 mmol/L (0.4-1.9)
[2020-12-29 17:45] LABS: ALB/GLOB Ratio 0.6 RATIO (0.9-2.4); AST(SGOT) 102 U/L (15-37); Alanine Aminotransfer ALT/SGPT 102 U/L (16-61); Albumin, Serum 2.4 g/dL (3.2-5.0); Alkaline Phosphatase 509 U/L (45-117); Anion Gap 6 (5-15); BUN 14 mg/dL (7-18); BUN/Creat Ratio 16.3 RATIO (10-20); Chloride 106 mmol/L (98-107); Creatinine, Serum 0.86 mg/dL (0.70-1.30); EST Glomerular Filtration Rate 93 mL/min (>60); Est Glom Filt Rate - Afr Amer 112 mL/min (>60); Estimated Creatinine Clearance 81.48 ml/min; Globulin 4.1 g/dL (2.2-4.2); Glucose 142 mg/dL (74-106); Lipase 29 U/L (73-393); Potassium 4.2 mmol/L (3.5-5.1); Protein, Total 6.5 g/dL (6.4-8.2); Sodium Level 138 mmol/L (136-145)
--- NOTE | 2020-12-29 19:26 | HP.PCM_ITS ---
Problem List (1) Sepsis Status: Acute Qualifiers: Sepsis type: sepsis due to unspecified organism Sepsis acute organ dysfunction status: unspecified Qualified Code(s): A41.9 - Sepsis, unspecified organism (2) Abdominal wall cellulitis Status: Acute (3) Exertional dyspnea Status: Acute (4) Elevated LFTs Status: Acute (5) Esophageal cancer Status: Chronic Qualifiers: Malignant neoplasm of esophagus location: unspecified location Qualified Code(s): C15.9 - Malignant neoplasm of esophagus, unspecified (6) Borderline diabetes Status: Chronic (7) Essential hypertension Status: Chronic (8) Presence of stent in coronary artery Status: Chronic Comment: C w/ PCI/JUANY to mid LAD 09/19/10; PCI/JUANY mid LAD 12/21/13 (9) Nicotine dependence, cigarettes, uncomplicated Status: Chronic (10) Atherosclerotic heart disease of [place] coronary artery without angina pectoris Status: Chronic Qualifiers: [place] vs. transplanted heart: [place] heart Qualified Code(s): I25.10 - Atherosclerotic heart disease of [place] coronary artery without angina pectoris (11) Hyperlipidemia Status: Chronic Qualifiers: Hyperlipidemia type: unspecified Qualified Code(s): E78.5 - Hyperlipidemia, unspecified (12) COPD (chronic obstructive pulmonary disease) Status: Chronic Qualifiers: COPD type: unspecified COPD Qualified Code(s): J44.9 - Chronic obstructive pulmonary disease, unspecified History of Present Illness Date of Admission: 12/29/20 Chief Complaint: Dyspnea, cough x 3 weeks The patient is a 75 y/o M w/ PMHx: CAD s/p JUANY to mid LAD, Chronic COPD/Pulmonary fibrosis, BPH, HTN, HLD, Tobacco use, Hx Rheumatic Fever, Hypercalcemia hx, Diabetes mellitus type II, Localized esophageal cancer dx in 08/2020 with ongoing chemotherapy who presents to the [facility] ED on 12/29/20 with history of recent [facility] for neutropenia with J-tube change out with significant IVF administration with Dr. Coyne follow-up today with dyspnea with exertional hypoxia 86% and diarrhea onset over the last 24 hours prompting ED referral for evaluation concern for volume overload. In addition upon evaluation in the ED patient with significant cellulitic appearance, erythema of the aleah-J-tube abdominal wall with notable tenderness with palpation and does admit some sensation of distention to his abdomen. He denies any recent fevers, chills, nausea, emesis, alteration to sense of taste or smell, headaches. Work-up in the ED included 97.8, HR 103, BP 112/67, RR 16, 95% on RA, CBC w/ WBC 16.5, Hgb 10.3, Plts 162 with L shift, CMP with glucose 142, LA 1.6, AST/ALT 102/102, 509, Trop < 0.015, lipase 29, CTPA with no evidence of pulmonary emboli arterial dissection, severe chronic pulmonary disease with fibrosis, small right pleural effusion, adenopathy, diffuse thickening esophageal wall consistent with history of esophageal cancer, CT abdomen and pelvis with heterogeneous thicke enrike of the distal esophagus consistent with the stated history of esophageal cancer, questionable cirrhosis, no gross acute abnormalities of the abdomen or pelvis, blood culture x2 pending per ED, SARS rapid Covid antigen negative. Discussed patient presentation with the ED physician and some concern for aleah-J-tube cellulitis which is also a concern at outside tertiary facility with recent J-tube placement currently on Diflucan with plan continuation therefore patient administered IV Rocephin in the ED. Additionally discussed with ED physician and will obtain BNP with additional Lasix 40 mg IV x1 administration in the ED. Past Medical History Past Medical History (Chronic Problems): Chronic Problems (Last Updated 08/15/20 @ 13:04 by Emilee Blanco) Esophageal cancer (Chronic) Borderline diabetes (Chronic) Essential hypertension (Chronic) Presence of stent in coronary artery (Chronic ~12/21/13) [facility] w/ PCI/JUANY to mid LAD 09/19/10; PCI/JUANY mid LAD 12/21/13 Nicotine dependence, cigarettes, uncomplicated (Chronic) Atherosclerotic heart disease of [place] coronary artery without angina pectoris (Chronic) Angina pectoris (Chronic) Abnormal cardiovascular function (Chronic) Abnormal myocardial perfusion study (Chronic) [facility] use of drug (Chronic) Hyperlipidemia (Chronic) COPD (chronic obstructive pulmonary disease) (Chronic) Medical History: Medical History (Last Updated 08/15/20 @ 13:04 by Emilee Blanco) Essential hypertension (Chronic) I10 Presence of stent in coronary artery (Chronic) Onset Date: ~12/21/13 Z95.5 [facility] w/ PCI/JUANY to mid LAD 09/19/10; PCI/JUANY mid LAD 12/21/13 Nicotine dependence, cigarettes, uncomplicated (Chronic) F17.210 Chest pain (Acute) R07.9 Atherosclerotic heart disease of [place] coronary artery without angina pectoris (Chronic) I25.10 Angina pectoris (Chronic) I20.9 Abnormal cardiovascular function (Chronic) R94.30 Abnormal myocardial perfusion study (Chronic) R94.39 [facility] use of drug (Chronic) Z79.899 Hyperlipidemia (Chronic) E78.5 COPD (chronic obstructive pulmonary disease) (Chronic) J44.9 Unstable angina pectoris (Acute) BPH (benign prostatic hyperplasia) History of rheumatic fever Z86.79 Tobacco use Z72.0 History of left heart catheterization (LHC) Onset Date: ~08/15/20 Z98.890 LEFT MAIN: Mild calcification, Angiographically normal; LEFT ANTERIOR DESCENDING ARTERY:OSTIAL LAD: Mild calcification, PROX LAD: Mild luminal irregularities, MID LAD: Previously placed stent is patent with mild luminal irregularities, DISTAL LAD: / apical: 85 % Stenosis; DIAGONAL 1: Proximal - small caliber vessel: diffuse: 85 % Stenosis; CIRCUMFLEX ARTERY: Mild luminal irregularities, RAMUS: Mild luminal irregularities, RIGHT CORONARY ARTERY: Angiographically normal; AORTIC ROOT:Angiographically normal per cath 08/15/20 Hypercalcemia (Resolved) E83.52 Coronary artery disease (Inactive) I25.10 Allergies No Known Allergies Allergy (Verified 12/29/20 16:11) Home Medications: Ambulatory Orders Medication Instructions Recorded Aspirin E.C. [Ecotrin] 81 mg PO DAILY 09/02/18 Metformin HCl [Metformin ER 500 mg PO DAILY 01/17/20 Gastric] pravastatin 80 mg tablet 80 mg PO QHS #90 tab 01/24/20 clopidogrel 75 mg tablet 75 mg PO QDAY #90 tab 06/22/20 metoprolol tartrate 25 mg tablet 12.5 mg PO BID #90 tab 06/22/20 isosorbide mononitrate 30 mg 30 mg PO QAM #30 tab 08/17/20 tablet,extended release 24 hr nitroglycerin 0.4 mg sublingual 0.4 mg SUBLINGUAL Q5-15M PRN #25 08/17/20 tablet tab Azithromycin [Zithromax Z-Osmani] 250 mg PO UD #1 box 10/06/20 Ondansetron [Zofran Odt] 4 mg PO Q8H PRN PRN #10 tab 10/06/20 Surgical History: Surgical History (Last Reviewed 01/24/20 @ 08:34 by Emilee Blanco) Presence of coronary angioplasty implant and graft Onset Date: ~12/21/13 Z95.5 [facility] w/ PCI/JUANY to mid LAD 09/19/10; PCI/JUANY mid LAD 12/21/13 S/P PTCA (percutaneous transluminal coronary angioplasty) Z98.61 [facility] w/ PCI/JUANY to mid LAD 09/19/10; PCI/JUANY mid LAD 12/21/13 S/P drug eluting coronary stent placement (Inactive) Z95.5 Surgical History: angioplasty, - - PCI, tonsillectomy, Transurethral ablation w/ history of BPH, J-tube placement. Psychiatric History: No pertinent psych hx Lives: Alone - Patient lives alone but notes that he has a RN aide currently who resides there to. Smoking Status: Former smoker - Patient quit cigarette tobacco usage approximately 2 months prior to current presentation with prior to this 1 pack/day since he was nearly 12 years old. Tobacco Use: Non-smoker Alcohol: None Drugs: None - *Family History Maternal Family History: Family History (Last Reviewed 01/24/20 @ 08:34 by Emilee Blanco) Father Myocardial infarction CVA (cerebral vascular accident) Brother Diabetes History Items: Heart Disease Paternal Family History: Family History (Last Reviewed 01/24/20 @ 08:34 by Emilee Blanco) Father Myocardial infarction CVA (cerebral vascular accident) Brother Diabetes History Items: High Cholesterol, Heart Disease, Hypertension, Stroke Review of Systems Constitutional: Reports: Anorexia, Malaise, Weakness, Fatigue. Denies: Chills, Fever, Weight Change HEENT: Denies: Head Aches, Sinus Congestion, Sinus Drainage Cardiovascular: Denies: Chest Pain, Palpitations Respiratory: Reports: Cough, Shortness of Breath, Shortness of breath upon exertion. Denies: Shortness of breath at rest, Sputum production Gastrointestinal: Reports: Abdominal Pain, Diarrhea. Denies: Nausea, Vomiting Genitourinary: Denies: Dysuria Musculoskeletal: Reports: Back Pain, Joint Pain. Denies: Joint Tenderness Skin: Reports: Skin Changes. Denies: Rash, Wounds Neurological: Denies: Numbness, Tingling, Focal weakness Psychiatric: Denies: Anxiety, Depression, Homicidal Ideations, Suicidal Ideations Hematologic/ Lymphatic: Reports: Easy Bruising, Easy Bleeding VTE Information - Inpt Only VTE Present on Admission: No VTE Mechan Device Prophylaxis: SCD's VTE Pharm Prophylaxis ordered?: Yes Subjective: Patient seated upright in the ED bed, fatigued appearance, no acute complaints except noting he needs to use the bathroom. Objective: Physical Examination: General: awake, alert, oriented x 3 and cooperative, seated upright in the ED bed in no apparent distress. Skin: normal color, turgor, no icterus, cyanosis except significant aleah-J-tube skin irritation, erythema, tender to palpation, warm to touch, surgical incisions well appearing without drainage. HEENT: AT/NC, EOMI, PERRLA, moderately dry MM, no carotid bruits or JVD noted. Lungs: CTA bilaterally, moderate effort, mild decrease BL bases, no rales, ronchi or wheezing. Heart: Mildly tachycardic with regular rhythm; no gallop, rub audible. Abdomen: soft, mildly tender to palpation generally but discomfort primarily in regions of cellulitic change, moderately distended, mildly hyperactive bowel sounds, difficult to assess HSM given distention. Extremities: no cyanosis or clubbing, bilateral pedal to distal flores 1+ pitting edema. Neurological: patient awake, alert, oriented as noted; cognitive function intact; pupils equally reactive to light and accomodation; cranial nerves II-XII grossly normal, moving all 4 extremities, no focal deficits, strength severely globally decreased secondary to acute presentation and complaints. Psychiatric: affect appears fatigued otherwise normal, no acute evidence of depressive or anxiety feelings. - Physical Exam Vitals/I&O's: Vital Signs Temp Pulse Resp BP Pulse Ox 97.8 F 94 25 H 111/64 95 12/29/20 16:07 12/29/20 18:18 12/29/20 18:18 12/29/20 18:18 12/29/20 18:18 Oxygen Delivery Method Room Air Weight: 217 lb Body Mass Index (BMI) 30.2 Microbiology Past 72 Hours 12/29/20 17:00 Mucosa - Nose SARS-CoV-2 Antigen (Rapid) - Final Laboratory Results 12/29/20 17:00: WBC 16.5 H, RBC 3.27 L, Hgb 10.3 L, Hct 32.7 L, MCV 100.0 H, MCH 31.5, MCHC 31.5 L, RDW Std Deviation 57.3 H, RDW Coeff of Rachel 15.7 H, Plt Count 162, MPV 11.0, Immature Gran % (Auto) 3.100 H, Neut % (Auto) 77.9 H, Lymph % (Auto) 11.0 L, Centre % (Auto) 7.6, Eos % (Auto) 0.1, Baso % (Auto) 0.3, Absolute Neuts (auto) 12.9 H, Absolute Lymphs (auto) 1.81, Nucleated RBC % 0.1 12/29/20 17:00: Lactic Acid 1.6 12/29/20 17:04: Sodium 138, Potassium 4.2, Chloride 106, Carbon Dioxide 26.0, Anion Gap 6, BUN 14, Creatinine 0.86, Estim Creat Clear Calc 81.48, Est GFR (MDRD) Af Amer 112, Est GFR (MDRD) Non-Af 93, BUN/Creatinine Ratio 16.3, Glucose 142 H, Calcium 8.0 L, Total Bilirubin 0.60, AST 102 H, ALT 102 H, Alkaline Phosphatase 509 H, Troponin I < 0.015, Total Protein 6.5, Albumin 2.4 L, Globulin 4.1, Albumin/Globulin Ratio 0.6 L, Lipase 29 L Assessment/Plan All Active Problems (Last Updated 08/15/20 @ 13:04 by Emilee Blanco) Exertional dyspnea (Acute) Elevated LFTs (Acute) Abdominal wall cellulitis (Acute) Sepsis (Acute) Rash (Acute) Chest pain (Acute) Unstable angina pectoris (Acute) Hypercalcemia (Resolved) The patient is a 75 y/o M w/ PMHx: CAD s/p JUANY to mid LAD, Chronic COPD/Pulmonary fibrosis, BPH, HTN, HLD, Tobacco use, Hx Rheumatic Fever, Hypercalcemia hx, Diabetes mellitus type II, Localized esophageal cancer dx in 08/2020 with ongoing chemotherapy who presents to the [facility] ED on 12/29/20 with history of recent [facility] for neutropenia with J-tube change out with significant IVF administration with Dr. Coyne follow-up today with dyspnea with exertional hypoxia 86% and diarrhea onset over the last 24 hours prompting ED referral for evaluation concern for volume overload. 1. Exertional dyspnea, unclear etiology with hypoxia, BL LE edema new onset, ? Acute Decompensated CHF, Unclear type versus Acute Liver Disease Component (see #2): CTPA with no evidence of pulmonary emboli arterial dissection, severe chronic pulmonary disease with fibrosis, small right pleural effusion, adenopathy, diffuse thickening esophageal wall consistent with history of esophageal cancer. Patient administered IV lasix in the ED, will admit to PCU, maintain on cardiac telemetry, obtain cardiac enzyme series, obtain serial EKGs, continue gentle IV lasix diuresis, monitor I/Os, continue medical therapy, obt ain TSH and magnesium level. Most recent ECHO noted 01/25/19 thus will request repeat with noted at that time normal LV systolic function, EF 65%, trivial MVI, trivial TVI, aortic sclerosis with no stenosis, trivial PVI, RVSP 22 mmHg with at that time no evidence for diastolic dysfunction. Rapid covid negative, will obtain respiratory viral panel to be cautious as well as COVID PCR. Also if recurrent diarrhea will obtain C. difficile and enteric pathogen's. 2. Elevated LFTs: Admission AST/ALT 102/102, alk phos 509, previously some elevation but significantly further elevated, unclear if related with chemo as ongoing treatment for esophageal cancer diagnosed August,, will continue treatments as noted above as possibly related with mild overload again awaiting BNP and no significant overload noted on CTPA but does have lower extremity edema and dyspnea. CT abdomen and pelvis does comment on the liver appearing nodular with enlargement of the left lobe but no specific mass there very cautious will obtain liver ultrasound to be thorough. Will obtain coags additionally. Coags requested. 3. Known esophageal cancer: Patient with ongoing chemotherapy, associated anemia secondary, CT as noted, will obtain magnesium and phosphorus levels with repletion as needed, will consult speech therapy to continue to evaluate oral intake, J-tube in place and will clarify usage. 4. Acute Sepsis secondary to Acute Aleah-J-Tube Abdominal Wall Cellulitis: We will continue patient Diflucan and will initiate and continue on Rocephin given appearance and elevated WBC with left shift, will consult wound RN, if able to will obtain wound culture but no discharge currently, continue monitor erythema outline and perform localized wound and skin care. 5. Macrocytic anemia: Admission hemoglobin 10.3, MCV 100, prior hemoglobin noted 10/06/20202012.5, possibly related with recent onset chemotherapy with cancer, will continue to trend CBC, will obtain vitamin B12 and folic acid levels. 6. Chronic COPD/pulmonary fibrosis: Complicates presentation given #1, will continue to encourage head of bed, I-S, as needed albuterol, head of bed. 7. CAD: Status post PCI, will continue aspirin, Plavix, statin, metoprolol regimen. 8. Hypertension: Continue home regimen including metoprolol, isosorbide with hold parameters, PRN hydralazine. 9. Hyperlipidemia: Continue home statin regimen. AM FLP. 10. Diabetes mellitus type II: Hold oral home regimen, diet per patient home parameters, accu checks w/ ISS. 11. DVT prophylaxis: SCDs, Lovenox. 12. CODE status: Patient notes that his daughter Suzanna Castellano is his healthcare power of daycare teacher and living will is in place. Discussed CODE status at length including difference between FULL code, DNR-CCA and DNR-CC status. Following discussions about the differences in these status, requested DNR-CCA, no intubation. Advanced Care Planning Face to Face Time: 16 minutes. Inpatient E&M: 77644 Init Hosp L3 Procedures: 35111 Advncd Care Plan 30 Min
[2020-12-29] MEDS: Furosemide 40 MG/4 ML Vial IV (19:47)
--- NOTE | 2020-12-29 19:50 | ED.RN ---
J tube flushed easily with 20 ml luke-warm water. Skin around tube is red and warm. Patient states the skin feels painful. Tolerated procedure well. GODWIN
[2020-12-29] MEDS: Ceftriaxone 1 GM/50 ML BAG IV (20:07)
[2020-12-29 20:19] LABS: BNP,B-Type NATRIURETIC PEPTIDE 35.6 pg/mL (0-100)
[2020-12-29 20:45] LABS: Bacteria 0 SEEN /hpf (None Seen); Mucous, Urine 0 SEEN /hpf (<or=2+); Red Blood Cells-Urine 0 SEEN /hpf (0-5)
[2020-12-29 20:46] LABS: Color, Urine Yellow (Yellow); Glucose, Dipstick Normal (Normal); Ketone-Dipstick Negative (Negative); Leukocyte Esterase-Dipstick Negative /ul (Negative); Nitrite-Dipstick Negative (Negative); Occult Blood-Urine Negative /ul (Negative); Protein-Dipstick Negative (Negative); Specific Gravity, Urine 1.005 (1.002-1.030); Urine Bilirubin Dipstick Negative (Negative); Urine Clarity Clear (Clear); Urine Urobilinogen Normal (Normal)
[2020-12-29 20:52] LABS: Squamous Epithelial Cells - UA 0-5 SEEN /hpf (0-5); White Blood Cells 0-5 SEEN /hpf (0-5)
--- NOTE | 2020-12-29 21:01 | NURSING ---
meera pimentel, , called and updated regarding admit, meds and cellulitis/FVO. She is aware the rapid covid neg but awaiting the PCR which takes longer to get back so likely wont move up to PCU until closer to 3-4 hours from there. She will call PCU in morning , when she wakes up, for updates.
--- NOTE | 2020-12-29 23:58 | ECHOCS_ITS ---
Reason For Study: CHF Procedure This was a 2D Doppler, Color Flow transthoracic echocardiogram. The study was technically difficult. Exam performed portable in patient room. Left Ventricle Normal left ventricle. The estimated ejection fraction is 75 %. No evidence for diastolic dysfunction. No regional wall motion abnormalities noted. Right Ventricle Normal RV size. Normal systolic function. Atria Normal left atrium. Normal right atrium. No doppler evidence for ASD. Mitral Valve There is no mitral valve stenosis. No mitral valve insufficiency. Tricuspid Valve There is no tricuspid stenosis. Unable to estimate RV systolic pressure due to inadequate jet, pulmonary artery pressure probably normal. No tricuspid valve insufficiency. Aortic Valve Trisinus/trileaflet aortic valve. There is no aortic stenosis. No aortic valve insufficiency. Pulmonic Valve There is no pulmonic valvular stenosis. No pulmonic valve insufficiency. Great Vessels Normal aortic root. Pericardium/Pleural No pericardial effusion. Medication Diluted definity 2ml given slow IV push to enhance endocardial definition. MMode/2D Measurements & Calculations LVIDd: 3.1 cm IVSd: 1.3 cm Ao root diam: 3.6 cm LVIDs: 1.4 cm LVPWd: 1.1 cm RVDd: 3.1 cm FS: 54.4 % LA dimension(2D): 2.8 cm Doppler Measurements & Calculations MV E max xavier: 58.6 cm/sec Lat Peak E' Xavier: 9.5 cm/sec Med Peak E' Xavier: 4.3 cm/sec MV A max xavier: 113.7 cm/sec E/E' lat: 6.2 E/E' med: 13.7 MV E/A: 0.52 Ao V2 max: 138.8 cm/sec LV V1 max: 113.9 cm/sec PA V2 max: 109.6 cm/sec Ao max P.7 mmHg LV V1 max P.2 mmHg TR max xavier: 235.8 cm/sec TR max P.2 mmHg Interpretation Summary The estimated ejection fraction is 75 %. No evidence for diastolic dysfunction. The study was technically difficult. Contrast injection was performed. Ordering Physician: Cornelia Varela Referring Physician: Keo Contreras Performed By: Yoselin Eli RDCS
[2020-12-30] VITALS (12 sets, daily range): BP systolic 92–103; BP diastolic 57–66; PULSE 73–113; RESP 14–18; TEMP 35.9–37; O2SAT 93–97; BMI 29.4
[2020-12-30 00:36] LABS: Magnesium 1.9 mg/dL (1.6-2.6); Phosphorus 2.3 mg/dL (2.5-4.9)
[2020-12-30 00:38] LABS: Prothrombin Time (Protime)PT. 13.1 SECONDS (11.7-14.9)
[2020-12-30 00:39] LABS: Partial Thromboplast Time 33.7 Seconds (24.1-36.2)
[2020-12-30] MEDS: Metoprolol Tartrate 25 MG Tablet 12.5 MG PO ×3 (01:06→22:03)
[2020-12-30] MEDS: Famotidine 20 MG Tablet PO ×3 (01:06→21:52)
[2020-12-30] MEDS: Pravastatin 80 MG Tablet PO ×2 (01:06→21:52)
[2020-12-30 01:16] LABS: Bedside Glucose 127 mg/dL (70-110)
[2020-12-30] MEDS: 0.9% Saline Lock 10 ML Syringe IV ×4 (03:57→22:38)
--- NOTE | 2020-12-30 05:55 | US_ITS ---
STUDY: ABDOMINAL ULTRASOUND - RIGHT UPPER QUADRANT REASON FOR VISIT: Male, 75 years old ELEVATED LFTS- ABNORMAL CT TECHNIQUE: Ultrasound evaluation of the right upper quadrant was performed with real-time and static mcmahon-scale imaging. TECHNICAL QUALITY: Adequate. COMPARISON: 02/08/2016, CT 12/29/2020 FINDINGS: Liver: The liver measures 16.0 cm. There is a heterogeneous echogenicity of the liver. The bile ducts are within normal limits. There is hepatic color flow. The direction of portal flow is hepatopetal. There is no demonstrated mass lesion. Gallbladder: Normal distended gallbladder. The gallbladder wall measures 2 mm. There is a negative sonographic Florence''s sign. There is no pericholecystic fluid. There are no gallstones. Common Bile Duct (C.B.D.): The common bile duct measures 4 mm. Pancreas: Normal size of the head, body and tail of the pancreas. There is normal echogenicity of the pancreas. There is no demonstrated pancreatic mass or cyst. Right Kidney: Normal size of the right kidney. The right kidney measures 12.7 cm. Normal renal cortex. The right cortex measures 1.6 cm. 3 cm cyst in the upper pole the right kidney. 2 cm cyst lower pole right kidney. There is no right hydronephrosis. US/Liver IMPRESSION: Cirrhosis but no hepatic mass Electronically Signed: Gunnar Marie MD at 9:01 EST Tel , Service support ,
[2020-12-30 06:56] LABS: Absolute Lymphocyte Count 1.44 X10^3/uL (0.83-4.51); Absolute Neutrophil Count 7.8 X10^3/uL (2.0-7.7); Basophil# 0.02 X10^3/uL; Basophil% 0.2 % (0-1); Eosinophil# 0.01 X10^3/uL; Eosinophils% 0.1 % (0-5); Hematocrit 32.1 % (40-54); Hemoglobin 10.1 g/dL (13.0-16.5); Lymphocyte # 1.44 X10^3/ul (4.0); Mean Corp Hgb Conc 31.5 g/dL (32-36); Mean Corpuscular Hgb 31.7 pg (27.0-32.0); Mean Corpuscular Volume 100.6 fL (80-94); Monocyte# 0.74 X10^3/uL; Monocyte% 7.2 % (0-10); NRBC Flagged by Analyzer 0.2 % (0-5); Neutrophil # 7.81 X10^3/uL (2.7-7.7); Platelet Count 158 K/mm3 (150-450); RBC Distribution Width CV 15.7 % (11.6-14.6); RBC Distribution Width SD 56.9 fl (35.1-43.9); Red Blood Count 3.19 M/mm3 (4.6-6.2); White Blood Count 10.3 K/mm3 (4.4-11.0)
[2020-12-30 07:05] LABS: Bedside Glucose 122 mg/dL (70-110)
[2020-12-30 08:10] LABS: ALB/GLOB Ratio 0.5 RATIO (0.9-2.4); AST(SGOT) 64 U/L (15-37); Alanine Aminotransfer ALT/SGPT 76 U/L (16-61); Albumin, Serum 2.1 g/dL (3.2-5.0); Alkaline Phosphatase 454 U/L (45-117); Anion Gap 4 (5-15); BUN 13 mg/dL (7-18); BUN/Creat Ratio 15.8 RATIO (10-20); Calcium,Total 8.4 mg/dL (8.5-10.1); Chloride 105 mmol/L (98-107); Cholesterol 92 mg/dL (200); Creatinine, Serum 0.82 mg/dL (0.70-1.30); EST Glomerular Filtration Rate 97 mL/min (>60); Est Glom Filt Rate - Afr Amer 118 mL/min (>60); Estimated Creatinine Clearance 85.45 ml/min; Globulin 4.1 g/dL (2.2-4.2); Glucose 118 mg/dL (74-106); High Density Lipoprotein 12 mg/dL; Potassium 4.2 mmol/L (3.5-5.1); Protein, Total 6.2 g/dL (6.4-8.2); Sodium Level 138 mmol/L (136-145); T4 Free Direct 1.15 ng/dL (0.76-1.46); Thyroid Stim Hormone (TSH) 1.98 uIU/mL (0.358-3.74); Triglycerides 228 mg/dL; Very Low Density Lipoprotein 46 mg/dL (5-40)
[2020-12-30] MEDS: Enoxaparin 40 MG/0.4 ML Syringe SC (09:27)
[2020-12-30] MEDS: Clopidogrel Bisulfate 75 MG Tablet PO (09:27)
[2020-12-30] MEDS: Furosemide 40 MG/4 ML Vial IV ×2 (09:27→18:14)
[2020-12-30] MEDS: Isosorbide Mononitrate 30 MG Tablet PO (09:27)
[2020-12-30] MEDS: Aspirin E.C. 81 MG Tablet PO (09:27)
[2020-12-30] MEDS: Acetaminophen 325 MG Tablet 650 MG PO ×2 (10:19→21:51)
[2020-12-30] MEDS: Insulin Lispro 100 UNIT/ML INSULN.PEN SC ×2 (11:43→21:52)
[2020-12-30 11:50] LABS: Bedside Glucose 223 mg/dL (70-110)
--- NOTE | 2020-12-30 12:22 | PCM.NTREPORT ---
Nutrition Therapy Report - History Nutrition Services has been consulted to:: Manage nutrient details of diet order, Manage enteral nutrition Current diet / nutrition support order:: cardiac, 1800 calorie controlled, regular/thin liquids; ensure enlive 120mL 4x/day - Anthropometric Measurements Height:: 5 ft 11 in Weight:: 95.7 kg Body Mass Index (BMI):: 29.4 - Relevant Labs Relevant Labs:: WBC 16.5 K/mm3 (4.4-11.0) H 12/29/20 17:00 RBC 3.19 M/mm3 (4.6-6.2) L 12/30/20 06:30 Hgb 10.1 g/dL (13.0-16.5) L 12/30/20 06:30 Hct 32.1 % (40-54) L 12/30/20 06:30 MCV 100.6 fL (80-94) H 12/30/20 06:30 MCHC 31.5 g/dL (32-36) L 12/30/20 06:30 RDW Std Deviation 56.9 fl (35.1-43.9) H 12/30/20 06:30 RDW Coeff of Rachel 15.7 % (11.6-14.6) H 12/30/20 06:30 Immature Gran % (Auto) 2.500 % (0.0-0.9) H 12/30/20 06:30 Neut % (Auto) 76.0 % (47-70) H 12/30/20 06:30 Lymph % (Auto) 14.0 % (19-41) L 12/30/20 06:30 Absolute Neuts (auto) 7.8 X10^3/uL (2.0-7.7) H 12/30/20 06:30 Anion Gap 4 (5-15) L 12/30/20 06:30 Glucose 118 mg/dL (74-106) H 12/30/20 06:30 Calcium 8.4 mg/dL (8.5-10.1) L 12/30/20 06:30 Phosphorus 2.3 mg/dL (2.5-4.9) L 12/29/20 17:04 AST 64 U/L (15-37) H 12/30/20 06:30 ALT 76 U/L (16-61) H 12/30/20 06:30 Alkaline Phosphatase 454 U/L (45-117) H 12/30/20 06:30 Total Protein 6.2 g/dL (6.4-8.2) L 12/30/20 06:30 Albumin 2.1 g/dL (3.2-5.0) L 12/30/20 06:30 Albumin/Globulin Ratio 0.5 RATIO (0.9-2.4) L 12/30/20 06:30 Triglycerides 228 mg/dL (-199) H 12/30/20 06:30 VLDL Cholesterol 46 mg/dL (5-40) H 12/30/20 06:30 HDL Cholesterol 12 mg/dL (40-) L 12/30/20 06:30 Lipase 29 U/L (73-393) L 12/29/20 17:04 - Assessment Food / Nutrition-Related History:: Pt reports continuous tube feeds at home via J-tube. Per [facility] records- Nutren 1.5 @ 52mL/hour w/ 150mL flush 4x/day (1872 calories, 84 g protein). Pt also able to consume PO diet but states he is not very hungry at home. Fair intake of breakfast this AM observed. Unintentional wt loss of 29#/12% since July 2020, significant for malnutrition. - Nutrition Diagnosis Problem / Etiology / Signs & Symptoms (PES):: chronic, severe malnutrition related to inadequate energy intake w/ increased energy needs d/t esophageal cancer as evidenced by wt loss of 29#/12% x 5 months, estimated PO intake meeting less than 75% of estimated nutritional needs >3 months. Evidence of Malnutrition Exists:: Yes Severe PCM:: Chronic Illness - Nutrition Intervention Nutrition Prescription:: 4213-7906 calories (1.3xRMR). 120-140 g protein (1.5g/kg). 2100mL fluid/day (1mL/calorie) - Food / Nutrient Delivery Interventions Summary of nutrition intervention:: Discussed w/ pt and that continous, 24 hour tube feeds would not promote appetite for PO intake. It appears that pt was told to use continuous tube feeds if w/ nausea/emesis after chemotherapy treatments but they have continued continuous enteral nutrition regardless of GI symptoms. Explained to pt and to hold tube feeds at home if pt able to tolerate PO diet and wt is maintained. If GI symptoms occur, recommend using Nutren 1.5 at 52mL/hour w/ 150mL flush 4x/day to supplement PO intake. Recommend holding tube feeds 2 hours prior to re-initiation of PO diet. Nutrition support ordered as / adjusted to:: will change diet to cardiac, consistency per MODEL AND PATTERN SUPERVISOR- calorie controlled diet not appropriate given malnutrition. Continue Ensure Enlive w/ medpass. Enteral nutrition support via J-tube not warrnated at this time as pt appears to be tolerating PO diet and ONS. Flush J tube w/ 30mL every 4 hours to maintain patency. Will monitor PO intake, wt, and provide nutrition support recommendations for acute hospital stay as appropriate. Nutrition education provided?: Yes - MNT Monitoring Further MNT monitoring and evaluation required?: Yes MNT Follow-up in:: 1-2 days
--- NOTE | 2020-12-30 13:29 | PCM.PROGNOTE ---
<Raghu Cariasssica CONFIDENTIAL SECRETARY - Last Filed: 12/30/20 14:19> Patient Problems: Active and Suspected Problems (Last Updated 08/15/20 @ 13:04 by Emilee Blanco) Exertional dyspnea (Acute) Elevated LFTs (Acute) Abdominal wall cellulitis (Acute) Sepsis (Acute) Subjective: Patient seen and examined. Reports improvement in breathing. Reports abdominal discomfort surrounding abdominal G-tube area. Denies fever, chills. Reports his J-tube was previously not functioning correctly however now flushing appropriately per nursing staff. - Physical Exam Vitals/I&O's: Vital Signs Temp Pulse Resp BP Pulse Ox 98.3 F 83 18 103/66 93 12/30/20 07:03 12/30/20 09:26 12/30/20 07:03 12/30/20 09:26 12/30/20 07:03 Oxygen Delivery Method Room Air Weight: 210 lb 15.718 oz Body Mass Index (BMI) 29.4 Intake and Output for Last 24 Hours 12/28/20 12/29/20 12/30/20 23:59 23:59 23:59 Intake Total 50 / 50 670 / 670 Balance 50 / 50 670 / 670 General: Alert, Oriented x3, Cooperative HEENT: Atraumatic, PERRLA, EOMI, Normocephalic Neck: Supple, No JVD, Negative Carotid Bruits Lungs: Clear to auscultation, Diminished Cardiovascular: Regular rate, No murmurs Abdomen: Bowel Sounds Present, Soft, Non Tender, Non-Distended, - - J-tube in place Extremities: No clubbing, No cyanosis, Capillary Refill Less than 3 Seconds, Edema - Bilateral lower extremities Skin: - - Erythema surrounding J-tube Musculoskeletal: No Tenderness to Palpation of Joints or Extremities Neurological: Cranial nerves II-XII grossly intact, Neuro grossly intact Psych/Mental Status: Normal Affect, Appropriate Microbiology Past 72 Hours 12/29/20 22:00 Stool Enteric Bacteriology - Final 12/29/20 22:00 Stool C. difficile GDH Antigen & Toxins - Final 12/29/20 22:00 Stool C. difficile DNA Amplification - Final 12/29/20 17:00 Mucosa - Nose SARS-CoV-2 Antigen (Rapid) - Final Laboratory Results 12/29/20 17:00: WBC 16.5 H, RBC 3.27 L, Hgb 10.3 L, Hct 32.7 L, MCV 100.0 H, MCH 31.5, MCHC 31.5 L, RDW Std Deviation 57.3 H, RDW Coeff of Rachel 15.7 H, Plt Count 162, MPV 11.0, Immature Gran % (Auto) 3.100 H, Neut % (Auto) 77.9 H, Lymph % (Auto) 11.0 L, [place] % (Auto) 7.6, Eos % (Auto) 0.1, Baso % (Auto) 0.3, Absolute Neuts (auto) 12.9 H, Absolute Lymphs (auto) 1.81, Nucleated RBC % 0.1 12/29/20 17:00: Lactic Acid 1.6 12/29/20 17:00: B-Natriuretic Peptide 35.6 12/29/20 17:04: Sodium 138, Potassium 4.2, Chloride 106, Carbon Dioxide 26.0, Anion Gap 6, BUN 14, Creatinine 0.86, Estim Creat Clear Calc 81.48, Est GFR (MDRD) Af Amer 112, Est GFR (MDRD) Non-Af 93, BUN/Creatinine Ratio 16.3, Glucose 142 H, Calcium 8.0 L, Total Bilirubin 0.60, AST 102 H, ALT 102 H, Alkaline Phosphatase 509 H, Troponin I < 0.015, Total Protein 6.5, Albumin 2.4 L, Globulin 4.1, Albumin/Globulin Ratio 0.6 L, Lipase 29 L 12/29/20 17:04: Phosphorus 2.3 L, Magnesium 1.9 12/29/20 20:30: Urine Color Yellow, Urine Clarity Clear, Urine pH 7.0, Ur Specific [place] 1.005, Urine Protein Negative, Urine Glucose (UA) Normal, Urine Ketones Negative, Urine Occult Blood Negative, Urine Nitrite Negative, Urine Bilirubin Negative, Urine Urobilinogen Normal, Ur Leukocyte Esterase Negative, Urine RBC 0 SEEN, Urine WBC 0-5 SEEN, Ur Squamous Epith Cells 0-5 SEEN, Urine Bacteria 0 SEEN, Urine Mucus 0 SEEN 12/29/20 20:42: COVID-19 (PERRY) Not Detected 12/30/20 00:20: PT 13.1, INR 1.0, APTT 33.7 12/30/20 01:00: POC Glucose 127 H 12/30/20 01:50: Troponin I < 0.015 12/30/20 03:55: Troponin I < 0.015 12/30/20 06:30: WBC 10.3, RBC 3.19 L, Hgb 10.1 L, Hct 32.1 L, MCV 100.6 H, MCH 31.7, MCHC 31.5 L, RDW Std Deviation 56.9 H, RDW Coeff of Rachel 15.7 H, Plt Count 158, MPV 11.0, Immature Gran % (Auto) 2.500 H, Neut % (Auto) 76.0 H, Lymph % (Auto) 14.0 L, [place] % (Auto) 7.2, Eos % (Auto) 0.1, Baso % (Auto) 0.2, Absolute Neuts (auto) 7.8 H, Absolute Lymphs (auto) 1.44, Nucleated RBC % 0.2 12/30/20 06:30: Sodium 138, Potassium 4.2, Chloride 105, Carbon Dioxide 29.0, Anion Gap 4 L, BUN 13, Creatinine 0.82, Estim Creat Clear Calc 85.45, Est GFR (MDRD) Af Amer 118, Est GFR (MDRD) Non-Af 97, BUN/Creatinine Ratio 15.8, Glucose 118 H, Calcium 8.4 L, Total Bilirubin 0.60, AST 64 H, ALT 76 H, Alkaline Phosphatase 454 H, Total Protein 6.2 L, Albumin 2.1 L, Globulin 4.1, Albumin/Globulin Ratio 0.5 L, Triglycerides 228 H, Cholesterol 92, LDL Cholesterol 34, VLDL Cholesterol 46 H, HDL Cholesterol 12 L, Folate 29.10, TSH 1.98, Free T4 1.15 12/30/20 06:30: Vitamin B12 Pending 12/30/20 06:30: Troponin I < 0.015 12/30/20 06:57: POC Glucose 122 H 12/30/20 11:29: POC Glucose 223 H Current Medications Acetaminophen (Acetaminophen 325 Mg Tablet) 650 mg PO Q6H PRN PRN PRN Reason: Pain Score 1-10/Temp > 100.7 F Last Admin: 12/30/20 10:19 Dose: 650 mg Documented by: Acetaminophen (Acetaminophen 325 Mg Suppository) 650 mg RECTAL Q4H PRN PRN PRN Reason: Pain Score 1-10/Temp > 100.7 F Al Hydroxide/Mg Hydroxide (Mag Hydrox/Al Hydrox/Simeth 30 Ml Udc) 30 ml PO Q6H PRN PRN PRN Reason: Gastric Burning Albuterol Sulfate (Albuterol 2.5 Mg/3 Ml Vial.Neb.) 2.5 mg INHALATION Q2H PRN PRN PRN Reason: Dyspnea, wheezing Aspirin (Aspirin E.C. 81 Mg Tablet) 81 mg PO DAILY [facility] Last Admin: 12/30/20 09:27 Dose: 81 mg Documented by: Calamine/Phenol (Menthol/Lanolin/Calamine/Znox 113 Gm Tube) 1 applic TOPICAL TID [facility]; Protocol Clopidogrel Bisulfate (Clopidogrel Bisulfate 75 Mg Tablet) 75 mg PO DAILY [facility] Last Admin: 12/30/20 09:27 Dose: 75 mg Documented by: Enoxaparin Sodium (Enoxaparin 40 Mg/0.4 Ml Syringe) 40 mg SC DAILY [facility] Last Admin: 12/30/20 09:27 Dose: 40 mg Documented by: Famotidine (Famotidine 20 Mg Tablet) 20 mg PO BID [facility] Last Admin: 12/30/20 09:26 Dose: 20 mg Documented by: Furosemide (Furosemide 40 Mg/4 Ml Vial) 40 mg IV BID@1000,1800 [facility] Last Admin: 12/30/20 09:27 Dose: 40 mg Documented by: Guaifenesin (Guaifenesin 10 Ml Udc (200mg/10ml)) 20 ml PO Q4H PRN PRN PRN Reason: COUGH Heparin Sodium (Beef Lung) (Heparin Pf Lock 10 Units/Ml 50 Units/5 Ml Syringe) 50 units IV UD PRN PRN Reason: Port-a-Cath (VAD)Heparin Flush Hydralazine HCl (Hydralazine 20 Mg/Ml Vial) 10 mg IV Q4H PRN PRN PRN Reason: SBP > 160 Ceftriaxone Sodium 2 gm/ (Sodium Chloride) 50 mls @ 100 mls/hr IV Q24 [facility] Last Infusion: 12/30/20 10:59 Dose: Infused Documented by: Insulin Human Lispro (Insulin Lispro 100 Unit/Ml Insuln.Pen) 0 unit SC ACHS [facility]; Protocol Last Admin: 12/30/20 11:43 Dose: 2 units Documented by: Isosorbide Mononitrate (Isosorbide Mononitrate 30 Mg Tablet) 30 mg PO DAILY [facility] Last Admin: 12/30/20 09:27 Dose: 30 mg Documented by: Melatonin (Melatonin 3 Mg Tablet) 3 mg PO QHS PRN PRN PRN Reason: INSOMNIA Metoprolol Tartrate (Metoprolol Tartrate 25 Mg Tablet) 12.5 mg PO BID [facility] Last Admin: 12/30/20 09:26 Dose: 12.5 mg Documented by: Nitroglycerin (Nitroglycerin (Inpatient Use) 0.4 Mg Tab.Subl) 0.4 mg SUBLINGUAL Q5M PRN PRN Reason: CARDIAC/CHEST PAIN Nutritional Formula (Lactose Free) (Ensure Enlive 120 Ml Liquid) 120 ml PO 4X/DAY [facility] Last Admin: 12/30/20 09:51 Dose: 120 ml Documented by: Ondansetron HCl (Ondansetron 4 Mg/2 Ml Vial) 4 mg IV Q8H PRN PRN PRN Reason: NAUSEA/VOMITING Pravastatin Sodium (Pravastatin 80 Mg Tablet) 80 mg PO QHS [facility] Last Admin: 12/30/20 01:06 Dose: 80 mg Documented by: Prochlorperazine Edisylate (Prochlorperazine 10 Mg/2 Ml Vial) 5 mg IV Q4H PRN PRN PRN Reason: Breakthrough Nausea/Vomiting Sodium Chloride (0.9% Saline Lock 10 Ml Syringe) 10 - 40 ml IV UD PRN PRN Reason: Port-a-Cath (VAD) Flush Last Admin: 12/30/20 09:28 Dose: 20 ml Documented by: Sodium Chloride (0.9 % Nacl (Sterile) Posiflush 10 Ml) 10 - 40 ml IV UD PRN PRN Reason: Port access or dressing change Throat Lozenges (Benzocaine/Menthol 1 Lozenge) 1 lozenge MUCOUS MEM Q2H PRN PRN PRN Reason: SORE THROAT Medical Necessity - Tobacco Use Smoking Status: Former smoker Tobacco Use: Non-smoker Assessment/Plan All Active Problems (Last Updated 08/15/20 @ 13:04 by Emilee Blanco) Exertional dyspnea (Acute) Elevated LFTs (Acute) Abdominal wall cellulitis (Acute) Sepsis (Acute) Rash (Acute) Chest pain (Acute) Unstable angina pectoris (Acute) Hypercalcemia (Resolved) 1. Acute sepsis secondary to gutierrez-J-tube abdominal wall cellulitis and C. difficile colitis-on Rocephin for abdominal wall cellulitis. Completed course of fluconazole. Leukocytosis improved. Placed on oral vancomycin for C. difficile. 2. Exertional dyspnea, lower extremity swelling-suspect heart failure with preserved ejection fraction. BNP normal. Troponin negative x3. Echocardiogram demonstrates an EF of 75%. Chest CTA with small right pleural effusion, severe chronic pulmonary disease with fibrosis, otherwise unremarkable. Abdomen pelvis CT showed no acute abnormality. Oxygen stable on room air. Heart cath August 2020 demonstrated [place] multivessel CAD with patent LAD stent, medical therapy was recommended. Continue IV Lasix. Strict I&O. Daily weight. Richie wraps bilateral lower extremities. 3. Transaminitis-trending down. Liver ultrasound demonstrates cirrhosis, no mass. Trend liver panel. 4. Esophageal cancer-following with oncology. Ongoing chemotherapy. Speech therapy following. No noted issues with oral intake. 5. Chronic macrocytic anemia-stable, trend CBC. 6. Chronic COPD/pulmonary fibrosis-as needed albuterol aerosol. 7. CAD with history of PCI-continue aspirin, statin, Plavix, metoprolol. 8. Hypertension-stable, continue metoprolol, isosorbide. 9. Hyperlipidemia-continue statin. 10. Type 2 diabetes [id number] with sliding scale insulin. DVT prophylaxis-Lovenox subcu This patient was seen by YVES Guerra under the supervision of Dr. Hernandez. <Michel Hernandez - Last Filed: 12/30/20 15:59> Subjective: Seen and examined. Patient has history of esophageal cancer and recently had J-tube in [facility]. Follows Dr. Coyne and there is plan for surgery in January 2021. Currently on neoadjuvant chemotherapy and had 2 sessions, last 1 about 3 to 4 weeks ago. Shortness of breath is better. No tachypnea. On cardiac technician sinus rhythm. Physical exam General: Alert, Oriented x3, Cooperative HEENT: Atraumatic, PERRLA, EOMI, Normocephalic Oral: No Gingival or Mucosal Lesions/ Ulcerations Neck: Supple, No JVD, Negative Carotid Bruits Lungs: Air entry diminished in bilateral lung bases. No crepitation/rhonchi Cardiovascular: Regular rate, Regular Rhythm, Normal S1, Normal S2, No murmurs Abdomen: J-tube in the left side. Surrounding peritubal leakage of bile associated with skin excoriation. Peritubal bowel Sounds Present, Soft, Non Tender, Non-Distended : No renal angle tenderness. No suprapubic tenderness. Extremities: No edema, Capillary Refill Less than 3 Seconds Skin: Bile associated skin excoriation around G-tube as mentioned above. Musculoskeletal: No Tenderness to Palpation of Joints or Extremities Neurological: Cranial nerves II-XII grossly intact, Deep Tendon Reflexes 2+/4 and Symmetrical, Neuro grossly intact Psych/Mental Status: Normal Affect, Appropriate. - Physical Exam Vitals/I&O's: Vital Signs Temp Pulse Resp BP Pulse Ox 97.8 F 85 14 92/57 L 97 12/30/20 14:14 12/30/20 14:14 12/30/20 14:14 12/30/20 14:14 12/30/20 14:14 Oxygen Delivery Method Room Air Weight: 210 lb 15.718 oz Body Mass Index (BMI) 29.4 Intake and Output for Last 24 Hours 12/28/20 12/29/20 12/30/20 23:59 23:59 23:59 Intake Total 50 / 50 670 / 670 Balance 50 / 50 670 / 670 Microbiology Past 72 Hours 12/29/20 22:00 Stool Enteric Bacteriology - Final 12/29/20 22:00 Stool C. difficile GDH Antigen & Toxins - Final 12/29/20 22:00 Stool C. difficile DNA Amplification - Final 12/29/20 17:00 Mucosa - Nose SARS-CoV-2 Antigen (Rapid) - Final Laboratory Results 12/29/20 17:00: WBC 16.5 H, RBC 3.27 L, Hgb 10.3 L, Hct 32.7 L, MCV 100.0 H, MCH 31.5, MCHC 31.5 L, RDW Std Deviation 57.3 H, RDW Coeff of Rachel 15.7 H, Plt Count 162, MPV 11.0, Immature Gran % (Auto) 3.100 H, Neut % (Auto) 77.9 H, Lymph % (Auto) 11.0 L, [place] % (Auto) 7.6, Eos % (Auto) 0.1, Baso % (Auto) 0.3, Absolute Neuts (auto) 12.9 H, Absolute Lymphs (auto) 1.81, Nucleated RBC % 0.1 12/29/20 17:00: Lactic Acid 1.6 12/29/20 17:00: B-Natriuretic Peptide 35.6 12/29/20 17:04: Sodium 138, Potassium 4.2, Chloride 106, Carbon Dioxide 26.0, Anion Gap 6, BUN 14, Creatinine 0.86, Estim Creat Clear Calc 81.48, Est GFR (MDRD) Af Amer 112, Est GFR (MDRD) Non-Af 93, BUN/Creatinine Ratio 16.3, Glucose 142 H, Calcium 8.0 L, Total Bilirubin 0.60, AST 102 H, ALT 102 H, Alkaline Phosphatase 509 H, Troponin I < 0.015, Total Protein 6.5, Albumin 2.4 L, Globulin 4.1, Albumin/Globulin Ratio 0.6 L, Lipase 29 L 12/29/20 17:04: Phosphorus 2.3 L, Magnesium 1.9 12/29/20 20:30: Urine Color Yellow, Urine Clarity Clear, Urine pH 7.0, Ur Specific [place] 1.005, Urine Protein Negative, Urine Glucose (UA) Normal, Urine Ketones Negative, Urine Occult Blood Negative, Urine Nitrite Negative, Urine Bilirubin Negative, Urine Urobilinogen Normal, Ur Leukocyte Esterase Negative, Urine RBC 0 SEEN, Urine WBC 0-5 SEEN, Ur Squamous Epith Cells 0-5 SEEN, Urine Bacteria 0 SEEN, Urine Mucus 0 SEEN 12/29/20 20:42: COVID-19 (PERRY) Not Detected 12/30/20 00:20: PT 13.1, INR 1.0, APTT 33.7 12/30/20 01:00: POC Glucose 127 H 12/30/20 01:50: Troponin I < 0.015 12/30/20 03:55: Troponin I < 0.015 12/30/20 06:30: WBC 10.3, RBC 3.19 L, Hgb 10.1 L, Hct 32.1 L, MCV 100.6 H, MCH 31.7, MCHC 31.5 L, RDW Std Deviation 56.9 H, RDW Coeff of Rachel 15.7 H, Plt Count 158, MPV 11.0, Immature Gran % (Auto) 2.500 H, Neut % (Auto) 76.0 H, Lymph % (Auto) 14.0 L, [place] % (Auto) 7.2, Eos % (Auto) 0.1, Baso % (Auto) 0.2, Absolute Neuts (auto) 7.8 H, Absolute Lymphs (auto) 1.44, Nucleated RBC % 0.2 12/30/20 06:30: Sodium 138, Potassium 4.2, Chloride 105, Carbon Dioxide 29.0, Anion Gap 4 L, BUN 13, Creatinine 0.82, Estim Creat Clear Calc 85.45, Est GFR (MDRD) Af Amer 118, Est GFR (MDRD) Non-Af 97, BUN/Creatinine Ratio 15.8, Glucose 118 H, Calcium 8.4 L, Total Bilirubin 0.60, AST 64 H, ALT 76 H, Alkaline Phosphatase 454 H, Total Protein 6.2 L, Albumin 2.1 L, Globulin 4.1, Albumin/Globulin Ratio 0.5 L, Triglycerides 228 H, Cholesterol 92, LDL Cholesterol 34, VLDL Cholesterol 46 H, HDL Cholesterol 12 L, Folate 29.10, TSH 1.98, Free T4 1.15 12/30/20 06:30: Vitamin B12 Pending 12/30/20 06:30: Troponin I < 0.015 12/30/20 06:57: POC Glucose 122 H 12/30/20 11:29: POC Glucose 223 H Current Medications Acetaminophen (Acetaminophen 325 Mg Tablet) 650 mg PO Q6H PRN PRN PRN Reason: Pain Score 1-10/Temp > 100.7 F Last Admin: 12/30/20 10:19 Dose: 650 mg Documented by: Acetaminophen (Acetaminophen 325 Mg Suppository) 650 mg RECTAL Q4H PRN PRN PRN Reason: Pain Score 1-10/Temp > 100.7 F Al Hydroxide/Mg Hydroxide (Mag Hydrox/Al Hydrox/Simeth 30 Ml Udc) 30 ml PO Q6H PRN PRN PRN Reason: Gastric Burning Albuterol Sulfate (Albuterol 2.5 Mg/3 Ml Vial.Neb.) 2.5 mg INHALATION Q2H PRN PRN PRN Reason: Dyspnea, wheezing Aspirin (Aspirin E.C. 81 Mg Tablet) 81 mg PO DAILY [facility] Last Admin: 12/30/20 09:27 Dose: 81 mg Documented by: Clopidogrel Bisulfate (Clopidogrel Bisulfate 75 Mg Tablet) 75 mg PO DAILY [facility] Last Admin: 12/30/20 09:27 Dose: 75 mg Documented by: Enoxaparin Sodium (Enoxaparin 40 Mg/0.4 Ml Syringe) 40 mg SC DAILY [facility] Last Admin: 12/30/20 09:27 Dose: 40 mg Documented by: Famotidine (Famotidine 20 Mg Tablet) 20 mg PO BID [facility] Last Admin: 12/30/20 09:26 Dose: 20 mg Documented by: Furosemide (Furosemide 40 Mg/4 Ml Vial) 40 mg IV BID@1000,1800 [facility] Last Admin: 12/30/20 09:27 Dose: 40 mg Documented by: Guaifenesin (Guaifenesin 10 Ml Udc (200mg/10ml)) 20 ml PO Q4H PRN PRN PRN Reason: COUGH Heparin Sodium (Beef Lung) (Heparin Pf Lock 10 Units/Ml 50 Units/5 Ml Syringe) 50 units IV UD PRN PRN Reason: Port-a-Cath (VAD)Heparin Flush Hydralazine HCl (Hydralazine 20 Mg/Ml Vial) 10 mg IV Q4H PRN PRN PRN Reason: SBP > 160 Ceftriaxone Sodium 2 gm/ (Sodium Chloride) 50 mls @ 100 mls/hr IV Q24 [facility] Last Infusion: 12/30/20 10:59 Dose: Infused Documented by: Insulin Human Lispro (Insulin Lispro 100 Unit/Ml Insuln.Pen) 0 unit SC ACHS [facility]; Protocol Last Admin: 12/30/20 11:43 Dose: 2 units Documented by: Isosorbide Mononitrate (Isosorbide Mononitrate 30 Mg Tablet) 30 mg PO DAILY [facility] Last Admin: 12/30/20 09:27 Dose: 30 mg Documented by: Melatonin (Melatonin 3 Mg Tablet) 3 mg PO QHS PRN PRN PRN Reason: INSOMNIA Metoprolol Tartrate (Metoprolol Tartrate 25 Mg Tablet) 12.5 mg PO BID [facility] Last Admin: 12/30/20 09:26 Dose: 12.5 mg Documented by: Nitroglycerin (Nitroglycerin (Inpatient Use) 0.4 Mg Tab.Subl) 0.4 mg SUBLINGUAL Q5M PRN PRN Reason: CARDIAC/CHEST PAIN Nutritional Formula (Lactose Free) (Ensure Enlive 120 Ml Liquid) 120 ml PO 4X/DAY [facility] Last Admin: 12/30/20 14:41 Dose: Not Given Documented by: Ondansetron HCl (Ondansetron 4 Mg/2 Ml Vial) 4 mg IV Q8H PRN PRN PRN Reason: NAUSEA/VOMITING Pravastatin Sodium (Pravastatin 80 Mg Tablet) 80 mg PO QHS [facility] Last Admin: 12/30/20 01:06 Dose: 80 mg Documented by: Prochlorperazine Edisylate (Prochlorperazine 10 Mg/2 Ml Vial) 5 mg IV Q4H PRN PRN PRN Reason: Breakthrough Nausea/Vomiting Sodium Chloride (0.9% Saline Lock 10 Ml Syringe) 10 - 40 ml IV UD PRN PRN Reason: Port-a-Cath (VAD) Flush Last Admin: 12/30/20 09:28 Dose: 20 ml Documented by: Sodium Chloride (0.9 % Nacl (Sterile) Posiflush 10 Ml) 10 - 40 ml IV UD PRN PRN Reason: Port access or dressing change Throat Lozenges (Benzocaine/Menthol 1 Lozenge) 1 lozenge MUCOUS MEM Q2H PRN PRN PRN Reason: SORE THROAT Vancomycin HCl (Vancomcyin 125 Mg/5 Ml Susp Po.Syringe) 125 mg PO Q6 [facility] Assessment/Plan This patient was seen in conjunction with CONFIDENTIAL SECRETARYPam. I have independently interviewed and examined the patient and reviewed pertinent history, examination findings, laboratory and plan of management. I have reviewed the note and agree with the documented findings with the few additional points. In brief, patient is 72-year-old gentleman admitted with exertional dyspnea, hypoxia, lateral lower extremity edema. 2D echo was found EF 75% with no evidence for diastolic function or regional wall motion abnormality. Normal left atrium. Subsequently, C. difficile PCR positive but negative C. difficile toxin. Abdominal CT does not show acute abnormality. Overall it seems patient does not have active C. difficile colitis as C. difficile toxins are negative and is having diarrhea therefore on vancomycin oral.. Advised local calmoseptine ointment for bile acid related skin excoriation around jejunal tube. CTA shows small right pleural effusion, severe chronic pulmonary disease with fibrosis. Patient also has coronary artery disease multivessel with a stent. Esophageal cancer on neoadjuvant chemotherapy and J-tube. Elevated transaminases in liver chemistry but patient had since October 2020. Probably related to chemotherapy/sepsis. Other multiple comorbidities as mentioned above. I have discussed my assessment with Pam BLUE and orders have been reviewed. Clinical Impression(s) from Imaging Studies Abdomen/Pelvis CT 12/29/20 16:42 IMPRESSION: Heterogeneous thickening of the distal esophagus consistent with the stated history of esophageal cancer. Question of cirrhosis. No gross acute abnormality in the abdomen or pelvis. Chest CTA 12/29/20 16:43 IMPRESSION: Normal CTA chest examination, without a demonstrated pulmonary embolism or arterial dissection. Severe chronic pulmonary disease with fibrosis. Small right pleural effusion. Adenopathy. Diffuse thickening of the esophageal wall consistent with a history of esophageal cancer. Liver Ultrasound 12/30/20 05:55 IMPRESSION: Cirrhosis but no hepatic mass Inpatient E&M: 81447 Subs Hosp L2
[2020-12-30 16:10] LABS: Bedside Glucose 149 mg/dL (70-110)
[2020-12-30 21:50] LABS: Bedside Glucose 150 mg/dL (70-110)
[2020-12-30] MEDS: Ondansetron 4 MG/2 ML Vial IV (22:38)
--- NOTE | 2020-12-30 22:50 | RAD_ITS ---
HISTORY: abdominal pain ADDITIONAL HISTORY: None. COMPARISON: CT 12/29/2020 EXAMINATION/TECHNIQUE: XR Abdomen 1 View Number of images including paperwork: 3 FINDINGS: FREE AIR: None detected. BOWEL GAS PATTERN: Nonobstructive. CALCIFICATIONS: No definite urinary tract calculi. ORGANS: No evidence of organomegaly. SOFT TISSUES: Unremarkable. BONES: No acute skeletal findings. Degenerative changes. DEVICES: Jejunostomy tube projects over the left abdomen. RAD/Abdomen Single View (Portable) IMPRESSION: No acute abdominal abnormality is radiographically apparent. at 0010 Reported and signed by: Ary Giles MD Electronically Signed: Ary Giles MD at 0:10 EST Tel , Service support ,
[2020-12-31] VITALS (7 sets, daily range): BP systolic 90–116; BP diastolic 55–70; PULSE 77–82; RESP 14–20; TEMP 36.4–36.8; O2SAT 93
[2020-12-31] MEDS: Morphine 2 MG/ML Syringe IV (00:17)
[2020-12-31] MEDS: 0.9% Saline Lock 10 ML Syringe IV ×3 (00:17→11:29)
--- NOTE | 2020-12-31 02:45 | PCS.PANDOC ---
PANDEMIC DOCUMENTATION INITIATED: Date: 12/29/2020 Time: 5706
[2020-12-31 06:41] LABS: Hematocrit 30.5 % (40-54); Mean Corp Hgb Conc 32.8 g/dL (32-36); Mean Corpuscular Hgb 32.7 pg (27.0-32.0); Mean Corpuscular Volume 99.7 fL (80-94); Mean Platelet Vol. 11.1 fl (6.2-12.0); Platelet Count 178 K/mm3 (150-450); RBC Distribution Width CV 15.8 % (11.6-14.6); RBC Distribution Width SD 56.1 fl (35.1-43.9); Red Blood Count 3.06 M/mm3 (4.6-6.2); White Blood Count 8.1 K/mm3 (4.4-11.0)
[2020-12-31 07:09] LABS: ALB/GLOB Ratio 0.5 RATIO (0.9-2.4); AST(SGOT) 60 U/L (15-37); Alanine Aminotransfer ALT/SGPT 66 U/L (16-61); Albumin, Serum 2.2 g/dL (3.2-5.0); Alkaline Phosphatase 495 U/L (45-117); Anion Gap 6 (5-15); BUN 16 mg/dL (7-18); BUN/Creat Ratio 16.9 RATIO (10-20); Calcium,Total 8.8 mg/dL (8.5-10.1); Chloride 103 mmol/L (98-107); Creatinine, Serum 0.94 mg/dL (0.70-1.30); EST Glomerular Filtration Rate 83 mL/min (>60); Est Glom Filt Rate - Afr Amer 100 mL/min (>60); Estimated Creatinine Clearance 74.54 ml/min; Globulin 4.3 g/dL (2.2-4.2); Glucose 127 mg/dL (74-106); Potassium 4.2 mmol/L (3.5-5.1); Protein, Total 6.5 g/dL (6.4-8.2); Sodium Level 137 mmol/L (136-145)
[2020-12-31] MEDS: Acetaminophen 325 MG Tablet 650 MG PO (08:14)
[2020-12-31] MEDS: Furosemide 40 MG/4 ML Vial IV (08:17)
[2020-12-31] MEDS: Enoxaparin 40 MG/0.4 ML Syringe SC (08:17)
[2020-12-31] MEDS: Isosorbide Mononitrate 30 MG Tablet PO (08:17)
[2020-12-31] MEDS: Aspirin E.C. 81 MG Tablet PO (08:18)
[2020-12-31] MEDS: Clopidogrel Bisulfate 75 MG Tablet PO (08:18)
[2020-12-31] MEDS: Famotidine 20 MG Tablet PO (08:18)
[2020-12-31] MEDS: Metoprolol Tartrate 25 MG Tablet 12.5 MG PO (08:18)
[2020-12-31 09:05] LABS: Bedside Glucose 133 mg/dL (70-110)
--- NOTE | 2020-12-31 10:42 | PCM.DC ---
- Discharge Diagnoses Current Active Problems: Current Active and Chronic Problems (Last Updated 08/15/20 @ 13:04 by Emilee Blanco) Exertional dyspnea (Acute) Elevated LFTs (Acute) Esophageal cancer (Chronic) Abdominal wall cellulitis (Acute) Sepsis (Acute) Borderline diabetes (Chronic) Essential hypertension (Chronic) Presence of stent in coronary artery (Chronic ~12/21/13) [facility] w/ PCI/JUANY to mid LAD 09/19/10; PCI/JUANY mid LAD 12/21/13 Nicotine dependence, cigarettes, uncomplicated (Chronic) Atherosclerotic heart disease of [place] coronary artery without angina pectoris (Chronic) Hyperlipidemia (Chronic) COPD (chronic obstructive pulmonary disease) (Chronic) You will use the following diet at home:: No restrictions Discharge Activity: Return to Normal Activity Call your doctor if you observe: Shortness of breath, Dizziness, Fainting spells, Chest pain Allergies/Adverse Reactions: Allergies No Known Allergies Allergy (Verified 12/29/20 16:11) Medications to take at Discharge Aspirin E.C. [Ecotrin] 81 mg PO DAILY 09/02/18 Metformin HCl [Metformin ER Gastric] 500 mg PO DAILY 01/17/20 pravastatin 80 mg tablet 80 mg PO QHS #90 tab 01/24/20 clopidogrel 75 mg tablet 75 mg PO QDAY #90 tab 06/22/20 metoprolol tartrate 25 mg tablet 12.5 mg PO BID #90 tab 06/22/20 isosorbide mononitrate 30 mg tablet,extended release 24 hr 30 mg PO QAM #30 tab 08/17/20 nitroglycerin 0.4 mg sublingual tablet 0.4 mg SUBLINGUAL Q5-15M PRN #25 tab 08/17/20 Ondansetron [Zofran Odt] 4 mg PO Q8H PRN PRN #10 tab 10/06/20 Cefadroxil Hydrate [Duricef] 1,000 mg PO BID #20 cap 12/31/20 Vancomcyin 125mg/5mL PO Liquid 125 mg PO Q6 9 Days #36 po.syringe 12/31/20 The following prescriptions were given: Cefadroxil Hydrate [Duricef] 1,000 mg PO BID #20 cap Transmission Status: Pending to [id number] Vancomcyin 125mg/5mL PO Liquid 125 mg PO Q6 9 Days #36 po.syringe Transmission Status: Pending to [id number] Primary Care Physician: Keo Contreras DO [Primary Care Provider] - Please follow up with your Primary Care Physician in: 1 Week Test Results: Test results from this visit will be discussed in further detail at your follow-up appointment, if applicable. Please Follow Up With: Karl Coyne DO When: As scheduled Please Follow Up With: Primary Surgeon - who placed j-tube When: Call for soonest appt. Proposed Discharge Date: 12/31/20
--- NOTE | 2020-12-31 10:44 | DS.PCM_ITS ---
<JvPam DEVULCANIZER OPERATOR - Last Filed: 12/31/20 10:50> Discharge Date and Diagnosis - Problem List Patient Problems: Active and Suspected Problems (Last Updated 08/15/20 @ 13:04 by Emilee Blanco) Exertional dyspnea (Acute) Elevated LFTs (Acute) Abdominal wall cellulitis (Acute) Sepsis (Acute) Date of Admission: 12/29/20 Date of Discharge: 12/31/20 - Primary Discharge Diagnosis Acute Problems: Active Problems (Last Updated 08/15/20 @ 13:04 by Emilee Blanco) 1. Acute sepsis secondary to gutierrez-J-tube abdominal wall cellulitis and C. difficile colitis 2. Exertional dyspnea, lower extremity swelling-suspect heart failure with preserved ejection fraction. 3. Transaminitis 4. Esophageal cancer 5. Chronic macrocytic anemia 6. Chronic COPD/pulmonary fibrosis 7. CAD with history of PCI 8. Hypertension 9. Hyperlipidemia 10. Type 2 diabetes mellitus - Secondary Discharge Diagnosis Chronic Problems: Chronic Problems (Last Updated 08/15/20 @ 13:04 by Emilee Blanco) Esophageal cancer (Chronic) Borderline diabetes (Chronic) Essential hypertension (Chronic) Presence of stent in coronary artery (Chronic ~12/21/13) [facility] w/ PCI/JUANY to mid LAD 09/19/10; PCI/JUANY mid LAD 12/21/13 Nicotine dependence, cigarettes, uncomplicated (Chronic) Atherosclerotic heart disease of [place] coronary artery without angina pectoris (Chronic) Angina pectoris (Chronic) Abnormal cardiovascular function (Chronic) Abnormal myocardial perfusion study (Chronic) technician terminal and repeater use of drug (Chronic) Hyperlipidemia (Chronic) COPD (chronic obstructive pulmonary disease) (Chronic) Hospital Course and Treatment Imaging Results: Diagnostic Data Abdomen/Pelvis CT 12/29/20 16:42 IMPRESSION: Heterogeneous thickening of the distal esophagus consistent with the stated history of esophageal cancer. Question of cirrhosis. No gross acute abnormality in the abdomen or pelvis. Electronically Signed: Benson Hopson MD at 18:59 EST , Service support , Chest CTA 12/29/20 16:43 IMPRESSION: Normal CTA chest examination, without a demonstrated pulmonary embolism or arterial dissection. Severe chronic pulmonary disease with fibrosis. Small right pleural effusion. Adenopathy. Diffuse thickening of the esophageal wall consistent with a history of esophageal cancer. Electronically Signed: Benson Hopson MD at 19:07 EST , Service support , Liver Ultrasound 12/30/20 05:55 IMPRESSION: Cirrhosis but no hepatic mass Electronically Signed: Gunnar Marie MD at 9:01 EST Tel , Service support , KUB X-Ray 12/30/20 22:50 IMPRESSION: No acute abdominal abnormality is radiographically apparent. at 0010 Reported and signed by: Ary Giles MD Electronically Signed: Ary Giles MD at 0:10 EST Tel , Service support , Consultations 12/29/20 23:58 Consult: Onc/Wound/grinder operator external tool Routine Comment: Operations: None Procedures: None Summary of Care Provided: The patient is a 75 year old M admitted 12/29/2020 due to dyspnea, cough. Covid and respiratory panel negative. 1. Acute sepsis secondary to gutierrez-J-tube abdominal wall cellulitis and C. difficile colitis-on Rocephin during admission for abdominal wall cellulitis. Erythema improved, discharged on Duricef to complete course. Completed course of fluconazole. Leukocytosis resolved. Oral vancomycin for C. difficile to complete 10-day course at discharge. Follow-up with PCP in 1 week. Follow-up with primary surgery who placed J-tube next week due to intermittent dysfunction. 2. Exertional dyspnea, lower extremity swelling-suspect heart failure with preserved ejection fraction. BNP normal. Troponin negative x3. Echocardiogram demonstrates an EF of 75%. Chest CTA with small right pleural effusion, severe chronic pulmonary disease with fibrosis, otherwise unremarkable. Abdomen pelvis CT showed no acute abnormality. Oxygen stable on room air. Heart cath August 2020 demonstrated [place] multivessel CAD with patent LAD stent, medical therapy was recommended. IV Lasix during admission. 3. Transaminitis-trending down. Liver ultrasound demonstrates cirrhosis, no mass. 4. Esophageal cancer-following with oncology. Ongoing chemotherapy. Speech therapy following. No noted issues with oral intake. Patient has scheduled chemotherapy 01/01/21. 5. Chronic macrocytic anemia-stable, trend CBC. 6. Chronic COPD/pulmonary fibrosis-as needed albuterol aerosol. 7. CAD with history of PCI-continue aspirin, statin, Plavix, metoprolol. 8. Hypertension-stable, continue metoprolol, isosorbide. 9. Hyperlipidemia-continue statin. 10. Type 2 diabetes [id number] with sliding scale insulin. General: Alert, Oriented x3, Cooperative HEENT: Atraumatic, PERRLA, EOMI, Normocephalic Neck: Supple, No JVD, Negative Carotid Bruits Lungs: Clear to auscultation, Diminished Cardiovascular: Regular rate, No murmurs Abdomen: Bowel Sounds Present, Soft, Non Tender, Non-Distended, - - J-tube in place Extremities: No clubbing, No cyanosis, Capillary Refill Less than 3 Seconds, Edema - Bilateral lower extremities Skin: - - Erythema surrounding J-tube Musculoskeletal: No Tenderness to Palpation of Joints or Extremities Neurological: Cranial nerves II-XII grossly intact, Neuro grossly intact Psych/Mental Status: Normal Affect, Appropriate Patient seen and examined prior to discharge. Physical assessment as noted above. Patient is stable for discharge with follow up recommendations as noted above. This patient was seen by YVES Guerra under the supervision of Dr. Hernandez. Patient Problems: Active and Suspected Problems (Last Updated 08/15/20 @ 13:04 by Emilee Blanco) Exertional dyspnea (Acute) Elevated LFTs (Acute) Abdominal wall cellulitis (Acute) Sepsis (Acute) - Physical Exam Vitals/I&O's: Vital Signs Temp Pulse Resp BP Pulse Ox 98.3 F 82 14 116/70 93 12/31/20 08:05 12/31/20 08:18 12/31/20 08:05 12/31/20 08:18 12/31/20 08:05 Oxygen Delivery Method Room Air Weight: 205 lb 11.06 oz Body Mass Index (BMI) 29.4 Intake and Output for Last 24 Hours 12/29/20 12/30/20 12/31/20 23:59 23:59 23:59 Intake Total 50 / 50 910 / 1010 210 / 210 Output Total 125 / 125 Balance 50 / 50 910 / 960 85 / 85 Microbiology Past 72 Hours 12/29/20 20:42 Mucosa - Nasopharyngeal Respiratory Panel (PCR) - Final 12/29/20 22:00 Stool Enteric Bacteriology - Final 12/29/20 22:00 Stool C. difficile GDH Antigen & Toxins - Final 12/29/20 22:00 Stool C. difficile DNA Amplification - Final 12/29/20 17:00 Mucosa - Nose SARS-CoV-2 Antigen (Rapid) - Final Laboratory Results 12/30/20 11:29: POC Glucose 223 H 12/30/20 16:01: POC Glucose 149 H 12/30/20 21:45: POC Glucose 150 H 12/31/20 06:30: WBC 8.1, RBC 3.06 L, Hgb 10.0 L, Hct 30.5 L, MCV 99.7 H, MCH 32.7 H, MCHC 32.8, RDW Std Deviation 56.1 H, RDW Coeff of Rachel 15.8 H, Plt Count 178, MPV 11.1 12/31/20 06:30: Sodium 137, Potassium 4.2, Chloride 103, Carbon Dioxide 28.0, Anion Gap 6, BUN 16, Creatinine 0.94, Estim Creat Clear Calc 74.54, Est GFR (MDRD) Af Amer 100, Est GFR (MDRD) Non-Af 83, BUN/Creatinine Ratio 16.9, Glucose 127 H, Calcium 8.8, Total Bilirubin 0.70, AST 60 H, ALT 66 H, Alkaline Phosp hatase 495 H, Total Protein 6.5, Albumin 2.2 L, Globulin 4.3 H, Albumin/Globulin Ratio 0.5 L 12/31/20 08:04: POC Glucose 133 H Current Medications Acetaminophen (Acetaminophen 325 Mg Tablet) 650 mg PO Q6H PRN PRN PRN Reason: Pain Score 1-10/Temp > 100.7 F Last Admin: 12/31/20 08:14 Dose: 650 mg Documented by: Acetaminophen (Acetaminophen 325 Mg Suppository) 650 mg RECTAL Q4H PRN PRN PRN Reason: Pain Score 1-10/Temp > 100.7 F Al Hydroxide/Mg Hydroxide (Mag Hydrox/Al Hydrox/Simeth 30 Ml Udc) 30 ml PO Q6H PRN PRN PRN Reason: Gastric Burning Albuterol Sulfate (Albuterol 2.5 Mg/3 Ml Vial.Neb.) 2.5 mg INHALATION Q2H PRN PRN PRN Reason: Dyspnea, wheezing Aspirin (Aspirin E.C. 81 Mg Tablet) 81 mg PO DAILY [facility] Last Admin: 12/31/20 08:18 Dose: 81 mg Documented by: Clopidogrel Bisulfate (Clopidogrel Bisulfate 75 Mg Tablet) 75 mg PO DAILY [facility] Last Admin: 12/31/20 08:18 Dose: 75 mg Documented by: Enoxaparin Sodium (Enoxaparin 40 Mg/0.4 Ml Syringe) 40 mg SC DAILY [facility] Last Admin: 12/31/20 08:17 Dose: 40 mg Documented by: Famotidine (Famotidine 20 Mg Tablet) 20 mg PO BID [facility] Last Admin: 12/31/20 08:18 Dose: 20 mg Documented by: Furosemide (Furosemide 40 Mg/4 Ml Vial) 40 mg IV BID@1000,1800 [facility] Last Admin: 12/31/20 08:17 Dose: 40 mg Documented by: Guaifenesin (Guaifenesin 10 Ml Udc (200mg/10ml)) 20 ml PO Q4H PRN PRN PRN Reason: COUGH Heparin Sodium (Beef Lung) (Heparin Pf Lock 10 Units/Ml 50 Units/5 Ml Syringe) 50 units IV UD PRN PRN Reason: Port-a-Cath (VAD)Heparin Flush Hydralazine HCl (Hydralazine 20 Mg/Ml Vial) 10 mg IV Q4H PRN PRN PRN Reason: SBP > 160 Ceftriaxone Sodium 2 gm/ (Sodium Chloride) 50 mls @ 100 mls/hr IV Q24 [facility] Last Infusion: 12/31/20 08:54 Dose: Infused Documented by: Insulin Human Lispro (Insulin Lispro 100 Unit/Ml Insuln.Pen) 0 unit SC ACHS [facility]; Protocol Last Admin: 12/31/20 08:13 Dose: Not Given Documented by: Isosorbide Mononitrate (Isosorbide Mononitrate 30 Mg Tablet) 30 mg PO DAILY [facility] Last Admin: 12/31/20 08:17 Dose: 30 mg Documented by: Melatonin (Melatonin 3 Mg Tablet) 3 mg PO QHS PRN PRN PRN Reason: INSOMNIA Metoprolol Tartrate (Metoprolol Tartrate 25 Mg Tablet) 12.5 mg PO BID [facility] Last Admin: 12/31/20 08:18 Dose: 12.5 mg Documented by: Morphine Sulfate (Morphine 2 Mg/Ml Syringe) 2 mg IV Q4H PRN PRN PRN Reason: Pain Score 6-10 Last Admin: 12/31/20 00:17 Dose: 2 mg Documented by: Nitroglycerin (Nitroglycerin (Inpatient Use) 0.4 Mg Tab.Subl) 0.4 mg SUBLINGUAL Q5M PRN PRN Reason: CARDIAC/CHEST PAIN Nutritional Formula (Lactose Free) (Ensure Enlive 120 Ml Liquid) 120 ml PO 4X/DAY [facility] Last Admin: 12/31/20 08:23 Dose: 120 ml Documented by: Ondansetron HCl (Ondansetron 4 Mg/2 Ml Vial) 4 mg IV Q8H PRN PRN PRN Reason: NAUSEA/VOMITING Last Admin: 12/30/20 22:38 Dose: 4 mg Documented by: Pravastatin Sodium (Pravastatin 80 Mg Tablet) 80 mg PO QHS [facility] Last Admin: 12/30/20 21:52 Dose: 80 mg Documented by: Prochlorperazine Edisylate (Prochlorperazine 10 Mg/2 Ml Vial) 5 mg IV Q4H PRN PRN PRN Reason: Breakthrough Nausea/Vomiting Sodium Chloride (0.9% Saline Lock 10 Ml Syringe) 10 - 40 ml IV UD PRN PRN Reason: Port-a-Cath (VAD) Flush Last Admin: 12/31/20 08:15 Dose: 20 ml Documented by: Sodium Chloride (0.9 % Nacl (Sterile) Posiflush 10 Ml) 10 - 40 ml IV UD PRN PRN Reason: Port access or dressing change Throat Lozenges (Benzocaine/Menthol 1 Lozenge) 1 lozenge MUCOUS MEM Q2H PRN PRN PRN Reason: SORE THROAT Vancomycin HCl (Vancomcyin 125 Mg/5 Ml Susp Po.Syringe) 125 mg PO Q6 [facility] Last Admin: 12/31/20 05:02 Dose: 125 mg Documented by: Discharge Diet: No Restrictions Discharge Activity: Return to Normal Activity Call your doctor if you observe: Shortness of breath, Dizziness, Fainting spells, Chest pain Home Medications: Medications to take at Discharge Aspirin E.C. [Ecotrin] 81 mg PO DAILY 09/02/18 Metformin HCl [Metformin ER Gastric] 500 mg PO DAILY 01/17/20 pravastatin 80 mg tablet 80 mg PO QHS #90 tab 01/24/20 clopidogrel 75 mg tablet 75 mg PO QDAY #90 tab 06/22/20 metoprolol tartrate 25 mg tablet 12.5 mg PO BID #90 tab 06/22/20 isosorbide mononitrate 30 mg tablet,extended release 24 hr 30 mg PO QAM #30 tab 08/17/20 nitroglycerin 0.4 mg sublingual tablet 0.4 mg SUBLINGUAL Q5-15M PRN #25 tab 08/17/20 Ondansetron [Zofran Odt] 4 mg PO Q8H PRN PRN #10 tab 10/06/20 Cefadroxil Hydrate [Duricef] 1,000 mg PO BID #20 cap 12/31/20 metroNIDAZOLE [Flagyl] 500 mg PO Q8H 9 Days #27 tab 12/31/20 Following Prescriptions Were Given to Patient: Cefadroxil Hydrate [Duricef] 1,000 mg PO BID #20 cap [id number] metroN[facility]LE [Flagyl] 500 mg PO Q8H 9 Days #27 tab Transmission Status: Received by [id number] Primary Care Physician: Keo Contreras DO [Primary Care Provider] - Please follow up with your Primary Care Physician in: 1 Week Please Follow Up With: Karl Coyne DO When: As scheduled Please Follow Up With: Primary Surgeon - who placed j-tube When: Call for soonest appt. Disposition: Home Minutes spent on discharge:: 35 Patient Condition:: Stable Medical Necessity - Tobacco Use Smoking Status: Former smoker Tobacco Use: Non-smoker Meaningful Use Info Meaningful Use Diagnoses (Choose all that apply): None applicable <Michel Hernandez - Last Filed: 12/31/20 14:42> Discharge Date and Diagnosis - Primary Discharge Diagnosis Acute Problems: Active Problems (Last Updated 08/15/20 @ 13:04 by Emilee Blacno) Exertional dyspnea (Acute) Elevated LFTs (Acute) Abdominal wall cellulitis (Acute) Sepsis (Acute) - Secondary Discharge Diagnosis Chronic Problems: Chronic Problems (Last Updated 08/15/20 @ 13:04 by Emilee Blanco) Esophageal cancer (Chronic) Borderline diabetes (Chronic) Essential hypertension (Chronic) Presence of stent in coronary artery (Chronic ~12/21/13) [facility] w/ PCI/JUANY to mid LAD 09/19/10; PCI/JUANY mid LAD 12/21/13 Nicotine dependence, cigarettes, uncomplicated (Chronic) Atherosclerotic heart disease of [place] coronary artery without angina pectoris (Chronic) Angina pectoris (Chronic) Abnormal cardiovascular function (Chronic) Abnormal myocardial perfusion study (Chronic) long-term use of drug (Chronic) Hyperlipidemia (Chronic) COPD (chronic obstructive pulmonary disease) (Chronic) Hospital Course and Treatment Consultations 12/29/20 23:58 Consult: Onc/Wound/grinder operator external tool Routine Comment: Summary of Care Provided: [facility] patient was seen in conjunction with DEVULCANIZER OPERATOR, Pam. I have independently interviewed and examined the patient and reviewed pertinent history, examination findings, laboratory and plan of management. I have reviewed the note and agree with the documented findings with the few additional points. In brief, patient is 75-year-old gentleman admitted with exertional dyspnea, hypoxia, lateral lower extremity edema. 2D echo was found EF 75% with no evidence for diastolic function or regional wall motion abnormality. Normal left atrium. Subsequently, C. difficile PCR positive but negative C. difficile toxin. Abdominal CT does not show acute abnormality. Overall it seems patient does not have active C. difficile colitis as C. difficile toxins are negative and is having diarrhea therefore on vancomycin oral. Patient insurance did not cover vancomycin and he cannot afford it. Advised Flagyl for total of 10 days as patient diarrhea and abdominal pain is much improved. Local calmoseptine ointment for bile acid related skin excoriation around jejunal tube. Advised to follow-up with surgeon as there is peritubal leak of bile. CTA shows small right pleural effusion, severe chronic pulmonary disease with fibrosis. Patient also has coronary artery disease multivessel with a stent. Esophageal cancer on neoadjuvant chemotherapy and J-tube. Patient also has a scheduled chemotherapy which I think needs to be postponed for C. difficile infection. Elevated transaminases in liver chemistry but patient had since October 2020. Probably related to chemotherapy/sepsis. Other multiple comorbidities as mentioned above. Discharge medication reconciliation done. Discharge follow-up instructions completed. Discharge process discussed with the patient and all questions were answered to patient's satisfaction. Total time spent, exact 35 minutes on discharge meds reconciliation, examination, coordination of care with nurses and ancillary staff, review of imaging and blood test and discussion with the patient on follow-up instructions I have discussed my assessment with DEVULCANIZER OPERATORPam and orders have been reviewed. [] Objective: Seen and examined No fever or chills. Heart rate and blood pressure is good. Patient has abdominal pain predominantly over J-tube but also right lower quadrant. Patient had liquid bowel movement/diarrhea about 2 to 3 days ago. On vancomycin oral. Physical exam General: Alert, Oriented x3, Cooperative HEENT: Atraumatic, PERRLA, EOMI, Normocephalic Oral: No Gingival or Mucosal Lesions/ Ulcerations Neck: Supple, No JVD, Negative Carotid Bruits Lungs: Air entry diminished in bilateral lung bases. No crepitation/rhonchi Cardiovascular: Regular rate, Regular Rhythm, Normal S1, Normal S2, No murmurs Abdomen: J-tube in the left side. Surrounding peritubal leakage of bile associated with skin excoriation. Mild deep tenderness present on right and left lower quadrants, mainly around J-tube. : No renal angle tenderness. No suprapubic tenderness. Extremities: No edema, Capillary Refill Less than 3 Seconds Skin: Bile associated skin excoriation around G-tube Musculoskeletal: No Tenderness to Palpation of Joints or Extremities Neurological: Cranial nerves II-XII grossly intact, Deep Tendon Reflexes 2+/4 and Symmetrical, Neuro grossly intact Psych/Mental Status: Normal Affect, Appropriate. - Physical Exam Vitals/I&O's: Vital Signs Temp Pulse Resp BP Pulse Ox 98.3 F 82 14 116/70 93 12/31/20 08:05 12/31/20 08:18 12/31/20 08:05 12/31/20 08:18 12/31/20 08:05 Oxygen Delivery Method Room Air Weight: 205 lb 11.06 oz Body Mass Index (BMI) 29.4 Intake and Output for Last 24 Hours 12/29/20 12/30/20 12/31/20 23:59 23:59 23:59 Intake Total 50 / 50 910 / 1010 210 / 210 Output Total 125 / 125 Balance 50 / 50 910 / 960 85 / 85 Microbiology Past 72 Hours 12/29/20 20:42 Mucosa - Nasopharyngeal Respiratory Panel (PCR) - Final 12/29/20 22:00 Stool Enteric Bacteriology - Final 12/29/20 22:00 Stool C. difficile GDH Antigen & Toxins - Final 12/29/20 22:00 Stool C. difficile DNA Amplification - Final 12/29/20 17:00 Mucosa - Nose SARS-CoV-2 Antigen (Rapid) - Final Laboratory Results 12/30/20 16:01: POC Glucose 149 H 12/30/20 21:45: POC Glucose 150 H 12/31/20 06:30: WBC 8.1, RBC 3.06 L, Hgb 10.0 L, Hct 30.5 L, MCV 99.7 H, MCH 32.7 H, MCHC 32.8, RDW Std Deviation 56.1 H, RDW Coeff of Rachel 15.8 H, Plt Count 178, MPV 11.1 12/31/20 06:30: Sodium 137, Potassium 4.2, Chloride 103, Carbon Dioxide 28.0, Anion Gap 6, BUN 16, Creatinine 0.94, Estim Creat Clear Calc 74.54, Est GFR (MDRD) Af Amer 100, Est GFR (MDRD) Non-Af 83, BUN/Creatinine Ratio 16.9, Glucose 127 H, Calcium 8.8, Total Bilirubin 0.70, AST 60 H, ALT 66 H, Alkaline Phosphatase 495 H, Total Protein 6.5, Albumin 2.2 L, Globulin 4.3 H, Albumin/Globulin Ratio 0.5 L 12/31/20 08:04: POC Glucose 133 H Inpatient E&M: [id number] Disch Hosp
[2021-01-01 09:42] LABS: Vitamin B12 > 2000 pg/mL (211-911)
--- NOTE | 2021-01-01 15:28 | CASEMGMT ---
DANIEL SWANSON Discharge F/U Phone Call LACE: 11 Strata: 3 Discharge date: 12/31/20 Call date: 01/01/21 Call time: 1529 Admission dx: Abd wall cellulitis Pt states is doing 'ok so far' since discharge. Pt states no questions regarding discharge instructions/medications at this time. Pt states Dr. Coyne cancelled appt for today and pt is scheduled to go see surgeon in [place] tomorrow 01/02/21 at 1000. Pt states no suggestions for [facility] at this time and states 'You all did a pretty good job.' Pt's states she is going to try and pull 'some of the gunk' out of his tube at this time. Pt voices no further questions/concerns/needs at this time. [place] DANIEL SWANSON
== END 2020-12-31 12:49 | disposition home or self-care (01) | DRG 393 ==
LOC: ED 16:57 → PCU 21:02
PROVIDERS: Nurse Practitioner Family; Admitting Provider Family Medicine; Emergency Provider Emergency Medicine; PCP Preventive Medicine Occupational Medicine; Visit Provider Internal Medicine
DX: K94.12 Enterostomy infection (principal); A41.9 Sepsis, unspecified organism; I50.31 Acute diastolic (congestive) heart failure; E43 Unspecified severe protein-calorie malnutrition; L03.311 Cellulitis of abdominal wall; C15.9 Malignant neoplasm of esophagus, unspecified; I25.110 Atherosclerotic heart disease of native coronary artery with unstable angina pectoris; I11.0 Hypertensive heart disease with heart failure; Z20.822 Contact with and (suspected) exposure to COVID-19; K71.7 Toxic liver disease with fibrosis and cirrhosis of liver; T45.1X5A Adverse effect of antineoplastic and immunosuppressive drugs, initial encounter; J84.10 Pulmonary fibrosis, unspecified; J44.9 Chronic obstructive pulmonary disease, unspecified; R09.02 Hypoxemia; D53.9 Nutritional anemia, unspecified; E11.9 Type 2 diabetes mellitus without complications; E78.5 Hyperlipidemia, unspecified; N40.0 Benign prostatic hyperplasia without lower urinary tract symptoms; Y84.8 Other medical procedures as the cause of abnormal reaction of the patient, or of later complication, without mention of misadventure at the time of the procedure; Y92.9 Unspecified place or not applicable; Z68.30 Body mass index [BMI] 30.0-30.9, adult; Z79.82 Long term (current) use of aspirin; Z79.84 Long term (current) use of oral hypoglycemic drugs; Z79.02 Long term (current) use of antithrombotics/antiplatelets; Z79.899 Other long term (current) drug therapy; Z85.028 Personal history of other malignant neoplasm of stomach; Z95.5 Presence of coronary angioplasty implant and graft; Z87.891 Personal history of nicotine dependence
CPT/HCPCS: 36415; 36591; 71275; 74018; 74177; 76705; 80053; 80061; 81001; 82607; 82746; 82962; 83605; 83690; 83735; 83880; 84100; 84439; 84443; 84484; 85025; 85027; 85610; 85730; 87040; 87426; 87493; 87506; 87633; 87635; 92610; 93005; 93306; 97802; 99285; J7050; Q9957; Q9967; A4216; C8929; J0696; J1940; J2405; U0002

== ENCOUNTER 2021-01-30 11:04 | Emergency (ER) | payer MEDICARE, SELFPAY ==
[2020-12-30 12:59] VITALS: BMI 29.4
[2021-01-30 11:05] VITALS: BP 123/82; PULSE 114; RESP 24; TEMP 36.7; O2SAT 95; BMI 29.8
--- NOTE | 2021-01-30 11:18 | EKG12_ITS ---
Test Reason : CP Blood Pressure : / mmHG Vent. Rate : 107 BPM Atrial Rate : 107 BPM P-R Int : 154 ms QRS Dur : 092 ms QT Int : 330 ms P-R-T Axes : 050 062 024 degrees QTc Int : 440 ms Sinus tachycardia Incomplete right bundle branch block Borderline ECG Confirmed by LADONNA GAMBLE, MAGO ([id number]), editor department OLEKSANDR CARMONA ([id number]) on 02/05/2021 2:08:16 PM Referred By: MICHELLE Confirmed By:MAGO DOUGHERTY MD
--- NOTE | 2021-01-30 11:32 | ED.DCSUM_ITS ---
History of Present Illness Chief Complaint: Chest Pain Informant: Patient, Significant Other Onset: Weeks - 3 weeks Context: Sudden Onset Timing: Intermittent Quality: Burning pressure sensation Location: Central mid chest and left anterior chest Current Severity: - - None Maximum Severity: Moderate Worsened by: Belching and burping Relieved by: Nothing Associated Symptoms: No associated symptoms or radiation Narrative: Patient is 75-year-old male who was referred to the emergency room by Dr. Loaiza his radiation oncologist. He has had intermittent pain that lasts up to a minute in length. Cancer involves distal esophagus and stomach. Chemotherapy administered by Dr. Karl Coyne. Patient denies fever, chills night sweats. Patient denies ocular, visual auditory symptoms. Patient denies runny nose, congestion or postnasal drainage. He does report central chest pain. He denies throat pain. He does have a feeding tube in place. He denies black or maroon-colored stool. He does report swelling of his lower extremity since he started chemo. He denies increased orthopnea. He presently sleeps with 2 pillows. He denies symptoms of claudication. He does report looking paler. Prior similar symptoms: Yes - Central chest pain not left-sided Recent Illness/Hospitalization: Yes - Past Medical History (1) Chest pain Status: Acute (2) Exertional dyspnea Status: Acute (3) Abnormal cardiovascular function Status: Chronic (4) Abnormal myocardial perfusion study Status: Chronic (5) Atherosclerotic heart disease of [place] coronary artery without angina pectoris Status: Chronic (6) Borderline diabetes Status: Chronic (7) COPD (chronic obstructive pulmonary disease) Status: Chronic (8) Esophageal cancer Status: Chronic (9) Essential hypertension Status: Chronic (10) Hyperlipidemia Status: Chronic (11) Nicotine dependence, cigarettes, uncomplicated Status: Chronic Past Medical History - Allergies and Home Meds Allergies/Adverse Reactions: Allergies No Known Allergies Allergy (Verified 12/29/20 16:11) Primary Care Physician: Keo Contreras DO [Primary Care Provider] - 1 Week if not improving Surgical History: angioplasty, - - PCI, tonsillectomy, Transurethral ablation w/ history of BPH, J-tube placement. Lives: Spouse/ Significant Other Smoking Status: Former smoker Alcohol: None Drugs: None - Family History Maternal Family History: Family History (Last Reviewed 01/24/20 @ 08:34 by Emilee Blanco) Father Myocardial infarction CVA (cerebral vascular accident) Brother Diabetes Family History: Reports: Heart Disease Paternal Family History: Family History (Last Reviewed 01/24/20 @ 08:34 by Emilee Blanco) Father Myocardial infarction CVA (cerebral vascular accident) Brother Diabetes Family History: Reports: High Cholesterol, Heart Disease, Hypertension, Stroke Review of Systems General: Reports: Malaise, Weight loss. Denies: Chills, Fever, Subjective, Sweats, - Eyes: Denies: Visual changes - bilaterally ENT: Denies: Bilateral ear pain, Rhinorrhea, Sore throat Cardiovascular: Reports: Chest pain Respiratory: Reports: Dyspnea - Chronic, Dyspnea on exertion - Chronic Gastrointestinal: Denies: Abdominal pain, Nausea, Vomiting, Diarrhea, Melena, Hematochezia Genitourinary: Denies: Dysuria, Hematuria, Frequency Musculoskeletal: Denies: Myalgias, Arthralgias, Neck pain, Back pain, Swelling, Extremity Pain, -, - Skin: Denies: Rash, Wounds Neurological: Reports: Weakness. Denies: Headache Hematologic: Denies: Easy bruising, Easy bleeding Allergy: Denies: Uticaria, Swelling of the mouth, Swelling of the tongue Physical Exam Vital Signs/Narrative: Vital Signs Temp Pulse Resp BP Pulse Ox 01/30/21 11:05 98.0 F 114 H 24 H 123/82 H 95 Inital Vital Signs reviewed: Yes General: Well developed, Cachectic, No Acute Distress Head: Normocephalic, Atraumatic Eyes: Perrl, EOMI. Negative for: Pale conjunctiva, Scleral icterus ENT: Moist mucous membranes, No rhinorrhea Neck: Supple, Nontender, No lymphadenopathy, No JVD, - - He is midline. There is no inspiratory expiratory stridor. Cardiovascular: Regular rhythm, No murmurs, Normal S1, Normal S2, Tachycardia Respiratory: No distress, CTA bilaterally, Chest nontender Abdomen: Soft, Nontender, Nondistended, Normal bowel sounds, - - Eating tube noted and functioning properly. Back: Nontender, Normal Inspection Extremities: Nontender, Edema - 2 mm pitting Skin: No rash, No Trauma, Pallor. Negative for: Cyanosis, Diaphoresis, Jaundice Neurological: Alert, Oriented x3, Cranial nerves II-XII grossly intact, Normal Strength, Normal Sensation Psychological: Normal affect Diagnostic/Tx/Re-eval Chest X-Ray - ED: 2 View, Read by ED Physician, Normal, Heart, Mediastinum, Bony Structures, - - Fibrotic changes noted bilaterally. There is a difference in technique compared to prior. Today's film is overpenetrated. Suspect this is due to radiation. 01/30/21 11:55 Chest PA and Lateral [RAD] Stat Laboratory Results 01/30/21 01/30/21 11:35 11:35 WBC 1.7 L RBC 3.17 L Hgb 10.4 L Hct 32.6 L MCV 102.8 H MCH 32.8 H MCHC 31.9 L RDW Std Deviation 61.3 H RDW Coeff of Rachel 16.3 H Plt Count 114 L MPV 11.8 Immature Gran % (Auto) 0.600 Neut % (Auto) 61.4 Lymph % (Auto) 26.3 [place] % (Auto) 9.9 Eos % (Auto) 1.2 Baso % (Auto) 0.6 Absolute Neuts (auto) 1.1 L Absolute Lymphs (auto) 0.45 L Nucleated RBC % 0 Sodium 137 Potassium 4.4 Chloride 105 Carbon Dioxide 26.0 Anion Gap 6 BUN 18 Creatinine 0.94 Estim Creat Clear Calc 74.54 Est GFR (MDRD) Af Amer 102 Est GFR (MDRD) Non-Af 84 BUN/Creatinine Ratio 19.2 Glucose 161 H Calcium 8.9 Total Bilirubin 0.60 AST 36 ALT 43 Alkaline Phosphatase 159 H Troponin I < 0.015 Total Protein 7.3 Albumin 2.9 L Globulin 4.4 H Albumin/Globulin Ratio 0.7 L BC reveals pancytopenia. Comprehensive metabolic panel is remarkable for elevated glucose of 161. Albumin is low at 2.9. Troponin is normal. Alkaline phosphatase is elevated and probably due to liver involvement secondary to cancer. - EKG Initial EKG Interpretation: Sinus Tachycardia - Sinus tachycardia with a ventricular rate of 107. MD interval 254 ms. QT RS duration is 92 ms. QT duration 330 ms. There is significant artifact. There is an RR prime in V1., - - Medical Decision Making SPECT patient's discomfort is due to radiation esophagitis. Will evaluate for pericarditis, pneumonia etc. EKG, chest x-ray and appropriate blood work was ordered. ED Disposition - Plan for ED Patient: Disposition: Home or Assisted Living Diagnosis: Radiation-induced esophagitis, Non-cardiac chest pain, Radiation pneumonitis, Hyperglycemia due to type 2 diabetes mellitus, Sinus tachycardia by electrocardiography Instructions: Radiation Therapy: Managing Side Effects, ED Chest Pain, Noncardiac Prescriptions: Sucralfate [Carafate] 1 gm PO 4X/DAY #120 [facility] [place] Status: Pending to [id number] Referrals: Keo Contreras DO [Primary Care Provider] - 1 Week if not improving
[2021-01-30 11:50] LABS: Absolute Lymphocyte Count 0.45 X10^3/uL (0.83-4.51); Absolute Neutrophil Count 1.1 X10^3/uL (2.0-7.7); Basophil# 0.01 X10^3/uL; Basophil% 0.6 % (0-1); Eosinophil# 0.02 X10^3/uL; Eosinophils% 1.2 % (0-5); Hematocrit 32.6 % (40-54); Hemoglobin 10.4 g/dL (13.0-16.5); Lymphocyte # 0.45 X10^3/ul (4.0); Lymphocyte % 26.3 % (19-41); Mean Corp Hgb Conc 31.9 g/dL (32-36); Mean Corpuscular Hgb 32.8 pg (27.0-32.0); Mean Corpuscular Volume 102.8 fL (80-94); Mean Platelet Vol. 11.8 fl (6.2-12.0); Monocyte# 0.17 X10^3/uL; Monocyte% 9.9 % (0-10); NRBC Flagged by Analyzer 0 % (0-5); Neutrophil # 1.05 X10^3/uL (2.7-7.7); Neutrophil % 61.4 % (47-70); POSITIVE DIFFERENTIAL YES; Platelet Count 114 K/mm3 (150-450); RBC Distribution Width CV 16.3 % (11.6-14.6); RBC Distribution Width SD 61.3 fl (35.1-43.9); Red Blood Count 3.17 M/mm3 (4.6-6.2); White Blood Count 1.7 K/mm3 (4.4-11.0)
[2021-01-30 11:52] LABS: Differential Indicated SCAN CRITERIA MET
--- NOTE | 2021-01-30 11:55 | RAD_ITS ---
STUDY: X-RAY CHEST REASON FOR EXAM: Male, 75 years old. cp, Hx throat CA per patient TECHNIQUE: PA and lateral views of the chest. COMPARISON: 10/06/2020 FINDINGS: Interval placement of left subclavian chest port with tip the catheter overlying the junction of the right atrium and superior vena cava with no pneumothorax. Poor inspiration with some bibasilar atelectasis. There is no demonstrated pleural abnormality. Normal size heart. Normal mediastinum and omar. Normal visualized pulmonary arteries. Normal visualized aortic arch and descending thoracic aorta. Normal visualized thoracic spine. Normal visualized ribs, clavicles, and shoulders. There is no demonstrated abnormality of the visualized soft tissue structures of the upper abdomen. RAD/Chest PA and Lateral IMPRESSION: 1. Interval placement of left clavian chest port. 2. Poor inspiration with some bibasilar atelectasis. Electronically Signed: Gunnar Marie MD at 12:35 EST Tel , Service support ,
[2021-01-30 12:03] LABS: ALB/GLOB Ratio 0.7 RATIO (0.9-2.4); AST(SGOT) 36 U/L (15-37); Alanine Aminotransfer ALT/SGPT 43 U/L (16-61); Albumin, Serum 2.9 g/dL (3.2-5.0); Alkaline Phosphatase 159 U/L (45-117); Anion Gap 6 (5-15); BUN 18 mg/dL (7-18); BUN/Creat Ratio 19.2 RATIO (10-20); Calcium,Total 8.9 mg/dL (8.5-10.1); Chloride 105 mmol/L (98-107); Creatinine, Serum 0.94 mg/dL (0.70-1.30); EST Glomerular Filtration Rate 84 mL/min (>60); Est Glom Filt Rate - Afr Amer 102 mL/min (>60); Estimated Creatinine Clearance 74.54 ml/min; Globulin 4.4 g/dL (2.2-4.2); Glucose 161 mg/dL (74-106); Potassium 4.4 mmol/L (3.5-5.1); Protein, Total 7.3 g/dL (6.4-8.2); Sodium Level 137 mmol/L (136-145)
[2021-01-30 12:42] VITALS: BP 103/66; PULSE 90; RESP 16; O2SAT 98
[2021-01-30 12:44] LABS: Differential Comment SCANNED
[2021-01-31 14:54] LABS: Pathologist Review Reviewed
== END 2021-01-30 12:52 | disposition home or self-care (01) ==
PROVIDERS: Emergency Provider Emergency Medicine; PCP Preventive Medicine Occupational Medicine
DX: K20.80 Other esophagitis without bleeding (principal); J70.0 Acute pulmonary manifestations due to radiation; Y84.2 Radiological procedure and radiotherapy as the cause of abnormal reaction of the patient, or of later complication, without mention of misadventure at the time of the procedure; Y92.9 Unspecified place or not applicable; C15.5 Malignant neoplasm of lower third of esophagus; C16.9 Malignant neoplasm of stomach, unspecified; R07.89 Other chest pain; R06.09 Other forms of dyspnea; R00.0 Tachycardia, unspecified; M79.89 Other specified soft tissue disorders; I25.10 Atherosclerotic heart disease of native coronary artery without angina pectoris; J44.9 Chronic obstructive pulmonary disease, unspecified; E11.65 Type 2 diabetes mellitus with hyperglycemia; I10 Essential (primary) hypertension; E78.5 Hyperlipidemia, unspecified; R64 Cachexia; Z79.02 Long term (current) use of antithrombotics/antiplatelets; Z79.82 Long term (current) use of aspirin; Z79.899 Other long term (current) drug therapy; Z87.891 Personal history of nicotine dependence; Z95.5 Presence of coronary angioplasty implant and graft
CPT/HCPCS: 36591; 71046; 80053; 84484; 85025; 93005; 99283; A4216

== ENCOUNTER 2021-02-06 16:42 | Emergency (ER) | payer MEDICARE, SELFPAY ==
[2021-02-01 08:21] VITALS: BMI 29.2
[2021-02-06] VITALS (7 sets, daily range): BP systolic 99–116; BP diastolic 51–78; PULSE 77–101; RESP 14–24; TEMP 36.6; O2SAT 84–100; BMI 29.6
--- NOTE | 2021-02-06 17:34 | EKG12_ITS ---
Test Reason : SOB Blood Pressure : / mmHG Vent. Rate : 091 BPM Atrial Rate : 091 BPM P-R Int : 160 ms QRS Dur : 096 ms QT Int : 332 ms P-R-T Axes : 042 033 019 degrees QTc Int : 408 ms Normal sinus rhythm Incomplete right bundle branch block Confirmed by LADONNA GAMBLE, MAGO ([id number]), editor newspaper OLEKSANDR CARMONA ([id number]) on 02/08/2021 11:12:34 AM Referred By: Confirmed By:MAGO DOUGHERTY MD
--- NOTE | 2021-02-06 17:36 | ED.VISSUMM ---
- ER Visit Summary Date of Service: 02/06/21 Chief Complaint: Shortness of breath and low blood pressure History of Present Illness: The patient is a 75 M history of currently being treated for esophageal CA with radiation and chemotherapy. He is also diabetic has coronary disease with 3 cardiac stents and COPD. He is currently on oxygen at home. Today he saw his oncologist he had low blood pressure and low oxygen in the office of the same in the ER for further evaluation. He denies any chest pain. Denies any hemoptysis. He has had no recent hospitalization nor any recent surgery. He has never had a DVT or PE. He had a negative CTA a month and a half ago. Physical Examination: Older male accompanied by family. Initial vital signs are stable on oxygen his pulse ox is 95%. Is not hypoxic. On oxygen. HEENT exam shows dry mucous members. Neck nontender no JVD. Lungs diminished in both bases bilaterally. Heart regular rhythm rate about 95 no murmur. Abdomen soft nontender normal bowel sounds no peritoneal signs. Patient is moving all 4 extremities. Calves nontender without edema or cords. Neurologically is awake alert with no focal motor deficits. He does appear to be pale. He does not look septic or toxic. Test Results: CBC shows a white count hemoglobin is 10 which is his baseline chronic anemia. Platelet count 121,000. No bands. Chemistries unremarkable normal creatinine and gap. Normal BUN of 20. Glucose 216. UA normal no signs of infection. Troponin normal. D-dimer was slightly elevated 0.92. EKG shows normal sinus rhythm rate of 91 with no acute signs of IA or ischemia. Portable chest x-ray 1 view interpreted by myself also read by the radiologist shows chronic changes. Scarring. But no acute process. Radiologist questioned an infiltrate which I do not see. CTA of the chest showed no PE no dissection. No obvious pneumonia. Multiple repeat exams patient is doing well. Nurse got the patient up and walked him on his normal oxygen his sats stayed between 94 - 99% walking in the hallway on oxygen. He says he feels well and he and his family a card with him being discharged home. His current blood pressure is around the 100 he did receive 1+ liters normal saline. Emergency Department Course and Treatment: Older male currently being treated with chemo and radiation for esophageal CA sent in for hypotension and hypoxia. He does clinically look dehydrated and will see if a liter of normal saline. He will undergo a cardiac work-up. Treatment Plan: Outpatient follow-up with his oncologist Dr. Karl Coyne. Return if he is feeling worse. Watch his blood pressure at home. Disposition: dc Impression: Acute hypotension Acute chronic hypoxia History of esophageal CA CA undergoing radiation chemotherapy History of CAD with 3 stents History of COPD History of diabetes This note was generated with [employer] dictation software. It may contain incorrect words, spelling, and punctuation that were not noted in review of the chart prior to signing ED Disposition - Plan for ED Patient: Disposition: Home or Assisted Living Referrals: Karl Coyne DO [STAFF PHYSICIAN] - 3-5 Days Keo Contreras DO [Primary Care Provider] - As Needed Additional Instructions: Plenty of Fluids and rest. Follow-up with Dr. Coyne to ensure you are improving. Closely watch her blood pressure at home. Hold your blood pressure medication if your blood pressure is at or below 130 systolic.
[2021-02-06] MEDS: 0.9% Normal Saline 1,000 ML 1000 ML IV (18:31)
[2021-02-06 18:35] LABS: Absolute Lymphocyte Count 0.56 X10^3/uL (0.83-4.51); Absolute Neutrophil Count 1.2 X10^3/uL (2.0-7.7); Basophil# 0.02 X10^3/uL; Basophil% 0.9 % (0-1); Eosinophil# 0.02 X10^3/uL; Eosinophils% 0.9 % (0-5); Hematocrit 32.5 % (40-54); Hemoglobin 10.3 g/dL (13.0-16.5); Lymphocyte # 0.56 X10^3/ul (4.0); Lymphocyte % 25.5 % (19-41); Mean Corp Hgb Conc 31.7 g/dL (32-36); Mean Corpuscular Hgb 32.6 pg (27.0-32.0); Mean Corpuscular Volume 102.8 fL (80-94); Mean Platelet Vol. 10.5 fl (6.2-12.0); Monocyte% 18.2 % (0-10); NRBC Flagged by Analyzer 0 % (0-5); Neutrophil # 1.18 X10^3/uL (2.7-7.7); Neutrophil % 53.6 % (47-70); POSITIVE DIFFERENTIAL YES; Platelet Count 121 K/mm3 (150-450); RBC Distribution Width CV 16.4 % (11.6-14.6); Red Blood Count 3.16 M/mm3 (4.6-6.2); White Blood Count 2.2 K/mm3 (4.4-11.0)
[2021-02-06 18:41] LABS: International Normalized Ratio 0.9
[2021-02-06 18:49] LABS: Anion Gap 6 (5-15); BUN 20 mg/dL (7-18); BUN/Creat Ratio 21.4 RATIO (10-20); Calcium,Total 9.1 mg/dL (8.5-10.1); Chloride 101 mmol/L (98-107); Creatinine, Serum 0.94 mg/dL (0.70-1.30); EST Glomerular Filtration Rate 84 mL/min (>60); Est Glom Filt Rate - Afr Amer 102 mL/min (>60); Estimated Creatinine Clearance 74.54 ml/min; Glucose 216 mg/dL (74-106); Potassium 4.5 mmol/L (3.5-5.1); Sodium Level 136 mmol/L (136-145)
--- NOTE | 2021-02-06 18:50 | RAD_ITS ---
STUDY: X-RAY CHEST REASON FOR EXAM: Male, 75 years old. Chest pain TECHNIQUE: Single AP portable view of the chest. COMPARISON: January 30, 2021. FINDINGS: Port on the left extends to the right atrium There are interstitial septal and ground glass opacities of the mid and lower lungs. There is no demonstrated pleural abnormality. There are endovascular stent(s) present. Normal mediastinum and omar. Normal visualized pulmonary arteries. Normal visualized aortic arch and descending thoracic aorta. Normal visualized thoracic spine. Normal visualized ribs, clavicles, and shoulders. There is no demonstrated abnormality of the visualized soft tissue structures of the upper abdomen. RAD/Chest 1 View (Portable) IMPRESSION: Mid and lower lung interstitial edema or pneumonia. Electronically Signed: Colten Peres MD at 19:35 EST , Service support ,
[2021-02-06 19:05] LABS: Differential Indicated SCAN CRITERIA MET
[2021-02-06 19:11] LABS: Anisocytosis 1+; Macrocytosis 1+; Platelet Estimate SLT DEC (ADEQ); Red Cell Morphology N CHROM NORMAL (NORM C&C)
[2021-02-06 19:31] LABS: D-Dimer Quantitative (DVT/PE) 0.92 FEU/ug/m (0.27-0.49)
--- NOTE | 2021-02-06 19:32 | CT_ITS ---
STUDY: CTA CHEST REASON FOR EXAM: Male, 75 years old. Hypoxic and elevated d-dimer RADIATION DOSAGE (If Supplied By Facility): CTDIvol = ( 9.43 ) mGy, DLP = ( 434.57 ) mGycm TECHNIQUE: The examination was performed with the intravenous administration of 100mL Isovue-370. Post-processing of the angiographic images was performed, with multiplanar reformation and 3D reconstruction. Individualized dose optimization techniques were used for this CT. COMPARISON: Chest x-ray February 06, 2021. Chest CT December 29, 2020 FINDINGS: Port on the left extends to the superior vena cava. Normal enhancement of the main pulmonary artery and right and left pulmonary arteries. Normal enhancement of the bilateral peripheral pulmonary arteries. There is no demonstrated pulmonary embolism. There is atherosclerotic calcification of the aortic arch with tortuosity. There is no demonstrated aortic dissection. There are calcifications of the coronary arteries. Normal mediastinum. Normal hilar regions. Normal visualized trachea and bronchi. The lungs are well expanded. There is emphysema. There are moderate fibrotic densities. There is small area of new groundglass opacity in the left upper lobe. Normal pleura. Normal chest wall structures. There are degenerative changes of thoracic spine. Normal visualized upper abdomen. CT/CTA Chest W/WO Contrast IMPRESSION: CTA chest examination, without a demonstrated pulmonary embolism or arterial dissection. Emphysema and fibrotic densities. Small left upper lung interstitial infiltrate. Electronically Signed: Colten Peres MD at 20:54 EST , Service support ,
[2021-02-06 19:45] LABS: Mucous, Urine 0 SEEN /hpf (<or=2+); Red Blood Cells-Urine 0 SEEN /hpf (0-5); Squamous Epithelial Cells - UA 0 SEEN /hpf (0-5); White Blood Cells 0 SEEN /hpf (0-5)
[2021-02-06 19:49] LABS: Color, Urine Yellow (Yellow); Glucose, Dipstick Normal (Normal); Ketone-Dipstick Negative (Negative); Leukocyte Esterase-Dipstick Negative /ul (Negative); Nitrite-Dipstick Negative (Negative); Occult Blood-Urine 10 /ul (Negative); Protein-Dipstick 15 mg/dl (Negative); Specific Gravity, Urine 1.015 (1.002-1.030); Urine Bilirubin Dipstick Negative (Negative); Urine Clarity Clear (Clear); Urine Urobilinogen Normal (Normal)
[2021-02-06 19:55] LABS: Bacteria 1+ /hpf (None Seen)
--- NOTE | 2021-02-06 21:19 | ED.RN ---
pt walked the hallway with 02 at [facility]ln[facility] as home 02. pt po at rest 99 after walk 94
--- NOTE | 2021-02-06 21:24 | ED.DEP ---
ED Disposition - Plan for ED Patient: Disposition: Home or Assisted Living Referrals: Keo Contreras DO [Primary Care Provider] - As Needed Karl Coyne DO [STAFF PHYSICIAN] - 3-5 Days Additional Instructions: Plenty of Fluids and rest. Follow-up with Dr. Coyne to ensure you are improving. Closely watch her blood pressure at home. Hold your blood pressure medication if your blood pressure is at or below 130 systolic.
[2021-02-06] MEDS: 0.9% Normal Saline 1,000 ML 999 ML IV (21:29)
[2021-02-07 11:50] LABS: Pathologist Review Reviewed
== END 2021-02-06 22:34 | disposition home or self-care (01) ==
PROVIDERS: Emergency Provider Emergency Medicine; PCP Preventive Medicine Occupational Medicine
DX: I95.9 Hypotension, unspecified (principal); R09.02 Hypoxemia; C15.9 Malignant neoplasm of esophagus, unspecified; R79.89 Other specified abnormal findings of blood chemistry; R19.7 Diarrhea, unspecified; Z20.822 Contact with and (suspected) exposure to COVID-19; I25.10 Atherosclerotic heart disease of native coronary artery without angina pectoris; E11.9 Type 2 diabetes mellitus without complications; J44.9 Chronic obstructive pulmonary disease, unspecified; R11.0 Nausea; Z79.02 Long term (current) use of antithrombotics/antiplatelets; Z79.84 Long term (current) use of oral hypoglycemic drugs; Z79.82 Long term (current) use of aspirin; Z79.899 Other long term (current) drug therapy; Z95.5 Presence of coronary angioplasty implant and graft; Z87.891 Personal history of nicotine dependence
CPT/HCPCS: 36591; 71045; 71275; 80048; 81001; 84484; 85025; 85379; 85610; 87426; 93005; 96360; 96361; 99285; J7030; Q9967; A4216

== ENCOUNTER → 2021-02-16 08:57 | Outpatient (CLI) | payer MEDICARE, SELFPAY ==
[2021-02-01 08:21] VITALS: BMI 29.2
[2021-02-06 16:44] VITALS: BMI 29.6
--- NOTE | 2021-02-16 13:43 | PFTCOMP ---
COMPLETE PULMONARY FUNCTION TEST INTERPRETATION Brief HPI: Patient is a 75 year old male, currently under the care of Dr. Donahue, who presents to [facility] for complete pulmonary function tests secondary to diagnosis of COPD. Respiratory therapist reports good effort and reproducible results. Interpretation: Forced expiration spirometry shows no large airways obstructive ventilatory defect with an FEV1 of 58% predicted. There is no significant bronchodilator response by strict ATS criteria. Spirograms are of good quality and plateau slowly, indicating slowly emptying areas of the lungs. The respiratory flow volume loop shows decreased expiratory flow rates at high lung volumes consistent with small airways obstruction. Lung volumes by body plethysmography show a decreased total lung capacity at 4.27 L, 64% predicted. All other lung volumes are reduced symmetrically. Diffusion capacity by carbon monoxide is decreased at 34% predicted. The airway resistance is normal. Compared to previous pulmonary function tests from 12/15/2018, there is a significant reduction in FVC, FEV1 and DLCO by 24%, 20% and 48% respectively. Impression: Moderate restrictive ventilatory defect with a disproportionate reduction in diffusion capacity and significant reduction compared to previous testing
== END ==
PROVIDERS: PCP Preventive Medicine Occupational Medicine; Referring Provider Internal Medicine Critical Care Medicine; Visit Provider Internal Medicine Critical Care Medicine
DX: J44.9 Chronic obstructive pulmonary disease, unspecified (principal)
CPT/HCPCS: 94060; 94726; 94729

== ENCOUNTER 2021-02-26 15:10 | Emergency (ER) | payer MEDICARE, SELFPAY ==
[2021-02-06 16:44] VITALS: BMI 29.6
[2021-02-26] VITALS (8 sets, daily range): BP systolic 105–128; BP diastolic 69–80; PULSE 99–111; RESP 16–26; TEMP 36.4–36.8; O2SAT 94–98
--- NOTE | 2021-02-26 15:29 | CT_ITS ---
STUDY: CT ABDOMEN AND PELVIS WITH CONTRAST REASON FOR EXAM: Male, 75 years old. Small bowl obstruction -- IV PO Contrast RADIATION DOSAGE (If Supplied By Facility): CTDIvol = ( 16.42 ) mGy, DLP = ( 1219.52 ) mGycm TECHNIQUE: Transaxial images were obtained from the dome of the diaphragm to the symphysis pubis without oral contrast. Oral and amp; IV Gastrografin and amp; 100mL Isovue-300 was administered. Sagittal and coronal images were reconstructed. Individualized dose optimization techniques were used for this CT. COMPARISON: 12/29/2020. FINDINGS: The visualized lung bases demonstrate extensive interstitial thickening and fibrotic changes. The visualized portions of the heart are within normal limits. Slightly lobulated liver suggesting cirrhosis. Normal gallbladder and extrahepatic biliary system. Normal spleen. Normal pancreas. Normal bilateral adrenal glands. Up to 3.4 cm cysts in the right kidney. 1.9 cm cysts in the left kidney. Small hiatal hernia. Possible distal esophageal wall thickening. There is a percutaneous jejunostomy tube in place. Mild diverticulosis of the colon. The appendix is nonvisualized. Normal abdominal aorta. Normal inferior vena cava. Normal retroperitoneum. Normal urinary bladder. Fatty density at the inguinal canals. Small fatty umbilical hernia. Normal osseous structures. CT/Abdomen/Pelvis WITH Contrast IMPRESSION: Fibrotic changes at the lung bases. Probable cirrhotic changes in the liver. Bilateral renal cysts. Small hiatal hernia. Possible distal esophageal wall thickening. Percutaneous jejunostomy tube. No bowel obstruction. Mild colonic diverticulosis. Mild fatty density at the inguinal canals. Small fatty umbilical hernia. Electronically Signed: Jc Jenkins DO at 19:43 EDT Tel [phone], Service support ,
--- NOTE | 2021-02-26 15:29 | EKG12_ITS ---
Test Reason : ABD PAIN Blood Pressure : / mmHG Vent. Rate : 105 BPM Atrial Rate : 105 BPM P-R Int : 146 ms QRS Dur : 090 ms QT Int : 334 ms P-R-T Axes : 042 049 019 degrees QTc Int : 441 ms Normal sinus rhythm Low voltage QRS Confirmed by LADONNA GAMBLE, MAGO ([id number]), material expeditor OLEKSANDR CARMONA ([id number]) on 03/01/2021 9:39:53 AM Referred By: MONI Confirmed By:MAGO DOUGHERTY MD
[2021-02-26 16:06] LABS: Absolute Lymphocyte Count 0.09 X10^3/uL (0.83-4.51); Absolute Neutrophil Count 1.1 X10^3/uL (2.0-7.7); Basophil# 0.01 X10^3/uL; Basophil% 0.7 % (0-1); Hematocrit 28.3 % (40-54); Hemoglobin 9.4 g/dL (13.0-16.5); Lymphocyte # 0.09 X10^3/ul (4.0); Lymphocyte % 6.3 % (19-41); Mean Corp Hgb Conc 33.2 g/dL (32-36); Mean Corpuscular Hgb 33.8 pg (27.0-32.0); Mean Corpuscular Volume 101.8 fL (80-94); Mean Platelet Vol. 11.6 fl (6.2-12.0); Monocyte# 0.24 X10^3/uL; Monocyte% 16.9 % (0-10); NRBC Flagged by Analyzer 0 % (0-5); Neutrophil # 1.06 X10^3/uL (2.7-7.7); Neutrophil % 74.7 % (47-70); POSITIVE COUNT YES; POSITIVE DIFFERENTIAL YES; Platelet Count 120 K/mm3 (150-450); RBC Distribution Width CV 17.2 % (11.6-14.6); RBC Distribution Width SD 64.3 fl (35.1-43.9); Red Blood Count 2.78 M/mm3 (4.6-6.2)
[2021-02-26 16:10] LABS: Differential Indicated SCAN CRITERIA MET; White Blood Count 1.4 K/mm3 (4.4-11.0)
[2021-02-26 16:18] LABS: Prothrombin Time (Protime)PT. 12.7 SECONDS (11.7-14.9)
[2021-02-26 16:19] LABS: Partial Thromboplast Time 29.5 Seconds (24.1-36.2)
[2021-02-26 16:24] LABS: ALB/GLOB Ratio 0.5 RATIO (0.9-2.4); AST(SGOT) 27 U/L (15-37); Alanine Aminotransfer ALT/SGPT 33 U/L (16-61); Albumin, Serum 2.8 g/dL (3.2-5.0); Alkaline Phosphatase 147 U/L (45-117); Anion Gap 5 (5-15); BUN 23 mg/dL (7-18); Calcium,Total 9.1 mg/dL (8.5-10.1); Chloride 102 mmol/L (98-107); EST Glomerular Filtration Rate 78 mL/min (>60); Est Glom Filt Rate - Afr Amer 94 mL/min (>60); Estimated Creatinine Clearance 70.07 ml/min; Globulin 5.1 g/dL (2.2-4.2); Glucose 317 mg/dL (74-106); Lipase 16 U/L (73-393); Potassium 4.9 mmol/L (3.5-5.1); Protein, Total 7.9 g/dL (6.4-8.2); Sodium Level 135 mmol/L (136-145)
[2021-02-26] MEDS: 0.9% Normal Saline 1,000 ML 1000 ML IV (16:24)
[2021-02-26] MEDS: Ondansetron 4 MG/2 ML Vial IV ×2 (16:24→20:15)
[2021-02-26] MEDS: Morphine 4 MG/ML Syringe IV ×3 (16:24→20:15)
[2021-02-26 16:37] LABS: Differential Comment SCANNED
[2021-02-26 16:47] LABS: Lactic Acid 3.4 mmol/L (0.4-1.9)
--- NOTE | 2021-02-26 17:18 | NURSING ---
pt with immediate increased drng from wound collection bag around feeding tube now after giving half of contrast per order. drng more purulent and daughter thought looked like was bowel dr. aware and feeding tube clamped and ct aware to go ahead and scan now.
[2021-02-26 17:58] LABS: Bacteria 0 SEEN /hpf (None Seen); Mucous, Urine 0 SEEN /hpf (<or=2+); Red Blood Cells-Urine 0 SEEN /hpf (0-5); Squamous Epithelial Cells - UA 0 SEEN /hpf (0-5); White Blood Cells 0 SEEN /hpf (0-5)
[2021-02-26 18:09] LABS: Color, Urine Yellow (Yellow); Glucose, Dipstick 1000 mg/dl (Normal); Ketone-Dipstick Negative (Negative); Leukocyte Esterase-Dipstick Negative /ul (Negative); Nitrite-Dipstick Negative (Negative); Occult Blood-Urine Negative /ul (Negative); Protein-Dipstick Negative (Negative); Urine Bilirubin Dipstick Negative (Negative); Urine Clarity Clear (Clear); Urine Urobilinogen 1 mg/dl (Normal)
[2021-02-26] MEDS: 0.9% Normal Saline 1,000 ML 999 ML IV (18:28)
--- NOTE | 2021-02-26 18:32 | ED.VISSUMM ---
- ER Visit Summary Date of Service: 02/26/21 Chief Complaint: Abdominal pain History of Present Illness: The patient is a [address] Conye. He has a history of esophageal and gastric cancer. His last dose of chemo was 1 week ago. His last radiation dose was 3 days ago. He had a PEG tube placed in October 2020. He states he has been leaking bile around the since yesterday. He had leaking of bile around it last week as well. Patient reports that his abdominal pain is a continuous dull pain is 8 of 10 at worst and 7-10 currently. Is worsened by drinking. Is is unrelieved by morphine every 4. Has been nausea and vomited a small amount today. His last bowel was 4 days ago. Typically he goes twice a day. He has greatly decreased flatus and feels distended. On review of systems patient does complain of subjective fever and chills. He has chronic chest pain is unchanged. He has chronic shortness of breath that seems slightly worse than usual. Physical Examination: Vitals: Stable. Afebrile. General: Well-nourished and well-developed. Head: Normocephalic atraumatic. Neck: Supple, no lymphadenopathy. No JVD. Nontender. Cardiovascular: Tachycardic regular rhythm. No murmurs. Respiratory: No respiratory distress. Clear to auscultation bilaterally. Abdominal: Soft, moderate diffuse tenderness to palpation, distended, hypoactive bowel sounds. He has a PEG tube in the left upper quadrant that has bag that is draining to that has a large amount of bilious drainage. Back: Nontender. Extremities: Nontender, 1+ pitting edema extremities bilaterally. Skin: Normal color, no rash. Neurologic: Alert and oriented ?3. Cranial nerves II through XII are intact. Normal strength and sensation. Psych: Normal affect. Test Results: EKG is sinus tach at [address] changes in anterior marginal lead III. Is unchanged mother this month. Troponin is negative. Lactic acid is 3.4. LFTs show an albumin of 2.8, globin of 5.1, alk phos 147. Lipase is 16. INR is 1.0. PTT is 29.5. Chem-7 shows sodium 135, glucose 317, BUN 23. Covid is negative. CBC shows a white count of 1.4 with 75 segmented neutrophils giving absolute neutrophil count of 1045. H&H is 9.4 and 28.3. Clinical Impression(s) from Imaging Studies Abdomen/Pelvis CT 02/26/21 15:29 IMPRESSION: Fibrotic changes at the lung bases. Probable cirrhotic changes in the liver. Bilateral renal cysts. Small hiatal hernia. Possible distal esophageal wall thickening. Percutaneous jejunostomy tube. No bowel obstruction. Mild colonic diverticulosis. Mild fatty density at the inguinal canals. Small fatty umbilical hernia. Electronically Signed: Jc Jenkins DO at 19:43 EDT Tel [phone], Service support , Chest X-Ray 02/26/21 18:33 IMPRESSION: Low volume inspiration with patchy opacities at both bases, left greater than right, which has slightly increased since the prior study. Findings may represent developing pneumonia or atelectasis. Follow-up imaging to resolution recommended. Electronically Signed: Elmer Carrasco MD at 19:01 EDT , Service support , Emergency Department Course and Treatment: Patient had an IV placed. He is given morphine and Zofran IV. He was unable to drink the contrast for the CT. We attempted to give this through his PEG tube and proximally 15 minutes later it drained into the bag surrounding the PEG tube. Patient was given 2 L of normal saline. Treatment Plan: Patient was discussed with Dr. Coyne. Who reviewed the CAT scan himself. Given the feculent drainage from the patient's J-tube he would like him transferred back to [facility] where he had the J-tube placed. He reports that is required multiple revisions previously. Patient and family are happy with this plan. Disposition: Transferred in serious condition. Impression: 1. Esophageal cancer on chemotherapy. 2. Feculent drainage from J-tube. 3. Lactic acidosis. 4. Critical care time 40 minutes. This note was generated with [employer] software. It may contain incorrect words, spelling, and punctuation that were not noted in review of the chart prior to signing ED Disposition - Plan for ED Patient: Referrals: Keo Contreras DO [Primary Care Provider] -
--- NOTE | 2021-02-26 18:33 | RAD_ITS ---
STUDY: X-RAY CHEST REASON FOR EXAM: Male, 75 years old. Shortness of breath. TECHNIQUE: Single frontal view of the chest. COMPARISON: 02/06/2021 FINDINGS: Stable left subclavian catheter. Volume inspiration with patchy opacities at both bases, left greater than right, which is slightly increased since the prior study. There is no demonstrated pleural abnormality. Normal size heart. Normal mediastinum and omar. Normal visualized pulmonary arteries. Normal visualized aortic arch and descending thoracic aorta. Normal visualized thoracic spine. Normal visualized ribs, clavicles, and shoulders. There is no demonstrated abnormality of the visualized soft tissue structures of the upper abdomen. RAD/Chest 1 View (Portable) IMPRESSION: Low volume inspiration with patchy opacities at both bases, left greater than right, which has slightly increased since the prior study. Findings may represent developing pneumonia or atelectasis. Follow-up imaging to resolution recommended. Electronically Signed: Elmer Carrasco MD at 19:01 EDT , Service support ,
[2021-02-26 19:59] LABS: Reflex Lactate? Y
[2021-02-27 11:33] LABS: Pathologist Review Reviewed
== END 2021-02-26 22:22 | disposition short-term general hospital (02) ==
LOC: ED 16:21
PROVIDERS: Emergency Provider Emergency Medicine; PCP Preventive Medicine Occupational Medicine
DX: C15.9 Malignant neoplasm of esophagus, unspecified (principal); E87.2 Acidosis; I25.10 Atherosclerotic heart disease of native coronary artery without angina pectoris; E11.9 Type 2 diabetes mellitus without complications; J44.9 Chronic obstructive pulmonary disease, unspecified; E78.00 Pure hypercholesterolemia, unspecified; Z79.4 Long term (current) use of insulin; Z79.82 Long term (current) use of aspirin
CPT/HCPCS: 36591; 71045; 74177; 80053; 81001; 83605; 83690; 84484; 85025; 85610; 85730; 87040; 87086; 87426; 93005; 96361; 96374; 96375; 96376; 99285; J7030; Q9967; A4216; J2405

== ENCOUNTER 2021-02-28 10:31 | Inpatient (IN) | payer MEDICARE, SELFPAY ==
[2021-02-28] VITALS (17 sets, daily range): BP systolic 95–140; BP diastolic 61–75; PULSE 76–113; RESP 15–25; TEMP 36.3–37.6; O2SAT 90–99; BMI 30.1; BMI 29.7
--- NOTE | 2021-02-28 10:43 | EKG12_ITS ---
Test Reason : FEVER Blood Pressure : / mmHG Vent. Rate : 104 BPM Atrial Rate : 104 BPM P-R Int : 142 ms QRS Dur : 096 ms QT Int : 340 ms P-R-T Axes : 044 047 008 degrees QTc Int : 447 ms Sinus tachycardia Incomplete right bundle branch block Borderline ECG Confirmed by LADONNA GAMBLE, MAGO ([id number]), assistant editor OLEKSANDR CARMONA ([id number]) on 03/02/2021 12:41:46 PM Referred By: MONI Confirmed By:MAGO DOUGHERTY MD
--- NOTE | 2021-02-28 10:57 | CT_ITS ---
STUDY: CT ABDOMEN AND PELVIS WITHOUT CONTRAST REASON FOR EXAM: Male, 75 years old. Pain, h/o esophogeal/gastric cancer. Leakage of the PEG tube. Fever and shortness of breath. RADIATION DOSAGE (If Supplied By Facility): CTDIvol = ( 17.97 ) mGy, DLP = ( 942.72 ) mGycm TECHNIQUE: Transaxial images were obtained from the dome of the diaphragm to the symphysis pubis without oral contrast, and without intravenous contrast. Sagittal and coronal images were reconstructed. Individualized dose optimization techniques were used for this CT. COMPARISON: Comparison is made with prior study dated 02/26/2021. FINDINGS: Stable interstitial fibrosis at both lung bases. Coronary artery calcification. Normal liver. Normal gallbladder and extrahepatic biliary system. Normal spleen. Normal pancreas. Normal bilateral adrenal glands. Stable 3.6 m cyst in the upper pole of the right kidney. Stable 2.1 semi a cyst in the medial inferior aspect of the right kidney. Stable 1.6 cm cyst in the upper pole of the left kidney. Normal left kidney. Diffuse circumferential wall thickening of the distal esophagus and cardiac region of the stomach in keeping with the patient''s history of distal esophageal carcinoma. A jejunostomy tube is seen within a jejunal loop in the left mid abdomen. Residual contrast is seen within the colon. Sigmoid diverticulosis. The appendix is visualized and appears normal. There is diffuse atherosclerotic calcification of the abdominal aorta, without a demonstrated aneurysm. Normal inferior vena cava. Normal retroperitoneum. Normal urinary bladder. There are prostatic calcifications. Small bilateral inguinal hernias containing fat. There are degenerative changes of the visualized lumbar spine. CT/Abdomen/Pelvis without Cont IMPRESSION: Stable interstitial fibrosis of the lung bases. Diffuse circumferential wall thickening at the gastroesophageal junction. Percutaneous jejunostomy tube is seen within the mid jejunal bowel loop. Stable examination. Electronically Signed: Freedom Burgess MD at 12:42 EDT , Service support ,
--- NOTE | 2021-02-28 11:00 | RAD_ITS ---
STUDY: X-RAY CHEST REASON FOR EXAM: Male, 75 years old. Fever . Weakness. TECHNIQUE: Single AP portable view of the chest. COMPARISON: Comparison is made with prior examination dated 02/26/2021. FINDINGS: A right-sided portacatheter is seen with the tip in the right atrium. Since prior study, there has been progressive increased interstitial markings more prominent in the lower lobes worse on the left side. There is no demonstrated pleural abnormality. Normal size heart. Normal mediastinum and omar. Normal visualized pulmonary arteries. Normal visualized aortic arch and descending thoracic aorta. There are diffuse degenerative changes of the visualized thoracic spine. Normal visualized ribs, clavicles, and shoulders. There is no demonstrated abnormality of the visualized soft tissue structures of the upper abdomen. RAD/Chest 1 View (Portable) IMPRESSION: Progressive increase in the interstitial markings worse at the right lung base. Electronically Signed: Freedom Burgess MD at 11:23 EDT , Service support ,
[2021-02-28] MEDS: Ondansetron 4 MG/2 ML Vial IV (11:42)
[2021-02-28] MEDS: Morphine 4 MG/ML Syringe IV (11:42)
[2021-02-28 11:46] LABS: Absolute Lymphocyte Count 0.19 X10^3/uL (0.83-4.51); Absolute Neutrophil Count 1.1 X10^3/uL (2.0-7.7); Basophil# 0.01 X10^3/uL; Basophil% 0.6 % (0-1); Hemoglobin 8.5 g/dL (13.0-16.5); Lymphocyte # 0.19 X10^3/ul (4.0); Mean Corp Hgb Conc 32.7 g/dL (32-36); Mean Corpuscular Hgb 33.6 pg (27.0-32.0); Mean Corpuscular Volume 102.8 fL (80-94); Mean Platelet Vol. 11.4 fl (6.2-12.0); Monocyte# 0.31 X10^3/uL; Monocyte% 19.6 % (0-10); NRBC Flagged by Analyzer 0 % (0-5); Neutrophil # 1.06 X10^3/uL (2.7-7.7); Neutrophil % 67.2 % (47-70); POSITIVE DIFFERENTIAL YES; POSITIVE MORPHOLOGY YES; Platelet Count 123 K/mm3 (150-450); RBC Distribution Width CV 17.9 % (11.6-14.6); RBC Distribution Width SD 66.1 fl (35.1-43.9); Red Blood Count 2.53 M/mm3 (4.6-6.2); White Blood Count 1.6 K/mm3 (4.4-11.0)
[2021-02-28 11:53] LABS: Differential Indicated SCAN CRITERIA MET
[2021-02-28 11:56] LABS: Partial Thromboplast Time 30.8 Seconds (24.1-36.2)
[2021-02-28 12:05] LABS: ALB/GLOB Ratio 0.5 RATIO (0.9-2.4); AST(SGOT) 30 U/L (15-37); Alanine Aminotransfer ALT/SGPT 32 U/L (16-61); Albumin, Serum 2.6 g/dL (3.2-5.0); Alkaline Phosphatase 147 U/L (45-117); Anion Gap 5 (5-15); BUN 20 mg/dL (7-18); BUN/Creat Ratio 20.4 RATIO (10-20); Calcium,Total 8.8 mg/dL (8.5-10.1); Chloride 103 mmol/L (98-107); Creatinine, Serum 0.98 mg/dL (0.70-1.30); EST Glomerular Filtration Rate 80 mL/min (>60); Est Glom Filt Rate - Afr Amer 96 mL/min (>60); Globulin 4.8 g/dL (2.2-4.2); Glucose 291 mg/dL (74-106); Lipase 17 U/L (73-393); Potassium 4.3 mmol/L (3.5-5.1); Protein, Total 7.4 g/dL (6.4-8.2); Sodium Level 136 mmol/L (136-145)
[2021-02-28 12:09] LABS: Anisocytosis 2+; Differential Comment SCANNED; Macrocytosis 1+; Red Cell Morphology N CHROM NORMAL (NORM C&C)
[2021-02-28 12:21] LABS: Lactic Acid 2.9 mmol/L (0.4-1.9)
[2021-02-28] MEDS: 0.9% Normal Saline 1,000 ML 999 ML IV (12:35)
[2021-02-28 14:59] LABS: Mucous, Urine 0 SEEN /hpf (<or=2+); Red Blood Cells-Urine 0 SEEN /hpf (0-5); White Blood Cells 0 SEEN /hpf (0-5)
[2021-02-28 15:12] LABS: Color, Urine Yellow (Yellow); Glucose, Dipstick 1000 mg/dl (Normal); Ketone-Dipstick Negative (Negative); Leukocyte Esterase-Dipstick Negative /ul (Negative); Nitrite-Dipstick Negative (Negative); Occult Blood-Urine Negative /ul (Negative); Protein-Dipstick 15 mg/dl (Negative); Specific Gravity, Urine 1.015 (1.002-1.030); Urine Bilirubin Dipstick Negative (Negative); Urine Clarity Clear (Clear); Urine Urobilinogen 1 mg/dl (Normal); Urine pH 6.5 (5.0 - 8.0)
[2021-02-28 15:25] LABS: Bacteria RARE /hpf (None Seen); Squamous Epithelial Cells - UA 0-5 SEEN /hpf (0-5)
--- NOTE | 2021-02-28 15:38 | ED.VISSUMM ---
- ER Visit Summary Date of Service: 02/28/21 Chief Complaint: Fever History of Present Illness: The patient is a [address] Carbajal. He has a history of esophageal cancer and is on chemo. His last dose was 9 days ago. Last radiation was 5 days ago. Reports he has a fever that began yesterday. Is been 101 degrees. Patient reports that he has a cough is productive of clear sputum without blood. He has mild shortness of breath. Has abdominal pain that is a dull pain instead of 10 severity. Had nausea without vomiting. Reports he had 2 episodes of diarrhea yesterday. No blood in his stools or black tarry stools. He also complains of dysuria. Patient has a J-tube that was placed in October 2020 at [facility] by Dr. Amadeo Mattson. 2 days ago he was transferred to [facility] as this is draining bile around the tube. He reports that he was in the emergency department for 14 hours. A stitch was placed. He was discharged yesterday at 230. Physical Examination: Vitals: 99.6, 140/75, 113, 20, 90% on room air which is hypoxic. General: Well-nourished and well-developed. Head: Normocephalic atraumatic. Neck: Supple, no lymphadenopathy. No JVD. Nontender. Cardiovascular: Tachycardic regular rhythm. No murmurs. Respiratory: No respiratory distress. Clear to auscultation bilaterally. Abdominal: Soft, mild diffuse tenderness palpation with mild distention., normal bowel sounds. No guarding, rebound, or peritoneal signs. Back: Nontender. Extremities: Nontender, no edema. Skin: Normal color, no rash. Neurologic: Alert and oriented ?3. Cranial nerves II through XII are intact. Normal strength and sensation. Psych: Normal affect. Test Results: EKG is sinus tach at 104 the right bundle branch block that is incomplete. Some change from earlier this month. Lactic acid is 2.9. This is actually better than it was 2 days ago. UA shows protein. LFTs show an albumin of 2.6, globulin 4.8, alk phos 147. Lipase is 17. Iron is 1.0. PTT is 30.8. Chem-7 showed glucose 291 BUN of 20. CBC shows a white count of 1.6 with 67 segmented neutrophils giving an absolute neutrophil count of 1072. H&H is 8.5 and 26.0. Clinical Impression(s) from Imaging Studies Abdomen/Pelvis CT 02/28/21 10:57 IMPRESSION: Stable interstitial fibrosis of the lung bases. Diffuse circumferential wall thickening at the gastroesophageal junction. Percutaneous jejunostomy tube is seen within the mid jejunal bowel loop. Stable examination. Electronically Signed: Freedom Burgess MD at 12:42 EDT , Service support , Chest X-Ray 02/28/21 11:00 IMPRESSION: Progressive increase in the interstitial markings worse at the right lung base. Electronically Signed: Freedom Burgess MD at 11:23 EDT , Service support , Emergency Department Course and Treatment: Initially the patient's x-ray was read as increased infiltrates and patient was treated for pneumonia with Zosyn and vancomycin as well as Zithromax IV. However, the CT then returned and describes it as interstitial fibrosis. At this time I do not have an explanation for the patient's sepsis. Treatment Plan: Patient will be discussed with the hospitalist and admitted for further evaluation and treatment. Disposition: Admitted in serious condition. Impression: 1. Sepsis, uncertain cause. 2. Esophageal cancer and chemotherapy. 3. Pulmonary fibrosis. 4. Anemia. This note was generated with [employer] software. It may contain incorrect words, spelling, and punctuation that were not noted in review of the chart prior to signing ED Disposition - Plan for ED Patient: Referrals: Keo Contreras DO [Primary Care Provider] -
[2021-02-28 15:43] LABS: Reflex Lactate? Y
[2021-02-28 16:34] LABS: Lactic Acid 2.4 mmol/L (0.4-1.9)
--- NOTE | 2021-02-28 16:56 | NURSING ---
MED SURG ASHELF SEPSIS, NEUTROPENIA
--- NOTE | 2021-02-28 17:04 | PCM.HP.STD ---
<Pam Carias [employer] WORKMAN - Last Filed: 02/28/21 17:25> Problem List (1) Exertional dyspnea Status: Chronic (2) Elevated LFTs Status: Chronic (3) Esophageal cancer Status: Chronic (4) Abdominal wall cellulitis Status: Ruled-out (5) Sepsis Status: Acute (6) Borderline diabetes Status: Chronic (7) Essential hypertension Status: Chronic (8) Presence of stent in coronary artery Status: Chronic Comment: LHC w/ PCI/JUANY to mid LAD 09/19/10; PCI/JUANY mid LAD 12/21/13 (9) Nicotine dependence, cigarettes, uncomplicated Status: Chronic (10) Atherosclerotic heart disease of [place] coronary artery without angina pectoris Status: Chronic (11) Abnormal cardiovascular function Status: Chronic (12) Abnormal myocardial perfusion study Status: Chronic (13) 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 The patient is a 75 year old M who presents emergency room due to fever. Patient has a complicated recent history. He has recently completed treatment with chemo and radiation for esophageal cancer. Last radiation 5 days ago. He was seen yesterday in the emergency room and due to concern drainage around his J-tube. He was transferred to [facility] and reports he had a stitch placed and was discharged home. J-tube was placed in October 2020 at [facility] due to esophageal cancer. Patient reports abdominal pain with palpation. Denies nausea, vomiting. He reports increased J-tube drainage with yellow fluid. Patient reports he has had a productive cough with clear sputum for the past month. He has a past medical history of esophageal cancer, chronic hypoxic respiratory failure secondary to chronic COPD/pulmonary fibrosis, chronic macrocytic anemia, CAD with history of PCI, hypertension, hyperlipidemia, type 2 diabetes mellitus. 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 (Chronic) Hyperlipidemia (Chronic) COPD (chronic obstructive pulmonary disease) (Chronic) Medical History: Medical History (Last Reviewed 02/01/21 @ 08:16 by Lizeth Marquez) Essential hypertension (Chronic) I10 Presence of stent in coronary artery (Chronic) Onset Date: ~12/21/13 Z95.5 C w/ PCI/JUANY to mid LAD 09/19/10; PCI/JUANY mid LAD 12/21/13 Nicotine dependence, cigarettes, uncomplicated (Chronic) F17.210 Chest pain (Acute) R07.9 Atherosclerotic heart disease of [place]' coronary artery without angina pectoris (Chronic) I25.10 Angina pectoris (Chronic) I20.9 Abnormal cardiovascular function (Chronic) R94.30 Abnormal myocardial perfusion study (Chronic) R94.39 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 (Chronic) Z79.899 Hyperlipidemia (Chronic) E78.5 COPD (chronic obstructive pulmonary disease) (Chronic) J44.9 Unstable angina pectoris (Acute) BPH (benign prostatic hyperplasia) History of rheumatic fever Z86.79 Tobacco use Z72.0 History of left heart catheterization ([facility]) Onset Date: ~08/15/20 Z98.890 LEFT MAIN: Mild calcification, Angiographically normal; LEFT ANTERIOR DESCENDING ARTERY:OSTIAL LAD: Mild calcification, PROX LAD: Mild luminal irregularities, MID LAD: Previously placed stent is patent with mild luminal irregularities, DISTAL LAD: / apical: 85 % Stenosis; DIAGONAL 1: Proximal - small caliber vessel: diffuse: 85 % Stenosis; CIRCUMFLEX ARTERY: Mild luminal irregularities, RAMUS: Mild luminal irregularities, RIGHT CORONARY ARTERY: Angiographically normal; AORTIC ROOT:Angiographically normal per cath 08/15/20 Hypercalcemia (Resolved) E83.52 Coronary artery disease (Inactive) I25.10 Allergies No Known Allergies Allergy (Verified 02/28/21 10:36) Home Medications: Ambulatory Orders Medication Instructions Recorded Aspirin E.C. [Ecotrin] 81 mg PO DAILY 09/02/18 Metformin HCl [Metformin ER 500 mg PO BID 01/17/20 Gastric] nitroglycerin 0.4 mg sublingual 0.4 mg SUBLINGUAL Q5-15M PRN #25 08/17/20 tablet tab pravastatin 80 mg tablet 80 mg PO QHS #90 tab 01/10/21 Albuterol Inhaler [Ventolin Hfa 2 puff INHALATION Q4H PRN PRN 02/26/21 (SP)] Alprazolam [Xanax] 0.5 mg PO Q8 PRN 02/26/21 Nutritional Supplement [Nutren 1.5] 52 ml PO CONT 02/26/21 Pantoprazole Sodium [Protonix] 40 mg PO BID 02/26/21 Polyethylene Glycol 3350 [Miralax] 17 gm PO DAILY PRN 02/26/21 Promethazine HCl 25 mg PO Q6H PRN PRN 02/26/21 Tamsulosin HCl [Flomax] 0.4 mg PO DAILY 02/26/21 morphine solution (IR) [Roxanol 30 mg PO Q4H PRN PRN 02/28/21 (IR oral solution)] Surgical History: Surgical History (Last Reviewed 02/01/21 @ 08:16 by Lizeth Marquez) Presence of coronary angioplasty implant and graft Onset Date: ~12/21/13 Z95.5 [facility] w/ PCI/JUANY to mid LAD 09/19/10; PCI/JUANY mid LAD 12/21/13 S/P PTCA (percutaneous transluminal coronary angioplasty) Z98.61 [facility] w/ PCI/JUANY to mid LAD 09/19/10; PCI/JUANY mid LAD 12/21/13 S/P drug eluting coronary stent placement (Inactive) Z95.5 Surgical History: angioplasty, - - PCI, tonsillectomy, Transurethral ablation w/ history of BPH, J-tube placement. Psychiatric History: No pertinent psych hx Lives: Alone Smoking Status: Former smoker Tobacco Use: Cigarettes Drugs: None - *Family History Maternal Family History: Family History (Last Reviewed 02/28/21 @ 17:11 by Pam Carias [employer] WORK[employer], [employer] WORKMAN-C) Father Myocardial infarction CVA (cerebral vascular accident) Brother Diabetes History Items: Heart Disease Paternal Family History: Family History (Last Reviewed 02/28/21 @ 17:11 by Pam Carias NP, [employer]-C) Father Myocardial infarction CVA (cerebral vascular accident) Brother Diabetes History Items: High Cholesterol, Heart Disease, Hypertension, Stroke Review of Systems Constitutional: Reports: Chills, Fever, Malaise HEENT: Denies: Head Aches, Sinus Congestion, Sinus Drainage Cardiovascular: Denies: Chest Pain, Palpitations Respiratory: Reports: Cough, Shortness of breath upon exertion, Sputum production - Clear Gastrointestinal: Reports: Abdominal Pain, - - j-tube drain with increased yellow drainage. Denies: Diarrhea, Nausea, Vomiting Genitourinary: Denies: Dysuria Musculoskeletal: Denies: Joint Pain, Joint Tenderness Skin: Denies: Rash, Wounds Neurological: Denies: Numbness, Tingling, Focal weakness Psychiatric: Denies: Anxiety, Depression, Homicidal Ideations, Suicidal Ideations Hematologic/ Lymphatic: Denies: Easy Bruising, Easy Bleeding VTE Information - Inpt Only VTE Present on Admission: No VTE Mechan Device Prophylaxis: None VTE Pharm Prophylaxis ordered?: Yes - Physical Exam Vitals/I&O's: Vital Signs Temp Pulse Resp BP Pulse Ox 97.4 F L 88 18 102/69 98 02/28/21 16:06 02/28/21 16:06 02/28/21 16:06 02/28/21 16:06 02/28/21 16:06 Oxygen Flow Rate (L/min) 2 Oxygen Delivery Method Nasal Cannula Weight: 216 lb Body Mass Index (BMI) 30.1 Intake and Output for Last 24 Hours 02/26/21 02/27/21 02/28/21 23:59 23:59 23:59 Intake Total 1355 / 1355 Balance 1355 / 1355 General: Alert, Oriented x3, Cooperative HEENT: Atraumatic, PERRLA, EOMI, Normocephalic Neck: Supple, No JVD, Negative Carotid Bruits Lungs: Diminished, - - Crackles bilateral bases Cardiovascular: Regular rate, No murmurs Abdomen: Bowel Sounds Present, Soft, Distended, Tender, - - J tube left lower quadrant with bile drainage. Extremities: No clubbing, No cyanosis, No edema, Capillary Refill Less than 3 Seconds Skin: No rashes, No breakdown Musculoskeletal: No Tenderness to Palpation of Joints or Extremities Neurological: Cranial nerves II-XII grossly intact, Neuro grossly intact Psych/Mental Status: Normal Affect, Appropriate Microbiology Past 72 Hours 02/28/21 11:34 Mucosa - Nose SARS-CoV-2 Antigen (Rapid) - Final Laboratory Results 02/28/21 11:30: WBC 1.6 L, RBC 2.53 L, Hgb 8.5 L, Hct 26.0 L, MCV 102.8 H, MCH 33.6 H, MCHC 32.7, RDW Std Deviation 66.1 H, RDW Coeff of Rachel 17.9 H, Plt Count 123 L, MPV 11.4, Immature Gran % (Auto) 0.600, Neut % (Auto) 67.2, Lymph % (Auto) 12.0 L, Bullock % (Auto) 19.6 H, Eos % (Auto) 0.0, Baso % (Auto) 0.6, Absolute Neuts (auto) 1.1 L, Absolute Lymphs (auto) 0.19 L, Nucleated RBC % 0, Differential Comment SCANNED, Diff Path Review March, RBC Morphology N CHROM, Anisocytosis 2+, Macrocytosis 1+ 02/28/21 11:30: PT 13.0, INR 1.0, APTT 30.8 02/28/21 11:30: Sodium 136, Potassium 4.3, Chloride 103, Carbon Dioxide 28.0, Anion Gap 5, BUN 20 H, Creatinine 0.98, Estim Creat Clear Calc 71.50, Est GFR (MDRD) Af Amer 96, Est GFR (MDRD) Non-Af 80, BUN/Creatinine Ratio 20.4 H, Glucose 291 H, Calcium 8.8, Total Bilirubin 0.80, AST 30, ALT 32, Alkaline Phosphatase 147 H, Total Protein 7.4, Albumin 2.6 L, Globulin 4.8 H, Albumin/Globulin Ratio 0.5 L, Lipase 17 L 02/28/21 11:30: Lactic Acid 2.9 H* 02/28/21 14:45: Urine Color Yellow, Urine Clarity Clear, Urine pH 6.5, Ur Specific Piffard 1.015, Urine Protein 15 H, Urine Glucose (UA) 1000 H, Urine Ketones Negative, Urine Occult Blood Negative, Urine Nitrite Negative, Urine Bilirubin Negative, Urine Urobilinogen 1 H, Ur Leukocyte Esterase Negative, Urine RBC 0 SEEN, Urine WBC 0 SEEN, Ur Squamous Epith Cells 0-5 SEEN, Urine Bacteria RARE, Urine Mucus 0 SEEN 02/28/21 15:48: Lactic Acid 2.4 H* Assessment/Plan 1. Severe sepsis, unclear source-possible pneumonia versus intra-abdominal infection. No obvious source. CT of abdomen and pelvis shows stable fibrosis of lung bases, J-tube in correct position. IV Zosyn and IV vancomycin. Blood cultures pending. Check stool as patient has recent history of C. difficile. If patient does not have improvement or worsens, will need transferred back to [facility] for surgery evaluation regarding J-tube which has had increased drainage, intermittent malfunction. 2. Pancytopenia-possibly related to recent chemo versus #1. Trend CBC. Dr. Mcqueen consulted. 3. Chronic hypoxic respiratory failure secondary to chronic COPD/pulmonary fibrosis-as needed albuterol aerosol. Continue supplement oxygen to maintain O2 at above 90%. 4. Esophageal cancer-following with oncology. Speech therapy consult. Recent completion of chemotherapy. 5. CAD with history of PCI-continue aspirin, statin. 8. Hypertension-stable, no longer on regimen. 9. Hyperlipidemia-continue statin. 10. Type 2 diabetes [id number] with sliding scale insulin. Hold Metformin. DVT prophylaxis-Lovenox subcu CODE STATUS: Discussed with length and patient including differences between DNR, DNR CCA and DNR CC. Patient elects full CODE STATUS. This patient was seen by YVES Guerra under the supervision of Dr. Wetzel. <Torri Wetzel E - Last Filed: 02/28/21 18:13> History of Present Illness The patient is a 75 year old M [] Past Medical History Medical History: Medical History (Last Reviewed 02/01/21 @ 08:16 by Lizeth Marquez) Essential hypertension (Chronic) I10 Presence of stent in coronary artery (Chronic) Onset Date: ~12/21/13 Z95.5 LHC w/ PCI/JUANY to mid LAD 09/19/10; PCI/JUANY mid LAD 12/21/13 Nicotine dependence, cigarettes, uncomplicated (Chronic) F17.210 Atherosclerotic heart disease of [place] coronary artery without angina pectoris (Chronic) I25.10 Abnormal myocardial perfusion study (Chronic) R94.39 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 (Chronic) Z79.899 Hyperlipidemia (Chronic) E78.5 COPD (chronic obstructive pulmonary disease) (Chronic) J44.9 BPH (benign prostatic hyperplasia) History of rheumatic fever Z86.79 Tobacco use Z72.0 History of left heart catheterization ([facility]) Onset Date: ~08/15/20 Z98.890 LEFT MAIN: Mild calcification, Angiographically normal; LEFT ANTERIOR DESCENDING ARTERY:OSTIAL LAD: Mild calcification, PROX LAD: Mild luminal irregularities, MID LAD: Previously placed stent is patent with mild luminal irregularities, DISTAL LAD: / apical: 85 % Stenosis; DIAGONAL 1: Proximal - small caliber vessel: diffuse: 85 % Stenosis; CIRCUMFLEX ARTERY: Mild luminal irregularities, RAMUS: Mild luminal irregularities, RIGHT CORONARY ARTERY: Angiographically normal; AORTIC ROOT:Angiographically normal per cath 08/15/20 Coronary artery disease (Inactive) I25.10 Allergies No Known Allergies Allergy (Verified 02/28/21 10:36) Surgical History: Surgical History (Last Reviewed 02/01/21 @ 08:16 by Lizeth Marquez) Presence of coronary angioplasty implant and graft Onset Date: ~12/21/13 Z95.5 C w/ PCI/JUANY to mid LAD 09/19/10; PCI/JUANY mid LAD 12/21/13 S/P PTCA (percutaneous transluminal coronary angioplasty) Z98.61 LHC w/ PCI/JUANY to mid LAD 09/19/10; PCI/JUANY mid LAD 12/21/13 S/P drug eluting coronary stent placement (Inactive) Z95.5 - *Family History Maternal Family History: Family History (Last Reviewed 02/28/21 @ 17:11 by Pam Carias [employer] PL[employer] WORKMAN, G[employer] PL[employer] WORKMAN-C) Father Myocardial infarction CVA (cerebral vascular accident) Brother Diabetes Paternal Family History: Family History (Last Reviewed 02/28/21 @ 17:11 by Pam Carias NP, [employer]-C) Father Myocardial infarction CVA (cerebral vascular accident) Brother Diabetes - Physical Exam Vitals/I&O's: Vital Signs Temp Pulse Resp BP Pulse Ox 97.8 F 89 18 107/67 97 02/28/21 17:41 02/28/21 17:41 02/28/21 17:41 02/28/21 17:41 02/28/21 17:41 Oxygen Flow Rate (L/min) 4 Oxygen Delivery Method Nasal Cannula Weight: 213 lb Body Mass Index (BMI) 29.7 Intake and Output for Last 24 Hours 02/26/21 02/27/21 02/28/21 23:59 23:59 23:59 Intake Total 1884 / 188 Balance 1884 / 188 Microbiology Past 72 Hours 02/28/21 11:34 Mucosa - Nose SARS-CoV-2 Antigen (Rapid) - Final Laboratory Results 02/28/21 11:30: WBC 1.6 L, RBC 2.53 L, Hgb 8.5 L, Hct 26.0 L, MCV 102.8 H, MCH 33.6 H, MCHC 32.7, RDW Std Deviation 66.1 H, RDW Coeff of Rachel 17.9 H, Plt Count 123 L, MPV 11.4, Immature Gran % (Auto) 0.600, Neut % (Auto) 67.2, Lymph % (Auto) 12.0 L, Bullock % (Auto) 19.6 H, Eos % (Auto) 0.0, Baso % (Auto) 0.6, Absolute Neuts (auto) 1.1 L, Absolute Lymphs (auto) 0.19 L, Nucleated RBC % 0, Differential Comment SCANNED, Diff Path Review March, RBC Morphology N CHROM, Anisocytosis 2+, Macrocytosis 1+ 02/28/21 11:30: PT 13.0, INR 1.0, APTT 30.8 02/28/21 11:30: Sodium 136, Potassium 4.3, Chloride 103, Carbon Dioxide 28.0, Anion Gap 5, BUN 20 H, Creatinine 0.98, Estim Creat Clear Calc 71.50, Est GFR (MDRD) Af Amer 96, Est GFR (MDRD) Non-Af 80, BUN/Creatinine Ratio 20.4 H, Glucose 291 H, Calcium 8.8, Total Bilirubin 0.80, AST 30, ALT 32, Alkaline Phosphatase 147 H, Total Protein 7.4, Albumin 2.6 L, Globulin 4.8 H, Albumin/Globulin Ratio 0.5 L, Lipase 17 L 02/28/21 11:30: Lactic Acid 2.9 H* 02/28/21 14:45: Urine Color Yellow, Urine Clarity Clear, Urine pH 6.5, Ur Specific Piffard 1.015, Urine Protein 15 H, Urine Glucose (UA) 1000 H, Urine Ketones Negative, Urine Occult Blood Negative, Urine Nitrite Negative, Urine Bilirubin Negative, Urine Urobilinogen 1 H, Ur Leukocyte Esterase Negative, Urine RBC 0 SEEN, Urine WBC 0 SEEN, Ur Squamous Epith Cells 0-5 SEEN, Urine Bacteria RARE, Urine Mucus 0 SEEN 03/31/21 15:48: Lactic Acid 2.4 H* Current Medications Acetaminophen (Acetaminophen 325 Mg Tablet) 650 mg PO Q6H PRN PRN PRN Reason: Pain Score 1-10/Temp > 100.7 F Albuterol Sulfate (Albuterol 2.5 Mg/3 Ml Vial.Neb.) 2.5 mg INHALATION Q4H.RT SEBASTIAN Alprazolam (Alprazolam 0.5 Mg Tablet) 0.5 mg PO Q8 PRN PRN Reason: ANXIETY Aspirin (Aspirin E.C. 81 Mg Tablet) 81 mg PO DAILYCM SEBASTIAN Enoxaparin Sodium (Enoxaparin 40 Mg/0.4 Ml Syringe) 40 mg SC DAILY SEBASTIAN Heparin Sodium (Beef Lung) (Heparin Pf Lock 10 Units/Ml 50 Units/5 Ml Syringe) 50 units IV UD PRN PRN Reason: R Port Heparin Flush Sodium Chloride () 1,000 mls @ 100 mls/hr IV .Q10H SEBASTIAN Piperacillin Sod/Tazobactam (Sod 3.375 gm/ Sodium Chloride) 50 mls @ 12.5 mls/hr IV Q8 SEBASTIAN Pantoprazole Sodium 40 mg/ (Sodium Chloride) 110 mls @ 330 mls/hr IV Q12 SEBASTIAN Vancomycin IV Pharmacy to Dose (1 each/ Sodium Chloride) 500 mls @ 250 mls/hr IV PRN PRN; Protocol PRN Reason: Rx to Dose Insulin Human Lispro (Insulin Lispro 100 Unit/Ml Insuln.Pen) 0 unit SC ACHS SEBASTIAN; Protocol Morphine Sulfate (Morphine 2 Mg/Ml Syringe) 2 mg IV Q3H PRN PRN PRN Reason: Pain Score 6-10 Ondansetron HCl (Ondansetron 4 Mg/2 Ml Vial) 4 mg IV Q8H PRN PRN PRN Reason: NAUSEA/VOMITING Pravastatin Sodium (Pravastatin 80 Mg Tablet) 80 mg PO QHS SEBASTIAN Sodium Chloride (0.9% Saline Lock 10 Ml Syringe) 10 - 40 ml IV UD PRN PRN Reason: R Port Saline Flush Sodium Chloride (0.9 % Nacl (Sterile) Posiflush 10 Ml) 10 - 40 ml IV UD PRN PRN Reason: Port access or dressing change Tamsulosin HCl (Tamsulosin Hcl 0.4 Mg Capsule) 0.4 mg PO DAILY [facility] Assessment/Plan Hospitalist note: I am seeing this patient in conjunction with Pam Carias. I independently seen and examined the patient. History and physical, laboratory data and imaging studies reviewed and I concur with the above admission and treatment plan. Patient presented to the emergency room because of fever. He has a complicated past medical history. He was diagnosed recently with esophageal cancer status post chemotherapy and radiation, last sedation was 5 days ago. He was seen in the ED yesterday because of bilateral drainage from the J-tube. He was transferred to [facility], was seen by general surgery there and he had a stitch placed at the J-tube and he was discharged home. Patient reported mild cough with clear sputum that has been going on for a month. He denied change in this cough or new colored sputum. He denied worsening shortness of breath. He did have vague abdominal pain that has been going on since he had the G-tube. He denied nausea vomiting. He denied urinary symptoms. In the emergency department, he was afebrile, blood pressure and heart rate were stable, pulse ox was 98% on 2 L. Routine blood work was remarkable for leukopenia, anemia, thrombocytopenia and neutropenia. His lactic acid was 2.9. LFT was unremarkable. Urinalysis showed no evidence of acute cystitis. Chest x-ray revealed questionable increasing interstitial markings. CT scan abdomen and pelvis without contrast showed stable bilateral basilar lung fibrosis, diffuse circumferential thickening of the gastroesophageal junction, percutaneous jejunostomy tube, stable exam. He is being admitted for severe sepsis without obvious source of infection as well as pancytopenia. - Physical Exam General: Alert, Oriented x3, Cooperative, No apparent distress. HEENT: Atraumatic, PERRLA, EOMI. Neck: Supple, No JVD, Negative Carotid Bruits, Trachea Midline, Thyroid Normal. Lungs: Decreased breath sounds at the bases, bilateral basal crackles, No rhonchi, No wheeze. Cardiovascular: Regular rate, Regular Rhythm, Normal S1, Normal S2, PMI Normal. Abdomen: Tenderness on deep palpation, no guarding or rigidity, distended, J-tube in place. Extremities: No clubbing, No cyanosis, No edema Skin: No rashes, No breakdown Neurological: Cranial nerves are intact, neuro grossly intact Assessment and plan: #1 severe sepsis: Without obvious source of infection. Chest x-ray reviewed, not clear if pneumonia is there. CT abdomen reported lung fibrosis. Infection could be due to intra-abdominal versus pneumonia which is less likely. CT scan abdomen and pelvis without contrast done today and reviewed as above. No obvious acute changes. LFT was unremarkable. Urinalysis was unremarkable. COVID-19 antigen was negative. Plan: Admit to PCU, blood culture, urine culture, stool for C. difficile, stool for enteric pathogens, start empiric IV Zosyn and vancomycin, repeat lactic acid in 3 hours, repeat CBC and CMP tomorrow morning, PT OT evaluation and treatment. #2 pancytopenia: Secondary to chemotherapy. Patient is leukopenic, anemic, neutropenic and thrombocytopenic. Plan as above, pancultures, IV antibiotics, repeat CBC tomorrow morning. #3 esophageal cancer: Status post chemotherapy and radiation. Will consult oncology. #4 CODE STATUS: Full code. Initially patient was indecisive. We explained to him different types of CODE STATUS including full code, DNR CC, DNR CCA with and without intubation. He states that he wanted everything to be done including CPR, chest compressions, intubation and mechanical ventilation. #5 other chronic medical problems: Stable, continue current medications as above. This note was generated with [employer] dictation software. It may contain incorrect words, spelling, and punctuation that were not noted in checking the note before signing. Inpatient E&M: [id number] Init Hosp L3
[2021-02-28] MEDS: 0.9% Normal Saline 1,000 ML 100 ML IV (18:25)
--- NOTE | 2021-02-28 18:29 | PCM.RX.CS ---
Consult Pharmacy has been consulted to manage selected antiobiotic: Vancomycin Type of Consult: New start Suspected Infection: Sepsis Labs: Sodium 136 mmol/L (136-145) 02/28/21 11:30 Potassium 4.3 mmol/L (3.5-5.1) 02/28/21 11:30 Chloride 103 mmol/L (98-107) 02/28/21 11:30 Carbon Dioxide 28.0 mmol/L (21.0-32.0) 02/28/21 11:30 Anion Gap 5 (5-15) 02/28/21 11:30 BUN 20 mg/dL (7-18) H 02/28/21 11:30 Creatinine 0.98 mg/dL (0.70-1.30) 02/28/21 11:30 Est GFR (MDRD) Af Amer 96 mL/min (>60) 02/28/21 11:30 Est GFR (MDRD) Non-Af 80 mL/min (>60) 02/28/21 11:30 BUN/Creatinine Ratio 20.4 RATIO (10-20) H 02/28/21 11:30 Glucose 291 mg/dL (74-106) H 02/28/21 11:30 Microbiology: Microbiology 02/28/21 11:34 Mucosa - Nose SARS-CoV-2 Antigen (Rapid) - Final Goal Trough: 15-20 mcg/mL Pharmacy Plan for Drug Dosing: NEW START IV VANCOMYCIN Consulting Physician: Dr. Wetzel Indication:Sepsis Goal Trough: 15-20 SrCr: 0.98 CrCl: 72 mL/min Comments: 1500mg IV x1 in ED administered 02/28 @1454 Vancomcyin Dose: 1500mg IV Q12hr to start 03/01/21 @0300 Pending Level: 03/02/21 @0230, prior to 4th total dose per protocol. Pharmacy Service will continue to monitor and adjust dosing as required.
[2021-02-28] MEDS: Albuterol 2.5 MG/3 ML VIAL.NEB. INHALATION ×2 (19:49→23:33)
[2021-02-28] MEDS: Pravastatin 80 MG Tablet PO (20:50)
--- NOTE | 2021-02-28 21:00 | NURSING ---
Pt peg tube leaking all over. New ostomy bag appiled. Pt skin very red
[2021-02-28] MEDS: Insulin Lispro 100 UNIT/ML INSULN.PEN SC (21:47)
[2021-02-28 22:30] LABS: Bedside Glucose 187 mg/dL (70-110)
--- NOTE | 2021-02-28 23:51 | NURSING ---
Pt peg tube continues to leak. skin washed off and new chuk appilied. Offered to remove the appiliance and put a dry dressin but dressing would need to be changed hourly due to output. Pt wanted to leave the appiliance on and change the chuk
[2021-03-01] VITALS (12 sets, daily range): BP systolic 81–107; BP diastolic 50–65; PULSE 79–109; RESP 17–18; TEMP 36.1–36.9; O2SAT 96–100; BMI 29.7
[2021-03-01] MEDS: Morphine 2 MG/ML Syringe IV (02:24)
[2021-03-01] MEDS: 0.9% Normal Saline 1,000 ML 100 ML IV ×3 (05:12→23:11)
[2021-03-01 06:02] LABS: Absolute Lymphocyte Count 0.15 X10^3/uL (0.83-4.51); Absolute Neutrophil Count 0.7 X10^3/uL (2.0-7.7); Basophil# 0.01 X10^3/uL; Basophil% 0.9 % (0-1); Eosinophil# 0.01 X10^3/uL; Eosinophils% 0.9 % (0-5); Hematocrit 24.3 % (40-54); Hemoglobin 7.6 g/dL (13.0-16.5); Lymphocyte # 0.15 X10^3/ul (4.0); Lymphocyte % 13.4 % (19-41); Mean Corp Hgb Conc 31.3 g/dL (32-36); Mean Corpuscular Hgb 32.6 pg (27.0-32.0); Mean Corpuscular Volume 104.3 fL (80-94); Mean Platelet Vol. 11.3 fl (6.2-12.0); Monocyte# 0.24 X10^3/uL; Monocyte% 21.4 % (0-10); NRBC Flagged by Analyzer 0 % (0-5); Neutrophil % 62.5 % (47-70); POSITIVE COUNT YES; POSITIVE DIFFERENTIAL YES; POSITIVE MORPHOLOGY YES; Platelet Count 108 K/mm3 (150-450); RBC Distribution Width CV 18.4 % (11.6-14.6); RBC Distribution Width SD 68.7 fl (35.1-43.9); Red Blood Count 2.33 M/mm3 (4.6-6.2)
[2021-03-01 06:05] LABS: Differential Indicated SCAN CRITERIA MET; White Blood Count 1.1 K/mm3 (4.4-11.0)
[2021-03-01 06:18] LABS: Anisocytosis 1+; Differential Comment SCANNED; Macrocytosis 1+
[2021-03-01 06:31] LABS: ALB/GLOB Ratio 0.6 RATIO (0.9-2.4); AST(SGOT) 28 U/L (15-37); Alanine Aminotransfer ALT/SGPT 27 U/L (16-61); Albumin, Serum 2.4 g/dL (3.2-5.0); Alkaline Phosphatase 134 U/L (45-117); Anion Gap 6 (5-15); BUN 13 mg/dL (7-18); BUN/Creat Ratio 16.7 RATIO (10-20); Calcium,Total 8.3 mg/dL (8.5-10.1); Chloride 107 mmol/L (98-107); Creatinine, Serum 0.78 mg/dL (0.70-1.30); EST Glomerular Filtration Rate 104 mL/min (>60); Est Glom Filt Rate - Afr Amer 126 mL/min (>60); Estimated Creatinine Clearance 70.07 ml/min; Globulin 4.2 g/dL (2.2-4.2); Glucose 144 mg/dL (74-106); Potassium 4.2 mmol/L (3.5-5.1); Protein, Total 6.6 g/dL (6.4-8.2); Sodium Level 139 mmol/L (136-145)
[2021-03-01 06:40] LABS: Bedside Glucose 140 mg/dL (70-110)
--- NOTE | 2021-03-01 07:47 | PCM.CONS.B ---
Problem List (1) Esophageal cancer Status: Chronic Qualifiers: (2) Pancytopenia with fever Status: Acute - Consult Date of Consult: 03/01/[address] Wetzel regarding patient with esophageal cancer presenting with neutropenic fever. My final recommendation will be communicated to nursing staff and by electronic medical records. - Reason for Consult Neutropenic fever with pancytopenia Esophageal cancer undergoing concurrent radiation therapy Leakage around the J-tube and ostomy. History of Present Illness Date of Admission: 02/28/21 Chief Complaint: Fever. The patient is a 75 year old M who presents emergency room due to fever and pancytopenia after current chemotherapy and radiation therapy for esophageal cancer. Last radiation 5 days ago and chemotherapy with carboplatin and paclitaxel a week ago. He was seen yesterday in the emergency room and due to concern drainage around his J-tube ostomy bag. He was transferred to [facility] and reports he had a stitch placed and was discharged home. J-tube was placed in October 2020 at [facility] due to esophageal cancer. He also reports abdominal pain with palpation. Denies nausea, vomiting. Has some diarrhea. Also has COPD and he has had a productive cough with clear sputum for the past month. Repeat CT scan showed no acute changes. He was altered and placed on vancomycin and Zosyn because of neutropenic fever. He noted no bleeding, has chronic shortness of breath not worse than before. He has a past medical history of esophageal cancer, chronic hypoxic respiratory failure secondary to chronic COPD/pulmonary fibrosis, chronic macrocytic anemia, CAD with history of PCI, hypertension, hyperlipidemia, type 2 diabetes mellitus. Past Medical History Past Medical History (Chronic Problems): Chronic Problems (Last Reviewed 02/01/21 @ 08:16 by Lizeth Marquez) Elevated LFTs (Chronic) Esophageal cancer (Chronic) Borderline diabetes (Chronic) Essential hypertension (Chronic) Presence of stent in coronary artery (Chronic ~12/21/13) [facility] w/ PCI/JUANY to mid LAD 09/19/10; PCI/JUANY mid LAD 12/21/13 Nicotine dependence, cigarettes, uncomplicated (Chronic) Atherosclerotic heart disease of [place] coronary artery without angina pectoris (Chronic) Abnormal myocardial perfusion study (Chronic) senior care use of drug (Chronic) Hyperlipidemia (Chronic) COPD (chronic obstructive pulmonary disease) (Chronic) Medical History: Medical History (Last Reviewed 02/01/21 @ 08:16 by Lizeth Marquez) Essential hypertension (Chronic) I10 Presence of stent in coronary artery (Chronic) Onset Date: ~12/21/13 Z95.5 [facility] w/ PCI/JUANY to mid LAD 09/19/10; PCI/JUANY mid LAD 12/21/13 Nicotine dependence, cigarettes, uncomplicated (Chronic) F17.210 Chest pain (Acute) R07.9 Atherosclerotic heart disease of [place] coronary artery without angina pectoris (Chronic) I25.10 Angina pectoris (Chronic) I20.9 Abnormal cardiovascular function (Chronic) R94.30 Abnormal myocardial perfusion study (Chronic) R94.39 senior care use of drug (Chronic) Z79.899 Hyperlipidemia (Chronic) E78.5 COPD (chronic obstructive pulmonary disease) (Chronic) J44.9 Unstable angina pectoris (Acute) BPH (benign prostatic hyperplasia) History of rheumatic fever Z86.79 Tobacco use Z72.0 History of left heart catheterization ([facility]) Onset Date: ~08/15/20 Z98.890 LEFT MAIN: Mild calcification, Angiographically normal; LEFT ANTERIOR DESCENDING ARTERY:OSTIAL LAD: Mild calcification, PROX LAD: Mild luminal irregularities, MID LAD: Previously placed stent is patent with mild luminal irregularities, DISTAL LAD: / apical: 85 % Stenosis; DIAGONAL 1: Proximal - small caliber vessel: diffuse: 85 % Stenosis; CIRCUMFLEX ARTERY: Mild luminal irregularities, RAMUS: Mild luminal irregularities, RIGHT CORONARY ARTERY: Angiographically normal; AORTIC ROOT:Angiographically normal per cath 08/15/20 Hypercalcemia (Resolved) E83.52 Coronary artery disease (Inactive) I25.10 Allergies No Known Allergies Allergy (Verified 02/28/21 10:36) Home Medications: Ambulatory Orders Medication Instructions Recorded Aspirin E.C. [Ecotrin] 81 mg PO DAILY 09/02/18 Metformin HCl [Metformin ER 500 mg PO BID 01/17/20 Gastric] nitroglycerin 0.4 mg sublingual 0.4 mg SUBLINGUAL Q5-15M PRN #25 08/17/20 tablet tab pravastatin 80 mg tablet 80 mg PO QHS #90 tab 01/10/21 Albuterol Inhaler [Ventolin Hfa 2 puff INHALATION Q4H PRN PRN 02/26/21 (SP)] Alprazolam [Xanax] 0.5 mg PO Q8 PRN 02/26/21 Nutritional Supplement [Nutren 1.5] 52 ml PO CONT 02/26/21 Pantoprazole Sodium [Protonix] 40 mg PO BID 02/26/21 Polyethylene Glycol 3350 [Miralax] 17 gm PO DAILY PRN 02/26/21 Promethazine HCl 25 mg PO Q6H PRN PRN 02/26/21 Tamsulosin HCl [Flomax] 0.4 mg PO DAILY 02/26/21 morphine solution (IR) [Roxanol 30 mg PO Q4H PRN PRN 02/28/21 (IR oral solution)] Surgical History: Surgical History (Last Reviewed 02/01/21 @ 08:16 by Lizeth Marquez) Presence of coronary angioplasty implant and graft Onset Date: ~12/21/[address] [facility] w/ PCI/JUANY to mid LAD 09/19/10; PCI/JUANY mid LAD 12/21/13 S/P PTCA (percutaneous transluminal coronary angioplasty) Z98.[address] [facility] w/ PCI/JUANY to mid LAD 09/19/10; PCI/JUANY mid LAD 12/21/13 S/P drug eluting coronary stent placement (Inactive) Z95.5 Surgical History: angioplasty, - - PCI, tonsillectomy, Transurethral ablation w/ history of BPH, J-tube placement. Psychiatric History: No pertinent psych hx Lives: Alone Smoking Status: Former smoker Tobacco Use: Cigarettes Drugs: None - *Family History Maternal Family History: Family History (Last Reviewed 02/28/21 @ 17:11 by Pam Carias FAC ENGINEER, FAC ENGINEER-C) Father Myocardial infarction CVA (cerebral vascular accident) Brother Diabetes History Items: Heart Disease Paternal Family History: Family History Father Myocardial infarction CVA (cerebral vascular accident) Brother Diabetes History Items: High Cholesterol, Heart Disease, Hypertension, Stroke Review of Systems Constitutional: Reports: Chills, Fever, Malaise HEENT: Denies: Head Aches, Sinus Congestion, Sinus Drainage Cardiovascular: Denies: Chest Pain, Palpitations Respiratory: Reports: Cough, Shortness of breath upon exertion, Sputum production - Clear Gastrointestinal: Reports: Abdominal Pain, - - j-tube drain with increased yellow drainage. Denies: Diarrhea, Nausea, Vomiting Genitourinary: Denies: Dysuria Musculoskeletal: Denies: Joint Pain, Joint Tenderness Skin: Denies: Rash, Wounds Neurological: Denies: Numbness, Tingling, Focal weakness Psychiatric: Denies: Anxiety, Depression, Homicidal Ideations, Suicidal Ideations Hematologic/ Lymphatic: Denies: Easy Bruising, Easy Bleeding VTE Information - Inpt Only VTE Present on Admission: No VTE Mechan Device Prophylaxis: None VTE Pharm Prophylaxis ordered?: Yes - Physical Exam Vitals/I&O's: Vital Signs Vital Signs - 24 hr Temp Pulse Resp BP Pulse Ox 03/01/21 04:08 79 03/01/21 02:20 98 F 85 18 104/61 96 02/28/21 23:39 84 18 02/28/21 23:18 91 02/28/21 21:00 97.9 F 110 H 18 108/61 96 02/28/21 20:20 18 98 02/28/21 19:40 83 18 02/28/21 18:59 89 02/28/21 17:41 97.8 F 89 18 107/67 97 02/28/21 17:06 98.0 F 86 25 H 106/70 94 02/28/21 16:06 97.4 F L 88 18 102/69 98 02/28/21 15:36 98.2 F 02/28/21 15:35 98.2 F 96 21 H 99/66 97 02/28/21 13:14 98.2 F 90 16 115/70 96 02/28/21 12:33 97.9 F 103 H 16 95/71 96 02/28/21 12:00 98.3 F 97 20 H 103/65 99 02/28/21 11:58 98.3 F 97 20 H 103/65 99 02/28/21 11:53 76 18 103/65 98 02/28/21 10:32 99.6 F H 113 H 20 H 140/75 H 90 Oxygen Flow Rate (L/min) 2 Oxygen Delivery Method Nasal Cannula Weight: 216 lb Body Mass Index (BMI) 30.1 General: Alert, Oriented x3, Cooperative HEENT: Atraumatic, PERRLA, EOMI, Normocephalic +pallor Neck: Supple, No JVD, Negative Carotid Bruits Lungs: Diminished, - - Crackles bilateral bases, no wheezing Cardiovascular: Regular rate, No murmurs Abdomen: Bowel Sounds Present, Soft, Distended, Tender, - - J tube left lower quadrant with bile drainage. Extremities: No clubbing, No cyanosis, No edema, Capillary Refill Less than 3 Seconds Skin: No rashes, No breakdown Musculoskeletal: No Tenderness to Palpation of Joints or Extremities Neurological: Cranial nerves II-XII grossly intact, Neuro grossly intact Psych/Mental Status: Normal Affect, Appropriate Labs (Last 48 Hours) 02/28/21 02/28/21 02/28/21 11:30 11:30 11:30 WBC 1.6 L RBC 2.53 L Hgb 8.5 L Hct 26.0 L MCV 102.8 H MCH 33.6 H MCHC 32.7 RDW Std Deviation 66.1 H RDW Coeff of Rachel 17.9 H Plt Count 123 L MPV 11.4 Immature Gran % (Auto) 0.600 Neut % (Auto) 67.2 Lymph % (Auto) 12.0 L Martin % (Auto) 19.6 H Eos % (Auto) 0.0 Baso % (Auto) 0.6 Absolute Neuts (auto) 1.1 L Absolute Lymphs (auto) 0.19 L Nucleated RBC % 0 Differential Comment SCANNED Diff Path Review May foll RBC Morphology N CHROM Anisocytosis 2+ Macrocytosis 1+ PT 13.0 INR 1.0 APTT 30.8 Sodium 136 Potassium 4.3 Chloride 103 Carbon Dioxide 28.0 Anion Gap 5 BUN 20 H Creatinine 0.98 Estim Creat Clear Calc 71.50 Est GFR (MDRD) Af Amer 96 Est GFR (MDRD) Non-Af 80 BUN/Creatinine Ratio 20.4 H Glucose 291 H Lactic Acid Calcium 8.8 Total Bilirubin 0.80 AST 30 ALT 32 Alkaline Phosphatase 147 H Total Protein 7.4 Albumin 2.6 L Globulin 4.8 H Albumin/Globulin Ratio 0.5 L Lipase 17 L Urine Color Urine Clarity Urine pH Ur Specific [place] Urine Protein Urine Glucose (UA) Urine Ketones Urine Occult Blood Urine Nitrite Urine Bilirubin Urine Urobilinogen Ur Leukocyte Esterase Urine RBC Urine WBC Ur Squamous Epith Cells Urine Bacteria Urine Mucus POC Glucose 02/28/21 02/28/21 02/28/21 11:30 14:45 15:48 WBC RBC Hgb Hct MCV MCH MCHC RDW Std Deviation RDW Coeff of Rachel Plt Count MPV Immature Gran % (Auto) Neut % (Auto) Lymph % (Auto) Martin % (Auto) Eos % (Auto) Baso % (Auto) Absolute Neuts (auto) Absolute Lymphs (auto) Nucleated RBC % Differential Comment Diff Path Review RBC Morphology Anisocytosis Macrocytosis PT INR APTT Sodium Potassium Chloride Carbon Dioxide Anion Gap BUN Creatinine Estim Creat Clear Calc Est GFR (MDRD) Af Amer Est GFR (MDRD) Non-Af BUN/Creatinine Ratio Glucose Lactic Acid 2.9 H* 2.4 H* Calcium Total Bilirubin AST ALT Alkaline Phosphatase Total Protein Albumin Globulin Albumin/Globulin Ratio Lipase Urine Color Yellow Urine Clarity Clear Urine pH 6.5 Ur Specific [place] 1.015 Urine Protein 15 H Urine Glucose (UA) 1000 H Urine Ketones Negative Urine Occult Blood Negative Urine Nitrite Negative Urine Bilirubin Negative Urine Urobilinogen 1 H Ur Leukocyte Esterase Negative Urine RBC 0 SEEN Urine WBC 0 SEEN Ur Squamous Epith Cells 0-5 SEEN Urine Bacteria RARE Urine Mucus 0 SEEN POC Glucose 02/28/21 03/01/21 03/01/21 20:53 05:38 05:38 WBC 1.1 L* RBC 2.33 L Hgb 7.6 L Hct 24.3 L MCV 104.3 H MCH 32.6 H MCHC 31.3 L RDW Std Deviation 68.7 H RDW Coeff of Rachel 18.4 H Plt Count 108 L MPV 11.3 Immature Gran % (Auto) 0.900 Neut % (Auto) 62.5 Lymph % (Auto) 13.4 L Martin % (Auto) 21.4 H Eos % (Auto) 0.9 Baso % (Auto) 0.9 Absolute Neuts (auto) 0.7 L Absolute Lymphs (auto) 0.15 L Nucleated RBC % 0 Differential Comment SCANNED Diff Path Review May foll RBC Morphology Anisocytosis 1+ Macrocytosis 1+ PT INR APTT Sodium 139 Potassium 4.2 Chloride 107 Carbon Dioxide 26.0 Anion Gap 6 BUN 13 Creatinine 0.78 Estim Creat Clear Calc 70.07 Est GFR (MDRD) Af Amer 126 Est GFR (MDRD) Non-Af 104 BUN/Creatinine Ratio 16.7 Glucose 144 H Lactic Acid Calcium 8.3 L Total Bilirubin 0.80 AST 28 ALT 27 Alkaline Phosphatase 134 H Total Protein 6.6 Albumin 2.4 L Globulin 4.2 Albumin/Globulin Ratio 0.6 L Lipase Urine Color Urine Clarity Urine pH Ur Specific [place] Urine Protein Urine Glucose (UA) Urine Ketones Urine Occult Blood Urine Nitrite Urine Bilirubin Urine Urobilinogen Ur Leukocyte Esterase Urine RBC Urine WBC Ur Squamous Epith Cells Urine Bacteria Urine Mucus POC Glucose 187 H 03/01/21 06:32 WBC RBC Hgb Hct MCV MCH MCHC RDW Std Deviation RDW Coeff of Rachel Plt Count MPV Immature Gran % (Auto) Neut % (Auto) Lymph % (Auto) Martin % (Auto) Eos % (Auto) Baso % (Auto) Absolute Neuts (auto) Absolute Lymphs (auto) Nucleated RBC % Differential Comment Diff Path Review RBC Morphology Anisocytosis Macrocytosis PT INR APTT Sodium Potassium Chloride Carbon Dioxide Anion Gap BUN Creatinine Estim Creat Clear Calc Est GFR (MDRD) Af Amer Est GFR (MDRD) Non-Af BUN/Creatinine Ratio Glucose Lactic Acid Calcium Total Bilirubin AST ALT Alkaline Phosphatase Total Protein Albumin Globulin Albumin/Globulin Ratio Lipase Urine Color Urine Clarity Urine pH Ur Specific [place] Urine Protein Urine Glucose (UA) Urine Ketones Urine Occult Blood Urine Nitrite Urine Bilirubin Urine Urobilinogen Ur Leukocyte Esterase Urine RBC Urine WBC Ur Squamous Epith Cells Urine Bacteria Urine Mucus POC Glucose 140 H Microbiology 02/28/21 11:34 Mucosa - Nose SARS-CoV-2 Antigen (Rapid) - Final CXR: Progressive increase in the interstitial markings worse at the right lung base. Assessment/Plan In summary, this is a 75-year-old gentleman with COPD pulmonary fibrosis who was undergoing concurrent chemotherapy and radiation therapy for esophageal cancer. He just finished his treatment 5 days ago. He now presents with neutropenic fever and pancytopenia secondary to chemotherapy and radiation treatment. 1. Neutropenic fever with unclear source of infection-possible pneumonia versus intra-abdominal infection. Plan: -Continue IV Zosyn and IV vancomycin. Blood cultures pending. Check stool for C. difficile. -Continue Granix 480 mcg sq daily until ANC > 5000 -Further recommendations pending on his blood cultures result and recovery of his counts -Follow-up with [facility] home-health after discharge 2. Anemia secondary to chemotherapy Plan: -Transfuse blood for hemoglobin less than 7 gm/dl 3. Dyspnea secondary to chronic lung disease and anemia. Plan: -Continue supplemental oxygen and albuterol as needed 4. Increased leakage around J-tube ostomy bag Plan: -Consult ostomy nurse 5. Esophageal cancer -Completed concurrent chemotherapy and radiation therapy Plan: -Follow-up with Dr. Coyne next week. cc: Dr. Karl Coyne, Dr. Torri Wetzel MD; Dr. Keo Contreras DO.
--- NOTE | 2021-03-01 08:08 | PN_ITS ---
Patient Problems: Active and Suspected Problems (Last Updated 02/28/21 @ 18:[address] Torri Wetzel MD) Pancytopenia with fever (Acute) Reason for Visit: Follow-up on severe sepsis/malfunctioning J-tube/ esophageal CA Subjective: Patient was seen and examined. Feels bloated. Has copious amount of liquid stool from his J-tube. Objective: Physical exam: General: Alert, Oriented x3, Cooperative HEENT: Atraumatic, PERRLA, EOMI, Normocephalic Neck: Supple, No JVD, Negative Carotid Bruits Lungs: Diminished, - - Crackles bilateral bases Cardiovascular: Regular rate, No murmurs Abdomen: Bowel Sounds Present, Soft, Distended, Tender, - - J tube left lower quadrant with bile drainage. Extremities: No clubbing, No cyanosis, No edema, Capillary Refill Less than 3 Seconds Skin: No rashes, No breakdown Musculoskeletal: No Tenderness to Palpation of Joints or Extremities Neurological: Cranial nerves II-XII grossly intact, Neuro grossly intact Psych/Mental Status: Normal Affect, Appropriate Vitals/I&O's: Vital Signs Temp Pulse Resp BP Pulse Ox 98 F 79 18 104/61 96 03/01/21 02:20 03/01/21 04:08 03/01/21 02:20 03/01/21 02:20 03/01/21 02:20 Oxygen Flow Rate (L/min) 4 Oxygen Delivery Method Nasal Cannula Weight: 96.615 kg Body Mass Index (BMI) 29.7 Intake and Output for Last 24 Hours 02/27/21 02/28/21 03/01/21 23:59 23:59 23:59 Intake Total 2315 / 2315 1614.00 / 1614.00 Output Total 440 / 440 Balance 2315 / 2315 1174.00 / 1174.00 Microbiology Past 72 Hours 02/28/21 11:34 Mucosa - Nose SARS-CoV-2 Antigen (Rapid) - Final Laboratory Results 02/28/21 11:30: WBC 1.6 L, RBC 2.53 L, Hgb 8.5 L, Hct 26.0 L, MCV 102.8 H, MCH 33.6 H, MCHC 32.7, RDW Std Deviation 66.1 H, RDW Coeff of Rachel 17.9 H, Plt Count 123 L, MPV 11.4, Immature Gran % (Auto) 0.600, Neut % (Auto) 67.2, Lymph % (Auto) 12.0 L, Moore % (Auto) 19.6 H, Eos % (Auto) 0.0, Baso % (Auto) 0.6, Absolute Neuts (auto) 1.1 L, Absolute Lymphs (auto) 0.19 L, Nucleated RBC % 0, Differential Comment SCANNED, Diff Path Review May foll, RBC Morphology N CHROM, Anisocytosis 2+, Macrocytosis 1+ 02/28/21 11:30: PT 13.0, INR 1.0, APTT 30.8 02/28/21 11:30: Sodium 136, Potassium 4.3, Chloride 103, Carbon Dioxide 28.0, Anion Gap 5, BUN 20 H, Creatinine 0.98, Estim Creat Clear Calc 71.50, Est GFR (MDRD) Af Amer 96, Est GFR (MDRD) Non-Af 80, BUN/Creatinine Ratio 20.4 H, Glucose 291 H, Calcium 8.8, Total Bilirubin 0.80, AST 30, ALT 32, Alkaline Phosphatase 147 H, Total Protein 7.4, Albumin 2.6 L, Globulin 4.8 H, Albumin/Globulin Ratio 0.5 L, Lipase 17 L 02/28/21 11:30: Lactic Acid 2.9 H* 02/28/21 14:45: Urine Color Yellow, Urine Clarity Clear, Urine pH 6.5, Ur Specific [place] 1.015, Urine Protein 15 H, Urine Glucose (UA) 1000 H, Urine Ketones Negative, Urine Occult Blood Negative, Urine Nitrite Negative, Urine Bilirubin Negative, Urine Urobilinogen 1 H, Ur Leukocyte Esterase Negative, Urin e RBC 0 SEEN, Urine WBC 0 SEEN, Ur Squamous Epith Cells 0-5 SEEN, Urine Bacteria RARE, Urine Mucus 0 SEEN 02/28/21 15:48: Lactic Acid 2.4 H* 02/28/21 20:53: POC Glucose 187 H 03/01/21 05:38: WBC 1.1 L*, RBC 2.33 L, Hgb 7.6 L, Hct 24.3 L, MCV 104.3 H, MCH 32.6 H, MCHC 31.3 L, RDW Std Deviation 68.7 H, RDW Coeff of Rachel 18.4 H, Plt Count 108 L, MPV 11.3, Immature Gran % (Auto) 0.900, Neut % (Auto) 62.5, Lymph % (Auto) 13.4 L, Moore % (Auto) 21.4 H, Eos % (Auto) 0.9, Baso % (Auto) 0.9, A bsolute Neuts (auto) 0.7 L, Absolute Lymphs (auto) 0.15 L, Nucleated RBC % 0, Differential Comment SCANNED, Diff Path Review May foll, Anisocytosis 1+, Macrocytosis 1+ 03/01/21 05:38: Sodium 139, Potassium 4.2, Chloride 107, Carbon Dioxide 26.0, Anion Gap 6, BUN 13, Creatinine 0.78, Estim Creat Clear Calc 70.07, Est GFR (MDRD) Af Amer 126, Est GFR (MDRD) Non-Af 104, BUN/Creatinine Ratio 16.7, Glucose 144 H, Calcium 8.3 L, Total Bilirubin 0.80, AST 28, ALT 27, Alkaline Ph osphatase 134 H, Total Protein 6.6, Albumin 2.4 L, Globulin 4.2, Albumin/Globulin Ratio 0.6 L 03/01/21 06:32: POC Glucose 140 H Current Medications Acetaminophen (Acetaminophen 325 Mg Tablet) 650 mg PO Q6H PRN PRN PRN Reason: Pain Score 1-10/Temp > 100.7 F Albuterol Sulfate (Albuterol 2.5 Mg/3 Ml Vial.Neb.) 2.5 mg INHALATION Q4H.RT SEBASTIAN Last Admin: 02/28/21 23:33 Dose: 2.5 mg Documented by: Alprazolam (Alprazolam 0.5 Mg Tablet) 0.5 mg PO Q8 PRN PRN Reason: ANXIETY Aspirin (Aspirin E.C. 81 Mg Tablet) 81 mg PO DAILYCM SEBASTIAN Enoxaparin Sodium (Enoxaparin 40 Mg/0.4 Ml Syringe) 40 mg SC DAILY [facility] Heparin Sodium (Beef Lung) (Heparin Pf Lock 10 Units/Ml 50 Units/5 Ml Syringe) 50 units IV UD PRN PRN Reason: R Port Heparin Flush Sodium Chloride () 1,000 mls @ 100 mls/hr IV .Q10H [facility] Last Admin: 03/01/21 05:12 Dose: 100 mls/hr Documented by: Piperacillin Sod/Tazobactam (Sod 3.375 gm/ Sodium Chloride) 50 mls @ 12.5 mls/hr IV Q8 SEBASTIAN Last Admin: 03/01/21 05:11 Dose: 12.5 mls/hr Documented by: Pantoprazole Sodium 40 mg/ (Sodium Chloride) 110 mls @ 330 mls/hr IV Q12 SEBASTIAN Last Infusion: 02/28/21 22:53 Dose: Infused Documented by: Vancomycin IV Pharmacy to Dose (1 each/ Sodium Chloride) 500 mls @ 250 mls/hr IV PRN PRN; Protocol PRN Reason: Rx to Dose Vancomycin HCl 1,500 mg/ (Sodium Chloride) 530 mls @ 250 mls/hr IV Q12H SEBASTIAN Last Infusion: 03/01/21 04:39 Dose: Infused Documented by: Sodium Chloride () 250 mls @ 15 mls/hr IV .[id number] PRN PRN Reason: Saline Flush Last Infusion: 03/01/21 05:13 Dose: 0 mls/hr Documented by: Sodium Chloride () 250 mls @ 15 mls/hr IV .[id number] PRN PRN Reason: Additional IVPB Infusion Insulin Human Lispro (Insulin Lispro 100 Unit/Ml Insuln.Pen) 0 unit SC ACHS [facility]; Protocol Last Admin: 03/01/21 06:40 Dose: Not Given Documented by: Morphine Sulfate (Morphine 2 Mg/Ml Syringe) 2 mg IV Q3H PRN PRN PRN Reason: Pain Score 6-10 Last Admin: 03/01/21 02:24 Dose: 2 mg Documented by: Nutritional Formula (Lactose Free) (Glucerna Shake 120 Ml Liquid) 120 ml PO TIDCM [facility] Ondansetron HCl (Ondansetron 4 Mg/2 Ml Vial) 4 mg IV Q8H PRN PRN PRN Reason: NAUSEA/VOMITING Pravastatin Sodium (Pravastatin 80 Mg Tablet) 80 mg PO QHS [facility] Last Admin: 02/28/21 20:50 Dose: 80 mg Documented by: Sodium Chloride (0.9% Saline Lock 10 Ml Syringe) 10 - 40 ml IV UD PRN PRN Reason: R Port Saline Flush Sodium Chloride (0.9 % Nacl (Sterile) Posiflush 10 Ml) 10 - 40 ml IV UD PRN PRN Reason: Port access or dressing change Tamsulosin HCl (Tamsulosin Hcl 0.4 Mg Capsule) 0.4 mg PO DAILY SEBASTIAN Tbo-Filgrastim (Tbo-Filgrastim 480 Mcg/0.8 Ml Ml) 480 mcg SC X1 ONE Stop: 03/01/21 07:47 Medical Necessity - Tobacco Use Smoking Status: Former smoker Tobacco Use: Cigarettes Assessment/Plan All Active Problems (Last Updated 02/28/21 @ 18:[address] Torri Wetzel MD) Pancytopenia with fever (Acute) 1. Severe sepsis, unclear etiology, likely from possible pneumonia/possible jejunitis Stool for C. Diff/enteric panel is negative. Patient is immunocompromised from underlying malignancy Continue on empiric vancomycin and Zosyn Blood cultures are negative. Rapid Covid antigen is negative 2. Pancytopenia, secondary to recent chemotherapy, slightly worse, WBC is 1.1 ANC is 700, continue to monitor, repeat blood work in am 3. Esophageal cancer, chronic dysphagia, speech therapy consulted 4. Chronic hypoxic respiratory failure continue to COPD/pulmonary fibrosis, on 5 L of oxygen at home 5. CAD s/p PCI, continue on aspirin, statin 6. Type 2 DM, on Metformin, Metformin on hold, continue to monitor blood glucose 8. DVT Ppx- Lovenox Sc Inpatient E&M: [id number] Subs Hosp L2
[2021-03-01] MEDS: Aspirin E.C. 81 MG Tablet PO (09:16)
[2021-03-01] MEDS: Enoxaparin 40 MG/0.4 ML Syringe SC (09:16)
[2021-03-01] MEDS: Tamsulosin HCl 0.4 MG Capsule PO (09:16)
[2021-03-01] MEDS: Glucerna Shake 120 ML LIQUID PO ×3 (09:22→18:46)
[2021-03-01 10:04] LABS: Pathologist Review Reviewed
[2021-03-01 10:04] LABS: Pathologist Review Reviewed
[2021-03-01] MEDS: TBO-FILGRASTIM 480 MCG/0.8 ML ML SC (10:25)
[2021-03-01] MEDS: Albuterol 2.5 MG/3 ML VIAL.NEB. INHALATION ×3 (11:20→22:45)
--- NOTE | 2021-03-01 11:33 | NURSING ---
skin photo: j-tube abdomen
[2021-03-01] MEDS: Insulin Lispro 100 UNIT/ML INSULN.PEN SC ×2 (11:43→21:54)
--- NOTE | 2021-03-01 11:44 | NURSING ---
Was asked to see patient for leakage around the j-tube. patient has been getting chemo and radiation for esophageal cancer. Pt had the j-tube placed at [facility] in October of 2020. pt's daughter was on the phone while this nurse was in the room and states that patient has had leakage issues since the tube was placed. pt has had 4 different tube replacements per daughter. patient was recently in [place] and a stitch was placed to see if that wound help with the leakage. Pt states it has not helped at all. the ostomy appliance was removed from around the j-tube to assess the skin. there is some denuded skin noted. skin is quite tender. gently cleansed the skin with warm soap and water. pat dry. lightly dusted with stoma powder. applied a new ostomy appliance around the j-tube to catch the drainage. pt states he has home health at home that does assist at home as well. pt tolerated well. will continue to monitor. see skin photo.
[2021-03-01 11:50] LABS: Bedside Glucose 191 mg/dL (70-110)
--- NOTE | 2021-03-01 11:55 | RAD_ITS ---
STUDY: X-RAY - ABDOMEN/PELVIS REASON FOR EXAM: Male, 75 years old. Abdominal distension TECHNIQUE: 3 views COMPARISON: None. FINDINGS: Interstitial densities/atelectasis at the visualized lung bases. There is an unremarkable bowel gas pattern. There is no demonstrated free abdominal air. The visualized liver, spleen and kidneys are grossly normal in size and morphology. Normal soft tissue structures. Degenerative vertebral changes. Focal sclerosis of the left femur may be related to a bony infarct. RAD/Abdomen Single View (Portable) IMPRESSION: No sign of bowel obstruction. Electronically Signed: Jc Jenkins DO at 21:17 EDT Tel [phone], Service support ,
--- NOTE | 2021-03-01 12:10 | CASEMGMT ---
DANIEL SWANSON Face to Face with patient for initial transition planning/care coordination assessment. RN SKY introduced self and role at [facility]. Patient lying in bed, alert and oriented. Patient willing to participate in assessment and is able to answer all questions appropriately. Care providers, pharmacy, and demographics verified. Patient wishes to discharge home with resumption of HHC with [facility]. Patient states he has no further needs or concerns at this time. CM to follow for discharge planning needs that may arise. PCP: Diane Specialists: [place], oncologist Preferred Pharmacy: [facility] Insurance: [employer] Prescription Benefit: yes Living Will/HPOA: yes daughter Suzanna Linares LNOK: daughter Living Arrangements: Patient lives alone in a mobile home with 2 steps and railing to enter the home. Patient states he is independent at home. Transportation: daughter DME/HHC: Patient states he has raised toilet, cane, walker, shower chair, and oxygen at 5 lpm through [employer] with portability. Patient is active with [facility] for residential. Disposition Plan: Patient to discharge home with resumption of HHC, family support, and follow-up plans in place. Melany COYNE, RN, CM
--- NOTE | 2021-03-01 14:53 | PCM.NTREPORT ---
Nutrition Therapy Report - History Nutrition Services has been consulted to:: Manage nutrient details of diet order, Manage enteral nutrition Current diet / nutrition support order:: cardiac, 1800 calorie controlled; glucerna 120mL TID - Anthropometric Measurements Height:: 5 ft 11 in Weight:: 96.615 kg Body Mass Index (BMI):: 29.7 - Relevant Labs Relevant Labs:: WBC 1.1 K/mm3 (4.4-11.0) L* 03/01/21 05:38 RBC 2.33 M/mm3 (4.6-6.2) L 03/01/21 05:38 Hgb 7.6 g/dL (13.0-16.5) L 03/01/21 05:38 Hct 24.3 % (40-54) L 03/01/21 05:38 MCV 104.3 fL (80-94) H 03/01/21 05:38 MCH 32.6 pg (27.0-32.0) H 03/01/21 05:38 MCHC 31.3 g/dL (32-36) L 03/01/21 05:38 RDW Std Deviation 68.7 fl (35.1-43.9) H 03/01/21 05:38 RDW Coeff of Rachel 18.4 % (11.6-14.6) H 03/01/21 05:38 Plt Count 108 K/mm3 (150-450) L 03/01/21 05:38 Lymph % (Auto) 13.4 % (19-41) L 03/01/21 05:38 [place] % (Auto) 21.4 % (0-10) H 03/01/21 05:38 Absolute Neuts (auto) 0.7 X10^3/uL (2.0-7.7) L 03/01/21 05:38 Absolute Lymphs (auto) 0.15 X10^3/uL (0.83-4.51) L 03/01/21 05:38 BUN 20 mg/dL (7-18) H 02/28/21 11:30 BUN/Creatinine Ratio 20.4 RATIO (10-20) H 02/28/21 11:30 Glucose 144 mg/dL (74-106) H 03/01/21 05:38 Lactic Acid 2.4 mmol/L (0.4-1.9) H* 02/28/21 15:48 Calcium 8.3 mg/dL (8.5-10.1) L 03/01/21 05:38 Alkaline Phosphatase 134 U/L (45-117) H 03/01/21 05:38 Albumin 2.4 g/dL (3.2-5.0) L 03/01/21 05:38 Globulin 4.8 g/dL (2.2-4.2) H 02/28/21 11:30 Albumin/Globulin Ratio 0.6 RATIO (0.9-2.4) L 03/01/21 05:38 Lipase 17 U/L (73-393) L 02/28/21 11:30 - Assessment Food / Nutrition-Related History:: Has j-tube for nutrition support. Was previously tolerating a PO diet but per pt/family, has been only taking bites/sips PO for some time. At home- Nutren 1.5 via j-tube at 52mL/hour continuously w/ 150mL H2O flush 4x/day to provide 1872 calories, 84 g protein per 24 hours. Pt says he would like to drink 1.5-2 bottles of Ensure at home but is not always able. Wt was 240# in July 2020. CBW 213#-27#/11.25% wt loss x ~7 months. Of note, wt was 205.7# on 12/31/20 suggesting recent wt gain. Leakage reported around j-tube. Family told RETINAL ANGIOGRAPHER that j-tube was placed d/t possible gastric cancer? No records from [facility] available. RETINAL ANGIOGRAPHER following- recommends regular/thin for comfort/pleasure, small bites/sips, seated upright during and for 30 to 60 minutes after intake, frequent oral hygiene, J-tube as primary source of nutrition/hydration/medication per 03/01/21 evaluation. - Nutrition Diagnosis Problem / Etiology / Signs & Symptoms (PES):: inadequate oral intake r/t dysphagia, poor appetite as evidenced by estimated PO intake meeting <25% of nutritional needs, J-tube providing nutrition support to maintain wt/nutritional status. Evidence of Malnutrition Exists:: No - Nutrition Intervention Nutrition Prescription:: 6791-1150 calories (1.3xRMR). 115-145g protein (1.5g/kg). 2100mL fluid/day (1mL/calorie) - Food / Nutrient Delivery Interventions Summary of nutrition intervention:: Discussed w/ pt and family- he would like to have PO diet available for pleasure bites and ensure enlive daily. Will change diet to regular and switch ONS to ensure enlive 4x/day w/ meddaiana. Discussed enteral nutrition w/ Dr. Tessa jenkins to start nutrition support via j-tube. Will begin at low rate and adjust as tolerated. Nutrition support ordered as / adjusted to:: will change diet to regular given minimal PO intake; will switch ONS from Glucerna to Ensure Enlive for additional protein/calories. Will start Pivot 1.5 (Nutren not on formulary) at 20mL/hour for next 12-18 hours as tolerated. 125mL H2O flush every 3 hours. Will increase by 20mL as tolerated until goal rate of 60mL/hour is achieved. Daily wts. - MNT Monitoring Further MNT monitoring and evaluation required?: Yes MNT Follow-up in:: 1-2 days
--- NOTE | 2021-03-01 15:07 | CASEMGMT ---
[place] [facility] [place] 5[place] w/ exertion. Alma SANCHEZ CM
[2021-03-01] MEDS: Pivot 1.5 Cal 1,000 ML 20 ML GT (18:45)
[2021-03-01] MEDS: Pravastatin 80 MG Tablet PO (21:52)
[2021-03-01 22:26] LABS: Bedside Glucose 171 mg/dL (70-110)
[2021-03-02] VITALS (10 sets, daily range): BP systolic 107–132; BP diastolic 59–71; PULSE 87–104; RESP 16–19; TEMP 36.3–37.2; O2SAT 93–97
[2021-03-02 01:50] LABS: Bedside Glucose 146 mg/dL (70-110)
[2021-03-02 06:46] LABS: Bedside Glucose 149 mg/dL (70-110)
[2021-03-02] MEDS: Albuterol 2.5 MG/3 ML VIAL.NEB. INHALATION (07:06)
[2021-03-02] MEDS: Enoxaparin 40 MG/0.4 ML Syringe SC (08:57)
[2021-03-02] MEDS: Tamsulosin HCl 0.4 MG Capsule PO (08:57)
[2021-03-02] MEDS: Aspirin E.C. 81 MG Tablet PO (08:57)
--- NOTE | 2021-03-02 08:57 | NURSING ---
Ostomy appliance around j-tube remains intact. no leaks noted. appliance was changed yesterday. pt denies burning. will continue to monitor.
[2021-03-02] MEDS: 0.9% Normal Saline 1,000 ML 100 ML IV ×2 (09:12→18:54)
[2021-03-02 09:31] LABS: Hematocrit 24.7 % (40-54); Mean Corp Hgb Conc 32.4 g/dL (32-36); Mean Corpuscular Hgb 33.3 pg (27.0-32.0); Mean Corpuscular Volume 102.9 fL (80-94); Mean Platelet Vol. 10.3 fl (6.2-12.0); POSITIVE COUNT YES; POSITIVE DIFFERENTIAL YES; POSITIVE MORPHOLOGY YES; Platelet Count 122 K/mm3 (150-450); RBC Distribution Width CV 18.5 % (11.6-14.6); RBC Distribution Width SD 68.2 fl (35.1-43.9); White Blood Count 4.5 K/mm3 (4.4-11.0)
[2021-03-02 09:36] LABS: Differential Indicated MANUAL DIFF
[2021-03-02 09:53] LABS: Lymphocyte 7 % (19-41); Metamyelocyte 6 % (0-1); Monocyte 18 % (0-10); Neutrophil-Band 38 % (0-5); Neutrophil-Segmented 31 % (47-70); Total Cells Counted 100 (MANUAL DIFF)
[2021-03-02 09:55] LABS: Absolute Lymphocyte Count 0.31 X10^3/uL (0.83-4.51); Absolute Neutrophil Count 3.1 X10^3/uL (2.0-7.7)
[2021-03-02 09:57] LABS: Anisocytosis 1+; Dohle Bodies 2+; Macrocytosis 1+; Platelet Estimate SLT DEC (ADEQ); Red Cell Morphology N CHROM NORMAL (NORM C&C)
[2021-03-02 10:03] LABS: ALB/GLOB Ratio 0.6 RATIO (0.9-2.4); AST(SGOT) 40 U/L (15-37); Alanine Aminotransfer ALT/SGPT 30 U/L (16-61); Albumin, Serum 2.4 g/dL (3.2-5.0); Alkaline Phosphatase 175 U/L (45-117); Anion Gap 9 (5-15); BUN 11 mg/dL (7-18); BUN/Creat Ratio 12.4 RATIO (10-20); Calcium,Total 8.4 mg/dL (8.5-10.1); Chloride 108 mmol/L (98-107); Creatinine, Serum 0.89 mg/dL (0.70-1.30); EST Glomerular Filtration Rate 89 mL/min (>60); Est Glom Filt Rate - Afr Amer 108 mL/min (>60); Estimated Creatinine Clearance 78.73 ml/min; Globulin 4.3 g/dL (2.2-4.2); Glucose 170 mg/dL (74-106); Potassium 3.6 mmol/L (3.5-5.1); Protein, Total 6.7 g/dL (6.4-8.2); Sodium Level 138 mmol/L (136-145)
[2021-03-02] MEDS: TBO-FILGRASTIM 480 MCG/0.8 ML ML SC (10:38)
[2021-03-02 11:25] LABS: Bedside Glucose 157 mg/dL (70-110)
[2021-03-02] MEDS: Loperamide 2 MG Capsule 4 MG PO (11:53)
[2021-03-02] MEDS: Insulin Lispro 100 UNIT/ML INSULN.PEN SC ×2 (11:53→21:14)
--- NOTE | 2021-03-02 13:56 | CASEMGMT ---
DANIEL SWANSON NOTE: Pt qualifies for a Palliative referral per the [facility] palliative screening tool at this time. Dr Blanchard aware and states ok for Palliative c/s at this time. Order placed. Palliative updated at this time. Face Sheet faxed to Palliative at this time. Maribell COYEN RN CM
--- NOTE | 2021-03-02 14:29 | CASEMGMT ---
H&P and [place] order faxed to [facility] and call to intake to notify of possible pt discharge tomorrow 03/03, voices understanding. Green sheet left on chart for increased home oxygen need(pt's order is for 5L w/ exertion only) and for HHC. SStshavon SANCHEZ CM
[2021-03-02] MEDS: ALPRAZolam 0.5 MG Tablet PO (14:45)
[2021-03-02 15:10] LABS: Vancomycin, Trough Level 16.5 ug/mL (5.0-15.0)
--- NOTE | 2021-03-02 15:26 | PCM.RX.CS ---
Consult Pharmacy has been consulted to manage selected antiobiotic: Vancomycin Type of Consult: Follow-up Suspected Infection: Sepsis Prior Doses of Antibiotics Received/Current Regimen: 1500mg IV q12h. Labs: Sodium 138 mmol/L (136-145) 03/02/21 09:21 Potassium 3.6 mmol/L (3.5-5.1) 03/02/21 09:21 Chloride 108 mmol/L (98-107) H 03/02/21 09:21 Carbon Dioxide 21.0 mmol/L (21.0-32.0) 03/02/21 09:21 Anion Gap 9 (5-15) 03/02/21 09:21 BUN 11 mg/dL (7-18) 03/02/21 09:21 Creatinine 0.89 mg/dL (0.70-1.30) 03/02/21 09:21 Est GFR (MDRD) Af Amer 108 mL/min (>60) 03/02/21 09:21 Est GFR (MDRD) Non-Af 89 mL/min (>60) 03/02/21 09:21 BUN/Creatinine Ratio 12.4 RATIO (10-20) 03/02/21 09:21 Glucose 170 mg/dL (74-106) H 03/02/21 09:21 Vancomycin Trough 16.5 ug/mL (5.0-15.0) H 03/02/21 14:35 Microbiology: Microbiology 02/28/21 14:45 Urine, Clean Catch Urine Culture - Final Culture exhibits no growth. 02/28/21 11:49 Blood Culture (Wb) - Anticubital Right Blood Culture - Preliminary No growth in 48 hours. 02/28/21 11:30 Blood Culture (Wb) - Port Blood Culture - Preliminary No growth in 48 hours. 03/01/21 11:38 Stool Enteric Bacteriology - Final 03/01/21 11:38 Stool C. difficile DNA Amplification - Final 02/28/21 11:34 Mucosa - Nose SARS-CoV-2 Antigen (Rapid) - Final Weight used for dosin.6 kg Estimated Creatinine Clearance: 79 ml/min Goal Trough: 15-20 mcg/mL Pharmacy Plan for Drug Dosing: Trough today was 16.5 and in desirable range of 15-20mcg/ml. Renal about same. Will continue same dosage and get another trough level on 4.4.21. Pharmacy Service will continue to monitor and adjust dosing as required. Follow-Up Labs: Trough Vancomycin - 4./4.21 @0230 before 0300 dose
--- NOTE | 2021-03-02 16:00 | PN_ITS ---
Patient Problems: Active and Suspected Problems (Last Updated 02/28/21 @ 18:[address] Torri Wetzel MD) Pancytopenia with fever (Acute) Reason for Visit: Follow-up on severe sepsis/malfunctioning J-tube/ esophageal CA Subjective: Patient was seen and examined. He feels much improved. Denied any fever or chills. He is inquiring if he can go home. Objective: Physical exam: General: Alert, Oriented x3, Cooperative HEENT: Atraumatic, PERRLA, EOMI, Normocephalic Neck: Supple, No JVD, Negative Carotid Bruits Lungs: Diminished, - - Crackles bilateral bases Cardiovascular: Regular rate, No murmurs Abdomen: Bowel Sounds Present, Soft, Distended, Tender, - - J tube left lower quadrant with bile drainage. Extremities: No clubbing, No cyanosis, No edema, Capillary Refill Less than 3 Seconds Skin: No rashes, No breakdown Musculoskeletal: No Tenderness to Palpation of Joints or Extremities Neurological: Cranial nerves II-XII grossly intact, Neuro grossly intact Psych/Mental Status: Normal Affect, Appropriate Vitals/I&O's: Vital Signs Temp Pulse Resp BP Pulse Ox 97.7 F L 87 18 109/65 93 03/02/21 15:00 03/02/21 15:01 03/02/21 15:00 03/02/21 15:00 03/02/21 15:00 Oxygen Flow Rate (L/min) 3 Oxygen Delivery Method Room Air Weight: 96.6 kg Body Mass Index (BMI) 29.7 Intake and Output for Last 24 Hours 02/28/21 03/01/21 03/02/21 23:59 23:59 23:59 Intake Total 2315 / 2315 4792.33 / 5163.33 3813.00 / 3813.00 Output Total 540 / 540 75 / 75 Balance 2315 / 2315 4252.33 / 4623.33 3738.00 / 3738.00 Microbiology Past 72 Hours 02/28/21 14:45 Urine, Clean Catch Urine Culture - Final Culture exhibits no growth. 02/28/21 11:49 Blood Culture (Wb) - Anticubital Right Blood Culture - Preliminary No growth in 48 hours. 02/28/21 11:30 Blood Culture (Wb) - Port Blood Culture - Preliminary No growth in 48 hours. 03/01/21 11:38 Stool Enteric Bacteriology - Final 03/01/21 11:38 Stool C. difficile DNA Amplification - Final 02/28/21 11:34 Mucosa - Nose SARS-CoV-2 Antigen (Rapid) - Final Laboratory Results 03/01/21 16:19: POC Glucose 146 H 03/01/21 21:54: POC Glucose 171 H 03/02/21 06:40: POC Glucose 149 H 03/02/21 09:21: WBC 4.5, RBC 2.40 L, Hgb 8.0 L, Hct 24.7 L, MCV 102.9 H, MCH 33.3 H, MCHC 32.4, RDW Std Deviation 68.2 H, RDW Coeff of Rachel 18.5 H, Plt Count 122 L, MPV 10.3, Neut % (Auto) Not Reportable, Absolute Neuts (auto) 3.1, Absolute Lymphs (auto) 0.31 L, Total Counted 100, Neutrophils % (Manual) 31 L, Band Neutrophils % 38 H, Lymphocytes % (Manual) 7 L, Monocytes % (Manual) 18 H, Metamyelocytes % 6 H, Diff Path Review May foll, Dohle Bodies 2+, Platelet Estimate SLT DEC, RBC Morphology N CHROM, Anisocytosis 1+, Macrocytosis 1+ 03/02/21 09:21: Sodium 138, Potassium 3.6, Chloride 108 H, Carbon Dioxide 21.0, Anion Gap 9, BUN 11, Creatinine 0.89, Estim Creat Clear Calc 78.73, Est GFR (MDRD) Af Amer 108, Est GFR (MDRD) Non-Af 89, BUN/Creatinine Ratio 12.4, Glucose 170 H, Calcium 8.4 L, Total Bilirubin 0.90, AST 40 H, ALT 30, Alkaline Phosphatase 175 H, Total Protein 6.7, Albumin 2.4 L, Globulin 4.3 H, Albumin/Globulin Ratio 0.6 L 03/02/21 11:21: POC Glucose 157 H 03/02/21 14:35: Vancomycin Trough 16.5 H Current Medications Acetaminophen (Acetaminophen 325 Mg Tablet) 650 mg PO Q6H PRN PRN PRN Reason: Pain Score 1-10/Temp > 100.7 F Albuterol Sulfate (Albuterol 2.5 Mg/3 Ml Vial.Neb.) 2.5 mg INHALATION Q4H.RT PRN PRN Reason: SOB &/OR WHEEZING Alprazolam (Alprazolam 0.5 Mg Tablet) 0.5 mg PO Q8 PRN PRN Reason: ANXIETY Last Admin: 03/02/21 14:45 Dose: 0.5 mg Documented by: Aspirin (Aspirin E.C. 81 Mg Tablet) 81 mg PO DAILYCM [facility] Last Admin: 03/02/21 08:57 Dose: 81 mg Documented by: Enoxaparin Sodium (Enoxaparin 40 Mg/0.4 Ml Syringe) 40 mg SC DAILY [facility] Last Admin: 03/02/21 08:57 Dose: 40 mg Documented by: Heparin Sodium (Beef Lung) (Heparin Pf Lock 10 Units/Ml 50 Units/5 Ml Syringe) 50 units IV UD PRN PRN Reason: R Port Heparin Flush Sodium Chloride () 1,000 mls @ 100 mls/hr IV .Q10H [facility] Last Infusion: 03/02/21 13:27 Dose: 100 mls/hr Documented by: Pantoprazole Sodium 40 mg/ (Sodium Chloride) 110 mls @ 330 mls/hr IV Q12 [facility] Last Infusion: 03/02/21 09:31 Dose: Infused Documented by: Vancomycin IV Pharmacy to Dose (1 each/ Sodium Chloride) 500 mls @ 250 mls/hr IV PRN PRN; Protocol PRN Reason: Rx to Dose Vancomycin HCl 1,500 mg/ (Sodium Chloride) 530 mls @ 250 mls/hr IV Q12H [facility] Last Admin: 03/02/21 14:37 Dose: 250 mls/hr Documented by: Sodium Chloride () 250 mls @ 15 mls/hr IV .[id number] PRN PRN Reason: Saline Flush Last Infusion: 03/01/21 05:13 Dose: 0 mls/hr Documented by: Sodium Chloride () 250 mls @ 15 mls/hr IV .[id number] PRN PRN Reason: Additional IVPB Infusion Piperacillin Sod/Tazobactam (Sod 3.375 gm/ Sodium Chloride) 50 mls @ 100 mls/hr IV Q8 [facility] Last Infusion: 03/02/21 14:00 Dose: Infused Documented by: Lactose (Pivot 1.5 Andrade) 1,000 mls @ 20 mls/hr GT .Q48H [facility] Last Admin: 03/01/21 18:45 Dose: 20 mls/hr Documented by: Insulin Human Lispro (Insulin Lispro 100 Unit/Ml Insuln.Pen) 0 unit SC ACHS [facility]; Protocol Last Admin: 03/02/21 11:53 Dose: 2 units Documented by: Morphine Sulfate (Morphine 2 Mg/Ml Syringe) 2 mg IV Q3H PRN PRN PRN Reason: Pain Score 6-10 Last Admin: 03/01/21 02:24 Dose: 2 mg Documented by: Nutritional Formula (Lactose Free) (Ensure Enlive 120 Ml Liquid) 120 ml PO 4X/DAY [facility] Last Admin: 03/02/21 13:27 Dose: 120 ml Documented by: Ondansetron HCl (Ondansetron 4 Mg/2 Ml Vial) 4 mg IV Q8H PRN PRN PRN Reason: NAUSEA/VOMITING Pravastatin Sodium (Pravastatin 80 Mg Tablet) 80 mg PO QHS [facility] Last Admin: 03/01/21 21:52 Dose: 80 mg Documented by: Sodium Chloride (0.9% Saline Lock 10 Ml Syringe) 10 - 40 ml IV UD PRN PRN Reason: R Port Saline Flush Sodium Chloride (0.9 % Nacl (Sterile) Posiflush 10 Ml) 10 - 40 ml IV UD PRN PRN Reason: Port access or dressing change Tamsulosin HCl (Tamsulosin Hcl 0.4 Mg Capsule) 0.4 mg PO DAILY [facility] Last Admin: 03/02/21 08:57 Dose: 0.4 mg Documented by: STROKE Vital Signs/Narrative: Vital Signs Temp Pulse Resp BP Pulse Ox 03/02/21 15:01 87 03/02/21 15:00 97.7 F L 92 18 109/65 93 Medical Necessity - Tobacco Use Smoking Status: Former smoker Tobacco Use: Cigarettes Assessment/Plan All Active Problems (Last Updated 02/28/21 @ 18:[address] Torri Wetzel MD) Pancytopenia with fever (Acute) 1. Severe sepsis, unclear etiology, likely from possible pneumonia/possible jejunitis, improving Stool for C. Diff/enteric panel is negative. Patient is immunocompromised from underlying malignancy Continue on empiric vancomycin and Zosyn Blood cultures are negative. Rapid Covid antigen is negative 2. Pancytopenia, secondary to recent chemotherapy, patient's counts have started to improve ANC is 3100, continue to monitor, repeat blood work in am 3. Leaking J-tube, ostomy nurse consulted, patient is to follow-up with his primary surgeon 4. Esophageal cancer, chronic dysphagia, speech therapy consulted 5. Chronic hypoxic respiratory failure continue to COPD/pulmonary fibrosis, on 5 L of oxygen at home 6. CAD s/p PCI, continue on aspirin, statin 7. Type 2 DM, on Metformin, Metformin on hold, continue to monitor blood glucose 8. DVT Ppx- Lovenox Sc Inpatient E&M: [id number] [facility] Hosp L2
[2021-03-02 17:16] LABS: Bedside Glucose 104 mg/dL (70-110)
[2021-03-02] MEDS: Pravastatin 80 MG Tablet PO (21:15)
[2021-03-02 21:20] LABS: Bedside Glucose 162 mg/dL (70-110)
[2021-03-03] VITALS (7 sets, daily range): BP systolic 109–119; BP diastolic 64–72; PULSE 67–101; RESP 16–18; TEMP 36.9–37.2; O2SAT 86–97
[2021-03-03] MEDS: 0.9% Normal Saline 1,000 ML 100 ML IV (05:19)
[2021-03-03 05:55] LABS: Hematocrit 25.5 % (40-54); Hemoglobin 8.1 g/dL (13.0-16.5); Mean Corp Hgb Conc 31.8 g/dL (32-36); Mean Corpuscular Hgb 32.9 pg (27.0-32.0); Mean Corpuscular Volume 103.7 fL (80-94); Mean Platelet Vol. 10.4 fl (6.2-12.0); POSITIVE COUNT YES; POSITIVE DIFFERENTIAL YES; POSITIVE MORPHOLOGY YES; Platelet Count 123 K/mm3 (150-450); RBC Distribution Width CV 18.7 % (11.6-14.6); RBC Distribution Width SD 70.7 fl (35.1-43.9); Red Blood Count 2.46 M/mm3 (4.6-6.2); White Blood Count 6.7 K/mm3 (4.4-11.0)
[2021-03-03 06:00] LABS: Differential Indicated MANUAL DIFF
[2021-03-03 06:28] LABS: Myelocyte 1 % (0-0); Neutrophil-Band 10 % (0-5); Neutrophil-Segmented 63 % (47-70); Total Cells Counted 100 (MANUAL DIFF)
[2021-03-03 06:29] LABS: Lymphocyte 8 % (19-41); Metamyelocyte 2 % (0-1); Monocyte 16 % (0-10)
[2021-03-03 06:30] LABS: Absolute Lymphocyte Count 0.53 X10^3/uL (0.83-4.51); Absolute Neutrophil Count 4.9 X10^3/uL (2.0-7.7); Lymphocyte # 0.53 X10^3/ul (4.0); Neutrophil # 4.85 X10^3/uL (2.7-7.7); Nucleated Red Bld Cells,Manual 1 % (0-5)
[2021-03-03 06:31] LABS: Platelet Estimate SLT DEC (ADEQ)
[2021-03-03 06:32] LABS: ALB/GLOB Ratio 0.6 RATIO (0.9-2.4); AST(SGOT) 39 U/L (15-37); Alanine Aminotransfer ALT/SGPT 33 U/L (16-61); Albumin, Serum 2.3 g/dL (3.2-5.0); Alkaline Phosphatase 202 U/L (45-117); Anion Gap 6 (5-15); BUN 9 mg/dL (7-18); BUN/Creat Ratio 12.3 RATIO (10-20); Calcium,Total 8.2 mg/dL (8.5-10.1); Chloride 107 mmol/L (98-107); Creatinine, Serum 0.73 mg/dL (0.70-1.30); EST Glomerular Filtration Rate 112 mL/min (>60); Est Glom Filt Rate - Afr Amer 135 mL/min (>60); Estimated Creatinine Clearance 70.07 ml/min; Globulin 4.1 g/dL (2.2-4.2); Glucose 149 mg/dL (74-106); Macrocytosis 1+; Poikilocytosis 1+; Polychromasia RARE; Potassium 3.6 mmol/L (3.5-5.1); Protein, Total 6.4 g/dL (6.4-8.2); Sodium Level 137 mmol/L (136-145)
[2021-03-03 06:40] LABS: Bedside Glucose 144 mg/dL (70-110)
[2021-03-03] MEDS: Tamsulosin HCl 0.4 MG Capsule PO (09:03)
[2021-03-03] MEDS: Aspirin E.C. 81 MG Tablet PO (09:03)
--- NOTE | 2021-03-03 10:40 | PCM.DC ---
- Discharge Diagnoses Current Active Problems: Current Active and Chronic Problems (Last Updated 02/28/21 @ 18:[address] 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 [Ecotrin] 81 mg PO DAILY 09/02/18 Metformin HCl [Metformin ER Gastric] 500 mg PO BID 01/17/20 nitroglycerin 0.4 mg sublingual tablet 0.4 mg SUBLINGUAL Q5-15M PRN #25 tab 08/17/20 pravastatin 80 mg tablet 80 mg PO QHS #90 tab 01/10/21 Albuterol Inhaler [Ventolin Hfa] 2 puff INHALATION Q4H PRN PRN 02/26/21 Alprazolam [Xanax] 0.5 mg PO Q8 PRN 02/26/21 Nutritional Supplement [Nutren 1.5] 52 ml PO CONT 02/26/21 Pantoprazole Sodium [Protonix] 40 mg PO BID 02/26/21 Polyethylene Glycol 3350 [Miralax] 17 gm PO DAILY PRN 02/26/21 Promethazine HCl 25 mg PO Q6H PRN PRN 02/26/21 Tamsulosin HCl [Flomax] 0.4 mg PO DAILY 02/26/21 morphine solution (IR) [Roxanol (IR oral solution)] 30 mg PO Q4H PRN PRN 02/28/21 Amox/Clavulanate Tablet [Augmentin Tablet] 500 mg PO Q12H #14 tab 03/03/21 The following prescriptions were given: Amox/Clavulanate Tablet [Augmentin Tablet] 500 mg PO Q12H #14 tab Transmission Status: Pending to [employer] #30 Primary Care Physician: Keo Contreras DO [Primary Care Provider] - Please follow up with your Primary Care Physician in: Within the next 2 weeks Test Results: Test results from this visit will be discussed in further detail at your follow-up appointment, if applicable. Proposed Discharge Date: 03/03/21
--- NOTE | 2021-03-03 12:22 | PCM.DC.SUM ---
<Balaji Naranjo - Last Filed: 03/03/21 12:22> Discharge Date and Diagnosis - Problem List Patient Problems: Active and Suspected Problems (Last Updated 02/28/21 @ 18:[address] Torri Wetzel MD) Pancytopenia with fever (Acute) Date of Admission: 02/28/21 Date of Discharge: 03/03/21 - Primary Discharge Diagnosis Acute Problems: Active Problems (Last Updated 02/28/21 @ 18:[address] Torri Wetzel MD) Pancytopenia with fever (Acute) - Secondary Discharge Diagnosis Chronic Problems: Chronic Problems (Last Updated 02/28/21 @ 18:[address] Torri Wetzel MD) Elevated LFTs (Chronic) Esophageal cancer (Chronic) Borderline diabetes (Chronic) Essential hypertension (Chronic) Presence of stent in coronary artery (Chronic ~12/21/13) 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 Patient's care was complicated by the fact the patient is immunocompromise due to underlying malignancy/esophageal cancer. CT of the abdomen and pelvis reviewed only revealed stable fibrosis of both lung bases, J-tube was in correct position. Stool sample revealed no C. difficile infection. Blood culture, urine culture and Stool culture revealed no growth. It is still unclear as to the etiology of the sepsis most likely from possible pneumonia or jejunitis. CBC reveals no leukocytosis and is stable. BMP unremarkable. Patient currently denies fever, chills, N/V/D. Patient hospitalist team feel that patient is stable to go home at this time. 1) Severe sepsis/unclear etiology, possible pneumonia/jejunitis Assessment - C. difficile enteric panel negative - Blood cultures negative - Rapid Covid negative - No Leukocytosis on CBC Plan - Initiate Augmentin 500 mg p.o. twice daily x7 days on discharge - Follow up with primary care provider within the next 2 weeks 2) Pancytopenia secondary to chemotherapy Assessment - CBC stable, counts started to improve Plan - Follow-up with primary care provider within the next 2 weeks 3) J-tube malfunction Assessment - Mild tenderness about the left lower quadrant around J-tube - No erythema, drainage, swelling or induration around J-tube Plan -Follow-up with his primary surgeon upon discharge 4) Esophageal cancer Assessment - Mild chronic dysphagia on physical exam Plan - Follow-up with oncologist upon discharge 5) CAD s/p PCI Assessment - Stable Plan - Continue on aspirin and statin 6) DM2 Assessment - POC glucose 144, stable Plan - Continue Metformin on discharge 7) chronic hypoxic respiratory failure secondary to COPD/pulmonary fibrosis Assessment - O2 saturation 95% on 2 L of oxygen via nasal cannula - Stable Plan - Continue on 5 L of oxygen at home Patient seen by Baalji Naranjo PA-C, under the supervision of Dr. Blanchard. Patient Problems: Active and Suspected Problems (Last Updated 02/28/21 @ 18:[address] Torri Wetzel MD) Pancytopenia with fever (Acute) Subjective: Patient is a 75-year-old male comfortably resting in bed, alert and oriented x3. Patient reports that he no longer feels bloated from yesterday, still endorses left lower quadrant pain around his J-tube. Does feel stable and comfortable after go home. Objective: Clinical Impression(s) from Imaging Studies Abdomen/Pelvis CT 02/28/21 10:57 IMPRESSION: Stable interstitial fibrosis of the lung bases. Diffuse circumferential wall thickening at the gastroesophageal junction. Percutaneous jejunostomy tube is seen within the mid jejunal bowel loop. Stable examination. Electronically Signed: Freedom Burgess MD at 12:42 EDT , Service support , Chest X-Ray 02/28/21 11:00 IMPRESSION: Progressive increase in the interstitial markings worse at the right lung base. Electronically Signed: Freedom Burgess MD at 11:23 EDT , Service support , KUB X-Ray 03/01/21 11:55 IMPRESSION: No sign of bowel obstruction. Electronically Signed: Jc Jenkins DO at 21:17 EDT Tel [phone], Service support , Microbiology 02/28/21 14:45 Urine, Clean Catch Urine Culture - Final Culture exhibits no growth. 02/28/21 11:49 Blood Culture (Wb) - Anticubital Right Blood Culture - Preliminary No growth in 48 hours. 02/28/21 11:30 Blood Culture (Wb) - Port Blood Culture - Preliminary No growth in 48 hours. 03/01/21 11:38 Stool Enteric Bacteriology - Final 03/01/21 11:38 Stool C. difficile DNA Amplification - Final 02/28/21 11:34 Mucosa - Nose SARS-CoV-2 Antigen (Rapid) - Final - Physical Exam Vitals/I&O's: Vital Signs Temp Pulse Resp BP Pulse Ox 98.9 F 92 18 119/68 86 03/03/21 08:52 03/03/21 11:56 03/03/21 08:52 03/03/21 08:52 03/03/21 08:57 Oxygen Flow Rate (L/min) [ 5 AMBULATING with Oxygen #2] Oxygen Flow Rate (L/min) [ 2 AMBULATING with Oxygen #1] Oxygen Flow Rate (L/min) 2 Oxygen Delivery Method Nasal Cannula Weight: 220 lb 0.341 oz Body Mass Index (BMI) 29.7 Intake and Output for Last 24 Hours 03/01/21 03/02/21 03/03/21 23:59 23:59 23:59 Intake Total 4792.33 / 5163.33 6116.33 / 6116.33 1863.34 / 1863.34 Output Total 540 / 540 250 / 250 25 / 25 Balance 4252.33 / 4623.33 5866.33 / 5866.33 1838.34 / 1838.34 General: Alert, Oriented x3, Cooperative HEENT: Atraumatic, PERRLA, EOMI, Normocephalic Neck: Supple, No JVD, Negative Carotid Bruits Lungs: Diminished Cardiovascular: Regular rate, No murmurs Abdomen: Tender - Tender about the left lower quadrant around his J-tube. No bile drainage evident outside of jejunostomy bag. Extremities: No edema, Capillary Refill Less than 3 Seconds Skin: No rashes, No breakdown Musculoskeletal: No Tenderness to Palpation of Joints or Extremities Neurological: Cranial nerves II-XII grossly intact Psych/Mental Status: Normal Affect, Appropriate Microbiology Past 72 Hours 02/28/21 14:45 Urine, Clean Catch Urine Culture - Final Culture exhibits no growth. 02/28/21 11:49 Blood Culture (Wb) - Anticubital Right Blood Culture - Preliminary No growth in 48 hours. 02/28/21 11:30 Blood Culture (Wb) - Port Blood Culture - Preliminary No growth in 48 hours. 03/01/21 11:38 Stool Enteric Bacteriology - Final 03/01/21 11:38 Stool C. difficile DNA Amplification - Final 02/28/21 11:34 Mucosa - Nose SARS-CoV-2 Antigen (Rapid) - Final Laboratory Results 03/02/21 14:35: Vancomycin Trough 16.5 H 03/02/21 17:12: POC Glucose 104 03/02/21 21:10: POC Glucose 162 H 03/03/21 05:44: WBC 6.7, RBC 2.46 L, Hgb 8.1 L, Hct 25.5 L, MCV 103.7 H, MCH 32.9 H, MCHC 31.8 L, RDW Std Deviation 70.7 H, RDW Coeff of Rachel 18.7 H, Plt Count 123 L, MPV 10.4, Neut % (Auto) Not Reportable, Absolute Neuts (auto) 4.9, Absolute Lymphs (auto) 0.53 L, Total Counted 100, Neutrophils % (Manual) 63, Band Neutrophils % 10 H, Lymphocytes % (Manual) 8 L, Monocytes % (Manual) 16 H, Metamyelocytes % 2 H, Myelocytes % 1 H, Nucleated RBCs/100 WBC 1, Diff Path Review March, Platelet Estimate SLT DEC, Polychromasia RARE, Poikilocytosis 1+, Macrocytosis 1+ 03/03/21 05:44: Sodium 137, Potassium 3.6, Chloride 107, Carbon Dioxide 24.0, Anion Gap 6, BUN 9, Creatinine 0.73, Estim Creat Clear Calc 70.07, Est GFR (MDRD) Af Amer 135, Est GFR (MDRD) Non-Af 112, BUN/Creatinine Ratio 12.3, Glucose 149 H, Calcium 8.2 L, Total Bilirubin 0.80, AST 39 H, ALT 33, Alkaline Phosphatase 202 H, Total Protein 6.4, Albumin 2.3 L, Globulin 4.1, Albumin/Globulin Ratio 0.6 L 03/03/21 06:36: POC Glucose 144 H Current Medications Acetaminophen (Acetaminophen 325 Mg Tablet) 650 mg PO Q6H PRN PRN PRN Reason: Pain Score 1-10/Temp > 100.7 F Albuterol Sulfate (Albuterol 2.5 Mg/3 Ml Vial.Neb.) 2.5 mg INHALATION Q4H.RT PRN PRN Reason: SOB &/OR WHEEZING Alprazolam (Alprazolam 0.5 Mg Tablet) 0.5 mg PO Q8 PRN PRN Reason: ANXIETY Last Admin: 03/02/21 14:45 Dose: 0.5 mg Documented by: Aspirin (Aspirin E.C. 81 Mg Tablet) [facility] Last Admin: 03/03/21 09:03 Dose: 81 mg Documented by: Enoxaparin Sodium (Enoxaparin 40 Mg/0.4 Ml Syringe) 40 mg SC DAILY [facility] Last Admin: 03/03/21 11:47 Dose: Not Given Documented by: Heparin Sodium (Beef Lung) (Heparin Pf Lock 10 Units/Ml 50 Units/5 Ml Syringe) 50 units IV UD PRN PRN Reason: R Port Heparin Flush Sodium Chloride () 1,000 mls @ 100 mls/hr IV .Q10H [facility] Last Infusion: 03/03/21 09:08 Dose: 0 mls/hr Documented by: Pantoprazole Sodium 40 mg/ (Sodium Chloride) 110 mls @ 330 mls/hr IV Q12 [facility] Last Infusion: 03/03/21 09:25 Dose: Infused Documented by: Vancomycin IV Pharmacy to Dose (1 each/ Sodium Chloride) 500 mls @ 250 mls/hr IV PRN PRN; Protocol PRN Reason: Rx to Dose Vancomycin HCl 1,500 mg/ (Sodium Chloride) 530 mls @ 250 mls/hr IV Q12H [facility] Last Infusion: 03/03/21 04:18 Dose: Infused Documented by: Sodium Chloride () 250 mls @ 15 mls/hr IV .[id number] PRN PRN Reason: Saline Flush Last Infusion: 03/01/21 05:13 Dose: 0 mls/hr Documented by: Sodium Chloride () 250 mls @ 15 mls/hr IV .[id number] PRN PRN Reason: Additional IVPB Infusion Piperacillin Sod/Tazobactam (Sod 3.375 gm/ Sodium Chloride) 50 mls @ 100 mls/hr IV Q8 [facility] Last Admin: 03/03/21 11:56 Dose: 100 mls/hr Documented by: Lactose (Pivot 1.5 Andrade) 1,000 mls @ 20 mls/hr GT .Q48H [facility] Last Admin: 03/01/21 18:45 Dose: 20 mls/hr Documented by: Insulin Human Lispro (Insulin Lispro 100 Unit/Ml Insuln.Pen) 0 unit SC ACHS [facility]; Protocol Last Admin: 03/03/21 06:38 Dose: Not Given Documented by: Morphine Sulfate (Morphine 2 Mg/Ml Syringe) 2 mg IV Q3H PRN PRN PRN Reason: Pain Score 6-10 Last Admin: 03/01/21 02:24 Dose: 2 mg Documented by: Nutritional Formula (Lactose Free) (Ensure Enlive 120 Ml Liquid) 120 ml PO 4X/DAY [facility] Last Admin: 03/03/21 09:03 Dose: 120 ml Documented by: Ondansetron HCl (Ondansetron 4 Mg/2 Ml Vial) 4 mg IV Q8H PRN PRN PRN Reason: NAUSEA/VOMITING Pravastatin Sodium (Pravastatin 80 Mg Tablet) 80 mg PO QHS [facility] Last Admin: 03/02/21 21:15 Dose: 80 mg Documented by: Sodium Chloride (0.9% Saline Lock 10 Ml Syringe) 10 - 40 ml IV UD PRN PRN Reason: R Port Saline Flush Sodium Chloride (0.9 % Nacl (Sterile) Posiflush 10 Ml) 10 - 40 ml IV UD PRN PRN Reason: Port access or dressing change Tamsulosin HCl (Tamsulosin Hcl 0.4 Mg Capsule) 0.4 mg PO DAILY [facility] Last Admin: 03/03/21 09:03 Dose: 0.4 mg Documented by: Discharge Diet: No Restrictions Discharge Activity: Return to Normal Activity Home Medications: Medications to take at Discharge Aspirin E.C. [Ecotrin] 81 mg PO DAILY 09/02/18 Metformin HCl [Metformin ER Gastric] 500 mg PO BID 01/17/20 nitroglycerin 0.4 mg sublingual tablet 0.4 mg SUBLINGUAL Q5-15M PRN #25 tab 08/17/20 pravastatin 80 mg tablet 80 mg PO QHS #90 tab 01/10/21 Albuterol Inhaler [Ventolin Hfa] 2 puff INHALATION Q4H PRN PRN 02/26/21 Alprazolam [Xanax] 0.5 mg PO Q8 PRN 02/26/21 Nutritional Supplement [Nutren 1.5] 52 ml PO CONT 02/26/21 Pantoprazole Sodium [Protonix] 40 mg PO BID 02/26/21 Polyethylene Glycol 3350 [Miralax] 17 gm PO DAILY PRN 02/26/21 Promethazine HCl 25 mg PO Q6H PRN PRN 02/26/21 Tamsulosin HCl [Flomax] 0.4 mg PO DAILY 02/26/21 morphine solution (IR) [Roxanol (IR oral solution)] 30 mg PO Q4H PRN PRN 02/28/21 Amox/Clavulanate Tablet [Augmentin Tablet] 500 mg PO Q12H #14 tab 03/03/21 Following Prescriptions Were Given to Patient: Amox/Clavulanate Tablet [Augmentin Tablet] 500 mg PO Q12H #14 tab Transmission Status: Received by [employer] #30 Primary Care Physician: Keo Contreras DO [Primary Care Provider] - Please follow up with your Primary Care Physician in: Within the next 2 weeks Please Follow Up With: Keo Contreras DO Disposition: Home Minutes spent on discharge:: 35 Patient Condition:: Stable Medical Necessity - Tobacco Use Smoking Status: Former smoker Tobacco Use: Cigarettes Meaningful Use Info Meaningful Use Diagnoses (Choose all that apply): None applicable <Paintsil,Brokaw - Last Filed: 03/04/21 15:07> Discharge Date and Diagnosis - Primary Discharge Diagnosis Acute Problems: Active Problems (Last Updated 02/28/21 @ 18:[address] Torri Wetzel MD) Pancytopenia with fever (Acute) - Secondary Discharge Diagnosis Chronic Problems: Chronic Problems (Last Updated 02/28/21 @ 18:[address] Torri Wetzel MD) Elevated LFTs (Chronic) Esophageal cancer (Chronic) Borderline diabetes (Chronic) Essential hypertension (Chronic) Presence of stent in coronary artery (Chronic ~12/21/13) 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 I have independently interviewed and examined the patient and reviewed pertinent historical, laboratory, and other data. Please refer to CHRIS Monroy's note for his patient's presentation, findings, and recommendations. I have reviewed and his note and concur with his documentation 75-year-old male with past medical history of esophageal CA status post J-tube who presents with fever and increased drainage from the J-tube. Patient was recently seen and transferred to [facility] with increased drainage from J tube. He was seen by general surgery and had a stitch placed at the J-tube and discharged home. He comes in with persistent cough, productive of clear sputum ongoing for over a month. He has had abdominal discomfort. Work-up in the ED was remarkable for leukopenia, anemia, thrombocytopenia. Lactic acid was 2.9. He was admitted to the progressive care unit and managed as severe sepsis secondary to probable pneumonia versus cellulitis of the skin. CT scan of abdomen and pelvis that showed diffuse circumferential wall thickening at the GE junction. Stable interstitial fibrosis of the lung bases. COVID-19 rapid antigen was negative. Patient was started on empiric antibiotics - Vancomycin and Zosyn. His blood cultures were negative. He was seen by the wound RN, jejunostomy bag changed. He had repeat KUB did not show any ileus. He was seen by speech therapy. Patient was continued on tube feeds by dietitian. He had increased stool output from his G-tube. Stool for C. difficile and enteric panel was negative. He was discharged home on Augmentin to complete 1 week of antibiotics. On the day of discharge, patient was seen and examined. He denied any complains Physical Exam: Gen: Comfortable, not pale, not jaundiced CVS:HS I +II, regular, no murmurs RESP: Diminished at lung bases GI: J-tube with jejunostomy bag with liquid brownish-yellow stools, BS present and normal, soft, nontender, no palpable organs EXT:No edema - Physical Exam Vitals/I&O's: Vital Signs Temp Pulse Resp BP Pulse Ox 99 F 67 16 109/64 97 03/03/21 13:56 03/03/21 13:56 03/03/21 13:56 03/03/21 13:56 03/03/21 13:56 Oxygen Flow Rate (L/min) [ 5 AMBULATING with Oxygen #2] Oxygen Flow Rate (L/min) [ 2 AMBULATING with Oxygen #1] Oxygen Flow Rate (L/min) 5 Oxygen Delivery Method Nasal Cannula Weight: 99.8 kg Body Mass Index (BMI) 29.7 Intake and Output for Last 24 Hours 03/02/21 03/03/21 03/04/21 23:59 23:59 23:59 Intake Total 6116.33 / 6116.33 2545.01 / 2545.01 Output Total 250 / 250 225 / 225 Balance 5866.33 / 5866.33 2320.01 / 2320.01 Microbiology Past 72 Hours 02/28/21 14:45 Urine, Clean Catch Urine Culture - Final Culture exhibits no growth. 02/28/21 11:49 Blood Culture (Wb) - Anticubital Right Blood Culture - Preliminary No growth in 48 hours. 02/28/21 11:30 Blood Culture (Wb) - Port Blood Culture - Preliminary No growth in 48 hours. 03/01/21 11:38 Stool Enteric Bacteriology - Final 03/01/21 11:38 Stool C. difficile DNA Amplification - Final Inpatient E&M: [id number] Disch Hosp
[2021-03-03] MEDS: 0.9 % NaCl (Sterile) Posiflush 10 mL IV (14:04)
[2021-03-05 12:05] LABS: Pathologist Review Reviewed
[2021-03-05 12:05] LABS: Pathologist Review Reviewed
--- NOTE | 2021-03-05 15:49 | CASEMGMT ---
DANIEL SWANSON Discharge Follow-up Phone Call: EMEKA: 15 Strata: 5 Call Date: 03/05/21 Discharge Date: 03/03/21 Time of Call: 1550 Duration: 1 min Admitting Diagnosis: Fever DANIEL SWANSON attempted to complete follow-up phone call after recent hospitalization. No answer, voicemail box full and unable to leave message. Patient is active with [facility].
== END 2021-03-03 14:21 | disposition home health service (06) | DRG 871 ==
LOC: ED 12:17 → PCU 17:17
PROVIDERS: Admitting Provider Hospitalist; Emergency Provider Emergency Medicine; PCP Preventive Medicine Occupational Medicine; Visit Provider Internal Medicine
DX: A41.9 Sepsis, unspecified organism (principal); D61.810 Antineoplastic chemotherapy induced pancytopenia; J44.0 Chronic obstructive pulmonary disease with (acute) lower respiratory infection; J18.9 Pneumonia, unspecified organism; C15.9 Malignant neoplasm of esophagus, unspecified; J96.11 Chronic respiratory failure with hypoxia; K94.13 Enterostomy malfunction; K52.9 Noninfective gastroenteritis and colitis, unspecified; R65.20 Severe sepsis without septic shock; T45.1X5A Adverse effect of antineoplastic and immunosuppressive drugs, initial encounter; D70.9 Neutropenia, unspecified; R50.81 Fever presenting with conditions classified elsewhere; J84.10 Pulmonary fibrosis, unspecified; I25.10 Atherosclerotic heart disease of native coronary artery without angina pectoris; E11.9 Type 2 diabetes mellitus without complications; I10 Essential (primary) hypertension; E78.5 Hyperlipidemia, unspecified; R13.10 Dysphagia, unspecified; Z20.822 Contact with and (suspected) exposure to COVID-19; N40.0 Benign prostatic hyperplasia without lower urinary tract symptoms; Z79.82 Long term (current) use of aspirin; Z79.84 Long term (current) use of oral hypoglycemic drugs; Z79.899 Other long term (current) drug therapy; Z87.891 Personal history of nicotine dependence; Z92.3 Personal history of irradiation; Z95.5 Presence of coronary angioplasty implant and graft
CPT/HCPCS: 36415; 36591; 71045; 74018; 74176; 74177; 80053; 80202; 81001; 82962; 83605; 83690; 84484; 85025; 85610; 85730; 87040; 87086; 87426; 87493; 87506; 92507; 92526; 92610; 93005; 94640; 96361; 96374; 96375; 96376; 97110; 97161; 97166; 97535; 97802; 97803; 99251; 99285; J7030; J7040; J7050; Q9967; A4216; G0463; J1447; J2405

== ENCOUNTER → 2021-03-05 11:37 | Outpatient (CLI) | payer MEDICARE, SELFPAY ==
[2021-03-05 12:48] LABS: Rheumatoid Factor < 10.0 IU/mL (<15)
[2021-03-06 17:05] LABS: ANTINUCLEAR ANTIBODIES DIRECT Negative (Negative)
[2021-03-08 03:07] LABS: Cytoplasmic Ab (C-ANCA) <1:20 titer (Neg:<1:20)
[2021-03-08 09:15] LABS: CCP IgG Antibodies 5 units (0-19); Perinuclear Ab (P-ANCA) <1:20 titer (Neg:<1:20)
== END ==
PROVIDERS: PCP Preventive Medicine Occupational Medicine; Referring Provider Internal Medicine Critical Care Medicine; Visit Provider Internal Medicine Critical Care Medicine
DX: J84.10 Pulmonary fibrosis, unspecified (principal)
CPT/HCPCS: 36591; 86038; 86200; 86225; 86235; 86256; 86431; A4216

== ENCOUNTER 2021-03-05 23:40 | Inpatient (IN) | payer MEDICARE, SELFPAY ==
[2021-03-05 23:42] VITALS: BP 108/71; PULSE 101; RESP 30; TEMP 36.6; O2SAT 95; BMI 30.8
--- NOTE | 2021-03-05 23:52 | ED.RN ---
DTR CONCERNED FOR PT'S INABILITY TO EXPECTORATE PHLEGM. WAS ABLE TO DO SO SEVERAL HOURS AGO, BUT NOT NOW. PT REPORTS IT'S D/T DRY/SORE THROAT. DTR ALSO CONCERNED FOR DEHYDRATION AND INABILITY TO YUMI FLUIDS THROUGH HIS PEG. REPORTS THIS JUST STARTED A FEW HOURS AGO.
[2021-03-06] VITALS (9 sets, daily range): BP systolic 100–122; BP diastolic 60–74; PULSE 88–102; RESP 17–20; TEMP 36.4–36.6; O2SAT 93–98; BMI 29.8
--- NOTE | 2021-03-06 00:20 | EKG12_ITS ---
Test Reason : WEAKNESS Blood Pressure : / mmHG Vent. Rate : 097 BPM Atrial Rate : 097 BPM P-R Int : 162 ms QRS Dur : 098 ms QT Int : 340 ms P-R-T Axes : 028 024 012 degrees QTc Int : 431 ms Normal sinus rhythm Incomplete right bundle branch block Borderline ECG Confirmed by JOSE ALFREDO GAMBLE, SNOW ([id number]), society editor ZEE RANKIN ([id number]) on 03/09/2021 2:48:02 PM Referred By: BELLA Confirmed By:JUAN J VELIZ MD
--- NOTE | 2021-03-06 00:20 | RAD_ITS ---
STUDY: X-RAY CHEST REASON FOR EXAM: Male, 75 years old. vomiting, sob, cough, ?aspiration TECHNIQUE: Single AP portable view of the chest. COMPARISON: None. FINDINGS: Decreased inspiration with bilateral patchy opacities with groundglass appearance in the lung bases, left more than right suggestive of pneumonia. Fullness of the central vessels may indicate congestive heart failure versus bronchitis. There is no demonstrated pleural abnormality. There is borderline cardiomegaly. Normal mediastinum and omar. Normal visualized aortic arch and descending thoracic aorta. There are diffuse degenerative changes of the visualized thoracic spine. There is degenerative osteoarthritis of the bilateral shoulders. There is no demonstrated abnormality of the visualized soft tissue structures of the upper abdomen. RAD/Chest 1 View (Portable) IMPRESSION: Bilateral pneumonia more significant through the left lower lobe. Underlying bronchitis versus congestive heart failure. Electronically Signed: Debbie Awan MD at 1:11 EDT , Service support ,
--- NOTE | 2021-03-06 00:22 | ED.DCSUM_ITS ---
History of Present Illness Chief Complaint: Weakness Informant: Patient, Family Onset: Yesterday Context: Gradual Onset Timing: Continuous Quality: vomiting Current Severity: Moderate Maximum Severity: Moderate Worsened by: drinking or eating anything; gets stuck Relieved by: avoiding PO Narrative: Patient with distal esophageal mass/cancer stage III has undergone radiation and chemotherapy, his last treatment was 2 weeks ago, he is now being considered for possible surgery and whether or not he will be able to be cleared for it or not. He has been vomiting up everything he drinks only for about the past 24 hours, he has not had a total esophageal obstruction prior to now. As a result, daughter states that he has developed a very wet cough and a little more shortness of breath than usual for him and his pulmonary fibrosis, and is concerned that he might have aspirated. Patient states he is a little short of breath while lying at rest right now. He is on 5 L of oxygen at home, has chronic dyspnea with exertion, and she states that at times he is desatting down to 70% although he is coming back up relatively quickly at home just from walking across the room. He has a GJ tube, he has medication to take that he is unable in the past 24 hours because of the vomiting, and they were told not to put any of the medications down the GJ so daughter is not sure what to do. At this point he is not hospice, and again going forward with treatments for now. Daughter states they have not discussed prognosis yet. He has some swelling in his legs but no other new symptoms, and that is not new either. Also they have been dealing with constant leakage of 2-300 mL of fluid per day from the GJ tube site so they have a bag over it. - Past Medical History (1) Atherosclerotic heart disease of [place] coronary artery without angina pectoris Status: Chronic (2) Borderline diabetes Status: Chronic (3) COPD (chronic obstructive pulmonary disease) Status: Chronic (4) Elevated LFTs Status: Chronic (5) Esophageal cancer Status: Chronic (6) Essential hypertension Status: Chronic (7) Hyperlipidemia Status: Chronic (8) Presence of stent in coronary artery Status: Chronic Comment: [facility] w/ PCI/JUANY to mid LAD 09/19/10; PCI/JUANY mid LAD 12/21/13 Past Medical History - Allergies and Home Meds Allergies/Adverse Reactions: Allergies No Known Allergies Allergy (Verified 03/05/21 23:47) Surgical History: angioplasty, - - PCI, tonsillectomy, Transurethral ablation w/ history of BPH, J-tube placement. Lives: With Family Smoking Status: Former smoker - Family History Maternal Family History: Family History (Last Reviewed 03/05/21 @ 10:26 by Lizeth Marquez) Father Myocardial infarction CVA (cerebral vascular accident) Brother Diabetes Family History: Reports: Heart Disease Paternal Family History: Family History (Last Reviewed 03/05/21 @ 10:26 by Lizeth Marquez) Father Myocardial infarction CVA (cerebral vascular accident) Brother Diabetes Family History: Reports: High Cholesterol, Heart Disease, Hypertension, Stroke Review of Systems General: Reports: Malaise. Denies: Chills, Fever, Sweats Eyes: Denies: Visual changes - bilaterally, Diplopia ENT: Reports: - - Burning in mouth and throat. Denies: Bilateral ear pain, Rhinorrhea, Sore throat Cardiovascular: Denies: Chest pain, Palpitations Respiratory: Reports: Dyspnea, Cough, Sputum - Sometimes but others cannot get it up, Dyspnea on exertion. Denies: Orthopnea Gastrointestinal: Reports: Nausea, Vomiting. Denies: Abdominal pain, Diarrhea, Melena, Hematochezia Genitourinary: Denies: Dysuria, Hematuria, Frequency Musculoskeletal: Reports: Swelling. Denies: Back pain, Extremity Pain Skin: Denies: Rash, Wounds Neurological: Denies: Headache, Weakness, Numbness Physical Exam Vital Signs/Narrative: Vital Signs Temp Pulse Resp BP Pulse Ox 03/05/21 23:42 97.9 F 101 H 30 H 108/71 95 Inital Vital Signs reviewed: Yes General: Well nourished, Well developed, No Acute Distress Head: Normocephalic, Atraumatic Eyes: Perrl, EOMI ENT: Moist mucous membranes, No rhinorrhea, - - No posterior oropharyngeal abnormality, but erythema with some satellite lesions on soft and hard palate, no thrush. Normal tongue. No trismus. Neck: Supple, Nontender Cardiovascular: Regular rate, Regular rhythm, No murmurs Respiratory: No distress, Chest nontender, Rhonchi - High-pitched bibasilar, does not sound wet, Diminished. Negative for: Rales, Wheezing Abdomen: Soft, Nontender, Nondistended, Hypoactive bowel sounds, - - Continues to feed running in GJ, site benign. Bumper is approximately 2 cm from the abdominal wall, tube moves freely. No sign of infection. Small amount of bilious yellow fluid in bag around the GJ tube. Back: Nontender, Normal Inspection. Negative for: CVA tenderness Extremities: Nontender, Edema - 1+ both lower extremities, symmetric without signs of cellulitis Skin: Normal color, No rash, No Trauma Neurological: Alert, Oriented x3, Cranial nerves II-XII grossly intact, Normal Strength, Normal Sensation Psychological: Normal affect, Normal Mood Diagnostic/Tx/Re-eval Impressions Chest X-Ray 03/06/21 00:20 IMPRESSION: Bilateral pneumonia more significant through the left lower lobe. Underlying bronchitis versus congestive heart failure. Electronically Signed: Debbie Awan MD at 1:11 EDT , Service support , 03/06/21 00:20 Chest 1 View (Portable) [RAD] Stat Laboratory Results 03/05/21 03/05/21 03/06/21 23:43 23:43 01:40 WBC 5.2 RBC 2.33 L Hgb 7.7 L Hct 24.4 L MCV 104.7 H MCH 33.0 H MCHC 31.6 L RDW Std Deviation 75.9 H RDW Coeff of Rachel 19.8 H Plt Count 109 L MPV 10.9 Immature Gran % (Auto) 4.100 H Neut % (Auto) 66.2 Lymph % (Auto) 12.8 L [place] % (Auto) 16.5 H Eos % (Auto) 0.2 Baso % (Auto) 0.2 Absolute Neuts (auto) 3.4 Absolute Lymphs (auto) 0.66 L Nucleated RBC % 0.4 Sodium 140 Potassium 4.0 Chloride 107 Carbon Dioxide 31.0 Anion Gap 2 L BUN 19 H Creatinine 1.03 Estim Creat Clear Calc 68.03 Est GFR (MDRD) Af Amer 91 Est GFR (MDRD) Non-Af 75 BUN/Creatinine Ratio 18.4 Glucose 249 H Calcium 8.7 Troponin I < 0.015 Urine Color Yellow Urine Clarity Clear Urine pH 6.0 Ur Specific [place] 1.010 Urine Protein 30 H Urine Glucose (UA) 250 H Urine Ketones Negative Urine Occult Blood Negative Urine Nitrite Negative Urine Bilirubin Negative Urine Urobilinogen Normal Ur Leukocyte Esterase Negative Urine RBC 0-5 SEEN Urine WBC 0-5 SEEN Ur Squamous Epith Cells 0-5 SEEN Urine Bacteria RARE Urine Mucus 0 SEEN - Rhythm Strip Rhythm Strip: Sinus Rhythm Rate: 97 Ectopy: None - EKG Initial EKG Interpretation: Sinus Rhythm, No Acute Injury Pattern, RBBB - incomplete Prior: Unchanged - Medical Decision Making X-ray is consistent with bilateral pneumonia. Unknown if this is all due to aspiration or otherwise. He is on 5 L of oxygen at home and is maintaining on that here. He is quite anemic at 7.7, I suspect this is a result of his chemotherapy. Type and screen is sent. He does not need to be emergently transfused right now. He is clinically and hemodynamically stable. We will treat him empirically with Unasyn after lactate and blood cultures obtained, he was given some IV fluids and we will admit him to the hospital for further treatment. ED Disposition - Plan for ED Patient: Disposition: Acute Care Hospital [facility] Diagnosis: Aspiration pneumonia, Acute esophageal obstruction, Esophageal cancer, COPD (chronic obstructive pulmonary disease), Anemia
[2021-03-06 00:31] LABS: Absolute Lymphocyte Count 0.66 X10^3/uL (0.83-4.51); Absolute Neutrophil Count 3.4 X10^3/uL (2.0-7.7); Basophil# 0.01 X10^3/uL; Basophil% 0.2 % (0-1); Eosinophil# 0.01 X10^3/uL; Eosinophils% 0.2 % (0-5); Hematocrit 24.4 % (40-54); Hemoglobin 7.7 g/dL (13.0-16.5); Lymphocyte # 0.66 X10^3/ul (4.0); Lymphocyte % 12.8 % (19-41); Mean Corp Hgb Conc 31.6 g/dL (32-36); Mean Corpuscular Volume 104.7 fL (80-94); Mean Platelet Vol. 10.9 fl (6.2-12.0); Monocyte# 0.85 X10^3/uL; Monocyte% 16.5 % (0-10); NRBC Flagged by Analyzer 0.4 % (0-5); Neutrophil # 3.41 X10^3/uL (2.7-7.7); Neutrophil % 66.2 % (47-70); POSITIVE MORPHOLOGY YES; Platelet Count 109 K/mm3 (150-450); RBC Distribution Width CV 19.8 % (11.6-14.6); RBC Distribution Width SD 75.9 fl (35.1-43.9); Red Blood Count 2.33 M/mm3 (4.6-6.2); White Blood Count 5.2 K/mm3 (4.4-11.0)
[2021-03-06 00:35] LABS: Differential Indicated SCAN CRITERIA MET
[2021-03-06] MEDS: Morphine 4 MG/ML Syringe IV (00:35)
[2021-03-06] MEDS: 0.9% Normal Saline 1,000 ML 100 ML IV (00:35)
[2021-03-06] MEDS: Ondansetron 4 MG/2 ML Vial IV (00:35)
[2021-03-06 00:44] LABS: Anion Gap 2 (5-15); BUN 19 mg/dL (7-18); BUN/Creat Ratio 18.4 RATIO (10-20); Calcium,Total 8.7 mg/dL (8.5-10.1); Chloride 107 mmol/L (98-107); Creatinine, Serum 1.03 mg/dL (0.70-1.30); EST Glomerular Filtration Rate 75 mL/min (>60); Est Glom Filt Rate - Afr Amer 91 mL/min (>60); Estimated Creatinine Clearance 68.03 ml/min; Glucose 249 mg/dL (74-106); Sodium Level 140 mmol/L (136-145)
[2021-03-06 01:49] LABS: Color, Urine Yellow (Yellow); Glucose, Dipstick 250 mg/dl (Normal); Ketone-Dipstick Negative (Negative); Leukocyte Esterase-Dipstick Negative /ul (Negative); Mucous, Urine 0 SEEN /hpf (<or=2+); Nitrite-Dipstick Negative (Negative); Occult Blood-Urine Negative /ul (Negative); Protein-Dipstick 30 mg/dl (Negative); Urine Bilirubin Dipstick Negative (Negative); Urine Clarity Clear (Clear); Urine Urobilinogen Normal (Normal)
[2021-03-06 01:55] LABS: Red Blood Cells-Urine 0-5 SEEN /hpf (0-5); Squamous Epithelial Cells - UA 0-5 SEEN /hpf (0-5); White Blood Cells 0-5 SEEN /hpf (0-5)
[2021-03-06 01:57] LABS: Bacteria RARE /hpf (None Seen)
--- NOTE | 2021-03-06 02:54 | HP.PCM_ITS ---
Problem List (1) Aspiration pneumonia Status: Acute (2) Acute esophageal obstruction Status: Acute (3) Esophageal cancer Status: Chronic Qualifiers: (4) Essential hypertension Status: Chronic (5) Presence of stent in coronary artery Status: Chronic Comment: [facility] w/ PCI/JUANY to mid LAD 09/19/10; PCI/JUANY mid LAD 12/21/13 (6) Nicotine dependence, cigarettes, uncomplicated Status: Chronic (7) Hyperlipidemia Status: Chronic Qualifiers: (8) COPD (chronic obstructive pulmonary disease) Status: Chronic Qualifiers: History of Present Illness Date of Admission: 03/06/21 Chief Complaint: throat pain/esophageal obstruction The patient is a 75 year old male patient with significant past medical history of esophageal mass/cancer stage III status post radiation and chemotherapy last treatment was 2 weeks ago. Patient presents the emergency room with obstruction of esophagus with food contents not going down to stomach and concern for aspiration. Patient is currently complaining of pain in his throat. Currently the patient is unable to eat or drink p.o. but he does have a GJ tube in the patient does suffer from chronic COPD with pulmonary fibrosis and has been determined to be high risk for surgery, although that may be the next step for his esophageal cancer. In discussing CODE STATUS the patient does not wish to be intubated on a ventilator. He is comfortable with short-term attempts for resuscitation but if not to have a meaningful recovery then to cease efforts. Initial blood work shows CBC of white blood cell count of 5.2, hemoglobin 7.7, hematocrit 24.4, platelets 107, sodium 140, potassium 4.0, chloride 107, bicarb 31, BUN 19, creatinine 1.03, troponin negative, UA negative, etiology report shows bilateral pneumonia and patient was started on Unasyn in the emergency room. He will be admitted and treated for his aspiration pneumonia. Past Medical History Past Medical History (Chronic Problems): Chronic Problems (Last Reviewed 03/05/21 @ 10:26 by Lizeth Marquez) Elevated LFTs (Chronic) Esophageal cancer (Chronic) Borderline diabetes (Chronic) Essential hypertension (Chronic) Presence of stent in coronary artery (Chronic ~12/21/13) [facility] w/ PCI/JUANY to mid LAD 09/19/10; PCI/JUANY mid LAD 12/21/13 Nicotine dependence, cigarettes, uncomplicated (Chronic) Atherosclerotic heart disease of [place] coronary artery without angina pectoris (Chronic) Abnormal myocardial perfusion study (Chronic) skilled nursing use of drug (Chronic) Hyperlipidemia (Chronic) COPD (chronic obstructive pulmonary disease) (Chronic) Medical History: Medical History (Last Reviewed 03/05/21 @ 10:26 by Lizeth Marquez) Essential hypertension (Chronic) I10 Presence of stent in coronary artery (Chronic) Onset Date: ~12/21/13 Z95.5 [facility] w/ PCI/JUANY to mid LAD 09/19/10; PCI/JUANY mid LAD 12/21/13 Nicotine dependence, cigarettes, uncomplicated (Chronic) F17.210 Atherosclerotic heart disease of [place] coronary artery without angina pectoris (Chronic) I25.10 Abnormal myocardial perfusion study (Chronic) 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) Z79.899 Hyperlipidemia (Chronic) E78.5 COPD (chronic obstructive pulmonary disease) (Chronic) J44.9 BPH (benign prostatic hyperplasia) History of rheumatic fever Z86.79 Tobacco use Z72.0 History of left heart catheterization (LHC) Onset Date: ~08/15/20 Z98.890 LEFT MAIN: Mild calcification, Angiographically normal; LEFT ANTERIOR DESCENDING ARTERY:OSTIAL LAD: Mild calcification, PROX LAD: Mild luminal irregularities, MID LAD: Previously placed stent is patent with mild luminal irregularities, DISTAL LAD: / apical: 85 % Stenosis; DIAGONAL 1: Proximal - small caliber vessel: diffuse: 85 % Stenosis; CIRCUMFLEX ARTERY: Mild luminal irregularities, RAMUS: Mild luminal irregularities, RIGHT CORONARY ARTERY: Angiographically normal; AORTIC ROOT:Angiographically normal per cath 08/15/20 Coronary artery disease (Inactive) I25.10 Allergies No Known Allergies Allergy (Verified 03/05/21 23:47) Home Medications: Ambulatory Orders Medication Instructions Recorded Aspirin E.C. [Ecotrin] 81 mg PO DAILY 09/02/18 Metformin HCl [Metformin ER 500 mg PO BID 01/17/20 Gastric] nitroglycerin 0.4 mg sublingual 0.4 mg SL Q5-15M PRN #25 tablet 08/17/20 tablet pravastatin 80 mg tablet 80 mg PO QHS #90 tablet 01/10/21 Albuterol Inhaler [Ventolin Hfa] 2 puff INHALATION Q4H PRN PRN 02/26/21 Alprazolam [Xanax] 0.5 mg PO Q8 PRN 02/26/21 Nutritional Supplement [Nutren 1.5] 52 ml PO CONT 02/26/21 Pantoprazole Sodium [Protonix] 40 mg PO BID 02/26/21 Polyethylene Glycol 3350 [Miralax] 17 gm PO DAILY PRN 02/26/21 Promethazine HCl 25 mg PO Q6H PRN PRN 02/26/21 Tamsulosin HCl [Flomax] 0.4 mg PO DAILY 02/26/21 morphine solution (IR) [Roxanol 30 mg PO Q4H PRN PRN 02/28/21 (IR oral solution)] Amox/Clavulanate Tablet [Augmentin 500 mg PO Q12H #14 tab 03/03/21 Tablet] Surgical History: Surgical History (Last Reviewed 03/05/21 @ 10:26 by Lizeth Marquez) Presence of coronary angioplasty implant and graft Onset Date: ~12/21/13 Z95.5 [facility] w/ PCI/JUANY to mid LAD 09/19/10; PCI/JUANY mid LAD 12/21/13 S/P PTCA (percutaneous transluminal coronary angioplasty) Z98.61 [facility] w/ PCI/JUANY to mid LAD 09/19/10; PCI/JUANY mid LAD 12/21/13 S/P drug eluting coronary stent placement (Inactive) Z95.5 Surgical History: angioplasty, - - PCI, tonsillectomy, Transurethral ablation w/ history of BPH, J-tube placement. Psychiatric History: No pertinent psych hx Lives: With Family Smoking Status: Former smoker - *Family History Maternal Family History: Family History (Last Reviewed 03/05/21 @ 10:26 by Lizeth Marquez) Father Myocardial infarction CVA (cerebral vascular accident) Brother Diabetes History Items: Heart Disease Paternal Family History: Family History (Last Reviewed 03/05/21 @ 10:26 by Lizeth Marquez) Father Myocardial infarction CVA (cerebral vascular accident) Brother Diabetes History Items: High Cholesterol, Heart Disease, Hypertension, Stroke Review of Systems Constitutional: Reports: Weakness. Denies: Chills, Fever, Weight Change HEENT: Reports: Difficulty Swallowing, Dysphasia, Sore Throat. Denies: Head Aches, Sinus Congestion, Sinus Drainage Cardiovascular: Denies: Chest Pain, Palpitations Respiratory: Denies: Cough, Shortness of breath at rest, Sputum production Gastrointestinal: Denies: Abdominal Pain, Nausea, Vomiting Genitourinary: Denies: Dysuria Musculoskeletal: Denies: Joint Pain, Joint Tenderness Skin: Denies: Rash, Wounds Neurological: Denies: Numbness, Tingling, Focal weakness Psychiatric: Denies: Anxiety, Depression, Homicidal Ideations, Suicidal Ideatio ns Hematologic/ Lymphatic: Denies: Easy Bruising, Easy Bleeding VTE Information - Inpt Only VTE Present on Admission: No VTE Mechan Device Prophylaxis: None VTE Pharm Prophylaxis ordered?: Yes Patient Problems: Active and Suspected Problems (Last Reviewed 03/05/21 @ 10:26 by Lizeth Marquez) Aspiration pneumonia (Acute) Acute esophageal obstruction (Acute) - Physical Exam Vitals/I&O's: Vital Signs Temp Pulse Resp BP Pulse Ox 97.9 F 101 H 30 H 108/71 95 03/05/21 23:42 03/05/21 23:42 03/05/21 23:42 03/05/21 23:42 03/05/21 23:42 Oxygen Flow Rate (L/min) 4 Oxygen Delivery Method Nasal Cannula Weight: 221 lb 1.978 oz Body Mass Index (BMI) 30.8 General: Alert, Oriented x3, Cooperative HEENT: Atraumatic, Normocephalic Neck: Supple, No JVD Lungs: Clear to auscultation, Diminished Cardiovascular: Regular rate, Normal S1, Normal S2, No murmurs Abdomen: Bowel Sounds Present, Soft, Non Tender Extremities: No edema Skin: No rashes Musculoskeletal: No Tenderness to Palpation of Joints or Extremities Neurological: Neuro grossly intact Psych/Mental Status: Normal Affect, Appropriate Laboratory Results 03/05/21 23:43: Sodium 140, Potassium 4.0, Chloride 107, Carbon Dioxide 31.0, Anion Gap 2 L, BUN 19 H, Creatinine 1.03, Estim Creat Clear Calc 68.03, Est GFR (MDRD) Af Amer 91, Est GFR (MDRD) Non-Af 75, BUN/Creatinine Ratio 18.4, Glucose 249 H, Calcium 8.7, Troponin I < 0.015 03/05/21 23:43: WBC 5.2, RBC 2.33 L, Hgb 7.7 L, Hct 24.4 L, MCV 104.7 H, MCH 33.0 H, MCHC 31.6 L, RDW Std Deviation 75.9 H, RDW Coeff of Rachel 19.8 H, Plt Count 109 L, MPV 10.9, Immature Gran % (Auto) 4.100 H, Neut % (Auto) 66.2, Lymph % (Auto) 12.8 L, [place] % (Auto) 16.5 H, Eos % (Auto) 0.2, Baso % (Auto) 0.2, A bsolute Neuts (auto) 3.4, Absolute Lymphs (auto) 0.66 L, Nucleated RBC % 0.4 03/06/21 01:40: Urine Color Yellow, Urine Clarity Clear, Urine pH 6.0, Ur Specific [place] 1.010, Urine Protein 30 H, Urine Glucose (UA) 250 H, Urine Ketones Negative, Urine Occult Blood Negative, Urine Nitrite Negative, Urine Bilirubin Negative, Urine Urobilinogen Normal, Ur Leukocyte Esterase Negative, Urine RBC 0-5 SEEN, Urine WBC 0-5 SEEN, Ur Squamous Epith Cells 0-5 SEEN, Urine Bacteria RARE, Urine Mucus 0 SEEN 03/06/21 02:25: Lactic Acid Pending 03/06/21 02:25: Blood Type Pending, Antibody Screen Pending Current Medications Sodium Chloride () 1,000 mls @ 100 mls/hr IV .Q10H SEBASTIAN Last Admin: 03/06/21 00:35 Dose: 100 mls/hr Documented by: Ampicillin Sodium/Sulbactam (Sodium 3 gm/ Sodium Chloride) 112 mls @ 150 mls/hr IV X1 ONE Stop: 03/06/21 02:59 Assessment/Plan All Active Problems (Last Reviewed 03/05/21 @ 10:26 by Lizeth Marquez) Pancytopenia with fever (Acute) Aspiration pneumonia (Acute) Acute esophageal obstruction (Acute) Chronic Problems (Last Reviewed 03/05/21 @ 10:26 by Lizeth Marquez) Elevated LFTs (Chronic) Esophageal cancer (Chronic) Borderline diabetes (Chronic) Essential hypertension (Chronic) Presence of stent in coronary artery (Chronic ~12/21/13) [facility] w/ PCI/JUANY to mid LAD 09/19/10; PCI/JUANY mid LAD 12/21/13 Nicotine dependence, cigarettes, uncomplicated (Chronic) Atherosclerotic heart disease of [place] coronary artery without angina pectoris (Chronic) Abnormal myocardial perfusion study (Chronic) skilled nursing use of drug (Chronic) Hyperlipidemia (Chronic) COPD (chronic obstructive pulmonary disease) (Chronic) Plan 1. Esophageal cancer stage III with obstruction of the esophagus?admit patient to progressive care unit, continue n.p.o. status, IV fluids normal saline 125 cc/h, BMP in the morning. Consider restarting tube feedings in the morning and ramping up to previously recorded rate. 2. Aspiration pneumonia?continue Unasyn IV, DuoNeb INH every 4 hours as needed, Solu-Medrol 40 mg IV every 8 hours., Repeat CBC in the morning 3. Hypertension?hydralazine 20 mg IV every 6 hours as needed hypertension BP greater than 160/100 4. Hyperlipidemia?holding statin medications at this time due to n.p.o. status 5. COPD?continue same treatment as above for pneumonia. 6. DVT prophylaxis?low molecular weight heparin CODE STATUS will be Do not intubate and only resuscitate if meaningful recovery possible after discussion with patient- he may need to have more time to clarify his wishes going forward as it seemed to be the first time this had been directly discussed with him Inpatient E&M: 05624 Init Hosp L3
[2021-03-06] MEDS: 0.9% Normal Saline 1,000 ML 125 ML IV (04:21)
[2021-03-06] MEDS: Jevity 1.5 1,000 ML 52 ML GT (06:18)
[2021-03-06 06:21] LABS: Absolute Lymphocyte Count 0.45 X10^3/uL (0.83-4.51); Absolute Neutrophil Count 3.1 X10^3/uL (2.0-7.7); Basophil# 0.02 X10^3/uL; Basophil% 0.4 % (0-1); Eosinophil# 0.01 X10^3/uL; Eosinophils% 0.2 % (0-5); Hematocrit 24.3 % (40-54); Hemoglobin 7.5 g/dL (13.0-16.5); Lymphocyte # 0.45 X10^3/ul (4.0); Lymphocyte % 9.9 % (19-41); Mean Corp Hgb Conc 30.9 g/dL (32-36); Mean Platelet Vol. 10.2 fl (6.2-12.0); Monocyte# 0.73 X10^3/uL; Monocyte% 16.1 % (0-10); NRBC Flagged by Analyzer 0 % (0-5); Neutrophil # 3.13 X10^3/uL (2.7-7.7); Neutrophil % 69.2 % (47-70); POSITIVE DIFFERENTIAL YES; POSITIVE MORPHOLOGY YES; Platelet Count 106 K/mm3 (150-450); RBC Distribution Width CV 19.7 % (11.6-14.6); RBC Distribution Width SD 75.9 fl (35.1-43.9); Red Blood Count 2.27 M/mm3 (4.6-6.2); White Blood Count 4.5 K/mm3 (4.4-11.0)
[2021-03-06 06:29] LABS: Differential Indicated SCAN CRITERIA MET
[2021-03-06 06:32] LABS: Reflex Lactate? Y
[2021-03-06 06:42] LABS: Anion Gap 1 (5-15); BUN 18 mg/dL (7-18); BUN/Creat Ratio 19.3 RATIO (10-20); Calcium,Total 8.8 mg/dL (8.5-10.1); Chloride 108 mmol/L (98-107); Creatinine, Serum 0.93 mg/dL (0.70-1.30); EST Glomerular Filtration Rate 84 mL/min (>60); Est Glom Filt Rate - Afr Amer 102 mL/min (>60); Estimated Creatinine Clearance 75.34 ml/min; Glucose 227 mg/dL (74-106); Potassium 3.8 mmol/L (3.5-5.1); Sodium Level 142 mmol/L (136-145)
[2021-03-06 07:23] LABS: Lactic Acid 1.6 mmol/L (0.4-1.9)
[2021-03-06] MEDS: Enoxaparin 40 MG/0.4 ML Syringe SC (10:37)
--- NOTE | 2021-03-06 10:48 | PCM.NTREPORT ---
Nutrition Therapy Report - History Nutrition Services has been consulted to:: Manage enteral nutrition Current diet / nutrition support order:: NPO. Jevity 1.5 via j-tube ordered by hospitalist at goal rate of 52mL/hour w/60mL flush every 8 hours (provides 1872 calories, 80 g protein, and 1128mL fluid/day) - Anthropometric Measurements Height:: 5 ft 11 in Weight:: 97 kg Body Mass Index (BMI):: 29.8 - Relevant Labs Relevant Labs:: RBC 2.27 M/mm3 (4.6-6.2) L 03/06/21 06:12 Hgb 7.5 g/dL (13.0-16.5) L 03/06/21 06:12 Hct 24.3 % (40-54) L 03/06/21 06:12 MCV 107.0 fL (80-94) H 03/06/21 06:12 MCH 33.0 pg (27.0-32.0) H 03/06/21 06:12 MCHC 30.9 g/dL (32-36) L 03/06/21 06:12 RDW Std Deviation 75.9 fl (35.1-43.9) H 03/06/21 06:12 RDW Coeff of Rachel 19.7 % (11.6-14.6) H 03/06/21 06:12 Plt Count 106 K/mm3 (150-450) L 03/06/21 06:12 Immature Gran % (Auto) 4.200 % (0.0-0.9) H 03/06/21 06:12 Lymph % (Auto) 9.9 % (19-41) L 03/06/21 06:12 [place] % (Auto) 16.1 % (0-10) H 03/06/21 06:12 Absolute Lymphs (auto) 0.45 X10^3/uL (0.83-4.51) L 03/06/21 06:12 Chloride 108 mmol/L (98-107) H 03/06/21 06:12 Carbon Dioxide 33.0 mmol/L (21.0-32.0) H 03/06/21 06:12 Anion Gap 1 (5-15) L 03/06/21 06:12 BUN 19 mg/dL (7-18) H 03/05/21 23:43 Glucose 227 mg/dL (74-106) H 03/06/21 06:12 - Assessment Food / Nutrition-Related History:: Familiar to this RDN from recent, previous admission. Has j-tube for nutrition support. Seen recently at [facility] by [employer]OR, who recommended regular/thin for comfort/pleasure, small bites/sips, seated upright during and for 30 to 60 minutes after intake, frequent oral hygiene, J-tube as primary source of nutrition/hydration/medication per 03/01/21 evaluation. Pt states he was doing OK w/ PO intake at home until yesterday- presented w/ food stuck in throat. At home- Nutren 1.5 via j-tube at 52mL/hour continuously w/ 150mL H2O flush 4x/day to provide 1872 calories, 84 g protein, 1553mL fluid per 24 hours. Wt was 240# in July 2020. CBW 213.8#-26.2#/11% x 8 months- not significant for malnutrition. Of note, wt was 205.7# on 12/31/20 suggesting recent wt gain. - Nutrition Diagnosis Problem / Etiology / Signs & Symptoms (PES):: inadequate oral intake r/t dysphagia as evidenced by PO intake meeting <25% of nutritional needs, need for j-tube for nutrition support to maintain nutritional status Evidence of Malnutrition Exists:: No - Nutrition Intervention Nutrition Prescription:: 9433-5527 calories (1.3xRMR). 115-145g protein (1.5g/kg). 2100mL fluid/day (1mL/calorie) - Food / Nutrient Delivery Interventions Summary of nutrition intervention:: Will change from Jevity 1.5 to Pivot 1.5 (lower fiber content, more similar to home TF Nutren 1.5). Pt w/ no questions for RDN. Explained to pt to continue strict NPO status at home; all nutrition support via j-tube. Pt is unsure who manages/orders home EN. Home EN (Nutren 1.5 at 52mL/hour) may not meet pt's nutritional needs. Nutrition support ordered as / adjusted to:: continue NPO status w/ all nutrition provided via PEJ- Will change from Jevity 1.5 to Pivot 1.5 (lower fiber content, more similar to home TF Nutren 1.5). Recommend Pivot 1.5 via j-tube at goal rate of 60mL/hour w/ 125mL H2O flush every 3 hours to provide 2160 calories, 135 g protein, and 2080mL fluid/day. Would start 20mL/hour and increase by 20mL every 8 hours as pt tolerates until goal rate achieved. - MNT Monitoring Further MNT monitoring and evaluation required?: Yes MNT Follow-up in:: 1-2 days
--- NOTE | 2021-03-06 11:41 | CON.PCM_ITS ---
Problem List (1) Esophageal cancer Status: Chronic Qualifiers: (2) Acute esophageal obstruction Status: Acute (3) Anemia Status: Acute Qualifiers: Anemia type: unspecified type Qualified Code(s): D64.9 - Anemia, unspecified (4) Borderline diabetes Status: Chronic (5) Essential hypertension Status: Chronic (6) Presence of stent in coronary artery Status: Chronic Comment: [facility] w/ PCI/JUANY to mid LAD 09/19/10; PCI/JUANY mid LAD 12/21/13 (7) Nicotine dependence, cigarettes, uncomplicated Status: Chronic (8) Atherosclerotic heart disease of [place] coronary artery without angina pectoris Status: Chronic Qualifiers: (9) Hyperlipidemia Status: Chronic Qualifiers: (10) COPD (chronic obstructive pulmonary disease) Status: Chronic Qualifiers: History of Present Illness Date of Consult: 03/06/21 Reason for Consult: esophageal cancer, dysphagia, sob Requesting physician: [] Primary care physician: Dr. Keo Contreras, DO - History of Present Illness The patient is a 75 year old M with PMH as below, presented to the ED 03/05/2020 late in the evening with complaints of concern for aspiration and not being able to get any oral intake down without refluxing back up. He does have a J-tube where he gets most of his nutrition through. Patient was just in the hospital 02/28 through 03/03/2021 with fever and exertional dyspnea. Primary diagnosis was pancytopenia with fever. It was unclear etiology of sepsis but likely from possible pneumonia or jejunitis. At that time, blood cultures, rapid Covid, and C. difficile panel were all negative. Patient does have chronic hypoxic respiratory failure secondary to COPD/pulmonary fibrosis, he was discharged on 2 to 5 L of supplementation. He was to follow-up with oncology upon discharge. Patient has an appointment in [place] for surgical consult related to his possible esophageal obstruction. Patient does have left lower quadrant pain around his G-tube, which apparently has been leaking significant amounts at home. Abdominal pelvis CT 02/28 showed stable interstitial fibrosis of the lung bases, diffuse circumferential wall thickening at the gastroesophageal junction, and percutaneous jejunostomy tube. There was no sign of bowel obstruction on KUB 03/01. This admit, patient is being treated with empiric antibiotics, unclear if he actually has aspiration pneumonia, possibly just chronic infiltrates and fibrosis. The plan is to discharge him home later this afternoon, especially since has [facility] surgical consult tomorrow. Patient follows with Dr. Coyne, oncologist. He has a living will and healthcare power of regulatory attorney, which is his daughter Suzanna's label. He lives alone in a mobile home with 2 steps and a railing to enter, independent with all ADLs. He does have some DME in the home, including a raised toilet, cane, walker, shower chair, and oxygen at 5 L/min through [employer] with portability tank. He is active with [facility] for assisted. His preferred pharmacy is [facility]. Patient denies any current pain or shortness of breath. He is wearing oxygen and appears comfortable lying in his bed. Palliative services were explained in great detail, explained also the difference between hospice and palliative as many patients associate palliative with hospice. He was able to verbalize understanding. Discussed his comorbid conditions and potential for malnutrition given his esophageal obstruction. Encouraged him to call [facility] palliative if he has any further questions or concerns, or if he would like more information we can send out a liaison to discuss with him and his family. Patient Problems: Chronic Problems (Last Reviewed 03/05/21 @ 10:26 by Lizeth Marquez) Elevated LFTs (Chronic) Esophageal cancer (Chronic) Borderline diabetes (Chronic) Essential hypertension (Chronic) Presence of stent in coronary artery (Chronic ~12/21/13) [facility] w/ PCI/JUANY to mid LAD 09/19/10; PCI/JUANY mid LAD 12/21/13 Nicotine dependence, cigarettes, uncomplicated (Chronic) Atherosclerotic heart disease of [place] coronary artery without angina pectoris (Chronic) Abnormal myocardial perfusion study (Chronic) penitentiary use of drug (Chronic) Hyperlipidemia (Chronic) COPD (chronic obstructive pulmonary disease) (Chronic) Surgical History: angioplasty, - - PCI, tonsillectomy, Transurethral ablation w/ history of BPH, J-tube placement. Psychiatric History: No pertinent psych hx Home Medications: Ambulatory Orders Medication Instructions Recorded Aspirin E.C. [Ecotrin] 81 mg PO DAILY 09/02/18 Metformin HCl [Metformin ER 500 mg PO BID 01/17/20 Gastric] nitroglycerin 0.4 mg sublingual 0.4 mg SL Q5-15M PRN #25 tablet 08/17/20 tablet pravastatin 80 mg tablet 80 mg PO QHS #90 tablet 01/10/21 Albuterol Inhaler [Ventolin Hfa] 2 puff INHALATION Q4H PRN PRN 02/26/21 Alprazolam [Xanax] 0.5 mg PO Q8 PRN 02/26/21 Nutritional Supplement [Nutren 1.5] 52 ml PO CONT 02/26/21 Pantoprazole Sodium [Protonix] 40 mg PO BID 02/26/21 Polyethylene Glycol 3350 [Miralax] 17 gm PO DAILY PRN 02/26/21 Promethazine HCl 25 mg PO Q6H PRN PRN 02/26/21 Tamsulosin HCl [Flomax] 0.4 mg PO DAILY 02/26/21 morphine solution (IR) [Roxanol 30 mg PO Q4H PRN PRN 02/28/21 (IR oral solution)] Amox/Clavulanate Tablet [Augmentin 500 mg PO Q12H #14 tab 03/03/21 Tablet] Allergies No Known Allergies Allergy (Verified 03/05/21 23:47) Maternal Family History: Family History (Last Reviewed 03/05/21 @ 10:26 by Lizeth Marquez) Father Myocardial infarction CVA (cerebral vascular accident) Brother Diabetes History Items: Heart Disease Paternal Family History: Family History (Last Reviewed 03/05/21 @ 10:26 by Lizeth Marquez) Father Myocardial infarction CVA (cerebral vascular accident) Brother Diabetes History Items: High Cholesterol, Heart Disease, Hypertension, Stroke - Social History Lives: With Family Smoking Status: Former smoker Review of Systems Constitutional: Reports: Weakness, Fatigue. Denies: Chills, Fever, Weight Change Eyes: Denies: Vision Change HEENT: Reports: Difficulty Swallowing, Sore Throat. Denies: Head Aches, Sinus Congestion, Sinus Drainage Cardiovascular: Reports: Chest Tightness. Denies: Chest Pain, Orthopnea, Palpitations Respiratory: Reports: Shortness of breath upon exertion. Denies: Cough, Hemoptysis, Shortness of breath at rest, Sputum production, Wheezing Gastrointestinal: Reports: Vomiting - With oral intake. Denies: Abdominal Pain, Constipation, Diarrhea, Nausea Genitourinary: Denies: Dysuria Musculoskeletal: Denies: Joint Pain, Joint Tenderness Skin: Denies: Rash, Wounds Neurological: Denies: Numbness, Tingling, Focal weakness Psychiatric: Denies: Anxiety, Depression, Homicidal Ideations, Suicidal Ideations Hematologic/ Lymphatic: Reports: Anemia, Easy Bruising. Denies: Easy Bleeding Physical Exam Subjective: Lying in bed, appears comfortable. Watching TV, no complaints. General: Alert, Oriented x3, Cooperative HEENT: Atraumatic, Normocephalic Oral: Moist Mucosa Neck: Supple, Trachea Midline Lungs: Diminished, - - Bibasilar rales Cardiovascular: Regular rate, Regular Rhythm, No murmurs Abdomen: Bowel Sounds Present, Soft, Non Tender, - - J-tube LLQ Extremities: No cyanosis, No edema, Capillary Refill Less than 3 Seconds Skin: No rashes Musculoskeletal: No Tenderness to Palpation of Joints or Extremities Neurological: Neuro grossly intact Psych/Mental Status: Appropriate, Flat Affect Objective: Vital Signs Temp Pulse Resp BP Pulse Ox 97.6 F L 90 18 100/65 96 03/06/21 11:20 03/06/21 11:20 03/06/21 11:20 03/06/21 11:20 03/06/21 11:20 Oxygen Flow Rate (L/min) 3 Oxygen Delivery Method Nasal Cannula Weight: 97 kg Body Mass Index (BMI) 29.8 Intake and Output for Last 24 Hours 03/04/21 03/05/21 03/06/21 23:59 23:59 23:59 Intake Total 811.5 / 811.5 Output Total 0 / 0 Balance 811.5 / 811.5 Laboratory Tests Past 24 Hrs 03/05/21 03/05/21 03/06/21 23:43 23:43 01:40 WBC 5.2 RBC 2.33 L Hgb 7.7 L Hct 24.4 L MCV 104.7 H MCH 33.0 H MCHC 31.6 L RDW Std Deviation 75.9 H RDW Coeff of Rachel 19.8 H Plt Count 109 L MPV 10.9 Immature Gran % (Auto) 4.100 H Neut % (Auto) 66.2 Lymph % (Auto) 12.8 L [place] % (Auto) 16.5 H Eos % (Auto) 0.2 Baso % (Auto) 0.2 Absolute Neuts (auto) 3.4 Absolute Lymphs (auto) 0.66 L Nucleated RBC % 0.4 Sodium 140 Potassium 4.0 Chloride 107 Carbon Dioxide 31.0 Anion Gap 2 L BUN 19 H Creatinine 1.03 Estim Creat Clear Calc 68.03 Est GFR (MDRD) Af Amer 91 Est GFR (MDRD) Non-Af 75 BUN/Creatinine Ratio 18.4 Glucose 249 H Lactic Acid Calcium 8.7 Troponin I < 0.015 Urine Color Yellow Urine Clarity Clear Urine pH 6.0 Ur Specific [place] 1.010 Urine Protein 30 H Urine Glucose (UA) 250 H Urine Ketones Negative Urine Occult Blood Negative Urine Nitrite Negative Urine Bilirubin Negative Urine Urobilinogen Normal Ur Leukocyte Esterase Negative Urine RBC 0-5 SEEN Urine WBC 0-5 SEEN Ur Squamous Epith Cells 0-5 SEEN Urine Bacteria RARE Urine Mucus 0 SEEN Blood Type Antibody Screen 03/06/21 03/06/21 03/06/21 02:25 02:25 06:12 WBC 4.5 RBC 2.27 L Hgb 7.5 L Hct 24.3 L MCV 107.0 H MCH 33.0 H MCHC 30.9 L RDW Std Deviation 75.9 H RDW Coeff of Rachel 19.7 H Plt Count 106 L MPV 10.2 Immature Gran % (Auto) 4.200 H Neut % (Auto) 69.2 Lymph % (Auto) 9.9 L [place] % (Auto) 16.1 H Eos % (Auto) 0.2 Baso % (Auto) 0.4 Absolute Neuts (auto) 3.1 Absolute Lymphs (auto) 0.45 L Nucleated RBC % 0 Sodium Potassium Chloride Carbon Dioxide Anion Gap BUN Creatinine Estim Creat Clear Calc Est GFR (MDRD) Af Amer Est GFR (MDRD) Non-Af BUN/Creatinine Ratio Glucose Lactic Acid 2.0 Calcium Troponin I Urine Color Urine Clarity Urine pH Ur Specific [place] Urine Protein Urine Glucose (UA) Urine Ketones Urine Occult Blood Urine Nitrite Urine Bilirubin Urine Urobilinogen Ur Leukocyte Esterase Urine RBC Urine WBC Ur Squamous Epith Cells Urine Bacteria Urine Mucus Blood Type A NEGATIVE Antibody Screen NEGATIVE 03/06/21 03/06/21 06:12 06:50 WBC RBC Hgb Hct MCV MCH MCHC RDW Std Deviation RDW Coeff of Rachel Plt Count MPV Immature Gran % (Auto) Neut % (Auto) Lymph % (Auto) [place] % (Auto) Eos % (Auto) Baso % (Auto) Absolute Neuts (auto) Absolute Lymphs (auto) Nucleated RBC % Sodium 142 Potassium 3.8 Chloride 108 H Carbon Dioxide 33.0 H Anion Gap 1 L BUN 18 Creatinine 0.93 Estim Creat Clear Calc 75.34 Est GFR (MDRD) Af Amer 102 Est GFR (MDRD) Non-Af 84 BUN/Creatinine Ratio 19.3 Glucose 227 H Lactic Acid 1.6 Calcium 8.8 Troponin I Urine Color Urine Clarity Urine pH Ur Specific [place] Urine Protein Urine Glucose (UA) Urine Ketones Urine Occult Blood Urine Nitrite Urine Bilirubin Urine Urobilinogen Ur Leukocyte Esterase Urine RBC Urine WBC Ur Squamous Epith Cells Urine Bacteria Urine Mucus Blood Type Antibody Screen Assessment/Plan All Active Problems (Last Reviewed 03/05/21 @ 10:26 by Lizeth Marquez) Pancytopenia with fever (Acute) Aspiration pneumonia (Acute) Acute esophageal obstruction (Acute) Anemia (Acute) 75-year-old male with stage III esophageal cancer, following with oncology, recent completion of chemotherapy and radiation. Seen today for initial palliative care consultation related to his cancer and possible esophageal obstruction, potential for malnutrition. Patient is in process of work-up for his dysphagia and reflux, has an appointment with F surgery 03/07 in [place]. A lot of things are up in the air right now and he does not want to add another appointment to his schedule. He is somewhat tearful during our visit and is a bit overwhelmed. His J-tube has been malfunctioning and leaking as well, needs to get that evaluated. He had it placed at [facility]. He'll be discharged on antibiotics, but is unlikely he has aspiration pneumonia. He has remained afebrile. His shortness of breath is overall worse than 6 months ago, however he reports it is stable. Thank you for the opportunity to participate in this patient's care, please do not hesitate to contact [facility] Palliative with any further questions or concerns. Palliative direct line is [phone]. Patient given contact info for [facility] and encouraged to call if he has any further questions or concerns. He declines enrollment at this time. Greater than 50% of F2F visit dedicated to education and counseling of palliative care services, medications, comorbid conditions and potential assistance with management, and plan of care moving forward. Start time: 1137 End time: 1211 Total time: 34 minutes
[2021-03-06 12:15] LABS: Bedside Glucose 239 mg/dL (70-110)
--- NOTE | 2021-03-06 13:10 | CASEMGMT ---
Addendum entered by Melany Mercer 03/06/21 15:17: [place] order and H&P faxed to [facility]. Alma SANCHEZ CM Addendum entered by Melany Mercer 03/06/21 13:43: Per therapy, pt has no need for any further therapy at this time. Alma SANCHEZ CM Original Note: Readmission chart review: Pt was initially admitted 02/28-03/03/21 for Fever and was discharge home with resumption of [facility] SN and increased home oxygen of 2L at rest and then his 5L w/ exertion which was his previous order. Pt returned to [facility] ED on 03/05/21 for increased esophageal pain/weakness and was admitted for Esophageal obstruction. Pt does have a hx of pulm fibrosis and chronic infiltrates. Call to [facility] and they did do a resumption of care on 03/05/21 and they are aware of pt readmission at this time. Pt did qualify for palliative referral during prior visit but they were unable to see him before he was discharged. Jeanine, Palliative ASSISTANT ASSOCIATE FULL PROFESSOR, aware of pt readmit and into room to speak with pt. Pt declines palliative. [place] order placed and CM to follow for PT/OT evals. Alma SANCHEZ CM
[2021-03-06] MEDS: Pivot 1.5 Cal 1,000 ML 60 ML GT (13:43)
--- NOTE | 2021-03-06 16:53 | PCM.DC ---
- Discharge Diagnoses Current Active Problems: Current Active and Chronic Problems (Last Reviewed 03/05/21 @ 10:26 by Lizeth Marquez) Aspiration pneumonia (Acute) Acute esophageal obstruction (Acute) Anemia (Acute) Elevated LFTs (Chronic) Esophageal cancer (Chronic) Borderline diabetes (Chronic) Essential hypertension (Chronic) Presence of stent in coronary artery (Chronic ~12/21/13) [facility] w/ PCI/JUANY to mid LAD 09/19/10; PCI/JUANY mid LAD 12/21/13 Nicotine dependence, cigarettes, uncomplicated (Chronic) Atherosclerotic heart disease of [place] coronary artery without angina pectoris (Chronic) Hyperlipidemia (Chronic) COPD (chronic obstructive pulmonary disease) (Chronic) You will use the following diet at home:: Other - only small sips of water orally and certain meds as instructed Your liquids should be the consistency of: Regular/Thin Discharge Activity: Return to Normal Activity Weight Bearing Status: Full weight bearing Additional Instructions: Nothing orally except small sips of water and certain meds as directed Allergies/Adverse Reactions: Allergies No Known Allergies Allergy (Verified 03/05/21 23:47) Medications to take at Discharge nitroglycerin 0.4 mg sublingual tablet 0.4 mg SL Q5-15M PRN #25 tablet 08/17/20 Albuterol Inhaler [Ventolin Hfa] 2 puff INHALATION Q4H PRN PRN 02/26/21 morphine solution (IR) [Roxanol (IR oral solution)] 30 mg PO Q4H PRN PRN 02/28/21 Alprazolam [Xanax] 0.5 mg JT Q8 PRN #0 03/06/21 Amox/Clav 400mg/5ml Suspension [Augmentin Suspension 400mg/5ml] 5 ml JT Q8H #1 bottle 03/06/21 Aspirin [Aspirin, Baby] 81 mg PO DAILY@0800 #1 tab.chew 03/06/21 Lansoprazole 30 mg PO BID #60 tab.rap.dr 03/06/21 Tamsulosin HCl [Flomax] 0.4 mg PO DAILY #0 03/06/21 proMETHazine soln (6.25mg/5mL) [Phenergan oral solution (6.25 mg/5 mL)] 20 ml JT Q6H PRN PRN #480 ml 03/06/21 The following prescriptions were given: Aspirin [Aspirin, Baby] 81 mg PO DAILY@0800 #1 tab.chew Amox/Clav 400mg/5ml Suspension [Augmentin Suspension 400mg/5ml] 5 ml JT Q8H #1 bottle Lansoprazole 30 mg PO BID #60 tab.rap. proMETHazine soln (6.25mg/5mL) [Phenergan oral solution (6.25 mg/5 mL)] 20 ml JT Q6H PRN PRN #480 ml PRN Reason: Nausea Primary Care Physician: Keo Contreras DO [Primary Care Provider] - Test Results: Test results from this visit will be discussed in further detail at your follow-up appointment, if applicable. Please Follow Up With: Your physician in [place] tomorrow
--- NOTE | 2021-03-07 09:24 | CASEMGMT ---
[facility] updated on pt discharge and d/c instructions faxed at this time. Alma SANCHEZ CM
--- NOTE | 2021-03-07 13:01 | CASEMGMT ---
DANIEL SWANSON Discharge F/U Phone Call LACE: 13 Strata: 3 Discharge date: 03/06/21 Pt had planned OP f/u today in [place] for further evaluation of his esophageal mass so this RN CM unable to reach pt at this time. Pt did go home with [facility] for [facility] half-way and they will continue to follow pt. SStshavon SANCHEZ CM
--- NOTE | 2021-03-07 18:35 | PCM.DC.SUM ---
Discharge Date and Diagnosis - Problem List Patient Problems: Active and Suspected Problems (Last Reviewed 03/05/21 @ 10:26 by Lizeth Marquez) Aspiration pneumonia (Acute) Acute esophageal obstruction (Acute) Anemia (Acute) Date of Admission: 03/06/21 Date of Discharge: 03/06/21 - Primary Discharge Diagnosis Acute Problems: Active Problems (Last Reviewed 03/05/21 @ 10:26 by Lizeth Marquez) #1 pharyngoesophageal dysphagia likely secondary to esophageal obstruction, exact etiology unknown, possibly secondary to advanced esophageal cancer #2 pulmonary fibrosis #3 chronic hypoxic respiratory failure #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 w/ PCI/JUANY to mid LAD 09/19/10; PCI/JUANY mid LAD 12/21/13 Nicotine dependence, cigarettes, uncomplicated (Chronic) Atherosclerotic heart disease of [place] coronary artery without angina pectoris (Chronic) Abnormal myocardial perfusion study (Chronic) long-term use of drug (Chronic) Hyperlipidemia (Chronic) COPD (chronic obstructive pulmonary disease) (Chronic) Hospital Course and Treatment Operations: None Procedures: None Summary of Care Provided: The patient is a 75 year old M was seen in the emergency room at [facility] with inability to swallow properly with vomiting after he eats and drinks. Patient was recently hospitalized for severe sepsis unclear etiology. Patient had been discharged from the hospital on 03/03/2021. Work-up in the emergency room included chest x-rays which showed bilateral infiltrates, patient's white blood cell count was normal, patient's hemoglobin was low at 7.7, BUN was 19. Patient was initially thought to have aspiration pneumonia and placed on IV antibiotics, I did not agree with this diagnosis however and I did not think the patient had an active pneumonia. He was seen in consultation by speech therapy who recommended n.p.o. except for ice chips for pleasure after oral hygiene. I talked at length with the patient's daughter who was in his room at the time I discharged the patient. Patient had an appointment to be seen in [facility] on 03/07/2021 for admission and an EGD. On examination he appeared his stated age, he appeared in no distress. Vital signs as documented. Skin warm and dry and without overt rashes. Neck without JVD, neck was supple, trachea midline, thyroid was normal. Lungs clear bilaterally, normal air movement was noted. Heart exam notable for regular rhythm, normal sounds and absence of murmurs, rubs or gallops. Abdomen unremarkable and without evidence of organomegaly, masses, or abdominal aortic enlargement. Bowel sounds are present, abdomen is not distended. A J-tube is present. Extremities nonedematous, no cyanosis was noted, no clubbing was noted. Neuro: Cranial nerves II through XII are grossly intact, no focal motor deficits were noted, sensation to light touch and pinprick intact, motor exam 5/5 throughout. Psych: Patient is alert and oriented x3, he does not appear anxious or depressed, he does not appear agitated. Patient's overall prognosis is poor I feel, I changed up his medications at the time of discharge and recommended that he take only small sips of water with certain medications. Patient appears stable for discharge on 03/06/2021. Patient Problems: Active and Suspected Problems (Last Reviewed 03/05/21 @ 10:26 by Lizeth Marquez) Aspiration pneumonia (Acute) Acute esophageal obstruction (Acute) Anemia (Acute) - Physical Exam Vitals/I&O's: Vital Signs Temp Pulse Resp BP Pulse Ox 97.9 F 94 18 114/60 96 03/06/21 17:00 03/06/21 17:00 03/06/21 17:00 03/06/21 17:00 03/06/21 17:00 Oxygen Flow Rate (L/min) 3 Oxygen Delivery Method Nasal Cannula Weight: 97 kg Body Mass Index (BMI) 29.8 Intake and Output for Last 24 Hours 03/05/21 03/06/21 03/07/21 23:59 23:59 23:59 Intake Total 1829.5 / 1829.5 Output Total 0 / 0 Balance 1829.5 / 1829.5 Discharge Activity: Return to Normal Activity Weight Bearing Status: Full weight bearing Home Medications: Medications to take at Discharge nitroglycerin 0.4 mg sublingual tablet 0.4 mg SL Q5-15M PRN #25 tablet 08/17/20 Albuterol Inhaler [Ventolin Hfa] 2 puff INHALATION Q4H PRN PRN 02/26/21 morphine solution (IR) [Roxanol (IR oral solution)] 30 mg PO Q4H PRN PRN 02/28/21 Alprazolam [Xanax] 0.5 mg JT Q8 PRN #0 03/06/21 Amox/Clav 400mg/5ml Suspension [Augmentin Suspension 400mg/5ml] 5 ml JT Q8H #1 bottle 03/06/21 Aspirin [Aspirin, Baby] 81 mg PO DAILY@0800 #1 tab.chew 03/06/21 Lansoprazole 30 mg PO BID #60 tab. 03/06/21 Tamsulosin HCl [Flomax] 0.4 mg PO DAILY #0 03/06/21 proMETHazine soln (6.25mg/5mL) [Phenergan oral solution (6.25 mg/5 mL)] 20 ml JT Q6H PRN PRN #480 ml 03/06/21 Following Prescriptions Were Given to Patient: Aspirin [Aspirin, Baby] 81 mg PO DAILY@0800 #1 tab.chew Amox/Clav 400mg/5ml Suspension [Augmentin Suspension 400mg/5ml] 5 ml JT Q8H #1 bottle Lansoprazole 30 mg PO BID #60 tab.rap proMETHazine soln (6.25mg/5mL) [Phenergan oral solution (6.25 mg/5 mL)] 20 ml JT Q6H PRN PRN #480 ml PRN Reason: Nausea Primary Care Physician: Keo Contreras DO [Primary Care Provider] - Please Follow Up With: Your physician in [place] tomorrow Disposition: Home Minutes spent on discharge:: 32 Patient Condition:: Stable Medical Necessity - Tobacco Use Smoking Status: Former smoker Meaningful Use Info Meaningful Use Diagnoses (Choose all that apply): None applicable Inpatient E&M: 62837 Disch Hosp
--- NOTE | 2021-03-09 09:15 | CASEMGMT ---
D/C summary faxed to [facility]. Alma SANCHEZ CM
== END 2021-03-06 17:41 | disposition home health service (06) | DRG 392 ==
LOC: ED 03-06 02:18 → PCU 03-06 03:20
PROVIDERS: Admitting Provider Family Medicine; Emergency Provider Emergency Medicine; PCP Preventive Medicine Occupational Medicine; Visit Provider Internal Medicine
DX: K22.2 Esophageal obstruction (principal); C15.9 Malignant neoplasm of esophagus, unspecified; J96.11 Chronic respiratory failure with hypoxia; R13.14 Dysphagia, pharyngoesophageal phase; J84.10 Pulmonary fibrosis, unspecified; D63.8 Anemia in other chronic diseases classified elsewhere; I25.10 Atherosclerotic heart disease of native coronary artery without angina pectoris; J44.9 Chronic obstructive pulmonary disease, unspecified; I10 Essential (primary) hypertension; E78.5 Hyperlipidemia, unspecified; R73.03 Prediabetes; N40.0 Benign prostatic hyperplasia without lower urinary tract symptoms; Z79.84 Long term (current) use of oral hypoglycemic drugs; Z79.82 Long term (current) use of aspirin; Z79.899 Other long term (current) drug therapy; Z92.3 Personal history of irradiation; Z92.21 Personal history of antineoplastic chemotherapy; Z87.891 Personal history of nicotine dependence; Z93.4 Other artificial openings of gastrointestinal tract status; Z95.5 Presence of coronary angioplasty implant and graft
CPT/HCPCS: 36591; 71045; 80048; 81001; 82962; 83605; 84484; 85025; 86038; 86200; 86225; 86235; 86256; 86431; 86850; 86900; 86901; 87040; 92610; 93005; 97162; 97166; 97802; 99285; 99406; J7030; A4216; J0295; J2405